=== PATIENT | male | born 1965 | race American Indian/Alaskan Native ===

== ENCOUNTER → 2018-03-22 09:23 | Outpatient (CLI) | payer MEDICARE, MEDICAID, SELFPAY ==
[2018-03-22 10:39] LABS: ALT 32 U/L (12-78); AST 13 U/L (15-37); Alkaline Phosphatase 134 U/L (46-116); Anion Gap 9.3 mmol/L (3-11); BUN 24 mg/dL (7-18); Bilirubin, Total 0.5 mg/dL (0.2-1.0); CO2 25.7 mmol/L (21.0-32.0); CREATININE 1.15 mg/dL (0.70-1.30); Calcium 8.9 mg/dL (8.5-10.1); Chloride 103 mmol/L (98-107); Glucose 130 mg/dL (70-100); Potassium 4.4 mmol/L (3.5-5.1); Sodium 138 mmol/L (136-145); Total Protein 7.4 g/dL (6.4-8.2)
[2018-03-23 14:20] LABS: HIV-1 RNA Quantification <20 copies/mL (UNDECT)
== END ==
PROVIDERS: PCP Specialist/Technologist Athletic Trainer; Visit Provider Nurse Practitioner Family
DX: B20 Human immunodeficiency virus [HIV] disease (principal); Z79.899 Other long term (current) drug therapy
CPT/HCPCS: 36415; 80053; 87536

== ENCOUNTER → 2018-04-03 09:00 | Outpatient (CLI) | payer MEDICARE, MEDICAID, SELFPAY ==
--- NOTE | 2018-05-01 09:00 | W.CCNOTE ---
Date of service: 05/01/18 Time of Service: 09:00 Comprehensive Care Clinic Note Note: [facility] [id number] [place] [address] [facility] Follow Up Visit Name: Bill Solorzano Date of : 1965 Date of Service: 05/01/2018 SUBJECTIVE: ?The medication gives me gas but otherwise I feel good? Switched HAART to Biktarvy after last seen by Dr. Rodarte in January and has not missed any doses. He is taking the other medications as prescribed and not having any ASEs. He saw Dr. Chris last week for routine F/U of the laryngeal dysplasia and all looks stable. 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 This survey showed no evidence of change with no Leukoplakia or lesions. He had blood work done fasting in March as it had been 6 weeks since the switch to the Biktarvy. No blood work was due for today?s visit. 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 This summer has been very busy with 15 festivals on the [facility]. 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 ROS: Denies unusual fatigue, thinks he has gained a little weight, Sleep is fine, No headaches with the medications that Neuro RXs. Denies chest pain, unusual cough or dyspnea. No GERD and bowels are fine just C/O daily flatulence not dependent on food choices. Denies, urinary symptoms. Has ongoing shoulder pain and limited ROM of the left shoulder. Is seeing ortho, Dr. Almeida, in a few weeks and is sure he will need surgery ? ?what one will need to be done first is to be determined.? Has arthritis and rotator cuff issues in both. Denies swelling. His blood sygars are 110 ? 120 in the AM fasting. His last Hgb A1C was 6.2 in January. His Lipids were high then w a LDL of 147 and it is hoped that with the switch to Bictarvy this will come down. He will be due for repeat Lipids about 6 month from the start of the new Antiretroviral RX. Past Medical History: HIV+ since early . Chronic Active HBV with control on new formula Tenofovir Alefenomide (TAF). DM x 2 yrs w good diet control. Glaucoma, HLP, Laryngeal dysplasia. Social History: Very active with [employer] activities. Lives alone and has one dog; will be getting a puppy today. Feels he cannot count on family to help him after shoulder surgery. Health Insurance: Medicare and Medicaid. Other Psychosocial Considerations: None at this time. Bill Jeanine, 1965 page. 2. Family History: early onset cardiovascular disease in Father and Brother. His mOther dies of COPD. Allergies: Sulfa and Seafood causes anaphylaxis, Amoxicillin and Azithromycin causes rash. Medications: Biktarvy (biktegravir/emtricitabine/tenofovir alafenamide) 1 a day, Omeprazole 20 mg a day, Gabapentin 300mg q HS, venlafaxine XR 150mg a day, Xalatan 0.0005% ophthalmic solution 1 drop each eye daily. Immunization History: UTD with Pneumovax, prevnar, HAV, - will need Flu vaccine and Menactra and Shingrix. He remains a x smoker and no ETOH or drugs. OBJECTIVE Temp: 98.2 Pulse: 72 Resp: 14 BP: 104/68. General: AAOx4, AINAD Skin: W/D coolr color and no lesions/rash Eyes: non icteric Oral: NE ? (just saw ENT) Cardiac: RRR, No MCRG Chest/Lungs: Full, equal expansion, BS clear in all lobes Abdomen: Obese, NABS, ND, NT, No OGM Extremities: No edema Musculoskeletal: Left shoulder with limited ROM to 45 degrees. Tender in the anterior rotator cuff. Had FROM of the left with clicking and tender throughout. No other muscle or joint tenderness. Neuro: Gait strong and steady, moves in and out of the chair w ease. No tremor. Psych: speech clear, coherent, eye contact excellent, mood and affect normal, memory and judgment intact. Thought content normal. ASSESSMENT/PLAN: Stable HIV w easy transition to new Antiretroviral RX with the TAF also controlling the viral load of the chronic active HBV infection. Other chronic conditions seem to be stable and there seems to be no interaction with his other medications. He is to continue the Biktarvy as he is taking it and have blood work repeated fasting in about 3 months with Lipids. MD visit scheduled: Jul or Aug. Lab Work: In mid Jul Provider of Care: Rupinder Bell NP
--- NOTE | 2018-05-15 09:07 | W.CCNOTE ---
Date of service: 05/01/18 Time of Service: 09:00 [facility] Note Note: [facility] [address] [place] [address] Follow Up Visit Name: Bill Solorzano Date of : 1965 Date of Service: 05/01/2018 SUBJECTIVE: ?The medication gives me gas but otherwise I feel good? Switched HAART to Biktarvy after last seen by Dr. Rodarte in January and has not missed any doses. He is taking the other medications as prescribed and not having any ASEs. He saw Dr. Chris last week for routine F/U of the laryngeal dysplasia and all looks stable. 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 This survey showed no evidence of change with no Leukoplakia or lesions. He had blood work done fasting in March as it had been 6 weeks since the switch to the Biktarvy. No blood work was due for today?s visit. 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 This summer has been very busy with 15 festivals on the [facility]. 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 ROS: Denies unusual fatigue, thinks he has gained a little weight, Sleep is fine, No headaches with the medications that Neuro RXs. Denies chest pain, unusual cough or dyspnea. No GERD and bowels are fine just C/O daily flatulence not dependent on food choices. Denies, urinary symptoms. Has ongoing shoulder pain and limited ROM of the left shoulder. Is seeing ortho, Dr. Almeida, in a few weeks and is sure he will need surgery ? ?what one will need to be done first is to be determined.? Has arthritis and rotator cuff issues in both. Denies swelling. His blood sygars are 110 ? 120 in the AM fasting. His last Hgb A1C was 6.2 in January. His Lipids were high then w a LDL of 147 and it is hoped that with the switch to Bictarvy this will come down. He will be due for repeat Lipids about 6 month from the start of the new Antiretroviral RX. Past Medical History: HIV+ since early . Chronic Active HBV with control on new formula Tenofovir Alefenomide (TAF). DM x 2 yrs w good diet control. Glaucoma, HLP, Laryngeal dysplasia. Social History: Very active with is [employer] activities. Lives alone and has one dog; will be getting a puppy today. Feels he cannot count on family to help him after shoulder surgery. Health Insurance: Medicare and Medicaid. Other Psychosocial Considerations: None at this time. Bill Brandtiliana, 1965 page. 2. Family History: early onset cardiovascular disease in Father and Brother. His mOther dies of COPD. Allergies: Sulfa and Seafood causes anaphylaxis, Amoxicillin and Azithromycin causes rash. Medications: Biktarvy (biktegravir/emtricitabine/tenofovir alafenamide) 1 a day, Omeprazole 20 mg a day, Gabapentin 300mg q HS, venlafaxine XR 150mg a day, Xalatan 0.0005% ophthalmic solution 1 drop each eye daily. Immunization History: UTD with Pneumovax, Prevnar, HAV, - will need Flu vaccine and Menactra and Shingrix. He remains a x smoker and no ETOH or drugs. OBJECTIVE Temp: 98.2 Pulse: 72 Resp: 14 BP: 104/68. General: AAOx4, AINAD Skin: W/D coolr color and no lesions/rash Eyes: non icteric Oral: NE ? (just saw ENT) Cardiac: RRR, No MCRG Chest/Lungs: Full, equal expansion, BS clear in all lobes Abdomen: Obese, NABS, ND, NT, No OGM Extremities: No edema Musculoskeletal: Left shoulder with limited ROM to 45 degrees. Tender in the anterior rotator cuff. Had FROM of the left with clicking and tender throughout. No other muscle or joint tenderness. Neuro: Gait strong and steady, moves in and out of the chair w ease. No tremor. Psych: speech clear, coherent, eye contact excellent, mood and affect normal, memory and judgment intact. Thought content normal. ASSESSMENT/PLAN: Stable HIV w easy transition to new Antiretroviral RX with the TAF also controlling the viral load of the chronic active HBV infection. Other chronic conditions seem to be stable and there seems to be no interaction with his other medications. He is to continue the Biktarvy as he is taking it and have blood work repeated fasting in about 3 months with Lipids. MD visit scheduled: Jul or Aug. Lab Work: In mid Jul Provider of Care: Rupinder Bell NP Signature: Date: [facility] [address] [place] [address] [facility] Follow Up Visit Name: Bill Solorzano Date of : 1965 Date of Service: 05/01/2018 SUBJECTIVE: ?The medication gives me gas but otherwise I feel good? Switched HAART to Biktarvy after last seen by Dr. Rodarte in January and has not missed any doses. He is taking the other medications as prescribed and not having any ASEs. He saw Dr. Chris last week for routine F/U of the laryngeal dysplasia and all looks stable. 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 This survey showed no evidence of change with no Leukoplakia or lesions. He had blood work done fasting in March as it had been 6 weeks since the switch to the Biktarvy. No blood work was due for today?s visit. 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 This summer has been very busy with 15 festivals on the [facility]. 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 ROS: Denies unusual fatigue, thinks he has gained a little weight, Sleep is fine, No headaches with the medications that Neuro RXs. Denies chest pain, unusual cough or dyspnea. No GERD and bowels are fine just C/O daily flatulence not dependent on food choices. Denies, urinary symptoms. Has ongoing shoulder pain and limited ROM of the left shoulder. Is seeing ortho, Dr. Almeida, in a few weeks and is sure he will need surgery ? ?what one will need to be done first is to be determined.? Has arthritis and rotator cuff issues in both. Denies swelling. His blood sygars are 110 ? 120 in the AM fasting. His last Hgb A1C was 6.2 in January. His Lipids were high then w a LDL of 147 and it is hoped that with the switch to Bictarvy this will come down. He will be due for repeat Lipids about 6 month from the start of the new Antiretroviral RX. Past Medical History: HIV+ since early . Chronic Active HBV with control on new formula Tenofovir Alefenomide (TAF). DM x 2 yrs w good diet control. Glaucoma, HLP, Laryngeal dysplasia. Social History: Very active with [employer] activities. Lives alone and has one dog; will be getting a puppy today. Feels he cannot count on family to help him after shoulder surgery. Health Insurance: Medicare and Medicaid. Other Psychosocial Considerations: None at this time. Bill Solorzano, 1965 page. 2. Family History: early onset cardiovascular disease in Father and Brother. His mOther dies of COPD. Allergies: Sulfa and Seafood causes anaphylaxis, Amoxicillin and Azithromycin causes rash. Medications: Biktarvy (biktegravir/emtricitabine/tenofovir alafenamide) 1 a day, Omeprazole 20 mg a day, Gabapentin 300mg q HS, venlafaxine XR 150mg a day, Xalatan 0.0005% ophthalmic solution 1 drop each eye daily. Immunization History: UTD with Pneumovax, prevnar, HAV, - will need Flu vaccine and Menactra and Shingrix. He remains a x smoker and no ETOH or drugs. OBJECTIVE Temp: 98.2 Pulse: 72 Resp: 14 BP: 104/68. General: AAOx4, AINAD Skin: W/D coolr color and no lesions/rash Eyes: non icteric Oral: NE ? (just saw ENT) Cardiac: RRR, No MCRG Chest/Lungs: Full, equal expansion, BS clear in all lobes Abdomen: Obese, NABS, ND, NT, No OGM Extremities: No edema Musculoskeletal: Left shoulder with limited ROM to 45 degrees. Tender in the anterior rotator cuff. Had FROM of the left with clicking and tender throughout. No other muscle or joint tenderness. Neuro: Gait strong and steady, moves in and out of the chair w ease. No tremor. Psych: speech clear, coherent, eye contact excellent, mood and affect normal, memory and judgment intact. Thought content normal. ASSESSMENT/PLAN: Stable HIV w easy transition to new Antiretroviral RX with the TAF also controlling the viral load of the chronic active HBV infection. Other chronic conditions seem to be stable and there seems to be no interaction with his other medications. He is to continue the Biktarvy as he is taking it and have blood work repeated fasting in about 3 months with Lipids. MD visit scheduled: Jul or Aug. Lab Work: In mid Jul Provider of Care: Rupinder Bell NP Signature: Date: [facility] [address] [facility] [place] [id number] [facility] Follow Up Visit Name: Bill Solorzano Date of : 1965 Date of Service: 05/01/2018 SUBJECTIVE: ?The medication gives me gas but otherwise I feel good? Switched HAART to Biktarvy after last seen by Dr. Rodarte in January and has not missed any doses. He is taking the other medications as prescribed and not having any ASEs. He saw Dr. Chris last week for routine F/U of the laryngeal dysplasia and all looks stable. 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 This survey showed no evidence of change with no Leukoplakia or lesions. He had blood work done fasting in March as it had been 6 weeks since the switch to the Biktarvy. No blood work was due for today?s visit. 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 This summer has been very busy [place] [address] [place] [facility]. 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 ROS: Denies unusual fatigue, thinks he has gained a little weight, Sleep is fine, No headaches with the medications that Neuro RXs. Denies chest pain, unusual cough or dyspnea. No GERD and bowels are fine just C/O daily flatulence not dependent on food choices. Denies, urinary symptoms. Has ongoing shoulder pain and limited ROM of the left shoulder. Is seeing ortho, Dr. Almeida, in a few weeks and is sure he will need surgery ? ?what one will need to be done first is to be determined.? Has arthritis and rotator cuff issues in both. Denies swelling. His blood sygars are 110 ? 120 in the AM fasting. His last Hgb A1C was 6.2 in January. His Lipids were high then w a LDL of 147 and it is hoped that with the switch to Bictarvy this will come down. He will be due for repeat Lipids about 6 month from the start of the new Antiretroviral RX. Past Medical History: HIV+ since early . Chronic Active HBV with control on new formula Tenofovir Alefenomide (TAF). DM x 2 yrs w good diet control. Glaucoma, HLP, Laryngeal dysplasia. Social History: Very active with [employer] activities. Lives alone and has one dog; will be getting a puppy today. Feels he cannot count on family to help him after shoulder surgery. Health Insurance: Medicare and Medicaid. Other Psychosocial Considerations: None at this time. Bill Solorzano, 1965 page. 2. Family History: early onset cardiovascular disease in Father and Brother. His mOther dies of COPD. Allergies: Sulfa and Seafood causes anaphylaxis, Amoxicillin and Azithromycin causes rash. Medications: Biktarvy (biktegravir/emtricitabine/tenofovir alafenamide) 1 a day, Omeprazole 20 mg a day, Gabapentin 300mg q HS, venlafaxine XR 150mg a day, Xalatan 0.0005% ophthalmic solution 1 drop each eye daily. Immunization History: UTD with Pneumovax, prevnar, HAV, - will need Flu vaccine and Menactra and Shingrix. He remains a x smoker and no ETOH or drugs. OBJECTIVE Temp: 98.2 Pulse: 72 Resp: 14 BP: 104/68. General: AAOx4, AINAD Skin: W/D coolr color and no lesions/rash Eyes: non icteric Oral: NE ? (just saw ENT) Cardiac: RRR, No MCRG Chest/Lungs: Full, equal expansion, BS clear in all lobes Abdomen: Obese, NABS, ND, NT, No OGM Extremities: No edema Musculoskeletal: Left shoulder with limited ROM to 45 degrees. Tender in the anterior rotator cuff. Had FROM of the left with clicking and tender throughout. No other muscle or joint tenderness. Neuro: Gait strong and steady, moves in and out of the chair w ease. No tremor. Psych: speech clear, coherent, eye contact excellent, mood and affect normal, memory and judgment intact. Thought content normal. ASSESSMENT/PLAN: Stable HIV w easy transition to new Antiretroviral RX with the TAF also controlling the viral load of the chronic active HBV infection. Other chronic conditions seem to be stable and there seems to be no interaction with his other medications. He is to continue the Biktarvy as he is taking it and have blood work repeated fasting in about 3 months with Lipids. MD visit scheduled: Jul or Aug. Lab Work: In mid Jul Provider of Care: Rupinder Bell NP Signature: Date: [facility] [address] [place] [address] [facility] Follow Up Visit Name: Bill Solorzano Date of : 1965 Date of Service: 05/01/2018 SUBJECTIVE: ?The medication gives me gas but otherwise I feel good? Switched HAART to Biktarvy after last seen by Dr. Rodarte in January and has not missed any doses. He is taking the other medications as prescribed and not having any ASEs. He saw Dr. Chris last week for routine F/U of the laryngeal dysplasia and all looks stable. 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 This survey showed no evidence of change with no Leukoplakia or lesions. He had blood work done fasting in March as it had been 6 weeks since the switch to the Biktarvy. No blood work was due for today?s visit. 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 ROS: Denies unusual fatigue, thinks he has gained a little weight, Sleep is fine, No headaches with the medications that Neuro RXs. Denies chest pain, unusual cough or dyspnea. No GERD and bowels are fine just C/O daily flatulence not dependent on food choices. Denies, urinary symptoms. Has ongoing shoulder pain and limited ROM of the left shoulder. Is seeing ortho, Dr. Almeida, in a few weeks and is sure he will need surgery ? ?what one will need to be done first is to be determined.? Has arthritis and rotator cuff issues in both. Denies swelling. His blood sygars are 110 ? 120 in the AM fasting. His last Hgb A1C was 6.2 in January. His Lipids were high then w a LDL of 147 and it is hoped that with the switch to Bictarvy this will come down. He will be due for repeat Lipids about 6 month from the start of the new Antiretroviral RX. Past Medical History: HIV+ since early . Chronic Active HBV with control on new formula Tenofovir Alefenomide (TAF). DM x 2 yrs w good diet control. Glaucoma, HLP, Laryngeal dysplasia. Social History: Very active with [employer]. Lives alone and has one dog; will be getting a puppy today. Feels he cannot count on family to help him after shoulder surgery. Health Insurance: Medicare and Medicaid. Other Psychosocial Considerations: None at this time. Bill Solorzano, 1965 page. 2. Family History: early onset cardiovascular disease in Father and Brother. His mOther dies of COPD. Allergies: Sulfa and Seafood causes anaphylaxis, Amoxicillin and Azithromycin causes rash. Medications: Biktarvy (biktegravir/emtricitabine/tenofovir alafenamide) 1 a day, Omeprazole 20 mg a day, Gabapentin 300mg q HS, venlafaxine XR 150mg a day, Xalatan 0.0005% ophthalmic solution 1 drop each eye daily. Immunization History: UTD with Pneumovax, prevnar, HAV, - will need Flu vaccine and Menactra and Shingrix. He remains a x smoker and no ETOH or drugs. OBJECTIVE Temp: 98.2 Pulse: 72 Resp: 14 BP: 104/68. General: AAOx4, AINAD Skin: W/D coolr color and no lesions/rash Eyes: non icteric Oral: NE ? (just saw ENT) Cardiac: RRR, No MCRG Chest/Lungs: Full, equal expansion, BS clear in all lobes Abdomen: Obese, NABS, ND, NT, No OGM Extremities: No edema Musculoskeletal: Left shoulder with limited ROM to 45 degrees. Tender in the anterior rotator cuff. Had FROM of the left with clicking and tender throughout. No other muscle or joint tenderness. Neuro: Gait strong and steady, moves in and out of the chair w ease. No tremor. Psych: speech clear, coherent, eye contact excellent, mood and affect normal, memory and judgment intact. Thought content normal. ASSESSMENT/PLAN: Stable HIV w easy transition to new Antiretroviral RX with the TAF also controlling the viral load of the chronic active HBV infection. Other chronic conditions seem to be stable and there seems to be no interaction with his other medications. He is to continue the Biktarvy as he is taking it and have blood work repeated fasting in about 3 months with Lipids. MD visit scheduled: Jul or Aug. Lab Work: In mid Jul Provider of Care: Rupinder Bell NP Signature: Date: [facility] [address] [place] [address] [facility] Follow Up Visit Name: Bill Solorzano Date of : 1965 Date of Service: 05/01/2018 SUBJECTIVE: ?The medication gives me gas but otherwise I feel good? Switched HAART to Biktarvy after last seen by Dr. Rodarte in January and has not missed any doses. He is taking the other medications as prescribed and not having any ASEs. He saw Dr. Chris last week for routine F/U of the laryngeal dysplasia and all looks stable. 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 This survey showed no evidence of change with no Leukoplakia or lesions. He had blood work done fasting in March as it had been 6 weeks since the switch to the Biktarvy. No blood work was due for today?s visit. 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 This summer has been very busy [place] [address] [place] [facility]. 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 ROS: Denies unusual fatigue, thinks he has gained a little weight, Sleep is fine, No headaches with the medications that Neuro RXs. Denies chest pain, unusual cough or dyspnea. No GERD and bowels are fine just C/O daily flatulence not dependent on food choices. Denies, urinary symptoms. Has ongoing shoulder pain and limited ROM of the left shoulder. Is seeing ortho, Dr. Almeida, in a few weeks and is sure he will need surgery ? ?what one will need to be done first is to be determined.? Has arthritis and rotator cuff issues in both. Denies swelling. His blood sygars are 110 ? 120 in the AM fasting. His last Hgb A1C was 6.2 in January. His Lipids were high then w a LDL of 147 and it is hoped that with the switch to Bictarvy this will come down. He will be due for repeat Lipids about 6 month from the start of the new Antiretroviral RX. Past Medical History: HIV+ since early . Chronic Active HBV with control on new formula Tenofovir Alefenomide (TAF). DM x 2 yrs w good diet control. Glaucoma, HLP, Laryngeal dysplasia. Social History: Very active with [employer] activities. Lives alone and has one dog; will be getting a puppy today. Feels he cannot count on family to help him after shoulder surgery. Health Insurance: Medicare and Medicaid. Other Psychosocial Considerations: None at this time. Bill Solorzano, 1965 page. 2. Family History: early onset cardiovascular disease in Father and Brother. His mOther dies of COPD. Allergies: Sulfa and Seafood causes anaphylaxis, Amoxicillin and Azithromycin causes rash. Medications: Biktarvy (biktegravir/emtricitabine/tenofovir alafenamide) 1 a day, Omeprazole 20 mg a day, Gabapentin 300mg q HS, venlafaxine XR 150mg a day, Xalatan 0.0005% ophthalmic solution 1 drop each eye daily. Immunization History: UTD with Pneumovax, prevnar, HAV, - will need Flu vaccine and Menactra and Shingrix. He remains a x smoker and no ETOH or drugs. OBJECTIVE Temp: 98.2 Pulse: 72 Resp: 14 BP: 104/68. General: AAOx4, AINAD Skin: W/D coolr color and no lesions/rash Eyes: non icteric Oral: NE ? (just saw ENT) Cardiac: RRR, No MCRG Chest/Lungs: Full, equal expansion, BS clear in all lobes Abdomen: Obese, NABS, ND, NT, No OGM Extremities: No edema Musculoskeletal: Left shoulder with limited ROM to 45 degrees. Tender in the anterior rotator cuff. Had FROM of the left with clicking and tender throughout. No other muscle or joint tenderness. Neuro: Gait strong and steady, moves in and out of the chair w ease. No tremor. Psych: speech clear, coherent, eye contact excellent, mood and affect normal, memory and judgment intact. Thought content normal. ASSESSMENT/PLAN: Stable HIV w easy transition to new Antiretroviral RX with the TAF also controlling the viral load of the chronic active HBV infection. Other chronic conditions seem to be stable and there seems to be no interaction with his other medications. He is to continue the Biktarvy as he is taking it and have blood work repeated fasting in about 3 months with Lipids. MD visit scheduled: Jul or Aug. Lab Work: In mid Jul Provider of Care: Rupinder Bell NP Signature: Date: [facility] [address] [place] [address] [facility] Follow Up Visit Name: Bill Solorzano Date of : 1965 Date of Service: 05/01/2018 SUBJECTIVE: ?The medication gives me gas but otherwise I feel good? Switched HAART to Biktarvy after last seen by Dr. Rodarte in January and has not missed any doses. He is taking the other medications as prescribed and not having any ASEs. He saw Dr. Chris last week for routine F/U of the laryngeal dysplasia and all looks stable. 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 This survey showed no evidence of change with no Leukoplakia or lesions. He had blood work done fasting in March as it had been 6 weeks since the switch to the Biktarvy. No blood work was due for today?s visit. 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 This summer has been very busy with 15 festivals on the [facility]. 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 ROS: Denies unusual fatigue, thinks he has gained a little weight, Sleep is fine, No headaches with the medications that Neuro RXs. Denies chest pain, unusual cough or dyspnea. No GERD and bowels are fine just C/O daily flatulence not dependent on food choices. Denies, urinary symptoms. Has ongoing shoulder pain and limited ROM of the left shoulder. Is seeing ortho, Dr. Almeida, in a few weeks and is sure he will need surgery ? ?what one will need to be done first is to be determined.? Has arthritis and rotator cuff issues in both. Denies swelling. His blood sygars are 110 ? 120 in the AM fasting. His last Hgb A1C was 6.2 in January. His Lipids were high then w a LDL of 147 and it is hoped that with the switch to Bictarvy this will come down. He will be due for repeat Lipids about 6 month from the start of the new Antiretroviral RX. Past Medical History: HIV+ since early . Chronic Active HBV with control on new formula Tenofovir Alefenomide (TAF). DM x 2 yrs w good diet control. Glaucoma, HLP, Laryngeal dysplasia. Social History: Very active with [employer] activities. Lives alone and has one dog; will be getting a puppy today. Feels he cannot count on family to help him after shoulder surgery. Health Insurance: Medicare and Medicaid. Other Psychosocial Considerations: None at this time. Bill Solorzano, 1965 page. 2. Family History: early onset cardiovascular disease in Father and Brother. His mOther dies of COPD. Allergies: Sulfa and Seafood causes anaphylaxis, Amoxicillin and Azithromycin causes rash. Medications: Biktarvy (biktegravir/emtricitabine/tenofovir alafenamide) 1 a day, Omeprazole 20 mg a day, Gabapentin 300mg q HS, venlafaxine XR 150mg a day, Xalatan 0.0005% ophthalmic solution 1 drop each eye daily. Immunization History: UTD with Pneumovax, prevnar, HAV, - will need Flu vaccine and Menactra and Shingrix. He remains a x smoker and no ETOH or drugs. OBJECTIVE Temp: 98.2 Pulse: 72 Resp: 14 BP: 104/68. General: AAOx4, AINAD Skin: W/D coolr color and no lesions/rash Eyes: non icteric Oral: NE ? (just saw ENT) Cardiac: RRR, No MCRG Chest/Lungs: Full, equal expansion, BS clear in all lobes Abdomen: Obese, NABS, ND, NT, No OGM Extremities: No edema Musculoskeletal: Left shoulder with limited ROM to 45 degrees. Tender in the anterior rotator cuff. Had FROM of the left with clicking and tender throughout. No other muscle or joint tenderness. Neuro: Gait strong and steady, moves in and out of the chair w ease. No tremor. Psych: speech clear, coherent, eye contact excellent, mood and affect normal, memory and judgment intact. Thought content normal. ASSESSMENT/PLAN: Stable HIV w easy transition to new Antiretroviral RX with the TAF also controlling the viral load of the chronic active HBV infection. Other chronic conditions seem to be stable and there seems to be no interaction with his other medications. He is to continue the Biktarvy as he is taking it and have blood work repeated fasting in about 3 months with Lipids. MD visit scheduled: Jul or Aug. Lab Work: In mid Jul Provider of Care: Rupinder Bell NP Signature: Date: [facility] [address] [place] [address] [facility] Follow Up Visit Name: Bill Solorzano Date of : 1965 Date of Service: 05/01/2018 SUBJECTIVE: ?The medication gives me gas but otherwise I feel good? Switched HAART to Biktarvy after last seen by Dr. Rodarte in January and has not missed any doses. He is taking the other medications as prescribed and not having any ASEs. He saw Dr. Chris last week for routine F/U of the laryngeal dysplasia and all looks stable. 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 This survey showed no evidence of change with no Leukoplakia or lesions. He had blood work done fasting in March as it had been 6 weeks since the switch to the Biktarvy. No blood work was due for today?s visit. 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 This summer has been very busy with 15 festivals on the [place] [facility]. 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 ROS: Denies unusual fatigue, thinks he has gained a little weight, Sleep is fine, No headaches with the medications that Neuro RXs. Denies chest pain, unusual cough or dyspnea. No GERD and bowels are fine just C/O daily flatulence not dependent on food choices. Denies, urinary symptoms. Has ongoing shoulder pain and limited ROM of the left shoulder. Is seeing ortho, Dr. Almeida, in a few weeks and is sure he will need surgery ? ?what one will need to be done first is to be determined.? Has arthritis and rotator cuff issues in both. Denies swelling. His blood sygars are 110 ? 120 in the AM fasting. His last Hgb A1C was 6.2 in January. His Lipids were high then w a LDL of 147 and it is hoped that with the switch to Bictarvy this will come down. He will be due for repeat Lipids about 6 month from the start of the new Antiretroviral RX. Past Medical History: HIV+ since early . Chronic Active HBV with control on new formula Tenofovir Alefenomide (TAF). DM x 2 yrs w good diet control. Glaucoma, HLP, Laryngeal dysplasia. Social History: Very active with [employer] activities. Lives alone and has one dog; will be getting a puppy today. Feels he cannot count on family to help him after shoulder surgery. Health Insurance: Medicare and Medicaid. Other Psychosocial Considerations: None at this time. Bill Solorzano, 1965 page. 2. Family History: early onset cardiovascular disease in Father and Brother. His mOther dies of COPD. Allergies: Sulfa and Seafood causes anaphylaxis, Amoxicillin and Azithromycin causes rash. Medications: Biktarvy (biktegravir/emtricitabine/tenofovir alafenamide) 1 a day, Omeprazole 20 mg a day, Gabapentin 300mg q HS, venlafaxine XR 150mg a day, Xalatan 0.0005% ophthalmic solution 1 drop each eye daily. Immunization History: UTD with Pneumovax, prevnar, HAV, - will need Flu vaccine and Menactra and Shingrix. He remains a x smoker and no ETOH or drugs. OBJECTIVE Temp: 98.2 Pulse: 72 Resp: 14 BP: 104/68. General: AAOx4, AINAD Skin: W/D coolr color and no lesions/rash Eyes: non icteric Oral: NE ? (just saw ENT) Cardiac: RRR, No MCRG Chest/Lungs: Full, equal expansion, BS clear in all lobes Abdomen: Obese, NABS, ND, NT, No OGM Extremities: No edema Musculoskeletal: Left shoulder with limited ROM to 45 degrees. Tender in the anterior rotator cuff. Had FROM of the left with clicking and tender throughout. No other muscle or joint tenderness. Neuro: Gait strong and steady, moves in and out of the chair w ease. No tremor. Psych: speech clear, coherent, eye contact excellent, mood and affect normal, memory and judgment intact. Thought content normal. ASSESSMENT/PLAN: Stable HIV w easy transition to new Antiretroviral RX with the TAF also controlling the viral load of the chronic active HBV infection. Other chronic conditions seem to be stable and there seems to be no interaction with his other medications. He is to continue the Biktarvy as he is taking it and have blood work repeated fasting in about 3 months with Lipids. MD visit scheduled: Jul or Aug. Lab Work: In mid Jul Provider of Care: Rupinder Bell NP Signature: Date: [facility] [address] [place] [address] [facility] Follow Up Visit Name: Bill Solorzano Date of : 1965 Date of Service: 05/01/2018 SUBJECTIVE: ?The medication gives me gas but otherwise I feel good? Switched HAART to Biktarvy after last seen by Dr. Rodarte in January and has not missed any doses. He is taking the other medications as prescribed and not having any ASEs. He saw Dr. Chris last week for routine F/U of the laryngeal dysplasia and all looks stable. 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 This survey showed no evidence of change with no Leukoplakia or lesions. He had blood work done fasting in March as it had been 6 weeks since the switch to the Biktarvy. No blood work was due for today?s visit. 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 This summer has been very busy with 15 festivals on the [facility]. 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 ROS: Denies unusual fatigue, thinks he has gained a little weight, Sleep is fine, No headaches with the medications that Neuro RXs. Denies chest pain, unusual cough or dyspnea. No GERD and bowels are fine just C/O daily flatulence not dependent on food choices. Denies, urinary symptoms. Has ongoing shoulder pain and limited ROM of the left shoulder. Is seeing ortho, Dr. Almeida, in a few weeks and is sure he will need surgery ? ?what one will need to be done first is to be determined.? Has arthritis and rotator cuff issues in both. Denies swelling. His blood sygars are 110 ? 120 in the AM fasting. His last Hgb A1C was 6.2 in January. His Lipids were high then w a LDL of 147 and it is hoped that with the switch to Bictarvy this will come down. He will be due for repeat Lipids about 6 month from the start of the new Antiretroviral RX. Past Medical History: HIV+ since early . Chronic Active HBV with control on new formula Tenofovir Alefenomide (TAF). DM x 2 yrs w good diet control. Glaucoma, HLP, Laryngeal dysplasia. Social History: Very active with [employer] activities. Lives alone and has one dog; will be getting a puppy today. Feels he cannot count on family to help him after shoulder surgery. Health Insurance: Medicare and Medicaid. Other Psychosocial Considerations: None at this time. Bill Brandtiliana, 1965 page. 2. Family History: early onset cardiovascular disease in Father and Brother. His mOther dies of COPD. Allergies: Sulfa and Seafood causes anaphylaxis, Amoxicillin and Azithromycin causes rash. Medications: Biktarvy (biktegravir/emtricitabine/tenofovir alafenamide) 1 a day, Omeprazole 20 mg a day, Gabapentin 300mg q HS, venlafaxine XR 150mg a day, Xalatan 0.0005% ophthalmic solution 1 drop each eye daily. Immunization History: UTD with Pneumovax, prevnar, HAV, - will need Flu vaccine and Menactra and Shingrix. He remains a x smoker and no ETOH or drugs. OBJECTIVE Temp: 98.2 Pulse: 72 Resp: 14 BP: 104/68. General: AAOx4, AINAD Skin: W/D coolr color and no lesions/rash Eyes: non icteric Oral: NE ? (just saw ENT) Cardiac: RRR, No MCRG Chest/Lungs: Full, equal expansion, BS clear in all lobes Abdomen: Obese, NABS, ND, NT, No OGM Extremities: No edema Musculoskeletal: Left shoulder with limited ROM to 45 degrees. Tender in the anterior rotator cuff. Had FROM of the left with clicking and tender throughout. No other muscle or joint tenderness. Neuro: Gait strong and steady, moves in and out of the chair w ease. No tremor. Psych: speech clear, coherent, eye contact excellent, mood and affect normal, memory and judgment intact. Thought content normal. ASSESSMENT/PLAN: Stable HIV w easy transition to new Antiretroviral RX with the TAF also controlling the viral load of the chronic active HBV infection. Other chronic conditions seem to be stable and there seems to be no interaction with his other medications. He is to continue the Biktarvy as he is taking it and have blood work repeated fasting in about 3 months with Lipids. MD visit scheduled: Jul or Aug. Lab Work: In mid Jul Provider of Care: Rupinder Bell NP Signature: Date: [facility] [address] [place] [address] [facility] Follow Up Visit Name: Bill Solorzano Date of : 1965 Date of Service: 05/01/2018 SUBJECTIVE: ?The medication gives me gas but otherwise I feel good? Switched HAART to Biktarvy after last seen by Dr. Rodarte in January and has not missed any doses. He is taking the other medications as prescribed and not having any ASEs. He saw Dr. Chris last week for routine F/U of the laryngeal dysplasia and all looks stable. 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 This survey showed no evidence of change with no Leukoplakia or lesions. He had blood work done fasting in March as it had been 6 weeks since the switch to the Biktarvy. No blood work was due for today?s visit. 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 This summer has been very busy with 15 festivals on the [facility]. 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 ROS: Denies unusual fatigue, thinks he has gained a little weight, Sleep is fine, No headaches with the medications that Neuro RXs. Denies chest pain, unusual cough or dyspnea. No GERD and bowels are fine just C/O daily flatulence not dependent on food choices. Denies, urinary symptoms. Has ongoing shoulder pain and limited ROM of the left shoulder. Is seeing ortho, Dr. Almeida, in a few weeks and is sure he will need surgery ? ?what one will need to be done first is to be determined.? Has arthritis and rotator cuff issues in both. Denies swelling. His blood sygars are 110 ? 120 in the AM fasting. His last Hgb A1C was 6.2 in January. His Lipids were high then w a LDL of 147 and it is hoped that with the switch to Bictarvy this will come down. He will be due for repeat Lipids about 6 month from the start of the new Antiretroviral RX. Past Medical History: HIV+ since early . Chronic Active HBV with control on new formula Tenofovir Alefenomide (TAF). DM x 2 yrs w good diet control. Glaucoma, HLP, Laryngeal dysplasia. Social History: Very active with [employer] activities. Lives alone and has one dog; will be getting a puppy today. Feels he cannot count on family to help him after shoulder surgery. Health Insurance: Medicare and Medicaid. Other Psychosocial Considerations: None at this time. Bill Jeanine, 1965 page. 2. Family History: early onset cardiovascular disease in Father and Brother. His mOther dies of COPD. Allergies: Sulfa and Seafood causes anaphylaxis, Amoxicillin and Azithromycin causes rash. Medications: Biktarvy (biktegravir/emtricitabine/tenofovir alafenamide) 1 a day, Omeprazole 20 mg a day, Gabapentin 300mg q HS, venlafaxine XR 150mg a day, Xalatan 0.0005% ophthalmic solution 1 drop each eye daily. Immunization History: UTD with Pneumovax, prevnar, HAV, - will need Flu vaccine and Menactra and Shingrix. He remains a x smoker and no ETOH or drugs. OBJECTIVE Temp: 98.2 Pulse: 72 Resp: 14 BP: 104/68. General: AAOx4, AINAD Skin: W/D coolr color and no lesions/rash Eyes: non icteric Oral: NE ? (just saw ENT) Cardiac: RRR, No MCRG Chest/Lungs: Full, equal expansion, BS clear in all lobes Abdomen: Obese, NABS, ND, NT, No OGM Extremities: No edema Musculoskeletal: Left shoulder with limited ROM to 45 degrees. Tender in the anterior rotator cuff. Had FROM of the left with clicking and tender throughout. No other muscle or joint tenderness. Neuro: Gait strong and steady, moves in and out of the chair w ease. No tremor. Psych: speech clear, coherent, eye contact excellent, mood and affect normal, memory and judgment intact. Thought content normal. ASSESSMENT/PLAN: Stable HIV w easy transition to new Antiretroviral RX with the TAF also controlling the viral load of the chronic active HBV infection. Other chronic conditions seem to be stable and there seems to be no interaction with his other medications. He is to continue the Biktarvy as he is taking it and have blood work repeated fasting in about 3 months with Lipids. MD visit scheduled: Jul or Aug. Lab Work: In mid Jul Provider of Care: Rupinder Bell NP Signature: Date: [facility] [address] [place] [address] [facility] Follow Up Visit Name: Bill Solorzano Date of : 1965 Date of Service: 05/01/2018 SUBJECTIVE: ?The medication gives me gas but otherwise I feel good? Switched HAART to Biktarvy after last seen by Dr. Rodarte in January and has not missed any doses. He is taking the other medications as prescribed and not having any ASEs. He saw Dr. Chris last week for routine F/U of the laryngeal dysplasia and all looks stable. 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 This survey showed no evidence of change with no Leukoplakia or lesions. He had blood work done fasting in March as it had been 6 weeks since the switch to the Biktarvy. No blood work was due for today?s visit. 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 This summer has been very busy with 15 festivals on the [facility]. 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 ROS: Denies unusual fatigue, thinks he has gained a little weight, Sleep is fine, No headaches with the medications that Neuro RXs. Denies chest pain, unusual cough or dyspnea. No GERD and bowels are fine just C/O daily flatulence not dependent on food choices. Denies, urinary symptoms. Has ongoing shoulder pain and limited ROM of the left shoulder. Is seeing ortho, Dr. Prohaska, in a few weeks and is sure he will need surgery ? ?what one will need to be done first is to be determined.? Has arthritis and rotator cuff issues in both. Denies swelling. His blood sygars are 110 ? 120 in the AM fasting. His last Hgb A1C was 6.2 in January. His Lipids were high then w a LDL of 147 and it is hoped that with the switch to Bictarvy this will come down. He will be due for repeat Lipids about 6 month from the start of the new Antiretroviral RX. Past Medical History: HIV+ since early . Chronic Active HBV with control on new formula Tenofovir Alefenomide (TAF). DM x 2 yrs w good diet control. Glaucoma, HLP, Laryngeal dysplasia. Social History: Very active with [employer] activities. Lives alone and has one dog; will be getting a puppy today. Feels he cannot count on family to help him after shoulder surgery. Health Insurance: Medicare and Medicaid. Other Psychosocial Considerations: None at this time. Bill Solorzano, 1965 page. 2. Family History: early onset cardiovascular disease in Father and Brother. His mOther dies of COPD. Allergies: Sulfa and Seafood causes anaphylaxis, Amoxicillin and Azithromycin causes rash. Medications: Biktarvy (biktegravir/emtricitabine/tenofovir alafenamide) 1 a day, Omeprazole 20 mg a day, Gabapentin 300mg q HS, venlafaxine XR 150mg a day, Xalatan 0.0005% ophthalmic solution 1 drop each eye daily. Immunization History: UTD with Pneumovax, prevnar, HAV, - will need Flu vaccine and Menactra and Shingrix. He remains a x smoker and no ETOH or drugs. OBJECTIVE Temp: 98.2 Pulse: 72 Resp: 14 BP: 104/68. General: AAOx4, AINAD Skin: W/D coolr color and no lesions/rash Eyes: non icteric Oral: NE ? (just saw ENT) Cardiac: RRR, No MCRG Chest/Lungs: Full, equal expansion, BS clear in all lobes Abdomen: Obese, NABS, ND, NT, No OGM Extremities: No edema Musculoskeletal: Left shoulder with limited ROM to 45 degrees. Tender in the anterior rotator cuff. Had FROM of the left with clicking and tender throughout. No other muscle or joint tenderness. Neuro: Gait strong and steady, moves in and out of the chair w ease. No tremor. Psych: speech clear, coherent, eye contact excellent, mood and affect normal, memory and judgment intact. Thought content normal. ASSESSMENT/PLAN: Stable HIV w easy transition to new Antiretroviral RX with the TAF also controlling the viral load of the chronic active HBV infection. Other chronic conditions seem to be stable and there seems to be no interaction with his other medications. He is to continue the Biktarvy as he is taking it and have blood work repeated fasting in about 3 months with Lipids. MD visit scheduled: Jul or Aug. Lab Work: In mid Jul Provider of Care: Rupinder Bell NP Signature: Date: [facility] [address] [facility] [place] [address] [facility] Follow Up Visit Name: Bill Solorzano Date of : 1965 Date of Service: 05/01/2018 SUBJECTIVE: ?The medication gives me gas but otherwise I feel good? Switched HAART to Biktarvy after last seen by Dr. Rodarte in January and has not missed any doses. He is taking the other medications as prescribed and not having any ASEs. He saw Dr. Chris last week for routine F/U of the laryngeal dysplasia and all looks stable. 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 This survey showed no evidence of change with no Leukoplakia or lesions. He had blood work done fasting in March as it had been 6 weeks since the switch to the Biktarvy. No blood work was due for today?s visit. 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 This summer has been very busy with [address] [place] [facility]. 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 ROS: Denies unusual fatigue, thinks he has gained a little weight, Sleep is fine, No headaches with the medications that Neuro RXs. Denies chest pain, unusual cough or dyspnea. No GERD and bowels are fine just C/O daily flatulence not dependent on food choices. Denies, urinary symptoms. Has ongoing shoulder pain and limited ROM of the left shoulder. Is seeing ortho, Dr. Almeida, in a few weeks and is sure he will need surgery ? ?what one will need to be done first is to be determined.? Has arthritis and rotator cuff issues in both. Denies swelling. His blood sygars are 110 ? 120 in the AM fasting. His last Hgb A1C was 6.2 in January. His Lipids were high then w a LDL of 147 and it is hoped that with the switch to Bictarvy this will come down. He will be due for repeat Lipids about 6 month from the start of the new Antiretroviral RX. Past Medical History: HIV+ since early . Chronic Active HBV with control on new formula Tenofovir Alefenomide (TAF). DM x 2 yrs w good diet control. Glaucoma, HLP, Laryngeal dysplasia. Social History: Very active with [employer]. Lives alone and has one dog; will be getting a puppy today. Feels he cannot count on family to help him after shoulder surgery. Health Insurance: Medicare and Medicaid. Other Psychosocial Considerations: None at this time. Bill Solorzano, 1965 page. 2. Family History: early onset cardiovascular disease in Father and Brother. His mOther dies of COPD. Allergies: Sulfa and Seafood causes anaphylaxis, Amoxicillin and Azithromycin causes rash. Medications: Biktarvy (biktegravir/emtricitabine/tenofovir alafenamide) 1 a day, Omeprazole 20 mg a day, Gabapentin 300mg q HS, venlafaxine XR 150mg a day, Xalatan 0.0005% ophthalmic solution 1 drop each eye daily. Immunization History: UTD with Pneumovax, prevnar, HAV, - will need Flu vaccine and Menactra and Shingrix. He remains a x smoker and no ETOH or drugs. OBJECTIVE Temp: 98.2 Pulse: 72 Resp: 14 BP: 104/68. General: AAOx4, AINAD Skin: W/D coolr color and no lesions/rash Eyes: non icteric Oral: NE ? (just saw ENT) Cardiac: RRR, No MCRG Chest/Lungs: Full, equal expansion, BS clear in all lobes Abdomen: Obese, NABS, ND, NT, No OGM Extremities: No edema Musculoskeletal: Left shoulder with limited ROM to 45 degrees. Tender in the anterior rotator cuff. Had FROM of the left with clicking and tender throughout. No other muscle or joint tenderness. Neuro: Gait strong and steady, moves in and out of the chair w ease. No tremor. Psych: speech clear, coherent, eye contact excellent, mood and affect normal, memory and judgment intact. Thought content normal. ASSESSMENT/PLAN: Stable HIV w easy transition to new Antiretroviral RX with the TAF also controlling the viral load of the chronic active HBV infection. Other chronic conditions seem to be stable and there seems to be no interaction with his other medications. He is to continue the Biktarvy as he is taking it and have blood work repeated fasting in about 3 months with Lipids. MD visit scheduled: Jul or Aug. Lab Work: In mid Jul Provider of Care: Rupinder Bell NP Signature: Date:
--- NOTE | 2018-05-15 09:22 | CCCE_ITS ---
Date of service: 05/01/18 Time of Service: 09:00 [facility] Note Note: [facility] [id number] [place] [address] Follow Up Visit Name: Bill Solorzano Date of : 1965 Date of Service: 05/01/2018 SUBJECTIVE: ?The medication gives me gas but otherwise I feel good? Switched HAART to Biktarvy after last seen by Dr. Rodarte in January and has not missed any doses. He is taking the other medications as prescribed and not having any ASEs. He saw Dr. Chris last week for routine F/U of the laryngeal dysplasia and all looks stable. 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 This survey showed no evidence of change with no Leukoplakia or lesions. He had blood work done fasting in March as it had been 6 weeks since the switch to the Biktarvy. No blood work was due for today?s visit. 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 This summer has been very busy with 15 festivals on the [facility]. 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 ROS: Denies unusual fatigue, thinks he has gained a little weight, Sleep is fine , No headaches with the medications that Neuro RXs. Denies chest pain, unusual cough or dyspnea. No GERD and bowels are fine just C/O daily flatulence not dependent on food choices. Denies, urinary symptoms. Has ongoing shoulder pain and limited ROM of the left shoulder. Is seeing ortho, Dr. Almeida, in a few weeks and is sure he will need surgery ? ?what one will need to be done first is to be determined.? Has arthritis and rotator cuff issues in both. Denies swelling. His blood sygars are 110 ? 120 in the AM fasting. His last Hgb A1C was 6.2 in January. His Lipids were high then w a LDL of 147 and it is hoped that with the switch to Bictarvy this will come down. He will be due for repeat Lipids about 6 month from the start of the new Antiretroviral RX. Past Medical History: HIV+ since early . Chronic Active HBV with control on new formula Tenofovir Alefenomide (TAF). DM x 2 yrs w good diet control. Glaucoma, HLP, Laryngeal dysplasia. Social History: Very active with is [employer] activities. Lives alone and has one dog; will be getting a puppy today. Feels he cannot count on family to help him after shoulder surgery. Health Insurance: Medicare and Medicaid. Other Psychosocial Considerations: None at this time. Bill Brandtiliana, 1965 page. 2. Family History: early onset cardiovascular disease in Father and Brother. His mOther dies of COPD. Allergies: Sulfa and Seafood causes anaphylaxis, Amoxicillin and Azithromycin causes rash. Medications: Biktarvy (biktegravir/emtricitabine/tenofovir alafenamide) 1 a day , Omeprazole 20 mg a day, Gabapentin 300mg q HS, venlafaxine XR 150mg a day, Xalatan 0.0005% ophthalmic solution 1 drop each eye daily. Immunization History: UTD with Pneumovax, Prevnar, HAV, - will need Flu vaccine and Menactra and Shingrix. He remains a x smoker and no ETOH or drugs. OBJECTIVE Temp: 98.2 Pulse: 72 Resp: 14 BP: 104/68. General: AAOx4, AINAD Skin: W/D coolr color and no lesions/rash Eyes: non icteric Oral: NE ? (just saw ENT) Cardiac: RRR, No MCRG Chest/Lungs: Full, equal expansion, BS clear in all lobes Abdomen: Obese, NABS, ND, NT, No OGM Extremities: No edema Musculoskeletal: Left shoulder with limited ROM to 45 degrees. Tender in the anterior rotator cuff. Had FROM of the left with clicking and tender throughout. No other muscle or joint tenderness. Neuro: Gait strong and steady, moves in and out of the chair w ease. No tremor. Psych: speech clear, coherent, eye contact excellent, mood and affect normal, memory and judgment intact. Thought content normal. ASSESSMENT/PLAN: Stable HIV w easy transition to new Antiretroviral RX with the TAF also controlling the viral load of the chronic active HBV infection. Other chronic conditions seem to be stable and there seems to be no interaction with his other medications. He is to continue the Biktarvy as he is taking it and have blood work repeated fasting in about 3 months with Lipids. MD visit scheduled: Jul or Aug. Lab Work: In mid Jul Provider of Care: Rupinder Bell NP Signature: Date: [facility] [address] [place] [address] [facility] Follow Up Visit Name: Bill Solorzano Date of : 1965 Date of Service: 05/01/2018 SUBJECTIVE: ?The medication gives me gas but otherwise I feel good? Switched HAART to Biktarvy after last seen by Dr. Rodarte in January and has not missed any doses. He is taking the other medications as prescribed and not having any ASEs. He saw Dr. Chris last week for routine F/U of the laryngeal dysplasia and all looks stable. 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 This survey showed no evidence of change with no Leukoplakia or lesions. He had blood work done fasting in March as it had been 6 weeks since the switch to the Biktarvy. No blood work was due for today?s visit. 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 This summer has been very busy with 15 festivals on the [facility]. 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 ROS: Denies unusual fatigue, thinks he has gained a little weight, Sleep is fine , No headaches with the medications that Neuro RXs. Denies chest pain, unusual cough or dyspnea. No GERD and bowels are fine just C/O daily flatulence not dependent on food choices. Denies, urinary symptoms. Has ongoing shoulder pain and limited ROM of the left shoulder. Is seeing ortho, Dr. Almeida, in a few weeks and is sure he will need surgery ? ?what one will need to be done first is to be determined.? Has arthritis and rotator cuff issues in both. Denies swelling. His blood sygars are 110 ? 120 in the AM fasting. His last Hgb A1C was 6.2 in January. His Lipids were high then w a LDL of 147 and it is hoped that with the switch to Bictarvy this will come down. He will be due for repeat Lipids about 6 month from the start of the new Antiretroviral RX. Past Medical History: HIV+ since early . Chronic Active HBV with control on new formula Tenofovir Alefenomide (TAF). DM x 2 yrs w good diet control. Glaucoma, HLP, Laryngeal dysplasia. Social History: Very active with [employer] activities. Lives alone and has one dog; will be getting a puppy today. Feels he cannot count on family to help him after shoulder surgery. Health Insurance: Medicare and Medicaid. Other Psychosocial Considerations: None at this time. Bill Solorzano, 1965 page. 2. Family History: early onset cardiovascular disease in Father and Brother. His mOther dies of COPD. Allergies: Sulfa and Seafood causes anaphylaxis, Amoxicillin and Azithromycin causes rash. Medications: Biktarvy (biktegravir/emtricitabine/tenofovir alafenamide) 1 a day , Omeprazole 20 mg a day, Gabapentin 300mg q HS, venlafaxine XR 150mg a day, Xalatan 0.0005% ophthalmic solution 1 drop each eye daily. Immunization History: UTD with Pneumovax, prevnar, HAV, - will need Flu vaccine and Menactra and Shingrix. He remains a x smoker and no ETOH or drugs. OBJECTIVE Temp: 98.2 Pulse: 72 Resp: 14 BP: 104/68. General: AAOx4, AINAD Skin: W/D coolr color and no lesions/rash Eyes: non icteric Oral: NE ? (just saw ENT) Cardiac: RRR, No MCRG Chest/Lungs: Full, equal expansion, BS clear in all lobes Abdomen: Obese, NABS, ND, NT, No OGM Extremities: No edema Musculoskeletal: Left shoulder with limited ROM to 45 degrees. Tender in the anterior rotator cuff. Had FROM of the left with clicking and tender throughout. No other muscle or joint tenderness. Neuro: Gait strong and steady, moves in and out of the chair w ease. No tremor. Psych: speech clear, coherent, eye contact excellent, mood and affect normal, memory and judgment intact. Thought content normal. ASSESSMENT/PLAN: Stable HIV w easy transition to new Antiretroviral RX with the TAF also controlling the viral load of the chronic active HBV infection. Other chronic conditions seem to be stable and there seems to be no interaction with his other medications. He is to continue the Biktarvy as he is taking it and have blood work repeated fasting in about 3 months with Lipids. MD visit scheduled: Jul or Aug. Lab Work: In mid Jul Provider of Care: Rupinder Bell NP Signature: Date: [facility] [address] [facility] [place] [id number] [facility] Follow Up Visit Name: Bill Solorzano Date of : 1965 Date of Service: 05/01/2018 SUBJECTIVE: ?The medication gives me gas but otherwise I feel good? Switched HAART to Biktarvy after last seen by Dr. Rodarte in January and has not missed any doses. He is taking the other medications as prescribed and not having any ASEs. He saw Dr. Chris last week for routine F/U of the laryngeal dysplasia and all looks stable. 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 This survey showed no evidence of change with no Leukoplakia or lesions. He had blood work done fasting in March as it had been 6 weeks since the switch to the Biktarvy. No blood work was due for today?s visit. 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 This summer has been very busy with 15 festivals on the [facility]. 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 ROS: Denies unusual fatigue, thinks he has gained a little weight, Sleep is fine , No headaches with the medications that Neuro RXs. Denies chest pain, unusual cough or dyspnea. No GERD and bowels are fine just C/O daily flatulence not dependent on food choices. Denies, urinary symptoms. Has ongoing shoulder pain and limited ROM of the left shoulder. Is seeing ortho, Dr. Almeida, in a few weeks and is sure he will need surgery ? ?what one will need to be done first is to be determined.? Has arthritis and rotator cuff issues in both. Denies swelling. His blood sygars are 110 ? 120 in the AM fasting. His last Hgb A1C was 6.2 in January. His Lipids were high then w a LDL of 147 and it is hoped that with the switch to Bictarvy this will come down. He will be due for repeat Lipids about 6 month from the start of the new Antiretroviral RX. Past Medical History: HIV+ since early . Chronic Active HBV with control on new formula Tenofovir Alefenomide (TAF). DM x 2 yrs w good diet control. Glaucoma, HLP, Laryngeal dysplasia. Social History: Very active with [employer] activities. Lives alone and has one dog; will be getting a puppy today. Feels he cannot count on family to help him after shoulder surgery. Health Insurance: Medicare and Medicaid. Other Psychosocial Considerations: None at this time. Bill Solorzano, 1965 page. 2. Family History: early onset cardiovascular disease in Father and Brother. His mOther dies of COPD. Allergies: Sulfa and Seafood causes anaphylaxis, Amoxicillin and Azithromycin causes rash. Medications: Biktarvy (biktegravir/emtricitabine/tenofovir alafenamide) 1 a day , Omeprazole 20 mg a day, Gabapentin 300mg q HS, venlafaxine XR 150mg a day, Xalatan 0.0005% ophthalmic solution 1 drop each eye daily. Immunization History: UTD with Pneumovax, prevnar, HAV, - will need Flu vaccine and Menactra and Shingrix. He remains a x smoker and no ETOH or drugs. OBJECTIVE Temp: 98.2 Pulse: 72 Resp: 14 BP: 104/68. General: AAOx4, AINAD Skin: W/D coolr color and no lesions/rash Eyes: non icteric Oral: NE ? (just saw ENT) Cardiac: RRR, No MCRG Chest/Lungs: Full, equal expansion, BS clear in all lobes Abdomen: Obese, NABS, ND, NT, No OGM Extremities: No edema Musculoskeletal: Left shoulder with limited ROM to 45 degrees. Tender in the anterior rotator cuff. Had FROM of the left with clicking and tender throughout. No other muscle or joint tenderness. Neuro: Gait strong and steady, moves in and out of the chair w ease. No tremor. Psych: speech clear, coherent, eye contact excellent, mood and affect normal, memory and judgment intact. Thought content normal. ASSESSMENT/PLAN: Stable HIV w easy transition to new Antiretroviral RX with the TAF also controlling the viral load of the chronic active HBV infection. Other chronic conditions seem to be stable and there seems to be no interaction with his other medications. He is to continue the Biktarvy as he is taking it and have blood work repeated fasting in about 3 months with Lipids. MD visit scheduled: Jul or Aug. Lab Work: In mid Jul Provider of Care: Rupinder Bell NP Signature: Date: [facility] [address] [place] [address] [facility] Follow Up Visit Name: Bill Solorzano Date of : 1965 Date of Service: 05/01/2018 SUBJECTIVE: ?The medication gives me gas but otherwise I feel good? Switched HAART to Biktarvy after last seen by Dr. Rodarte in January and has not missed any doses. He is taking the other medications as prescribed and not having any ASEs. He saw Dr. Chris last week for routine F/U of the laryngeal dysplasia and all looks stable. 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 This survey showed no evidence of change with no Leukoplakia or lesions. He had blood work done fasting in March as it had been 6 weeks since the switch to the Biktarvy. No blood work was due for today?s visit. 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 ROS: Denies unusual fatigue, thinks he has gained a little weight, Sleep is fine , No headaches with the medications that Neuro RXs. Denies chest pain, unusual cough or dyspnea. No GERD and bowels are fine just C/O daily flatulence not dependent on food choices. Denies, urinary symptoms. Has ongoing shoulder pain and limited ROM of the left shoulder. Is seeing ortho, Dr. Almeida, in a few weeks and is sure he will need surgery ? ?what one will need to be done first is to be determined.? Has arthritis and rotator cuff issues in both. Denies swelling. His blood sygars are 110 ? 120 in the AM fasting. His last Hgb A1C was 6.2 in January. His Lipids were high then w a LDL of 147 and it is hoped that with the switch to Bictarvy this will come down. He will be due for repeat Lipids about 6 month from the start of the new Antiretroviral RX. Past Medical History: HIV+ since early . Chronic Active HBV with control on new formula Tenofovir Alefenomide (TAF). DM x 2 yrs w good diet control. Glaucoma, HLP, Laryngeal dysplasia. Social History: Very active with [employer]. Lives alone and has one dog; will be getting a puppy today. Feels he cannot count on family to help him after shoulder surgery. Health Insurance: Medicare and Medicaid. Other Psychosocial Considerations: None at this time. Bill Solorzano, 1965 page. 2. Family History: early onset cardiovascular disease in Father and Brother. His mOther dies of COPD. Allergies: Sulfa and Seafood causes anaphylaxis, Amoxicillin and Azithromycin causes rash. Medications: Biktarvy (biktegravir/emtricitabine/tenofovir alafenamide) 1 a day , Omeprazole 20 mg a day, Gabapentin 300mg q HS, venlafaxine XR 150mg a day, Xalatan 0.0005% ophthalmic solution 1 drop each eye daily. Immunization History: UTD with Pneumovax, prevnar, HAV, - will need Flu vaccine and Menactra and Shingrix. He remains a x smoker and no ETOH or drugs. OBJECTIVE Temp: 98.2 Pulse: 72 Resp: 14 BP: 104/68. General: AAOx4, AINAD Skin: W/D coolr color and no lesions/rash Eyes: non icteric Oral: NE ? (just saw ENT) Cardiac: RRR, No MCRG Chest/Lungs: Full, equal expansion, BS clear in all lobes Abdomen: Obese, NABS, ND, NT, No OGM Extremities: No edema Musculoskeletal: Left shoulder with limited ROM to 45 degrees. Tender in the anterior rotator cuff. Had FROM of the left with clicking and tender throughout. No other muscle or joint tenderness. Neuro: Gait strong and steady, moves in and out of the chair w ease. No tremor. Psych: speech clear, coherent, eye contact excellent, mood and affect normal, memory and judgment intact. Thought content normal. ASSESSMENT/PLAN: Stable HIV w easy transition to new Antiretroviral RX with the TAF also controlling the viral load of the chronic active HBV infection. Other chronic conditions seem to be stable and there seems to be no interaction with his other medications. He is to continue the Biktarvy as he is taking it and have blood work repeated fasting in about 3 months with Lipids. MD visit scheduled: Jul or Aug. Lab Work: In mid Jul Provider of Care: Rupinder Bell NP Signature: Date: [facility] [address] [place] [address] [facility] Follow Up Visit Name: Bill Solorzano Date of : 1965 Date of Service: 05/01/2018 SUBJECTIVE: ?The medication gives me gas but otherwise I feel good? Switched HAART to Biktarvy after last seen by Dr. Rodarte in January and has not missed any doses. He is taking the other medications as prescribed and not having any ASEs. He saw Dr. Chris last week for routine F/U of the laryngeal dysplasia and all looks stable. 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 This survey showed no evidence of change with no Leukoplakia or lesions. He had blood work done fasting in March as it had been 6 weeks since the switch to the Biktarvy. No blood work was due for today?s visit. 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 This summer has been very busy with 15 festivals on the [facility]. 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 ROS: Denies unusual fatigue, thinks he has gained a little weight, Sleep is fine , No headaches with the medications that Neuro RXs. Denies chest pain, unusual cough or dyspnea. No GERD and bowels are fine just C/O daily flatulence not dependent on food choices. Denies, urinary symptoms. Has ongoing shoulder pain and limited ROM of the left shoulder. Is seeing ortho, Dr. Almeida, in a few weeks and is sure he will need surgery ? ?what one will need to be done first is to be determined.? Has arthritis and rotator cuff issues in both. Denies swelling. His blood sygars are 110 ? 120 in the AM fasting. His last Hgb A1C was 6.2 in January. His Lipids were high then w a LDL of 147 and it is hoped that with the switch to Bictarvy this will come down. He will be due for repeat Lipids about 6 month from the start of the new Antiretroviral RX. Past Medical History: HIV+ since early . Chronic Active HBV with control on new formula Tenofovir Alefenomide (TAF). DM x 2 yrs w good diet control. Glaucoma, HLP, Laryngeal dysplasia. Social History: Very active with [employer] activities. Lives alone and has one dog; will be getting a puppy today. Feels he cannot count on family to help him after shoulder surgery. Health Insurance: Medicare and Medicaid. Other Psychosocial Considerations: None at this time. Bill Solorzano, 1965 page. 2. Family History: early onset cardiovascular disease in Father and Brother. His mOther dies of COPD. Allergies: Sulfa and Seafood causes anaphylaxis, Amoxicillin and Azithromycin causes rash. Medications: Biktarvy (biktegravir/emtricitabine/tenofovir alafenamide) 1 a day , Omeprazole 20 mg a day, Gabapentin 300mg q HS, venlafaxine XR 150mg a day, Xalatan 0.0005% ophthalmic solution 1 drop each eye daily. Immunization History: UTD with Pneumovax, prevnar, HAV, - will need Flu vaccine and Menactra and Shingrix. He remains a x smoker and no ETOH or drugs. OBJECTIVE Temp: 98.2 Pulse: 72 Resp: 14 BP: 104/68. General: AAOx4, AINAD Skin: W/D coolr color and no lesions/rash Eyes: non icteric Oral: NE ? (just saw ENT) Cardiac: RRR, No MCRG Chest/Lungs: Full, equal expansion, BS clear in all lobes Abdomen: Obese, NABS, ND, NT, No OGM Extremities: No edema Musculoskeletal: Left shoulder with limited ROM to 45 degrees. Tender in the anterior rotator cuff. Had FROM of the left with clicking and tender throughout. No other muscle or joint tenderness. Neuro: Gait strong and steady, moves in and out of the chair w ease. No tremor. Psych: speech clear, coherent, eye contact excellent, mood and affect normal, memory and judgment intact. Thought content normal. ASSESSMENT/PLAN: Stable HIV w easy transition to new Antiretroviral RX with the TAF also controlling the viral load of the chronic active HBV infection. Other chronic conditions seem to be stable and there seems to be no interaction with his other medications. He is to continue the Biktarvy as he is taking it and have blood work repeated fasting in about 3 months with Lipids. MD visit scheduled: Jul or Aug. Lab Work: In mid Jul Provider of Care: Rupinder Bell NP Signature: Date: [facility] [address] [place] [address] [facility] Follow Up Visit Name: Bill Solorzano Date of : 1965 Date of Service: 05/01/2018 SUBJECTIVE: ?The medication gives me gas but otherwise I feel good? Switched HAART to Biktarvy after last seen by Dr. Rodarte in January and has not missed any doses. He is taking the other medications as prescribed and not having any ASEs. He saw Dr. Chris last week for routine F/U of the laryngeal dysplasia and all looks stable. 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 This survey showed no evidence of change with no Leukoplakia or lesions. He had blood work done fasting in March as it had been 6 weeks since the switch to the Biktarvy. No blood work was due for today?s visit. 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 This summer has been very busy with 15 festivals on the [facility]. 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 ROS: Denies unusual fatigue, thinks he has gained a little weight, Sleep is fine , No headaches with the medications that Neuro RXs. Denies chest pain, unusual cough or dyspnea. No GERD and bowels are fine just C/O daily flatulence not dependent on food choices. Denies, urinary symptoms. Has ongoing shoulder pain and limited ROM of the left shoulder. Is seeing ortho, Dr. Almeida, in a few weeks and is sure he will need surgery ? ?what one will need to be done first is to be determined.? Has arthritis and rotator cuff issues in both. Denies swelling. His blood sygars are 110 ? 120 in the AM fasting. His last Hgb A1C was 6.2 in January. His Lipids were high then w a LDL of 147 and it is hoped that with the switch to Bictarvy this will come down. He will be due for repeat Lipids about 6 month from the start of the new Antiretroviral RX. Past Medical History: HIV+ since early . Chronic Active HBV with control on new formula Tenofovir Alefenomide (TAF). DM x 2 yrs w good diet control. Glaucoma, HLP, Laryngeal dysplasia. Social History: Very active with [employer] activities. Lives alone and has one dog; will be getting a puppy today. Feels he cannot count on family to help him after shoulder surgery. Health Insurance: Medicare and Medicaid. Other Psychosocial Considerations: None at this time. Bill Solorzano, 1965 page. 2. Family History: early onset cardiovascular disease in Father and Brother. His mOther dies of COPD. Allergies: Sulfa and Seafood causes anaphylaxis, Amoxicillin and Azithromycin causes rash. Medications: Biktarvy (biktegravir/emtricitabine/tenofovir alafenamide) 1 a day , Omeprazole 20 mg a day, Gabapentin 300mg q HS, venlafaxine XR 150mg a day, Xalatan 0.0005% ophthalmic solution 1 drop each eye daily. Immunization History: UTD with Pneumovax, prevnar, HAV, - will need Flu vaccine and Menactra and Shingrix. He remains a x smoker and no ETOH or drugs. OBJECTIVE Temp: 98.2 Pulse: 72 Resp: 14 BP: 104/68. General: AAOx4, AINAD Skin: W/D coolr color and no lesions/rash Eyes: non icteric Oral: NE ? (just saw ENT) Cardiac: RRR, No MCRG Chest/Lungs: Full, equal expansion, BS clear in all lobes Abdomen: Obese, NABS, ND, NT, No OGM Extremities: No edema Musculoskeletal: Left shoulder with limited ROM to 45 degrees. Tender in the anterior rotator cuff. Had FROM of the left with clicking and tender throughout. No other muscle or joint tenderness. Neuro: Gait strong and steady, moves in and out of the chair w ease. No tremor. Psych: speech clear, coherent, eye contact excellent, mood and affect normal, memory and judgment intact. Thought content normal. ASSESSMENT/PLAN: Stable HIV w easy transition to new Antiretroviral RX with the TAF also controlling the viral load of the chronic active HBV infection. Other chronic conditions seem to be stable and there seems to be no interaction with his other medications. He is to continue the Biktarvy as he is taking it and have blood work repeated fasting in about 3 months with Lipids. MD visit scheduled: Jul or Aug. Lab Work: In mid Jul Provider of Care: Rupinder Bell NP Signature: Date: [facility] [address] [place] [address] [facility] Follow Up Visit Name: Bill Solorzano Date of : 1965 Date of Service: 05/01/2018 SUBJECTIVE: ?The medication gives me gas but otherwise I feel good? Switched HAART to Biktarvy after last seen by Dr. Rodarte in January and has not missed any doses. He is taking the other medications as prescribed and not having any ASEs. He saw Dr. Chris last week for routine F/U of the laryngeal dysplasia and all looks stable. 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 This survey showed no evidence of change with no Leukoplakia or lesions. He had blood work done fasting in March as it had been 6 weeks since the switch to the Biktarvy. No blood work was due for today?s visit. 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 This summer has been very busy with 15 festivals [place] the [facility]. 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 ROS: Denies unusual fatigue, thinks he has gained a little weight, Sleep is fine , No headaches with the medications that Neuro RXs. Denies chest pain, unusual cough or dyspnea. No GERD and bowels are fine just C/O daily flatulence not dependent on food choices. Denies, urinary symptoms. Has ongoing shoulder pain and limited ROM of the left shoulder. Is seeing ortho, Dr. Almeida, in a few weeks and is sure he will need surgery ? ?what one will need to be done first is to be determined.? Has arthritis and rotator cuff issues in both. Denies swelling. His blood sygars are 110 ? 120 in the AM fasting. His last Hgb A1C was 6.2 in January. His Lipids were high then w a LDL of 147 and it is hoped that with the switch to Bictarvy this will come down. He will be due for repeat Lipids about 6 month from the start of the new Antiretroviral RX. Past Medical History: HIV+ since early . Chronic Active HBV with control on new formula Tenofovir Alefenomide (TAF). DM x 2 yrs w good diet control. Glaucoma, HLP, Laryngeal dysplasia. Social History: Very active with [employer] activities. Lives alone and has one dog; will be getting a puppy today. Feels he cannot count on family to help him after shoulder surgery. Health Insurance: Medicare and Medicaid. Other Psychosocial Considerations: None at this time. Bill Solorzano, 1965 page. 2. Family History: early onset cardiovascular disease in Father and Brother. His mOther dies of COPD. Allergies: Sulfa and Seafood causes anaphylaxis, Amoxicillin and Azithromycin causes rash. Medications: Biktarvy (biktegravir/emtricitabine/tenofovir alafenamide) 1 a day , Omeprazole 20 mg a day, Gabapentin 300mg q HS, venlafaxine XR 150mg a day, Xalatan 0.0005% ophthalmic solution 1 drop each eye daily. Immunization History: UTD with Pneumovax, prevnar, HAV, - will need Flu vaccine and Menactra and Shingrix. He remains a x smoker and no ETOH or drugs. OBJECTIVE Temp: 98.2 Pulse: 72 Resp: 14 BP: 104/68. General: AAOx4, AINAD Skin: W/D coolr color and no lesions/rash Eyes: non icteric Oral: NE ? (just saw ENT) Cardiac: RRR, No MCRG Chest/Lungs: Full, equal expansion, BS clear in all lobes Abdomen: Obese, NABS, ND, NT, No OGM Extremities: No edema Musculoskeletal: Left shoulder with limited ROM to 45 degrees. Tender in the anterior rotator cuff. Had FROM of the left with clicking and tender throughout. No other muscle or joint tenderness. Neuro: Gait strong and steady, moves in and out of the chair w ease. No tremor. Psych: speech clear, coherent, eye contact excellent, mood and affect normal, memory and judgment intact. Thought content normal. ASSESSMENT/PLAN: Stable HIV w easy transition to new Antiretroviral RX with the TAF also controlling the viral load of the chronic active HBV infection. Other chronic conditions seem to be stable and there seems to be no interaction with his other medications. He is to continue the Biktarvy as he is taking it and have blood work repeated fasting in about 3 months with Lipids. MD visit scheduled: Jul or Aug. Lab Work: In mid Jul Provider of Care: Rupinder Bell NP Signature: Date: [facility] [address] [place] [address] [facility] Follow Up Visit Name: Bill Solorzano Date of : 1965 Date of Service: 05/01/2018 SUBJECTIVE: ?The medication gives me gas but otherwise I feel good? Switched HAART to Biktarvy after last seen by Dr. Rodarte in January and has not missed any doses. He is taking the other medications as prescribed and not having any ASEs. He saw Dr. Chris last week for routine F/U of the laryngeal dysplasia and all looks stable. 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 This survey showed no evidence of change with no Leukoplakia or lesions. He had blood work done fasting in March as it had been 6 weeks since the switch to the Biktarvy. No blood work was due for today?s visit. 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 This summer has been very busy with 15 festivals [place] the [facility]. 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 ROS: Denies unusual fatigue, thinks he has gained a little weight, Sleep is fine , No headaches with the medications that Neuro RXs. Denies chest pain, unusual cough or dyspnea. No GERD and bowels are fine just C/O daily flatulence not dependent on food choices. Denies, urinary symptoms. Has ongoing shoulder pain and limited ROM of the left shoulder. Is seeing ortho, Dr. Almeida, in a few weeks and is sure he will need surgery ? ?what one will need to be done first is to be determined.? Has arthritis and rotator cuff issues in both. Denies swelling. His blood sygars are 110 ? 120 in the AM fasting. His last Hgb A1C was 6.2 in January. His Lipids were high then w a LDL of 147 and it is hoped that with the switch to Bictarvy this will come down. He will be due for repeat Lipids about 6 month from the start of the new Antiretroviral RX. Past Medical History: HIV+ since early . Chronic Active HBV with control on new formula Tenofovir Alefenomide (TAF). DM x 2 yrs w good diet control. Glaucoma, HLP, Laryngeal dysplasia. Social History: Very active with [employer] activities. Lives alone and has one dog; will be getting a puppy today. Feels he cannot count on family to help him after shoulder surgery. Health Insurance: Medicare and Medicaid. Other Psychosocial Considerations: None at this time. Bill Brandtiliana, 1965 page. 2. Family History: early onset cardiovascular disease in Father and Brother. His mOther dies of COPD. Allergies: Sulfa and Seafood causes anaphylaxis, Amoxicillin and Azithromycin causes rash. Medications: Biktarvy (biktegravir/emtricitabine/tenofovir alafenamide) 1 a day , Omeprazole 20 mg a day, Gabapentin 300mg q HS, venlafaxine XR 150mg a day, Xalatan 0.0005% ophthalmic solution 1 drop each eye daily. Immunization History: UTD with Pneumovax, prevnar, HAV, - will need Flu vaccine and Menactra and Shingrix. He remains a x smoker and no ETOH or drugs. OBJECTIVE Temp: 98.2 Pulse: 72 Resp: 14 BP: 104/68. General: AAOx4, AINAD Skin: W/D coolr color and no lesions/rash Eyes: non icteric Oral: NE ? (just saw ENT) Cardiac: RRR, No MCRG Chest/Lungs: Full, equal expansion, BS clear in all lobes Abdomen: Obese, NABS, ND, NT, No OGM Extremities: No edema Musculoskeletal: Left shoulder with limited ROM to 45 degrees. Tender in the anterior rotator cuff. Had FROM of the left with clicking and tender throughout. No other muscle or joint tenderness. Neuro: Gait strong and steady, moves in and out of the chair w ease. No tremor. Psych: speech clear, coherent, eye contact excellent, mood and affect normal, memory and judgment intact. Thought content normal. ASSESSMENT/PLAN: Stable HIV w easy transition to new Antiretroviral RX with the TAF also controlling the viral load of the chronic active HBV infection. Other chronic conditions seem to be stable and there seems to be no interaction with his other medications. He is to continue the Biktarvy as he is taking it and have blood work repeated fasting in about 3 months with Lipids. MD visit scheduled: Jul or Aug. Lab Work: In mid Jul Provider of Care: Rupinder Bell NP Signature: Date: [facility] [address] [place] [address] [facility] Follow Up Visit Name: Bill Solorzano Date of : 1965 Date of Service: 05/01/2018 SUBJECTIVE: ?The medication gives me gas but otherwise I feel good? Switched HAART to Biktarvy after last seen by Dr. Rodarte in January and has not missed any doses. He is taking the other medications as prescribed and not having any ASEs. He saw Dr. Chris last week for routine F/U of the laryngeal dysplasia and all looks stable. 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 This survey showed no evidence of change with no Leukoplakia or lesions. He had blood work done fasting in March as it had been 6 weeks since the switch to the Biktarvy. No blood work was due for today?s visit. 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 This summer has been very busy with 15 festivals on the [facility]. 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 ROS: Denies unusual fatigue, thinks he has gained a little weight, Sleep is fine , No headaches with the medications that Neuro RXs. Denies chest pain, unusual cough or dyspnea. No GERD and bowels are fine just C/O daily flatulence not dependent on food choices. Denies, urinary symptoms. Has ongoing shoulder pain and limited ROM of the left shoulder. Is seeing ortho, Dr. Almeida, in a few weeks and is sure he will need surgery ? ?what one will need to be done first is to be determined.? Has arthritis and rotator cuff issues in both. Denies swelling. His blood sygars are 110 ? 120 in the AM fasting. His last Hgb A1C was 6.2 in January. His Lipids were high then w a LDL of 147 and it is hoped that with the switch to Bictarvy this will come down. He will be due for repeat Lipids about 6 month from the start of the new Antiretroviral RX. Past Medical History: HIV+ since early . Chronic Active HBV with control on new formula Tenofovir Alefenomide (TAF). DM x 2 yrs w good diet control. Glaucoma, HLP, Laryngeal dysplasia. Social History: Very active with [employer] activities. Lives alone and has one dog; will be getting a puppy today. Feels he cannot count on family to help him after shoulder surgery. Health Insurance: Medicare and Medicaid. Other Psychosocial Considerations: None at this time. Bill Jeanine, 1965 page. 2. Family History: early onset cardiovascular disease in Father and Brother. His mOther dies of COPD. Allergies: Sulfa and Seafood causes anaphylaxis, Amoxicillin and Azithromycin causes rash. Medications: Biktarvy (biktegravir/emtricitabine/tenofovir alafenamide) 1 a day , Omeprazole 20 mg a day, Gabapentin 300mg q HS, venlafaxine XR 150mg a day, Xalatan 0.0005% ophthalmic solution 1 drop each eye daily. Immunization History: UTD with Pneumovax, prevnar, HAV, - will need Flu vaccine and Menactra and Shingrix. He remains a x smoker and no ETOH or drugs. OBJECTIVE Temp: 98.2 Pulse: 72 Resp: 14 BP: 104/68. General: AAOx4, AINAD Skin: W/D coolr color and no lesions/rash Eyes: non icteric Oral: NE ? (just saw ENT) Cardiac: RRR, No MCRG Chest/Lungs: Full, equal expansion, BS clear in all lobes Abdomen: Obese, NABS, ND, NT, No OGM Extremities: No edema Musculoskeletal: Left shoulder with limited ROM to 45 degrees. Tender in the anterior rotator cuff. Had FROM of the left with clicking and tender throughout. No other muscle or joint tenderness. Neuro: Gait strong and steady, moves in and out of the chair w ease. No tremor. Psych: speech clear, coherent, eye contact excellent, mood and affect normal, memory and judgment intact. Thought content normal. ASSESSMENT/PLAN: Stable HIV w easy transition to new Antiretroviral RX with the TAF also controlling the viral load of the chronic active HBV infection. Other chronic conditions seem to be stable and there seems to be no interaction with his other medications. He is to continue the Biktarvy as he is taking it and have blood work repeated fasting in about 3 months with Lipids. MD visit scheduled: Jul or Aug. Lab Work: In mid Jul Provider of Care: Rupinder Bell NP Signature: Date: [facility] [address] [place] [address] [facility] Follow Up Visit Name: Bill Solorzano Date of : 1965 Date of Service: 05/01/2018 SUBJECTIVE: ?The medication gives me gas but otherwise I feel good? Switched HAART to Biktarvy after last seen by Dr. Rodarte in January and has not missed any doses. He is taking the other medications as prescribed and not having any ASEs. He saw Dr. Chris last week for routine F/U of the laryngeal dysplasia and all looks stable. 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 This survey showed no evidence of change with no Leukoplakia or lesions. He had blood work done fasting in March as it had been 6 weeks since the switch to the Biktarvy. No blood work was due for today?s visit. 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 This summer has been very busy with 15 festivals [place] the [facility]. 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 ROS: Denies unusual fatigue, thinks he has gained a little weight, Sleep is fine , No headaches with the medications that Neuro RXs. Denies chest pain, unusual cough or dyspnea. No GERD and bowels are fine just C/O daily flatulence not dependent on food choices. Denies, urinary symptoms. Has ongoing shoulder pain and limited ROM of the left shoulder. Is seeing ortho, Dr. Prohaska, in a few weeks and is sure he will need surgery ? ?what one will need to be done first is to be determined.? Has arthritis and rotator cuff issues in both. Denies swelling. His blood sygars are 110 ? 120 in the AM fasting. His last Hgb A1C was 6.2 in January. His Lipids were high then w a LDL of 147 and it is hoped that with the switch to Bictarvy this will come down. He will be due for repeat Lipids about 6 month from the start of the new Antiretroviral RX. Past Medical History: HIV+ since early . Chronic Active HBV with control on new formula Tenofovir Alefenomide (TAF). DM x 2 yrs w good diet control. Glaucoma, HLP, Laryngeal dysplasia. Social History: Very active with [employer] activities. Lives alone and has one dog; will be getting a puppy today. Feels he cannot count on family to help him after shoulder surgery. Health Insurance: Medicare and Medicaid. Other Psychosocial Considerations: None at this time. Bill Solorzano, 1965 page. 2. Family History: early onset cardiovascular disease in Father and Brother. His mOther dies of COPD. Allergies: Sulfa and Seafood causes anaphylaxis, Amoxicillin and Azithromycin causes rash. Medications: Biktarvy (biktegravir/emtricitabine/tenofovir alafenamide) 1 a day , Omeprazole 20 mg a day, Gabapentin 300mg q HS, venlafaxine XR 150mg a day, Xalatan 0.0005% ophthalmic solution 1 drop each eye daily. Immunization History: UTD with Pneumovax, prevnar, HAV, - will need Flu vaccine and Menactra and Shingrix. He remains a x smoker and no ETOH or drugs. OBJECTIVE Temp: 98.2 Pulse: 72 Resp: 14 BP: 104/68. General: AAOx4, AINAD Skin: W/D coolr color and no lesions/rash Eyes: non icteric Oral: NE ? (just saw ENT) Cardiac: RRR, No MCRG Chest/Lungs: Full, equal expansion, BS clear in all lobes Abdomen: Obese, NABS, ND, NT, No OGM Extremities: No edema Musculoskeletal: Left shoulder with limited ROM to 45 degrees. Tender in the anterior rotator cuff. Had FROM of the left with clicking and tender throughout. No other muscle or joint tenderness. Neuro: Gait strong and steady, moves in and out of the chair w ease. No tremor. Psych: speech clear, coherent, eye contact excellent, mood and affect normal, memory and judgment intact. Thought content normal. ASSESSMENT/PLAN: Stable HIV w easy transition to new Antiretroviral RX with the TAF also controlling the viral load of the chronic active HBV infection. Other chronic conditions seem to be stable and there seems to be no interaction with his other medications. He is to continue the Biktarvy as he is taking it and have blood work repeated fasting in about 3 months with Lipids. MD visit scheduled: Jul or Aug. Lab Work: In mid Jul Provider of Care: Rupinder Bell NP Signature: Date: [facility] [address] [facility] [place] [address] [facility] Follow Up Visit Name: Bill Solorzano Date of : 1965 Date of Service: 05/01/2018 SUBJECTIVE: ?The medication gives me gas but otherwise I feel good? Switched HAART to Biktarvy after last seen by Dr. Rodarte in January and has not missed any doses. He is taking the other medications as prescribed and not having any ASEs. He saw Dr. Chris last week for routine F/U of the laryngeal dysplasia and all looks stable. 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 This survey showed no evidence of change with no Leukoplakia or lesions. He had blood work done fasting in March as it had been 6 weeks since the switch to the Biktarvy. No blood work was due for today?s visit. 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 This summer has been very busy with 15 festivals on the [facility]. 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 ROS: Denies unusual fatigue, thinks he has gained a little weight, Sleep is fine , No headaches with the medications that Neuro RXs. Denies chest pain, unusual cough or dyspnea. No GERD and bowels are fine just C/O daily flatulence not dependent on food choices. Denies, urinary symptoms. Has ongoing shoulder pain and limited ROM of the left shoulder. Is seeing ortho, Dr. Almeida, in a few weeks and is sure he will need surgery ? ?what one will need to be done first is to be determined.? Has arthritis and rotator cuff issues in both. Denies swelling. His blood sygars are 110 ? 120 in the AM fasting. His last Hgb A1C was 6.2 in January. His Lipids were high then w a LDL of 147 and it is hoped that with the switch to Bictarvy this will come down. He will be due for repeat Lipids about 6 month from the start of the new Antiretroviral RX. Past Medical History: HIV+ since early . Chronic Active HBV with control on new formula Tenofovir Alefenomide (TAF). DM x 2 yrs w good diet control. Glaucoma, HLP, Laryngeal dysplasia. Social History: Very active with [employer]. Lives alone and has one dog; will be getting a puppy today. Feels he cannot count on family to help him after shoulder surgery. Health Insurance: Medicare and Medicaid. Other Psychosocial Considerations: None at this time. Bill Solorzano, 1965 page. 2. Family History: early onset cardiovascular disease in Father and Brother. His mOther dies of COPD. Allergies: Sulfa and Seafood causes anaphylaxis, Amoxicillin and Azithromycin causes rash. Medications: Biktarvy (biktegravir/emtricitabine/tenofovir alafenamide) 1 a day , Omeprazole 20 mg a day, Gabapentin 300mg q HS, venlafaxine XR 150mg a day, Xalatan 0.0005% ophthalmic solution 1 drop each eye daily. Immunization History: UTD with Pneumovax, prevnar, HAV, - will need Flu vaccine and Menactra and Shingrix. He remains a x smoker and no ETOH or drugs. OBJECTIVE Temp: 98.2 Pulse: 72 Resp: 14 BP: 104/68. General: AAOx4, AINAD Skin: W/D coolr color and no lesions/rash Eyes: non icteric Oral: NE ? (just saw ENT) Cardiac: RRR, No MCRG Chest/Lungs: Full, equal expansion, BS clear in all lobes Abdomen: Obese, NABS, ND, NT, No OGM Extremities: No edema Musculoskeletal: Left shoulder with limited ROM to 45 degrees. Tender in the anterior rotator cuff. Had FROM of the left with clicking and tender throughout. No other muscle or joint tenderness. Neuro: Gait strong and steady, moves in and out of the chair w ease. No tremor. Psych: speech clear, coherent, eye contact excellent, mood and affect normal, memory and judgment intact. Thought content normal. ASSESSMENT/PLAN: Stable HIV w easy transition to new Antiretroviral RX with the TAF also controlling the viral load of the chronic active HBV infection. Other chronic conditions seem to be stable and there seems to be no interaction with his other medications. He is to continue the Biktarvy as he is taking it and have blood work repeated fasting in about 3 months with Lipids. MD visit scheduled: Jul or Aug. Lab Work: In mid Jul Provider of Care: Rupinder Bell NP Signature: Date:
--- NOTE | 2018-05-15 09:27 | W.CCNOTE ---
Date of service: 05/01/18 Time of Service: 09:00 Comprehensive Care Clinic Note Note: [facility] [address] [place] [address] [facility] Follow Up Visit Name: Bill Solorzano Date of : 1965 Date of Service: 05/01/2018 SUBJECTIVE: ?The medication gives me gas but otherwise I feel good? Switched HAART to Biktarvy after last seen by Dr. Rodarte in January and has not missed any doses. He is taking the other medications as prescribed and not having any ASEs. He saw Dr. Chris last week for routine F/U of the laryngeal dysplasia and all looks stable. 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 This survey showed no evidence of change with no Leukoplakia or lesions. He had blood work done fasting in March as it had been 6 weeks since the switch to the Biktarvy. No blood work was due for today?s visit. 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 This summer has been very busy with 15 festivals on the [employer]. 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 ROS: Denies unusual fatigue, thinks he has gained a little weight, Sleep is fine, No headaches with the medications that Neuro RXs. Denies chest pain, unusual cough or dyspnea. No GERD and bowels are fine just C/O daily flatulence not dependent on food choices. Denies, urinary symptoms. Has ongoing shoulder pain and limited ROM of the left shoulder. Is seeing ortho, Dr. Almeida, in a few weeks and is sure he will need surgery ? ?what one will need to be done first is to be determined.? Has arthritis and rotator cuff issues in both. Denies swelling. His blood sygars are 110 ? 120 in the AM fasting. His last Hgb A1C was 6.2 in January. His Lipids were high then w a LDL of 147 and it is hoped that with the switch to Bictarvy this will come down. He will be due for repeat Lipids about 6 month from the start of the new Antiretroviral RX. Past Medical History: HIV+ since early . Chronic Active HBV with control on new formula Tenofovir Alefenomide (TAF). DM x 2 yrs w good diet control. Glaucoma, HLP, Laryngeal dysplasia. Social History: Very active with [employer] activities. Lives alone and has one dog; will be getting a puppy today. Feels he cannot count on family to help him after shoulder surgery. Health Insurance: Medicare and Medicaid. Other Psychosocial Considerations: None at this time. Bill Jeanine, 1965 page. 2. Family History: early onset cardiovascular disease in Father and Brother. His mOther dies of COPD. Allergies: Sulfa and Seafood causes anaphylaxis, Amoxicillin and Azithromycin causes rash. Medications: Biktarvy (biktegravir/emtricitabine/tenofovir alafenamide) 1 a day, Omeprazole 20 mg a day, Gabapentin 300mg q HS, venlafaxine XR 150mg a day, Xalatan 0.0005% ophthalmic solution 1 drop each eye daily. Immunization History: UTD with Pneumovax, prevnar, HAV, - will need Flu vaccine and Menactra and Shingrix. He remains a x smoker and no ETOH or drugs. OBJECTIVE Temp: 98.2 Pulse: 72 Resp: 14 BP: 104/68. General: AAOx4, AINAD Skin: W/D coolr color and no lesions/rash Eyes: non icteric Oral: NE ? (just saw ENT) Cardiac: RRR, No MCRG Chest/Lungs: Full, equal expansion, BS clear in all lobes Abdomen: Obese, NABS, ND, NT, No OGM Extremities: No edema Musculoskeletal: Left shoulder with limited ROM to 45 degrees. Tender in the anterior rotator cuff. Had FROM of the left with clicking and tender throughout. No other muscle or joint tenderness. Neuro: Gait strong and steady, moves in and out of the chair w ease. No tremor. Psych: speech clear, coherent, eye contact excellent, mood and affect normal, memory and judgment intact. Thought content normal. ASSESSMENT/PLAN: Stable HIV w easy transition to new Antiretroviral RX with the TAF also controlling the viral load of the chronic active HBV infection. Other chronic conditions seem to be stable and there seems to be no interaction with his other medications. He is to continue the Biktarvy as he is taking it and have blood work repeated fasting in about 3 months with Lipids. MD visit scheduled: Jul or Aug. Lab Work: In mid Jul Provider of Care: Rupinder Bell NP Signature: Date:
--- NOTE | 2018-05-19 13:56 | W.CCNOTE ---
Date of service: 05/01/18 Time of Service: 09:00 Comprehensive Care Clinic Note Note: [facility] [address] [place] [address] [facility] Follow Up Visit Name: Bill Solorzano Date of : 1965 Date of Service: 05/01/2018 SUBJECTIVE: ?The medication gives me gas but otherwise I feel good? Switched HAART to Biktarvy after last seen by Dr. Rodarte in January and has not missed any doses. He is taking the other medications as prescribed and not having any ASEs. He saw Dr. Chris last week for routine F/U of the laryngeal dysplasia and all looks stable. 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 This survey showed no evidence of change with no Leukoplakia or lesions. He had blood work done fasting in March as it had been 6 weeks since the switch to the Biktarvy. No blood work was due for today?s visit. 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 This summer has been very busy with 15 festivals on the [facility] [employer]. 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 ROS: Denies unusual fatigue, thinks he has gained a little weight, Sleep is fine, No headaches with the medications that Neuro RXs. Denies chest pain, unusual cough or dyspnea. No GERD and bowels are fine just C/O daily flatulence not dependent on food choices. Denies, urinary symptoms. Has ongoing shoulder pain and limited ROM of the left shoulder. Is seeing ortho, Dr. Almeida, in a few weeks and is sure he will need surgery ? ?what one will need to be done first is to be determined.? Has arthritis and rotator cuff issues in both. Denies swelling. His blood sygars are 110 ? 120 in the AM fasting. His last Hgb A1C was 6.2 in January. His Lipids were high then w a LDL of 147 and it is hoped that with the switch to Bictarvy this will come down. He will be due for repeat Lipids about 6 month from the start of the new Antiretroviral RX. Past Medical History: HIV+ since early . Chronic Active HBV with control on new formula Tenofovir Alefenomide (TAF). DM x 2 yrs w good diet control. Glaucoma, HLP, Laryngeal dysplasia. Social History: Very active with [employer] activities. Lives alone and has one dog; will be getting a puppy today. Feels he cannot count on family to help him after shoulder surgery. Health Insurance: Medicare and Medicaid. Other Psychosocial Considerations: None at this time. Bill Jeanine, 1965 page. 2. Family History: early onset cardiovascular disease in Father and Brother. His mOther dies of COPD. Allergies: Sulfa and Seafood causes anaphylaxis, Amoxicillin and Azithromycin causes rash. Medications: Biktarvy (biktegravir/emtricitabine/tenofovir alafenamide) 1 a day, Omeprazole 20 mg a day, Gabapentin 300mg q HS, venlafaxine XR 150mg a day, Xalatan 0.0005% ophthalmic solution 1 drop each eye daily. Immunization History: UTD with Pneumovax, prevnar, HAV, - will need Flu vaccine and Menactra and Shingrix. He remains a x smoker and no ETOH or drugs. OBJECTIVE Temp: 98.2 Pulse: 72 Resp: 14 BP: 104/68. General: AAOx4, AINAD Skin: W/D coolr color and no lesions/rash Eyes: non icteric Oral: NE ? (just saw ENT) Cardiac: RRR, No MCRG Chest/Lungs: Full, equal expansion, BS clear in all lobes Abdomen: Obese, NABS, ND, NT, No OGM Extremities: No edema Musculoskeletal: Left shoulder with limited ROM to 45 degrees. Tender in the anterior rotator cuff. Had FROM of the left with clicking and tender throughout. No other muscle or joint tenderness. Neuro: Gait strong and steady, moves in and out of the chair w ease. No tremor. Psych: speech clear, coherent, eye contact excellent, mood and affect normal, memory and judgment intact. Thought content normal. ASSESSMENT/PLAN: Stable HIV w easy transition to new Antiretroviral RX with the TAF also controlling the viral load of the chronic active HBV infection. Other chronic conditions seem to be stable and there seems to be no interaction with his other medications. He is to continue the Biktarvy as he is taking it and have blood work repeated fasting in about 3 months with Lipids. MD visit scheduled: Jul or Aug. Lab Work: In mid Jul Provider of Care: Rupinder Bell NP
--- NOTE | 2018-05-19 14:01 | CCCE_ITS ---
Date of service: 05/01/18 Time of Service: 09:00 Comprehensive Care Clinic Note Note: [facility] [address] [place] [address] [facility] Follow Up Visit Name: Bill Solorzano Date of : 1965 Date of Service: 05/01/2018 SUBJECTIVE: ?The medication gives me gas but otherwise I feel good? Switched HAART to Biktarvy after last seen by Dr. Rodarte in January and has not missed any doses. He is taking the other medications as prescribed and not having any ASEs. He saw Dr. Chris last week for routine F/U of the laryngeal dysplasia and all looks stable. 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 This survey showed no evidence of change with no Leukoplakia or lesions. He had blood work done fasting in March as it had been 6 weeks since the switch to the Biktarvy. No blood work was due for today?s visit. 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 This summer has been very busy with 15 festivals on the [facility]. 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 ROS: Denies unusual fatigue, thinks he has gained a little weight, Sleep is fine , No headaches with the medications that Neuro RXs. Denies chest pain, unusual cough or dyspnea. No GERD and bowels are fine just C/O daily flatulence not dependent on food choices. Denies, urinary symptoms. Has ongoing shoulder pain and limited ROM of the left shoulder. Is seeing ortho, Dr. Almeida, in a few weeks and is sure he will need surgery ? ?what one will need to be done first is to be determined.? Has arthritis and rotator cuff issues in both. Denies swelling. His blood sygars are 110 ? 120 in the AM fasting. His last Hgb A1C was 6.2 in January. His Lipids were high then w a LDL of 147 and it is hoped that with the switch to Bictarvy this will come down. He will be due for repeat Lipids about 6 month from the start of the new Antiretroviral RX. Past Medical History: HIV+ since early . Chronic Active HBV with control on new formula Tenofovir Alefenomide (TAF). DM x 2 yrs w good diet control. Glaucoma, HLP, Laryngeal dysplasia. Social History: Very active with [employer] activities. Lives alone and has one dog; will be getting a puppy today. Feels he cannot count on family to help him after shoulder surgery. Health Insurance: Medicare and Medicaid. Other Psychosocial Considerations: None at this time. Bill Jeanine, 1965 page. 2. Family History: early onset cardiovascular disease in Father and Brother. His mOther dies of COPD. Allergies: Sulfa and Seafood causes anaphylaxis, Amoxicillin and Azithromycin causes rash. Medications: Biktarvy (biktegravir/emtricitabine/tenofovir alafenamide) 1 a day , Omeprazole 20 mg a day, Gabapentin 300mg q HS, venlafaxine XR 150mg a day, Xalatan 0.0005% ophthalmic solution 1 drop each eye daily. Immunization History: UTD with Pneumovax, prevnar, HAV, - will need Flu vaccine and Menactra and Shingrix. He remains a x smoker and no ETOH or drugs. OBJECTIVE Temp: 98.2 Pulse: 72 Resp: 14 BP: 104/68. General: AAOx4, AINAD Skin: W/D coolr color and no lesions/rash Eyes: non icteric Oral: NE ? (just saw ENT) Cardiac: RRR, No MCRG Chest/Lungs: Full, equal expansion, BS clear in all lobes Abdomen: Obese, NABS, ND, NT, No OGM Extremities: No edema Musculoskeletal: Left shoulder with limited ROM to 45 degrees. Tender in the anterior rotator cuff. Had FROM of the left with clicking and tender throughout. No other muscle or joint tenderness. Neuro: Gait strong and steady, moves in and out of the chair w ease. No tremor. Psych: speech clear, coherent, eye contact excellent, mood and affect normal, memory and judgment intact. Thought content normal. ASSESSMENT/PLAN: Stable HIV w easy transition to new Antiretroviral RX with the TAF also controlling the viral load of the chronic active HBV infection. Other chronic conditions seem to be stable and there seems to be no interaction with his other medications. He is to continue the Biktarvy as he is taking it and have blood work repeated fasting in about 3 months with Lipids. MD visit scheduled: Jul or Aug. Lab Work: In mid Jul Provider of Care: Rupinder Bell NP
--- NOTE | 2018-05-19 14:31 | CCCE_ITS ---
Date of service: 05/01/18 Time of Service: 09:00 Comprehensive Care Clinic Note Note: [facility] [address] [place] [address] [facility] Follow Up Visit Name: Bill Solorzano Date of : 1965 Date of Service: 05/01/2018 SUBJECTIVE: ?The medication gives me gas but otherwise I feel good? Switched HAART to Biktarvy after last seen by Dr. Rodarte in January and has not missed any doses. He is taking the other medications as prescribed and not having any ASEs. He saw Dr. Chris last week for routine F/U of the laryngeal dysplasia and all looks stable. 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 This survey showed no evidence of change with no Leukoplakia or lesions. He had blood work done fasting in March as it had been 6 weeks since the switch to the Biktarvy. No blood work was due for today?s visit. 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 This summer has been very busy with 15 festivals on the [facility]. 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 ROS: Denies unusual fatigue, thinks he has gained a little weight, Sleep is fine , No headaches with the medications that Neuro RXs. Denies chest pain, unusual cough or dyspnea. No GERD and bowels are fine just C/O daily flatulence not dependent on food choices. Denies, urinary symptoms. Has ongoing shoulder pain and limited ROM of the left shoulder. Is seeing ortho, Dr. Almeida, in a few weeks and is sure he will need surgery ? ?what one will need to be done first is to be determined.? Has arthritis and rotator cuff issues in both. Denies swelling. His blood sygars are 110 ? 120 in the AM fasting. His last Hgb A1C was 6.2 in January. His Lipids were high then w a LDL of 147 and it is hoped that with the switch to Bictarvy this will come down. He will be due for repeat Lipids about 6 month from the start of the new Antiretroviral RX. Past Medical History: HIV+ since early . Chronic Active HBV with control on new formula Tenofovir Alefenomide (TAF). DM x 2 yrs w good diet control. Glaucoma, HLP, Laryngeal dysplasia. Social History: Very active with [employer] activities. Lives alone and has one dog; will be getting a puppy today. Feels he cannot count on family to help him after shoulder surgery. Health Insurance: Medicare and Medicaid. Other Psychosocial Considerations: None at this time. Bill Jeanine, 1965 page. 2. Family History: early onset cardiovascular disease in Father and Brother. His mOther dies of COPD. Allergies: Sulfa and Seafood causes anaphylaxis, Amoxicillin and Azithromycin causes rash. Medications: Biktarvy (biktegravir/emtricitabine/tenofovir alafenamide) 1 a day , Omeprazole 20 mg a day, Gabapentin 300mg q HS, venlafaxine XR 150mg a day, Xalatan 0.0005% ophthalmic solution 1 drop each eye daily. Immunization History: UTD with Pneumovax, prevnar, HAV, - will need Flu vaccine and Menactra and Shingrix. He remains a x smoker and no ETOH or drugs. OBJECTIVE Temp: 98.2 Pulse: 72 Resp: 14 BP: 104/68. General: AAOx4, AINAD Skin: W/D coolr color and no lesions/rash Eyes: non icteric Oral: NE ? (just saw ENT) Cardiac: RRR, No MCRG Chest/Lungs: Full, equal expansion, BS clear in all lobes Abdomen: Obese, NABS, ND, NT, No OGM Extremities: No edema Musculoskeletal: Left shoulder with limited ROM to 45 degrees. Tender in the anterior rotator cuff. Had FROM of the left with clicking and tender throughout. No other muscle or joint tenderness. Neuro: Gait strong and steady, moves in and out of the chair w ease. No tremor. Psych: speech clear, coherent, eye contact excellent, mood and affect normal, memory and judgment intact. Thought content normal. ASSESSMENT/PLAN: Stable HIV w easy transition to new Antiretroviral RX with the TAF also controlling the viral load of the chronic active HBV infection. Other chronic conditions seem to be stable and there seems to be no interaction with his other medications. He is to continue the Biktarvy as he is taking it and have blood work repeated fasting in about 3 months with Lipids. MD visit scheduled: Jul or Aug. Lab Work: In mid Jul Provider of Care: Rupinder Bell NP
== END ==
PROVIDERS: PCP Specialist/Technologist Athletic Trainer; Visit Provider Nurse Practitioner Family
DX: B20 Human immunodeficiency virus [HIV] disease (principal); Z79.899 Other long term (current) drug therapy
CPT/HCPCS: 99214

== ENCOUNTER 2018-05-10 18:37 | Emergency (ER) | payer MEDICARE, MEDICAID, SELFPAY ==
[2018-05-10 18:45] VITALS: BP 146/78; PULSE 75; RESP 18; TEMP 36.9; O2SAT 98
[2018-05-10] MEDS: Lidocaine 1% Multi-Dose 50 ML VIAL (19:28)
--- NOTE | 2018-05-10 20:03 | W.ED.GENAD ---
Discharge Plan Disposition Patient Disposition: HOME Condition: Fair Discharge Details Chief Complaint: Laceration Clinical Impression: Laceration of thumb Primary Care Provider: Jean Paul Peter ED Provider: Arti Morales Home Meds and New Rx's Prescriptions: Continue omeprazole 20 MG capsule,delayed release(DR/EC) 20 mg PO DAILY RF: 0 Chaga Oral Powder 15 mg PO DAILY RF: 0 gkhqkeidw-mmeuiaql-xuzfplr ala [Biktarvy] 50-200-25 mg Tablet 1 tab PO DAILY RF: 0 venlafaxine [Effexor XR] 75 mg Capsule,Extended Release 24hr 75 mg PO DAILY RF: 0 gabapentin 300 mg Capsule 300 mg PO DAILY RF: 0 Discharge Instructions Instructions: Laceration (ED) Additional Instructions: Keep wound clean, dry, covered. Please keep current dressing on for the next 24 hours. After that time, he may cover with a simple Band-Aid. Apply brace over this to help with discomfort and minimize stress on the wound. Please return in 10 days for suture removal. If you develop redness, warmth, drainage, fever/chills, increased pain or other new/worsening symptoms please seek care urgently once again. After the next 24 hours, you may wash with running water but do not soak or submerge. Please wear gloves when appropriate. Discharge Data Discharge Date/Time-TO BE ENTERED AT DEPARTURE: 05/10/18 20:20 Medical Decision Making Patient presents today with c/c of laceration to the left thumb. Patient has a superficial flap laceration to the ulnar side of the digit, approximately 5.5 cm in length. Patient is actively bleeding. Patinet UTD on tetanus. Sensation and ROM intact. Discussed risk/benefits of closure, he voices understanding and wishes to proceed. Please see proceudre note. Wound was copiously irrigated and explored to base in bloodless field. Tournequet was applied to allow for better visualization. #10 sutures placed. Flap is very superficial. I advised that I am concerned for its viability. However, given the vascular bed it is lying on, it may remain patent. discussed my concerns with patient and discussed expected course, along with possible loss of viability. Patient tolerated procedure well. Sterile bandage was placed by nursing staff. Discussed wound care and depth with the patient. He will keep the current dressing on for the next 24 hours. After that time, he will be able to remove and replaced with sterile bandage. We discussed the signs symptoms of infection and when to seek care urgently once again. Patient was fitted with a foam metal splint which she will be able to bring home with her to apply once the current bulky dressing has been removed. He will return in 7- 10 days for suture removal. All questions were addressed he is in agreement with this plan. HPI General Mode of arrival: ambulatory. Date/Time Provider Initiated Documentation: 05/10/18 18:55. Limitations to Documentation: no limitations. Information obtained by: patient. HPI Narrative: Patient is a 53-year-old right-hand dominant male presenting today with chief complaint of laceration to the left thumb. He reports that prior to arrival he was cutting cheese with a sharp knife when he slipped and cut his finger. Suffered a laceration to the ulnar side of the left thumb. Denies any altered sensation. Denies other injury at the time of the incident. Reports the pain is minimal but he is concerned with the amount of bleeding. Reports that tetanus is up-to-date Related Data Home Medications Medication Instructions Recorded Confirmed omeprazole 20 mg PO DAILY tab-cap NS 08/20/13 05/10/18 Chaga 15 mg PO DAILY 09/06/14 05/10/18 [id number]-[id number]-[id number] ala 1 tab PO DAILY 05/10/18 05/10/18 [Biktarvy] gabapentin 300 mg PO DAILY 05/10/18 venlafaxine [Effexor XR] 75 mg PO DAILY 05/10/18 Allergies Allergy/AdvReac Type Severity Reaction Status Date / Time amoxicillin [Amoxicillin] Allergy Intermediate hives, rash Unverified 05/10/18 18:48 Sulfa (Sulfonamide Allergy Intermediate rash, hives Unverified 05/10/18 18:48 Antibiotics) meloxicam AdvReac Mild itchy Unverified 05/10/18 18:48 oxycodone AdvReac Mild feels Unverified 05/10/18 18:48 sick fish/seafood AdvReac Severe naussea, Uncoded 05/10/18 18:48 vomiting, diarrhea nuts AdvReac Severe nausea, Uncoded 05/10/18 18:48 vomiting, diarrhea General Stated Complaint: Laceration MILE: 4 Review of Systems Constitutional Denies chills and Denies fever(s) Respiratory Denies cough Musculoskeletal Reports as per HPI, Denies numbness and Denies stiffness Integumentary/Breasts Reports as per HPI Neurologic Reports as per HPI and Denies numbness [facility] Social History Smoking/Tobacco Use Status: Former Tobacco Use Surgical History Excision, Olecranon Bursa (09/09/14) Exam Const General: cooperative, healthy appearing, comfortable, no acute distress, well developed and well groomed Nutritional Appearance: average body habitus and well nourished Orientation: alert and awake Resp Effort & Inspection: normal respiratory effort, able to speak in complete sentences and no respiratory distress Cardio Rate: regular rate Rhythm: regular rhythm Skin Rashes: no rashes Trauma: laceration (Laeration to the ulnar side of the left thumb, 5.5cm in length. Flap laceration, V shaped. No subcutaneous tissue visualized. Wound is actively bleeding ) Neuro General: alert and awake Cognition: normal cognition Speech: speech normal Gait: normal gait Motor: muscle tone normal throughout (full ROM of affected thumb) Sensory Exam: no sensory deficits noted Extrem General: abnormal to inspection (laceration as above), full ROM, normal capillary refill and no joint enlargement Psych Appearance: grossly normal and well kempt Mental Status: mental status grossly normal Speech and Movement: speech and movement normal Course Vital Signs Temperature 36.9 C 05/10/18 18:45 Pulse 75 05/10/18 18:45 Respiratory Rate 18 05/10/18 18:45 Blood Pressure 146/78 H 05/10/18 18:45 Pulse Oximetry 98 05/10/18 18:45 Temperature 36.9 C 05/10/18 18:45 Temperature Source Skin 05/10/18 18:45 Pulse 75 05/10/18 18:45 Respiratory Rate 18 05/10/18 18:45 Respiratory Effort Non-Labored 05/10/18 18:46 Blood Pressure 146/78 H 05/10/18 18:45 Blood Pressure Position Sitting 05/10/18 18:45 Pulse Oximetry 98 05/10/18 18:45 Oxygen Delivery Method Room Air 05/10/18 18:45 Oxygen Flow Rate 0 05/10/18 18:45 Pain Level 2 05/10/18 18:45 Procedures Laceration Laceration 1: Site: hand Side (If applicable): left Size (cm): 5.5 Description: flap (V shaped) Depth: simple, single layer Local Anesthetic: Lidocaine 1% Amount of anesthesia used (mL): 8 Pre-repair: wound explored, irrigated extensively and deep structures intact Skin layer closed with: nylon Size (cm): 5-0 Number of sutures: 10 Technique: simple, interrupted
--- NOTE | 2018-05-10 20:09 | ED.GENADUL_ITS ---
Discharge Plan Disposition Patient Disposition: HOME Condition: Fair Discharge Details Chief Complaint: Laceration Clinical Impression: Laceration of thumb Primary Care Provider: Jean Paul Peter ED Provider: Arti Morales Home Meds and New Rx's Prescriptions: Continue omeprazole 20 MG capsule,delayed release(DR/EC) 20 mg PO DAILY RF: 0 Chaga Oral Powder 15 mg PO DAILY RF: 0 [id number]-jphyxxht-akkgfji ala [Biktarvy] 50-200-25 mg Tablet 1 tab PO DAILY RF: 0 venlafaxine [Effexor XR] 75 mg Capsule,Extended Release 24hr 75 mg PO DAILY RF: 0 gabapentin 300 mg Capsule 300 mg PO DAILY RF: 0 Discharge Instructions Instructions: Laceration (ED) Additional Instructions: Keep wound clean, dry, covered. Please keep current dressing on for the next 24 hours. After that time, he may cover with a simple Band-Aid. Apply brace over this to help with discomfort and minimize stress on the wound. Please return in 10 days for suture removal. If you develop redness, warmth, drainage , fever/chills, increased pain or other new/worsening symptoms please seek care urgently once again. After the next 24 hours, you may wash with running water but do not soak or submerge. Please wear gloves when appropriate. Discharge Data Discharge Date/Time-TO BE ENTERED AT DEPARTURE: 05/10/18 20:20 Medical Decision Making Patient presents today with c/c of laceration to the left thumb. Patient has a superficial flap laceration to the ulnar side of the digit, approximately 5.5 cm in length. Patient is actively bleeding. Patinet UTD on tetanus. Sensation and ROM intact. Discussed risk/benefits of closure, he voices understanding and wishes to proceed. Please see proceudre note. Wound was copiously irrigated and explored to base in bloodless field. Tournequet was applied to allow for better visualization. # 10 sutures placed. Flap is very superficial. I advised that I am concerned for its viability. However, given the vascular bed it is lying on, it may remain patent. discussed my concerns with patient and discussed expected course, along with possible loss of viability. Patient tolerated procedure well. Sterile bandage was placed by nursing staff. Discussed wound care and depth with the patient. He will keep the current dressing on for the next 24 hours. After that time, he will be able to remove and replaced with sterile bandage. We discussed the signs symptoms of infection and when to seek care urgently once again. Patient was fitted with a foam metal splint which she will be able to bring home with her to apply once the current bulky dressing has been removed. He will return in 7- 10 days for suture removal. All questions were addressed he is in agreement with this plan. HPI General Mode of arrival: ambulatory . Date/Time Provider Initiated Documentation: 05/10/18 18:55 . Limitations to Documentation: no limitations . Information obtained by: patient . HPI Narrative: Patient is a 53-year-old right-hand dominant male presenting today with chief complaint of laceration to the left thumb. He reports that prior to arrival he was cutting cheese with a sharp knife when he slipped and cut his finger. Suffered a laceration to the ulnar side of the left thumb. Denies any altered sensation. Denies other injury at the time of the incident. Reports the pain is minimal but he is concerned with the amount of bleeding. Reports that tetanus is up-to-date Related Data Home Medications Medication Instructions Recorded Confirmed omeprazole 20 mg PO DAILY tab-cap NS 08/20/13 05/10/18 Chaga 15 mg PO DAILY 09/06/14 05/10/18 [id number]-jiufatex-[id number] ala 1 tab PO DAILY 05/10/18 05/10/18 [Biktarvy] gabapentin 300 mg PO DAILY 05/10/18 venlafaxine [Effexor XR] 75 mg PO DAILY 05/10/18 Allergies Allergy/AdvReac Type Severity Reaction Status Date / Time amoxicillin [Amoxicillin] Allergy Intermediate hives, rash Unverified 05/10/18 18:48 Sulfa (Sulfonamide Allergy Intermediate rash, hives Unverified 05/10/18 18:48 Antibiotics) meloxicam AdvReac Mild itchy Unverified 05/10/18 18:48 oxycodone AdvReac Mild feels Unverified 05/10/18 18:48 sick fish/seafood AdvReac Severe naussea, Uncoded 05/10/18 18:48 vomiting, diarrhea nuts AdvReac Severe nausea, Uncoded 05/10/18 18:48 vomiting, diarrhea General Stated Complaint: Laceration MILE: 4 Review of Systems Constitutional Denies chills and Denies fever(s) Respiratory Denies cough Musculoskeletal Reports as per HPI, Denies numbness and Denies stiffness Integumentary/Breasts Reports as per HPI Neurologic Reports as per HPI and Denies numbness [facility] Social History Smoking/Tobacco Use Status: Former Tobacco Use Surgical History Excision, Olecranon Bursa (09/09/14) Exam Const General: cooperative, healthy appearing, comfortable, no acute distress, well developed and well groomed Nutritional Appearance: average body habitus and well nourished Orientation: alert and awake Resp Effort & Inspection: normal respiratory effort, able to speak in complete sentences and no respiratory distress Cardio Rate: regular rate Rhythm: regular rhythm Skin Rashes: no rashes Trauma: laceration (Laeration to the ulnar side of the left thumb, 5.5cm in length. Flap laceration, V shaped. No subcutaneous tissue visualized. Wound is actively bleeding ) Neuro General: alert and awake Cognition: normal cognition Speech: speech normal Gait: normal gait Motor: muscle tone normal throughout (full ROM of affected thumb) Sensory Exam: no sensory deficits noted Extrem General: abnormal to inspection (laceration as above), full ROM, normal capillary refill and no joint enlargement Psych Appearance: grossly normal and well kempt Mental Status: mental status grossly normal Speech and Movement: speech and movement normal Course Vital Signs Temperature 36.9 C 05/10/18 18:45 Pulse 75 05/10/18 18:45 Respiratory Rate 18 05/10/18 18:45 Blood Pressure 146/78 H 05/10/18 18:45 Pulse Oximetry 98 05/10/18 18:45 Temperature 36.9 C 05/10/18 18:45 Temperature Source Skin 05/10/18 18:45 Pulse 75 05/10/18 18:45 Respiratory Rate 18 05/10/18 18:45 Respiratory Effort Non-Labored 05/10/18 18:46 Blood Pressure 146/78 H 05/10/18 18:45 Blood Pressure Position Sitting 05/10/18 18:45 Pulse Oximetry 98 05/10/18 18:45 Oxygen Delivery Method Room Air 05/10/18 18:45 Oxygen Flow Rate 0 05/10/18 18:45 Pain Level 2 05/10/18 18:45 Procedures Laceration Laceration 1: Site: hand Side (If applicable): left Size (cm): 5.5 Description: flap (V shaped) Depth: simple, single layer Local Anesthetic: Lidocaine 1% Amount of anesthesia used (mL): 8 Pre-repair: wound explored, irrigated extensively and deep structures intact Skin layer closed with: nylon Size (cm): 5-0 Number of sutures: 10 Technique: simple, interrupted
== END 2018-05-10 20:20 | disposition home or self-care (01) ==
PROVIDERS: Emergency Provider Physician Assistant; PCP Specialist/Technologist Athletic Trainer
DX: S61.012A Laceration without foreign body of left thumb without damage to nail, initial encounter (principal); W26.0XXA Contact with knife, initial encounter
CPT/HCPCS: 12002

== ENCOUNTER → 2018-05-12 10:40 | Outpatient (BNVA) | payer MEDICARE, MEDICAID, SELFPAY | PROVIDERS: PCP Specialist/Technologist Athletic Trainer; Referring Provider Specialist/Technologist Athletic Trainer; Visit Provider Student in an Organized Health Care Education/Training Program | DX: M75.82 Other shoulder lesions, left shoulder (principal); M25.512 Pain in left shoulder | CPT/HCPCS: 99213 ==

== ENCOUNTER 2018-05-19 00:49 | Outpatient (CLI) | payer MEDICARE, MEDICAID, SELFPAY ==
--- NOTE | 2018-05-19 13:48 | DI.MRI_ITS ---
SYMPTOMS/DIAGNOSIS: PAIN, TENDINITIS, M75.22 MRI OF THE LEFT SHOULDER: Routine noncontrast examination was performed. There is a full thickness tear of the supraspinatus tendon anteriorly at its insertion onto the greater tuberosity. Intermediate signal is seen in the supraspinatus tendon consistent with tendinosis. The infraspinatus and teres minor tendons are intact. There is intermediate signal seen in the subscapularis tendon which may represent tendinosis. No evidence of a tear is seen. The rotator cuff muscles all show normal signal and size. No muscular fatty atrophy is present. The biceps tendon has a normal appearance and location. The glenoid labrum appears grossly unremarkable on this noncontrast examination. There is normal marrow signal. No evidence of an occult fracture is present. No avascular necrosis is seen. No abnormal fluid collections or soft tissue masses are appreciated. The articular cartilage at the glenohumeral joint is well maintained. The ligaments appear intact. IMPRESSION: Full thickness tear of the supraspinatus tendon at its insertion onto the greater tuberosity anteriorly.
== END 2018-05-19 01:09 ==
PROVIDERS: PCP Specialist/Technologist Athletic Trainer; Visit Provider Student in an Organized Health Care Education/Training Program
DX: M25.512 Pain in left shoulder (principal); M75.102 Unspecified rotator cuff tear or rupture of left shoulder, not specified as traumatic; M75.22 Bicipital tendinitis, left shoulder
CPT/HCPCS: 73221

== ENCOUNTER 2018-05-19 12:17 | Emergency (ER) | payer MEDICARE, MEDICAID, SELFPAY ==
[2018-05-19 12:27] VITALS: BP 134/75; PULSE 69; RESP 18; TEMP 36.5; O2SAT 96
--- NOTE | 2018-05-19 13:36 | W.ED.GENAD ---
Discharge Plan Disposition Patient Disposition: HOME Discharge Details Chief Complaint: SutureRem Clinical Impression: Encounter for removal of sutures Primary Care Provider: Jean Paul Peter ED Provider: Bill Lee [place] Meds and New Rx's Prescriptions: No Action omeprazole 20 MG capsule,delayed release(DR/EC) 20 mg PO DAILY RF: 0 Chaga Oral Powder 15 mg PO DAILY RF: 0 qiforcdjc-twzyufuu-bhmbvqy ala [Biktarvy] 50-200-25 mg Tablet 1 tab PO DAILY RF: 0 venlafaxine [Effexor XR] 75 mg Capsule,Extended Release 24hr 75 mg PO DAILY RF: 0 gabapentin 300 mg Capsule 300 mg PO DAILY RF: 0 Discharge Instructions Referrals: [facility] Emergency Dept. [Outside] - Return if symptoms worsen Medical Decision Making I removed eight sutures without incident. Advised to keep clean and dry. He was safely discharged in stable condition. Department was busy. I triaged and treated patient without nurse intervention. HPI General Mode of arrival: ambulatory. Date/Time Provider Initiated Documentation: 05/19/18 12:43. Limitations to Documentation: no limitations. Information obtained by: patient. HPI Narrative: 53 y/o male here to have sutures removed. He had nine sutures placed in left thumb nine days ago here in the ED. He denies any complications or signs of infection. He tells me he accidentally removed one suture when trimming the edges of the wound. Related Data Home Medications Medication Instructions Recorded Confirmed omeprazole 20 mg PO DAILY tab-cap NS 08/20/13 05/12/18 Chaga 15 mg PO DAILY 09/06/14 05/12/18 ejfbolrxr-cqykwfbj-otqeyxj ala 1 tab PO DAILY 05/10/18 05/12/18 [Biktarvy] gabapentin 300 mg PO DAILY 05/10/18 05/12/18 venlafaxine [Effexor XR] 75 mg PO DAILY 05/10/18 05/12/18 Allergies Allergy/AdvReac Type Severity Reaction Status Date / Time amoxicillin [Amoxicillin] Allergy Intermediate hives, rash Unverified 05/12/18 10:50 Sulfa (Sulfonamide Allergy Intermediate rash, hives Unverified 05/12/18 10:50 Antibiotics) meloxicam AdvReac Mild itchy Unverified 05/12/18 10:50 oxycodone AdvReac Mild feels Unverified 05/12/18 10:50 sick fish/seafood AdvReac Severe naussea, Uncoded 05/12/18 10:50 vomiting, diarrhea nuts AdvReac Severe nausea, Uncoded 05/12/18 10:50 vomiting, diarrhea General Stated Complaint: SutureRem MILE: 5 Review of Systems Review of Systems No concerns voiced other than from [facility]. [facility] Social History Smoking/Tobacco Use Status: Former Tobacco Use Surgical History Excision, Olecranon Bursa (09/09/14) Exam Skin Other: [address] to the left thumb. Wound is clean dry and intact. Wound edges are well approximated. No redness or drainage. Course Vital Signs Temperature 36.5 C 05/19/18 12:27 Pulse 69 05/19/18 12:27 Respiratory Rate 18 05/19/18 12:27 Blood Pressure 134/75 05/19/18 12:27 Pulse Oximetry 96 05/19/18 12:27 Temperature 36.5 C 05/19/18 12:27 Temperature Source Temporal Artery Scan 05/19/18 12:27 Pulse 69 05/19/18 12:27 Respiratory Rate 18 05/19/18 12:27 Blood Pressure 134/75 05/19/18 12:27 Pulse Oximetry 96 05/19/18 12:27 Oxygen Delivery Method Room Air 05/19/18 12:27 Oxygen Flow Rate 0 05/19/18 12:27
--- NOTE | 2018-05-19 13:39 | ED.GENADUL_ITS ---
Discharge Plan Disposition Patient Disposition: HOME Discharge Details Chief Complaint: SutureRem Clinical Impression: Encounter for removal of sutures Primary Care Provider: Jean Paul Peter ED Provider: Bill Lee [place] Meds and New Rx's Prescriptions: No Action omeprazole 20 MG capsule,delayed release(DR/EC) 20 mg PO DAILY RF: 0 Chaga Oral Powder 15 mg PO DAILY RF: 0 svdqsrxjp-kadrnxxl-srqvgmc ala [Biktarvy] 50-200-25 mg Tablet 1 tab PO DAILY RF: 0 venlafaxine [Effexor XR] 75 mg Capsule,Extended Release 24hr 75 mg PO DAILY RF: 0 gabapentin 300 mg Capsule 300 mg PO DAILY RF: 0 Discharge Instructions Referrals: [facility] Emergency Dept. [Outside] - Return if symptoms worsen Medical Decision Making I removed eight sutures without incident. Advised to keep clean and dry. He was safely discharged in stable condition. Department was busy. I triaged and treated patient without nurse intervention. HPI General Mode of arrival: ambulatory . Date/Time Provider Initiated Documentation: 05/19/18 12:43 . Limitations to Documentation: no limitations . Information obtained by: patient . HPI Narrative: 53 y/o male here to have sutures removed. He had nine sutures placed in left thumb nine days ago here in the ED. He denies any complications or signs of infection. He tells me he accidentally removed one suture when trimming the edges of the wound. Related Data Home Medications Medication Instructions Recorded Confirmed omeprazole 20 mg PO DAILY tab-cap NS 08/20/13 05/12/18 Chaga 15 mg PO DAILY 09/06/14 05/12/18 zvkzczgnv-jkpjapbh-unzppwx ala 1 tab PO DAILY 05/10/18 05/12/18 [Biktarvy] gabapentin 300 mg PO DAILY 05/10/18 05/12/18 venlafaxine [Effexor XR] 75 mg PO DAILY 05/10/18 05/12/18 Allergies Allergy/AdvReac Type Severity Reaction Status Date / Time amoxicillin [Amoxicillin] Allergy Intermediate hives, rash Unverified 05/12/18 10:50 Sulfa (Sulfonamide Allergy Intermediate rash, hives Unverified 05/12/18 10:50 Antibiotics) meloxicam AdvReac Mild itchy Unverified 05/12/18 10:50 oxycodone AdvReac Mild feels Unverified 05/12/18 10:50 sick fish/seafood AdvReac Severe naussea, Uncoded 05/12/18 10:50 vomiting, diarrhea nuts AdvReac Severe nausea, Uncoded 05/12/18 10:50 vomiting, diarrhea General Stated Complaint: SutureRem MILE: 5 Review of Systems Review of Systems No concerns voiced other than from [facility]. [facility] Social History Smoking/Tobacco Use Status: Former Tobacco Use Surgical History Excision, Olecranon Bursa (09/09/14) Exam Skin Other: [address] to the left thumb. Wound is clean dry and intact. Wound edges are well approximated. No redness or drainage. Course Vital Signs Temperature 36.5 C 05/19/18 12:27 Pulse 69 05/19/18 12:27 Respiratory Rate 18 05/19/18 12:27 Blood Pressure 134/75 05/19/18 12:27 Pulse Oximetry 96 05/19/18 12:27 Temperature 36.5 C 05/19/18 12:27 Temperature Source Temporal Artery Scan 05/19/18 12:27 Pulse 69 05/19/18 12:27 Respiratory Rate 18 05/19/18 12:27 Blood Pressure 134/75 05/19/18 12:27 Pulse Oximetry 96 05/19/18 12:27 Oxygen Delivery Method Room Air 05/19/18 12:27 Oxygen Flow Rate 0 05/19/18 12:27
== END 2018-05-19 13:46 | disposition home or self-care (01) ==
PROVIDERS: Emergency Provider Nurse Practitioner Family; PCP Specialist/Technologist Athletic Trainer
DX: Z48.02 Encounter for removal of sutures (principal); S61.012D Laceration without foreign body of left thumb without damage to nail, subsequent encounter; W26.0XXD Contact with knife, subsequent encounter

== ENCOUNTER → 2018-07-12 14:38 | Outpatient (BNVA) | payer MEDICARE, MEDICAID, SELFPAY | PROVIDERS: PCP Specialist/Technologist Athletic Trainer; Referring Provider Specialist/Technologist Athletic Trainer; Visit Provider Student in an Organized Health Care Education/Training Program | DX: M75.111 Incomplete rotator cuff tear or rupture of right shoulder, not specified as traumatic (principal) | CPT/HCPCS: 20610; 99212; 99213; J1040 ==

== ENCOUNTER → 2018-07-26 13:08 | Outpatient (BNVA) | payer MEDICARE, MEDICAID, SELFPAY | PROVIDERS: PCP Specialist/Technologist Athletic Trainer; Referring Provider Specialist/Technologist Athletic Trainer; Visit Provider Student in an Organized Health Care Education/Training Program | DX: R69 Illness, unspecified (principal) ==

== ENCOUNTER 2018-07-26 13:58 | Outpatient (CLI) | payer MEDICARE, MEDICAID, SELFPAY ==
[2018-07-26 15:09] LABS: HCT 46.3 % (40.0-50.0); HGB 16.2 g/dL (13.5-17.5); Mean Corpuscular Volume 94.3 fL (80-95); Mean Platelet Volume 10.4 fL (8.0-11.0); Platelet Count 163 x1000/uL (130-400); RBC 4.91 m/cumm (4.50-6.00); RBC Distribution Width 13.1 % (11.8-14.1); White Blood Cell Count 7.98 k/cumm (4.4-10.8)
[2018-07-26 15:21] LABS: Hemoglobin A1C 6.6 % (4.5-6.2)
--- NOTE | 2018-07-26 17:58 | HPE_ITS ---
Addendum entered and electronically signed by ZHANE Allen 07/27/18 09:21: Please know an error in the assessment and plan of this note, Bill is a LEFT rotator cuff tear. We will be proceeding with a left arthroscopic rotator cuff repair. Original Note: Date of service: 07/26/18 Assessment and Plan (1) Incomplete tear of right rotator cuff: Current visit: Yes Status: Chronic Left arthroscopic rotator cuff repair. Of surgery were discussed with patient as well as risks and pertinent anatomy. He was also instructed that he may be at a slightly higher risk of infection due to his HIV status. All questions were answered. History of Present Illness Chief Complaint: Left shoulder pain Narrative: Bill is a 53-year-old male who is been complaining of left shoulder pain since the spring when he sustained an injury to his left shoulder. He states that he was working on a ladder, and that he fell off the ladder turning so that he landed directly on his left shoulder. He is right-hand dominant, and has been complaining of left shoulder pain since his injury. He is unable to reach away from his body and do any sort of activity without pain. He also has pain when he is sleeping at night. He had tried conservative treatment including physical therapy and injections, but they did not help at all. He then had an MRI which did show a partial tearing of both the subscapu jewell and the supraspinatus. He also has had an injury since the MRI while he was carrying groceries, which may have further the tear in his left shoulder. At this point since he has failed conservative therapy, he has been scheduled for a left rotator cuff repair by Dr. Almeida, and is anxious to proceed. Pertinent Surgical Information Bill states that he is HIV positive, and is on chronic medication. His white blood cell count today was 7.98. He also states that he is chronically hepatitis B positive as well. He states that he is a prediabetic, and remembers his last hemoglobin A1c as being around 6.2, and his hemoglobin A1c collected today was 6.6. Patient denies history of hypertension, CVA, ME, angina, asthma, COPD, renal or liver disorders, bleeding disorders, immune or thyroid disorders. No complications from anesthesia. Review of Systems Constitutional Denies fever(s) ENT Denies dizziness and Denies sore throat Cardiovascular Denies chest pain, Denies palpitations and Denies dyspnea Respiratory Denies dyspnea Gastrointestinal Denies abdominal pain, Denies melena, Denies hematochezia, Denies diarrhea, Denies nausea and Denies vomiting Genitourinary Denies hematuria and Denies dysuria Neurologic Denies dizziness Endocrine Denies palpitations PFSH HIV (human immunodeficiency virus infection) (Chronic) Hepatitis B (Chronic) Hyperlipidemia (Chronic) Pre-diabetes (Chronic) Excision, Olecranon Bursa (09/09/14) Medical History HIV (human immunodeficiency virus infection) (Chronic) Hepatitis B (Chronic) Hyperlipidemia (Chronic) Pre-diabetes (Chronic) Social History Smoking/Tobacco Use Status: Former Tobacco Use how long ago did patient quit smokin-12 years ago details: 1-2 drinks nightly Surgical History Excision, Olecranon Bursa (09/09/14) Social History Smoking/Tobacco Use Status: Former Tobacco Use how long ago did patient quit smokin-12 years ago details: 1-2 drinks nightly Meds Home Medications Medication Instructions Recorded Confirmed Type omeprazole 20 mg PO HS tab-cap NS 08/20/13 07/26/18 History gztttqndi-gkenrufz-ajyezfu ala 1 tab PO HS 05/10/18 07/26/18 History [Biktarvy] gabapentin 300 mg PO HS 05/10/18 07/26/18 History venlafaxine [Effexor XR] 75 mg PO HS 05/10/18 07/26/18 History Allergies Allergy/AdvReac Type Severity Reaction Status Date / Time amoxicillin [Amoxicillin] Allergy Intermediate hives, rash Unverified 07/26/18 14:11 Sulfa (Sulfonamide Allergy Intermediate rash, hives Unverified 07/26/18 14:11 Antibiotics) Penicillins Allergy Mild Skin Rash Verified 07/26/18 14:11 meloxicam AdvReac Mild itchy Unverified 07/26/18 14:11 oxycodone AdvReac Mild feels Unverified 07/26/18 14:11 sick fish/seafood AdvReac Severe naussea, Uncoded 07/26/18 14:11 vomiting, diarrhea nuts AdvReac Severe nausea, Uncoded 07/26/18 14:11 vomiting, diarrhea Exam [facility] Head: normocephalic and atraumatic General nose exam: no nasal discharge Throat: uvula midline and no uvular edema Other: soft palate rises symmetrically, no erythema Eyes Conjunctivae: conjunctivae normal Sclera: sclerae normal Pupils: PERRL Resp Effort & Inspection: normal respiratory effort Auscultation: clear to auscultation bilaterally and no wheezes Cardio Rate: regular rate Rhythm: regular rhythm Heart Sounds: S1 normal, S2 normal and no murmurs Other: BP: 132/60 Results Labs : 07/26/18 14:52 Laboratory Results - last 24 hr 07/26/18 07/26/18 14:52 14:52 WBC 7.98 RBC 4.91 Hgb 16.2 Hct 46.3 MCV 94.3 MCH 33.0 MCHC 35.0 RDW 13.1 Plt Count 163 MPV 10.4 Hemoglobin A1c 6.6 H
== END 2018-07-26 14:18 ==
PROVIDERS: PCP Specialist/Technologist Athletic Trainer; Visit Provider Student in an Organized Health Care Education/Training Program
DX: M25.512 Pain in left shoulder (principal); M75.112 Incomplete rotator cuff tear or rupture of left shoulder, not specified as traumatic; R73.09 Other abnormal glucose; Z01.818 Encounter for other preprocedural examination; B20 Human immunodeficiency virus [HIV] disease
CPT/HCPCS: 85027; NC; 83036

== ENCOUNTER 2018-08-01 06:19 | Day surgery (SDC) | payer MEDICARE, MEDICAID, SELFPAY ==
[2018-08-01] VITALS (11 sets, daily range): BP systolic 70–97; BP diastolic 43–68; PULSE 54–74; RESP 10–18; TEMP 35.9–36.5; O2SAT 95–100
[2018-08-01] MEDS: Lactated Ringers 1,000 ML 80 ML IV ×2 (06:53→11:21)
--- NOTE | 2018-08-01 07:19 | W.PM.DSUDISC ---
Discharge Plan Disposition Patient Disposition: HOME Condition: Good Discharge Details Reason For Visit: (L) RTC TEAR Attending Provider: Jakob Almeida Primary Care Provider: Jean Paul Peter Home Meds and New Rx's Prescriptions: New ibuprofen 600 mg tablet 600 mg PO TID PRNQty: 90 RF: 3 acetaminophen 500 mg capsule 1,000 mg PO Q8H PRN (Reason: pain) Qty: 90 RF: 0 hydromorphone 2 mg Tablet 2 mg PO Q4H PRN PRNQty: 18 RF: 0 Continued omeprazole 20 MG capsule,delayed release(DR/EC) 20 mg PO HS RF: 0 Biktarvy 50-200-25 mg Tablet 1 tab PO HS RF: 0 venlafaxine [Effexor XR] 75 mg Capsule,Extended Release 24hr 75 mg PO HS RF: 0 gabapentin 300 mg Capsule 300 mg PO HS RF: 0 Discharge Instructions Stand Alone Forms: Elle dey/DREW Equipment/Supplies: Sling Activity:: Stay in sling Remove Dressings/Wound Care:: 72 hours Shower/Bathe:: 72 hours Diet:: As Tolerated Discharge Orders Discharge Orders: Discharge Order (Routine); Ordered 08/01/18 Ordered By: Jakob Almeida
[2018-08-01] MEDS: Bupivacaine 0.5% Pres-Free 30 ML VIAL (07:30)
[2018-08-01] MEDS: Bupivacaine LIPOSOME/PF 133 MG/10 ML VIAL IJ (07:30)
[2018-08-01] MEDS: ePHEDrine 50 MG/ML VIAL IVP ×3 (10:39→11:32)
--- NOTE | 2018-08-01 14:33 | W.PM.OP ---
Date of service: 08/01/18 Time of Service: 10:34 Operative Note DATE OF PROCEDURE: 08/01/18 PRE-OP DIAGNOSIS: Left rotator cuff tear POST-OP DIAGNOSIS: same PROCEDURE: - Arthroscopic Rotator Cuff Repair - Extensive debridement of anterior and posterior glenohumeral joint and rotator cuff - Subacromial Debridement with Acromioplasty SURGEON: Jakob Almeida CRITICAL CARE NURSE PRACTITIONER: Omrai Weiss ANESTHESIA: GETA and regional ESTIMATED BLOOD LOSS: 0 PATHOLOGY: none sent COMPLICATIONS: None Patient was transported to: PACU Patient's condition: stable Indications: I have seen Bill in clinic for a painful shoulder. Pathology was confirmed based on MRI and exam findings. Nonoperative measures were exhausted but disability and pain persisted. I discussed shoulder arthroscopy and procedures. I reviewed the risks of the procedures to include, but not limited to, bleeding, infection, pain, stiffness, damage to nerves or vessels, recurrence, hardware failure, blood clot. Despite these risks, the patient elected to proceed. Findings: A diagnostic arthroscopy was performed with the following findings: - Glenohumeral Joint: No significant arthritic changes - Labrum: Fraying and degenerative tearing of the anterior posterior labrum without detachment from the glenoid - Cuff: A complete crescent shaped tear of the superior rotator cuff measuring approximately 15 mm in width - Biceps: Inflammatory changes but no tearing. [place] was intact. - Subacromial: Significant bursitis, full-thickness rotator cuff tear is seen and repaired, small anterolateral spur. Procedure Description: Bill was greeted in the preoperative holding area where the correct side was identified and marked. The consent was reviewed with the patient and signed. The history and physical was updated. All questions were answered. Bill was taken back to the PACU for administration of an intrascalene nerve block he was then taken to the operating room. The patient was placed into the supine position on the operating room table. A general anesthetic was administered. He was then positioned in the beach chair position. All bony prominences were well padded. The head was placed in a foam knitting machine fixer head in a neutral position. Prophylactic antibiotics in the form of cefazolin were administered. The left arm/shoulder was then prepped with Chloraprep and draped in a standard fashion with stockinette and shoulder drape. A timeout to confirm correct identity, side and site, procedure, allergies, anesthesia, and medical concerns was performed. The arm was placed into a pneumatic wong, [id number]. The shoulder arthroscopy was then performed. The glenohumeral joint was injected with 20 cc of normal saline with good flow back. A standard posterior portal was made and the joint was entered atraumatically with a blunt arthroscope. Once inside we had good visualization of the structures of the glenohumeral joint. An anterior portal was established with spinal needle localization. A 6.5 mm cannula was inserted. A probe was then used to perform a diagnostic arthroscopy. There is noted to be no significant cartilage damage of the glenohumeral joint. The labrum was frayed superiorly and posteriorly but without detachment from the glenoid. There were no loose bodies in the inferior pouch. The superior rotator cuff was completely torn within the crescent. The biceps tendon was without tearing but had inflammatory changes. The subscapularis was intact. The labrum was debrided extensively from anterior to posterior. It was probed in multiple locations to ensure that the anchor was well attached and there is no tearing of the biceps tendon anchor nor of the labrum from the glenoid. The biceps was brought into the joint and did show inflammatory changes but no tearing. The labrum was further debrided down with any fraying. The torn edge of the supraspinatus rotator cuff tear was identified and also debrided from within the shoulder. The arthroscope was then inserted into the subacromial space. The 6.5 mm cannula was placed lateral to the CA ligament. A complete bursectomy is performed anteriorly, posteriorly, and laterally with electrocautery and shaver. This had excellent exposure of the rotator cuff. The bursal side rotator cuff was inspected and confirmed the diagnosis of a complete, crescent-shaped supraspinatus tear. There was a small anterolateral spur. Using a spinal needle two lateral portals were established. One became the working portal and became viewing portal. With good visualization from this position the edges of the rotator cuff tear were debrided down to healthy surfaces. The bony footprint of the supra spinatus tendon on the greater tuberosity was also debrided down removing any soft tissue until there was some bleeding bone noted. The articular margin was identified. A tissue graft was used to reduce the rotator cuff. This represent a primary crescent type tear with reduction in a posterior to anterior direction. I then placed 2 Mitek Healix anchors along the articular margin. A total of 3 horizontal mattress sutures were placed within the tendon edge, reducing the tendon down to bone and checking after each placement of suture. The sutures were then tied using standard arthroscopic knot tying techniques with a sliding knot followed by 3 alternating half hitches on alternating posts. Visualization of the rotator cuff showed adequate reduction of the rotator cuff tear. I then placed 2 lateral anchors. These were knotless Mitek Healix anchors. The first was placed anteriorly. One suture limb from each was brought into the lateral row and fixed into the lateral tuberosity. This once again adequately reduced the soft tissue down to the bony surface of the greater tuberosity. A second lateral anchor was placed. Unfortunately, 1 of the suture limbs from the middle suture broke and was unable be incorporated in this lateral row. However the other 2 sutures were incorporated without difficulty making short attention and bring down the soft tissue to bone. This had excellent reapproximation of the soft tissue down to the tuberosity. All suture limbs were cut. There was no need for repair of a dog ear. A 5.0 mm kita was then inserted from the posterior portal. The anterolateral corner of the acromion was then resected in plane with the posterior slope of the acromion. The scope equipment was removed from the shoulder. Excess fluid was evacuated. The portal sites were closed with 3-0 Monocryl. The wounds were dressed with Steri-Strips, 4 x 4's, ABDs, Medipore tape. A sling was applied. The patient tolerated the procedure well and was returned to the PACU area in a stable condition suffering no known complication.
== END 2018-08-01 13:55 | disposition home or self-care (01) ==
PROVIDERS: PCP Specialist/Technologist Athletic Trainer; Visit Provider Student in an Organized Health Care Education/Training Program
PROC: (CPT 29827; principal; 2018-08-01 08:15)
PROC: (CPT 23130; 2018-08-01 08:15)
DX: S46.012A Strain of muscle(s) and tendon(s) of the rotator cuff of left shoulder, initial encounter (principal); S43.492A Other sprain of left shoulder joint, initial encounter; M75.22 Bicipital tendinitis, left shoulder; M75.52 Bursitis of left shoulder; M75.82 Other shoulder lesions, left shoulder; B20 Human immunodeficiency virus [HIV] disease; Z79.899 Other long term (current) drug therapy; B18.1 Chronic viral hepatitis B without delta-agent
CPT/HCPCS: 29827; 29826; 29823; 76942; J0690; J1100; J2250; J2370; J2405; L3670

== ENCOUNTER 2018-08-18 09:46 | Outpatient (CLI) | payer MEDICARE, MEDICAID, SELFPAY ==
--- NOTE | 2018-08-18 09:42 | DI.RAD_ITS ---
SYMPTOMS/DIAGNOSIS: F/U S/P LT RTC REPAIR FOLLOWING FALL INJURY LEFT SHOULDER: Comparison 03/01/18. No acute or healing fracture or dislocation is seen. The bones are normally mineralized. The soft tissues are unremarkable. IMPRESSION: No acute abnormality.
== END 2018-08-18 10:06 ==
PROVIDERS: PCP Specialist/Technologist Athletic Trainer; Visit Provider Physician Assistant
DX: S46.012D Strain of muscle(s) and tendon(s) of the rotator cuff of left shoulder, subsequent encounter; X58.XXXD Exposure to other specified factors, subsequent encounter
CPT/HCPCS: 73030

== ENCOUNTER 2018-08-24 10:33 | Outpatient (CLI) | payer MEDICARE, MEDICAID, SELFPAY ==
[2018-08-24 12:00] LABS: Hemoglobin A1C 6.2 % (4.5-6.2)
[2018-08-24 12:31] LABS: ALT 29 U/L (12-78); AST 16 U/L (15-37); Alkaline Phosphatase 97 U/L (46-116); BUN 16 mg/dL (7-18); Bilirubin, Total 0.3 mg/dL (0.2-1.0); CREATININE 0.93 mg/dL (0.70-1.30); Chloride 103 mmol/L (98-107); Creatine Kinase 85 U/L (39-308); Glucose 91 mg/dL (70-100); PHOSPHORUS 2.6 mg/dL (2.6-4.7); Potassium 4.3 mmol/L (3.5-5.1); Sodium 138 mmol/L (136-145); Total Protein 7.1 g/dL (6.4-8.2)
[2018-08-28 16:31] LABS: HBV DNA Detect/Quant, PCR Undetected IU/mL (Undetected)
[2018-08-29 07:30] LABS: HIV-1 RNA Quantification Undetected copies/mL (UNDECT)
== END 2018-08-24 10:53 ==
PROVIDERS: Internal Medicine Infectious Disease; PCP Specialist/Technologist Athletic Trainer; Visit Provider Nurse Practitioner Family
DX: B20 Human immunodeficiency virus [HIV] disease (principal); B18.1 Chronic viral hepatitis B without delta-agent; E11.9 Type 2 diabetes mellitus without complications; Z79.899 Other long term (current) drug therapy
CPT/HCPCS: 36415; 80053; 82550; 87517; 87536; 83036; 84100

== ENCOUNTER 2018-09-04 12:47 | Outpatient (CLI) | payer MEDICARE, MEDICAID, SELFPAY ==
--- NOTE | 2018-09-04 12:50 | CCCE_ITS ---
Date of service: 09/04/18 Time of Service: 12:49 Comprehensive Care Clinic Note Note: [facility] [address] [place] [address] Comprehensive Care Clinic [facility] Follow Up Visit Name: Bill Solorzano Date of : 03/17/1985 Date of Service: 09/04/2018 SUBJECTIVE: Bill is here for routine F/U for HIV, he says infected when he was 17, having switched HAART this past summer to once a day Biktarvy. He has not missed any doses and denies any ASEs. F/U labs were done 08/24/18 but unfortunately the Lipids were not repeated despite his being fasting. He had F/U with ENT, Dr. Chris, that same day and the laryngoscopy exam revealed no lesions. F/U there will continue q 6 months. On07/28/2018 he had outpatient arthroscopic ortho surgery by Dr. Helton to repair his left rotator cuff and clean up some arthritis. He had an anesthesia induced hypotensive event, which he has had to anesthesia in the past, and the planned repair of the biceps tendon was aborted. He is in a wedge sling for another week and has been going to PT 3x/week. He feels he has done well postoperatively. ROS: Denies: headaches (RXs from neuro continue blocking the chronic headaches) fevers, night sweats or weight loss dental issues (sees the dentist q 6 months) worsening hoarseness, difficulty swallowing chest pressure/pain, palpatations unusual dyspnea, cough N/V/D, (bowels are regular and BMs formed) paresthesias or weakness rash, warts/lesions ? has tenderness around one of the arthroscope stabs, no drainage Allergies/Sensitivities: Sulpha (anaphylaxis), Azithromycin (rash), Amoxicillin (rash), [employer] (anaphylaxis); Statin intolerance ? general muscle aching, Meloxicam (itching) Current Medications: Biktarvy 1 po daily gabapentin 300mg q HS ibuprofen 600mg q HS (for remaining post op pain; had hydromorphone 2 mg but only took the first 3 days ? 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 Substance Abuse History: former Tobacco Smoker, quit years ago no ETOH ? was heavy many years ago no Illicit Drug Use Family History: Strong for CAD ? F 1st [place] at age 32 w CABG, B ? [place] in his 40s Flu Vaccine: 07/24/2018 Health Maintenance/ID Screening: PAP: Anal: none Colonoscopy: needs F/U sometime this year, had 1st in Aug 2013 w tubular adenoma GC/Chlamydia: 01/25/2018 ? negative x2 OBJECTIVE Temp: 97.9 Pulse: 76 Resp: 14 BP: 128/70 General: AINAD, wearing a large wedge sling supporting/immobilizing the right shoulder Skin: a slightly tender, non-erythematous, healed, raised, non-fluctuant PW over the left scapular area; no rash or lesions ow Eyes: non icteric Cardiac: RRR no MCRG Chest/Lungs: clear in all lobes Abdomen: NABS, ND, NT, No OGM Extremities: No edema Musculoskeletal: no swelling, tenderness to palpation of the left shoulder Neuro: no tremor, gait brisk, strong, steady Psych: eye contact good, cooperative attitude w euthymic mood/appropriate affect, intact orientation, attention and judgement. Lab Work for this visit: Glucose 91 fasting, Hgb A1C 6.2 BUN 16, Creat 0.93 PO4 2.6, was 3.2 in January CPK 85 (no not on a statin) HIV RNA and HBV DNA both <20 Lipids were not done and are due ASSESSMENT/PLAN: 1.HIV with stable switch this past summer to Peerideavy. His creatinine has improved but the PO4 remains low at 2.4 and unfortunately the Lipids were not done. He is willing to have Lipids done fasting again soon but after he gets a bit more progress with the left shoulder healing and PT. 2. Chronic Active HBV w a undetectable viral load on the new preparation of tenofovir, the tenofovir alafenamide compounded in the Biktarvy. Continue to monitor. 3. Vocal Cord Dysplasia ? Seen this month and stable with no evidence of new lesions. UTD w F/U w ENT and following a q 6 month surveillance. 4.Left Shoulder Othro Ortho repair ? PT clinic and home exercise program w ez F/U 5.H/O elevated LDL and strong family history of CAD and early [place]. He is willing to try other meds for Lipids if needed. 6.HM ? he will need a F/U colonoscopy this year. Wants to wait for later. MD visit scheduled: In near future Lab Work: fasting Lipids soon. ASO referral: Has contact with [facility] Provider of Care: Rupinder Bell NP Signature: Date:
== END 2018-09-04 13:07 ==
PROVIDERS: PCP Specialist/Technologist Athletic Trainer; Visit Provider Nurse Practitioner Family
DX: B20 Human immunodeficiency virus [HIV] disease (principal); B18.1 Chronic viral hepatitis B without delta-agent; J38.3 Other diseases of vocal cords; Z79.899 Other long term (current) drug therapy
CPT/HCPCS: 99214

== ENCOUNTER → 2018-09-15 10:22 | Outpatient (BNVA) | payer MEDICARE, MEDICAID, SELFPAY | PROVIDERS: PCP Specialist/Technologist Athletic Trainer; Referring Provider Specialist/Technologist Athletic Trainer; Visit Provider Student in an Organized Health Care Education/Training Program | DX: S46.012D Strain of muscle(s) and tendon(s) of the rotator cuff of left shoulder, subsequent encounter (principal); S43.492D Other sprain of left shoulder joint, subsequent encounter; M75.22 Bicipital tendinitis, left shoulder; M75.82 Other shoulder lesions, left shoulder; M75.52 Bursitis of left shoulder ==

== ENCOUNTER → 2018-10-27 09:50 | Outpatient (BNVA) | payer MEDICARE, MEDICAID, SELFPAY | PROVIDERS: PCP Specialist/Technologist Athletic Trainer; Referring Provider Specialist/Technologist Athletic Trainer; Visit Provider Student in an Organized Health Care Education/Training Program | DX: Z47.89 Encounter for other orthopedic aftercare (principal); M75.82 Other shoulder lesions, left shoulder ==

== ENCOUNTER 2018-12-21 16:11 | Emergency (ER) | payer MEDICARE, MEDICAID, SELFPAY ==
[2018-12-21 16:18] VITALS: BP 126/76; PULSE 96; RESP 16; TEMP 36.5; O2SAT 97
--- NOTE | 2018-12-21 16:23 | ED.GENADUL_ITS ---
Discharge Plan Disposition Patient Disposition: HOME Condition: Stable Discharge Details Chief Complaint: Laceration Clinical Impression: Hand laceration Primary Care Provider: Jean Paul Peter ED Provider: Jayashree Smith Home Meds and New Rx's Prescriptions: New doxycycline hyclate 100 mg tablet 100 mg PO BID 7 Days Qty: 14 RF: 0 Continued omeprazole 20 MG capsule,delayed release(DR/EC) 20 mg PO HS RF: 0 ibuprofen 600 mg tablet 600 mg PO TID PRNQty: 90 RF: 3 acetaminophen 500 mg capsule 1,000 mg PO Q8H PRN (Reason: pain) Qty: 90 RF: 0 hydromorphone 2 mg Tablet 2 mg PO Q4H PRN PRNQty: 18 RF: 0 Biktarvy 50-200-25 mg Tablet 1 tab PO HS RF: 0 venlafaxine [Effexor XR] 75 mg Capsule,Extended Release 24hr 75 mg PO HS RF: 0 Discharge Instructions Instructions: Laceration (ED) Additional Instructions: Keep wound clean, dry and covered. Wash the area with soap and water. If you develop any signs of redness or pain, apply topical antibiotic ointment. If you develop any worsening symptoms of redness, swelling or pain with topical antibiotic ointment, you may start the prescription for oral antibiotics. Follow-up with your primary care doctor in 2 days for wound reevaluation. Return immediately to the emergency department any worsening or new concerning symptoms. Discharge Data Discharge Physician: Jayashree Smith Medical Decision Making 53-year-old male with a history of HIV who presents with multiple lacerations to left hand after sustained with a knife while cutting a deer at home prior to arrival. Tetanus up-to-date. Patient has multiple superficial wounds as well as one wound on the dorsal aspect of hand in the webspace between first and second fingers which is through the dermis but wound edges very well approximated. There is no active bleeding. Patient denies any history of foreign body and states that knife is intact. He is declining any x-ray at this time. Neurovascularly intact. Patient instructed in the importance of good wound care. Instructed to apply topical antibiotic ointment. Will send home with her scription for Keflex to start if symptoms do not improve or worsen. He is instructed return here with any concerns. HPI General Mode of arrival: ambulatory . Date/Time Provider Initiated Documentation: 12/21/18 16:16 . Limitations to Documentation: no limitations . Information obtained by: patient . HPI Narrative: Patient is a 53-year-old male who presents with multiple puncture wounds to his left hand after sustained with a knife when he was cutting a deer earlier today. He denies any known foreign body and states the knife was intact after injury. He states his tetanus is up-to-date. Patient states he is mainly concerned about tendon injury. Related Data Home Medications Medication Instructions Recorded Confirmed omeprazole 20 mg PO HS tab-cap NS 08/20/13 12/21/18 Biktarvy 1 tab PO HS 05/10/18 12/21/18 venlafaxine [Effexor XR] 75 mg PO HS 05/10/18 12/21/18 acetaminophen 1,000 mg PO Q8H PRN #90 cap 08/01/18 12/21/18 hydromorphone 2 mg PO Q4H PRN PRN #18 tab 08/01/18 12/21/18 ibuprofen 600 mg PO TID PRN #90 tab 08/01/18 12/21/18 doxycycline hyclate 100 mg PO BID 7 Days #14 tab 12/21/18 Previous Rx's Medication Instructions Recorded acetaminophen 1,000 mg PO Q8H PRN #90 cap 08/01/18 hydromorphone 2 mg PO Q4H PRN PRN #18 tab 08/01/18 ibuprofen 600 mg PO TID PRN #90 tab 08/01/18 doxycycline hyclate 100 mg PO BID 7 Days #14 tab 12/21/18 Allergies Allergy/AdvReac Type Severity Reaction Status Date / Time amoxicillin [Amoxicillin] Allergy Intermediate hives, rash Unverified 12/21/18 16:21 Sulfa (Sulfonamide Allergy Intermediate rash, hives Unverified 12/21/18 16:21 Antibiotics) Penicillins Allergy Mild Skin Rash Verified 12/21/18 16:21 meloxicam AdvReac Mild itchy Unverified 12/21/18 16:21 oxycodone AdvReac Mild feels Unverified 12/21/18 16:21 sick fish/seafood AdvReac Severe naussea, Uncoded 12/21/18 16:21 vomiting, diarrhea nuts AdvReac Severe nausea, Uncoded 12/21/18 16:21 vomiting, diarrhea General Stated Complaint: Laceration MILE: 4 Review of Systems Review of Systems All systems reviewed & are unremarkable except as noted in HPI and below PFSH Medical History HIV (human immunodeficiency virus infection) (Chronic) Hepatitis B (Chronic) Hyperlipidemia (Chronic) Pre-diabetes (Chronic) Surgical History S/P left rotator cuff repair (Acute) Excision, Olecranon Bursa (09/09/14) Social History Smoking/Tobacco Use Status: Former Tobacco Use Quit Date: 08/15/08 Tobacco: How many years used: 25 Details: 1-2 drinks nightly Drug use: Never Do you feel safe in your relationship?: Yes Exam Const General: cooperative, healthy appearing and no acute distress HENMT Head: normal to inspection Mouth: oral mucosae normal Eyes General: appearance normal, both eyes and all related structures Neck Neck: normal visual inspection Resp Effort & Inspection: normal respiratory effort and able to speak in complete sentences Cardio Rate: regular rate Skin General skin exam: no rashes or lesions noted Neuro General: alert, awake and oriented x3 Motor: muscle tone normal throughout and strength 5/5 throughout Sensory Exam: no sensory deficits noted Other: No gross tendon injury. Normal muscle strength and sensation to all fingers of left hand. Extrem Hand/finger images: 1. A 3 mm linear laceration through dermis with wound edges intact need 2. 2 mm superficial laceration 3. 1 mm superficial laceration Psych Appearance: grossly normal Affect: normal affect Course Vital Signs Temperature 97.7 F 12/21/18 16:18 Pulse 96 H 12/21/18 16:18 Respiratory Rate 16 12/21/18 16:18 Blood Pressure 126/76 12/21/18 16:18 Pulse Oximetry 97 12/21/18 16:18 Temperature 97.7 F 12/21/18 16:18 Temperature Source Skin 12/21/18 16:18 Pulse 96 H 12/21/18 16:18 Respiratory Rate 16 12/21/18 16:18 Respiratory Effort Non-Labored 12/21/18 16:20 Blood Pressure 126/76 12/21/18 16:18 Pulse Oximetry 97 12/21/18 16:18 Pain Level 5 12/21/18 16:18
[2018-12-21 17:18] VITALS: BP 126/76; PULSE 96; RESP 16; TEMP 36.5; O2SAT 97
== END 2018-12-21 17:18 | disposition home or self-care (01) ==
PROVIDERS: Emergency Provider Physician Assistant; PCP Specialist/Technologist Athletic Trainer
DX: S61.432A Puncture wound without foreign body of left hand, initial encounter (principal); W26.0XXA Contact with knife, initial encounter; Z21 Asymptomatic human immunodeficiency virus [HIV] infection status
CPT/HCPCS: 99283

== ENCOUNTER 2019-01-09 06:49 | Outpatient (CLI) | payer MEDICARE, MEDICAID, SELFPAY ==
[2019-01-09 07:42] LABS: Abs Immature Grans 0.01 k/cumm (0.0-0.09); Absolute Basophil Count 0.02 k/cumm (0.0-0.2); Absolute Eosinophil Count 0.13 k/cumm (0.0-0.7); Absolute Lymphocyte Count 1.16 k/cumm (1.2-3.4); Absolute Monocyte Count 0.47 k/cumm (0.11-0.7); Absolute Neutrophil Count 2.51 k/cumm (1.2-6.7); Basophils % 0.5; Immature Grans % 0.2; Mean Corpuscular Hemoglobin 32.1 pg (27.0-33.0); Mean Corpuscular Volume 94.4 fL (80-95); Mean Platelet Volume 10.2 fL (8.0-11.0); Monocytes % 10.9; Neutrophils % 58.4; Platelet Count 162 x1000/uL (130-400); RBC 4.98 m/cumm (4.50-6.00); RBC Distribution Width 12.8 % (11.8-14.1)
[2019-01-09 08:15] LABS: ALT 32 U/L (12-78); AST 16 U/L (15-37); Albumin 3.7 g/dL (3.4-5.0); Alkaline Phosphatase 109 U/L (46-116); Anion Gap 12.6 mmol/L (3-11); BUN 20 mg/dL (7-18); Bilirubin, Total 0.3 mg/dL (0.2-1.0); CO2 23.4 mmol/L (21.0-32.0); CREATININE 0.97 mg/dL (0.70-1.30); Calcium 8.5 mg/dL (8.5-10.1); Chloride 103 mmol/L (98-107); Cholesterol 205 mg/dL (50-200); Glucose 181 mg/dL (70-100); HDL Cholesterol 48 mg/dL (40-60); LDL CHOLESTEROL 136 mg/dL (<100); Potassium 4.5 mmol/L (3.5-5.1); Sodium 139 mmol/L (136-145); Total Protein 6.7 g/dL (6.4-8.2); Triglyceride 54 mg/dL (30-150)
[2019-01-10 10:55] LABS: CD3 83 % (62-87); CD4 29 % (35-63); CD8 52 % (10-35)
[2019-01-10 17:46] LABS: HBV DNA Detect/Quant, PCR Undetected IU/mL (Undetected)
[2019-01-11 16:56] LABS: HIV-1 RNA Quantification <20 copies/mL (UNDECT)
== END 2019-01-09 07:09 ==
PROVIDERS: PCP Specialist/Technologist Athletic Trainer; Visit Provider Internal Medicine Infectious Disease
DX: B20 Human immunodeficiency virus [HIV] disease (principal); Z79.899 Other long term (current) drug therapy; Z82.49 Family history of ischemic heart disease and other diseases of the circulatory system
CPT/HCPCS: 36415; 80053; 80061; 83721; 87517; 87536; 84100; 85025; 86359; 86360

== ENCOUNTER 2019-03-12 09:20 | Outpatient (CLI) | payer MEDICARE, MEDICAID, SELFPAY | END 2019-03-12 09:40 | PROVIDERS: PCP Specialist/Technologist Athletic Trainer; Referring Provider Nurse Practitioner Family; Visit Provider Internal Medicine Infectious Disease | DX: B20 Human immunodeficiency virus [HIV] disease (principal); Z79.899 Other long term (current) drug therapy | CPT/HCPCS: 99215 ==

== ENCOUNTER 2019-06-20 08:49 | Outpatient (CLI) | payer MEDICARE, MEDICAID, SELFPAY ==
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
== END 2019-06-20 09:09 ==
PROVIDERS: PCP Specialist/Technologist Athletic Trainer; Visit Provider Student in an Organized Health Care Education/Training Program
DX: M75.111 Incomplete rotator cuff tear or rupture of right shoulder, not specified as traumatic (principal); Z01.818 Encounter for other preprocedural examination; B20 Human immunodeficiency virus [HIV] disease; E11.9 Type 2 diabetes mellitus without complications; Z79.84 Long term (current) use of oral hypoglycemic drugs
CPT/HCPCS: NC

== ENCOUNTER 2019-06-26 08:24 | Day surgery (SDC) | payer MEDICARE, MEDICAID, SELFPAY ==
[2019-06-20 09:00] VITALS: BP 99/66; PULSE 67; RESP 17; TEMP 36.6; O2SAT 96
[2019-06-26] VITALS (15 sets, daily range): BP systolic 64–121; BP diastolic 45–80; PULSE 72–88; RESP 11–18; TEMP 36.2–37.1; O2SAT 75–98
--- NOTE | 2019-06-26 07:55 | PDOC.DSDIS_ITS ---
Discharge Plan Disposition Patient Disposition: HOME Condition: Good Discharge Details Reason For Visit: R RTC Tear Attending Provider: Jakob Almeida Primary Care Provider: Jean Paul Peter Home Meds and New Rx's Prescriptions: Continued simethicone [Gas-X Extra Strength] 125 mg Capsule 125 mg PO TID RF: 0 gabapentin 300 mg Capsule 300 mg PO QHS RF: 0 metformin 500 mg Tablet 500 mg PO BID RF: 0 omeprazole 40 mg Capsule,Delayed Release(Dr/Ec) 40 mg PO HS RF: 0 Biktarvy 50-200-25 mg Tablet 1 tab PO HS RF: 0 venlafaxine [Effexor XR] 75 mg Capsule,Extended Release 24hr 75 mg PO HS RF: 0 Discontinued ibuprofen 600 mg tablet 600 mg PO TID PRNQty: 90 RF: 3 acetaminophen 500 mg capsule 1,000 mg PO Q8H PRN (Reason: pain) Qty: 90 RF: 0 No Action acetaminophen 500 mg tablet 1,000 mg PO Q8H PRN (Reason: pain) Qty: 90 RF: 3 hydromorphone 2 mg tablet 2 mg PO Q4H MDD 12mg PRN (Reason: pain) Qty: 18 RF: 0 ibuprofen 600 mg tablet 600 mg PO TID PRN (Reason: pain) Qty: 90 RF: 3 Discharge Instructions Stand Alone Forms: Johnnie.Nerve Block Instructions, Elle Rosario w/RCR, DSU Post op Instructions, Catherine Fuentes (DSU) Referrals: Jakob Almeida MD [ [facility] STAFF PHYSICIAN] - Equipment/Supplies: Sling Activity:: In sling except for hygiene and pendulum Remove Dressings/Wound Care:: 72 hours Shower/Bathe:: 72 hours Diet:: As Tolerated Discharge Orders Discharge Orders: Discharge Order (Routine); Ordered 06/26/19 Ordered By: Jakob Almeida Discharge Data Discharge Date/Time-TO BE ENTERED AT DEPARTURE: 06/26/19 14:35 Discharge Comment: DC'D HOME WITH FRIEND VIA BALWINDER, JERRI. DS: Diagnosis Discharge Diagnosis (1) Incomplete tear of right rotator cuff: Status: Chronic
[2019-06-26] MEDS: Lactated Ringers 1,000 ML 80 ML IV ×2 (09:31→12:59)
[2019-06-26] MEDS: Bupivacaine 0.5% Pres-Free 30 ML VIAL (09:32)
[2019-06-26] MEDS: Bupivacaine LIPOSOME/PF 133 MG/10 ML VIAL IJ (09:32)
[2019-06-26] MEDS: CLINDAMYCIN 600 MG/50 ML BAG 100 MG IVPB (09:57)
[2019-06-26] MEDS: EPINEPHrine 1 MG/ML AMP pres-free (10:08)
--- NOTE | 2019-06-27 05:58 | W.PM.OP ---
Date of service: 06/26/19 Time of Service: 12:58 Operative Note Operative Note DATE OF PROCEDURE: 06/26/19 PRE-OP DIAGNOSIS: Right rotator cuff tear, right subacromial impingement POST-OP DIAGNOSIS: same PROCEDURE: - Arthroscopic Rotator Cuff Repair - Subacromial Debridement with Acromioplasty SURGEON: Jakob Almeida IP ARCHITECT: Omari Weiss ANESTHESIA: GETA and regional ESTIMATED BLOOD LOSS: 5 PATHOLOGY: none sent COMPLICATIONS: None Patient was transported to: PACU Patient's condition: stable Indications: I have seen Bill in clinic for a painful shoulder. Pathology was confirmed based on MRI and exam findings. Nonoperative measures were exhausted but disability and pain persisted. I discussed shoulder arthroscopy and procedures. I reviewed the risks of the procedures to include, but not limited to, bleeding, infection, pain, stiffness, damage to nerves or vessels, recurrence, hardware failure, blood clot. Despite these risks, the patient elected to proceed. Findings: A diagnostic arthroscopy was performed with the following findings: Articular Side - Glenohumeral Joint: Very focal grade 1 changes seen centrally within the glenoid and over the superior most aspect of the humeral head - Labrum: Degenerative changes without unstable findings - Cuff: Articular sided tearing of the subscapularis with exposed footprint, complete crescent type tear of the supraspinatus tendon - Biceps: Not present within the joint, previously torn Subacromial Side - Bursal: Thickened bursa - Rotator Cuff: Complete rotator cuff tear involving supraspinatus -Mild anterolateral spur Procedure Description: Bill was greeted in the preoperative holding area where the correct side was identified and marked. The consent was reviewed with the patient and signed. The history and physical was updated. All questions were answered. Bill was taken back to the PACU for administration of an intrascalene nerve block. He was then taken to the operating room. The patient was placed into the supine position on the operating room table. A general anesthetic was administered. He was then positioned in the beach chair position. All bony prominences were well padded. The head was placed in a foam head of partner development in a neutral position. Prophylactic antibiotics in the form of clindamycin were administered. The right arm/shoulder was then prepped with Chloraprep and draped in a standard fashion with stockinette and shoulder drape. A timeout to confirm correct identity, side and site, procedure, allergies, anesthesia, and medical concerns was performed. The arm was placed into a pneumatic wong, [id number]. The shoulder arthroscopy was then performed. The glenohumeral joint was injected with 20 cc of normal saline with good flow back. A standard posterior portal was made and the joint was entered atraumatically with a blunt arthroscope. Once inside we had good visualization of the structures of the glenohumeral joint. An anterior portal was established with spinal needle localization. A 6.5 mm cannula was inserted. A probe was then used to perform a diagnostic arthroscopy. There is noted to be a very focal area of grade I chondromalacia within the central glenoid and over the superior humeral head. The labrum was intact anteriorly and posteriorly but was notably frayed without any unstable lesions. There were no loose bodies in the inferior pouch. The superior rotator cuff was completely torn with a crescent type tear involving the majority of supraspinatus and a probable portion of the anterior fibers of infraspinatus. The biceps tendon was not located within the joint, likely previously torn. The subscapularis was tensioned appropriately but was notably lifted off of the footprint, partial articular sided tear. The glenoid labrum was debrided anteriorly and posteriorly and superiorly. The rotator interval was also debrided. This did show subscapularis to be elevated off of the lesser tuberosity. I then placed a single Mytec Healix anchor within the lesser tuberosity after preparing a bone bed. The anchor was placed without difficulty. An anterolateral portal was then established with spinal needle localization and a 7.5 mm cannula was placed. Using the anterior and anterolateral portal I then placed 2 horizontal mattress sutures through the subscapularis tendon. These were tied from the anterior direction reapproximating the tendon back down to the lesser tuberosity footprint. This lateralized the coracohumeral ligament back to his normal location and provide good tension to the subscapularis tendon. While still within the shoulder debridement of the undersurface of the torn supraspinatus was performed. The arthroscope was then inserted into the subacromial space. The 6.5 mm cannula was placed lateral to the CA ligament. A complete bursectomy is performed anteriorly, posteriorly, and laterally with electrocautery and shaver. This had excellent exposure of the rotator cuff. The bursal side rotator cuff was confirmed to be a crescent type tear of all of supra spinatus and a portion of the anterior infra spinatus fibers. There was a small anterolateral spur. Using a spinal needle a posterior lateral portal was established for viewing. The edges of the rotator cuff were debrided. The footprint was easily identifiable and this was also debrided and decorticated with a shaver. I then placed 2 Mitek Healix anchors medially. These were placed right at the articular margin. Using a retrograde suture passing device I placed 3 horizontal mattress sutures. These are tested and showed adequately reduce the rotator cuff down to the footprint. There is good mobility and no strain on the repair. These were then tied with standard arthroscopic knot tying techniques. I then placed 2 Lateral Row anchors. Each lateral anchor incorporated one suture from each knot. This Mitek 4.75 mm knotless anchor was placed posteriorly and then anteriorly. After placing the anterior anchor there was noted to be a dogear in the very anterior most aspect of the repair. Therefore, I used the single suture within the anchor to place another horizontal mattress suture into this dogear component which adequately brought it back down to bone. Suture limbs were cut. A 5.0 mm kita was then inserted from the posterior portal. The anterolateral corner of the acromion was then resected in plane with the posterior slope of the acromion. The scope equipment was removed from the shoulder. Excess fluid was evacuated. The portal sites were closed with 3-0 Monocryl. The wounds were dressed with Steri-Strips, 4 x 4's, ABDs, Medipore tape. A sling was applied. The patient tolerated the procedure well and was returned to the PACU in a stable condition suffering no known complication.
== END 2019-06-26 14:35 | disposition home or self-care (01) ==
LOC: SUR 08:24
PROVIDERS: PCP Specialist/Technologist Athletic Trainer; Visit Provider Student in an Organized Health Care Education/Training Program
PROC: (CPT 29827; principal; 2019-06-26 09:45)
DX: M75.111 Incomplete rotator cuff tear or rupture of right shoulder, not specified as traumatic (principal); M75.41 Impingement syndrome of right shoulder; M94.211 Chondromalacia, right shoulder
CPT/HCPCS: 29827; 29826; 76942; J0171; J1100; J2250; J2370; J2405; L3670

== ENCOUNTER → 2019-07-09 13:58 | Outpatient (BNVA) | payer MEDICARE, MEDICAID, SELFPAY | PROVIDERS: PCP Specialist/Technologist Athletic Trainer; Referring Provider Specialist/Technologist Athletic Trainer; Visit Provider Student in an Organized Health Care Education/Training Program | DX: Z47.89 Encounter for other orthopedic aftercare (principal); M75.111 Incomplete rotator cuff tear or rupture of right shoulder, not specified as traumatic; E11.9 Type 2 diabetes mellitus without complications; Z79.84 Long term (current) use of oral hypoglycemic drugs ==

== ENCOUNTER 2019-07-30 09:30 | Outpatient (CLI) | payer MEDICARE, MEDICAID, SELFPAY | END 2019-07-30 09:50 | PROVIDERS: PCP Specialist/Technologist Athletic Trainer; Referring Provider Nurse Practitioner Family; Visit Provider Internal Medicine Infectious Disease | DX: B20 Human immunodeficiency virus [HIV] disease (principal); Z79.899 Other long term (current) drug therapy; Z23 Encounter for immunization | CPT/HCPCS: 90471; 90472; 90620; 90686; 99215 ==

== ENCOUNTER 2019-08-01 09:54 | Outpatient (CLI) | payer MEDICARE, MEDICAID, SELFPAY ==
[2019-08-01 11:17] LABS: Hemoglobin A1C 6.4 % (4.5-6.2)
[2019-08-01 11:21] LABS: ALT 29 U/L (16-63); AST 12 U/L (15-37); Albumin 3.7 g/dL (3.4-5.0); Alkaline Phosphatase 86 U/L (46-116); BUN 15 mg/dL (7-18); Bilirubin, Total 0.3 mg/dL (0.2-1.0); CREATININE 0.99 mg/dL (0.70-1.30); Calcium 8.6 mg/dL (8.5-10.1); Chloride 103 mmol/L (98-107); Glucose 196 mg/dL (74-106); Potassium 4.3 mmol/L (3.5-5.1); Sodium 140 mmol/L (136-145); Total Protein 6.6 g/dL (6.4-8.2)
[2019-08-02 15:46] LABS: HIV-1 RNA Quantification 0 copies/mL (Undetected)
[2019-08-02 22:54] LABS: HBV DNA Detect/Quant, PCR Undetected IU/mL (Undetected)
== END 2019-08-01 10:14 ==
PROVIDERS: PCP Specialist/Technologist Athletic Trainer; Visit Provider Internal Medicine Infectious Disease
DX: B20 Human immunodeficiency virus [HIV] disease (principal); B18.1 Chronic viral hepatitis B without delta-agent; E11.9 Type 2 diabetes mellitus without complications
CPT/HCPCS: 36415; 80053; 87517; 87536; 83036

== ENCOUNTER → 2019-08-06 13:55 | Outpatient (BNVA) | payer MEDICARE, MEDICAID, SELFPAY | PROVIDERS: PCP Specialist/Technologist Athletic Trainer; Referring Provider Specialist/Technologist Athletic Trainer; Visit Provider Student in an Organized Health Care Education/Training Program | DX: Z47.89 Encounter for other orthopedic aftercare (principal); E11.9 Type 2 diabetes mellitus without complications; M75.111 Incomplete rotator cuff tear or rupture of right shoulder, not specified as traumatic ==

== ENCOUNTER → 2019-09-17 08:31 | Outpatient (BNVA) | payer MEDICARE, MEDICAID, SELFPAY | PROVIDERS: PCP Specialist/Technologist Athletic Trainer; Referring Provider Specialist/Technologist Athletic Trainer; Visit Provider Student in an Organized Health Care Education/Training Program | DX: Z47.89 Encounter for other orthopedic aftercare (principal); M75.111 Incomplete rotator cuff tear or rupture of right shoulder, not specified as traumatic ==

== ENCOUNTER 2019-11-23 13:07 | Outpatient (CLI) | payer MEDICARE, MEDICAID, SELFPAY ==
--- NOTE | 2019-11-23 13:10 | CCCE_ITS ---
Date of service: 11/23/19 Time of Service: 13:10 [facility] Note Note: 11/23/2019 telephone telehealth follow up appointment with Bill. he is feeling well and has had no difficulty in getting his HIV medications from [facility] here in [facility]. He says he will be picking up his refills this afternoon and has had no missed doses since last seen. HPI: He has not been ill since last seen and is self isolating unless he needs to go to food of pharmacy shop. he is having a lot of gas and this started when he was switched to the Biktarvy HIV medication. he mentioned this when he was last seen and did try the recommended over the counter Gas Ex which has helped but his comment today is, I clear out people. With the caronna virus pandemic social distancing that's not bad right now but is a drag when we want to visit with our friends when ever this is over! he is requesting a RX. ROS: No fever, chills, night sweats, sor throat, cough, shortness of breath, N/V/D - just lots of flatulence. No rash, swelling or numbness. He is taking all his medications as RXd and does not need refills at this point. he is not smoking and has not for years. 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 Imms UTD PE NA - His voice is strong and there is no breathlessness. A/P HIV: No break in ART medications and he will call if there is a shortage at the pharmacy during this pandemic. He will follow guidelines to avoid Covid19 and will call if he gets any symptoms. Flatulence due to Biktarvy - Called [facility] and they said Simethicone is an OTC drug but since it is caused by his HIV ART perhaps [facility] will pay for it. We will try. he will get 250 mg tabs to take 1 tid prn and will get 24 tabs to start. He will let me know iif this is helpful. Rupinder Bell, CHERIE
== END 2019-11-23 13:27 ==
PROVIDERS: PCP Specialist/Technologist Athletic Trainer; Visit Provider Nurse Practitioner Family
DX: B20 Human immunodeficiency virus [HIV] disease (principal)

== ENCOUNTER → 2020-03-21 11:09 | Outpatient (BNVA) | payer MEDICARE, MEDICAID, SELFPAY | PROVIDERS: PCP Specialist/Technologist Athletic Trainer; Referring Provider Specialist/Technologist Athletic Trainer; Visit Provider Student in an Organized Health Care Education/Training Program | DX: M75.21 Bicipital tendinitis, right shoulder (principal); M75.111 Incomplete rotator cuff tear or rupture of right shoulder, not specified as traumatic; Z87.828 Personal history of other (healed) physical injury and trauma | CPT/HCPCS: 20550; 99213; J1030 ==

== ENCOUNTER 2020-04-29 03:41 | Outpatient (CLI) | payer MEDICARE, MEDICAID, SELFPAY ==
[2020-04-29 08:00] LABS: Abs Immature Grans 0.02 10^3/uL (0.0-0.06); Absolute Basophil Count 0.03 10^3/uL (0.0-0.2); Absolute Eosinophil Count 0.12 10^3/uL (0.0-0.7); Absolute Lymphocyte Count 1.41 10^3/uL (1.2-3.4); Absolute Monocyte Count 0.46 10^3/uL (0.1-0.8); Absolute Neutrophil Count 2.81 10^3/uL (1.2-6.7); Basophils % 0.6; Eosinophils % 2.5; HCT 44.5 % (40.0-50.0); HGB 15.2 g/dL (13.5-17.5); Immature Grans % 0.4; Lymphocytes % 29.1; MCH 33.2 pg (27.0-33.0); MCHC 34.2 % (32.0-36.0); MCV 97.2 fL (80-95); MPV 10.6 fL (8.0-11.0); Monocytes % 9.5; Neutrophils % 57.9; Nucleated RBC 0 %; Platelet Count 183 10^3/uL (130-400); RBC 4.58 10^6/uL (4.36-5.78); RDW 12.6 % (11.8-14.1); RDW-SD 45.4 fL; WBC 4.85 10^3/uL (4.4-10.8)
[2020-04-29 08:36] LABS: Hemoglobin A1C 6.1 % (<5.7)
[2020-04-29 08:53] LABS: ALT 30 U/L (16-63); AST 13 U/L (15-37); Albumin 3.8 g/dL (3.4-5.0); Alkaline Phosphatase 78 U/L (46-116); Anion Gap 6.7 mmol/L (3-11); BUN 16 mg/dL (7-18); Bilirubin, Total 0.2 mg/dL (0.2-1.0); CO2 23.3 mmol/L (21.0-32.0); CREATININE 0.98 mg/dL (0.70-1.30); Chloride 105 mmol/L (98-107); Glucose 162 mg/dL (74-106); Potassium 4.7 mmol/L (3.5-5.1); Sodium 135 mmol/L (136-145); Total Protein 6.7 g/dL (6.4-8.2)
[2020-04-30 16:36] LABS: CD3 81 % (62-87); CD4 31 % (35-63); CD8 49 % (10-35)
[2020-05-01 15:23] LABS: HIV 1 RNA Qualitative Undetected copies/mL (Undetected)
[2020-05-03 00:42] LABS: HBV DNA Detect/Quant, PCR Undetected IU/mL (Undetected)
== END 2020-04-29 04:01 ==
PROVIDERS: PCP Specialist/Technologist Athletic Trainer; Visit Provider Nurse Practitioner Family
DX: B20 Human immunodeficiency virus [HIV] disease (principal); Z79.899 Other long term (current) drug therapy; B18.1 Chronic viral hepatitis B without delta-agent; E11.9 Type 2 diabetes mellitus without complications
CPT/HCPCS: 36415; 80053; 87517; 87536; 83036; 85025; 86359; 86360

== ENCOUNTER 2020-05-13 13:10 | Day surgery (SDC) | payer MEDICARE, MEDICAID, SELFPAY ==
[2020-05-13 13:16] VITALS: BP 138/88; PULSE 85; RESP 18; TEMP 35.8; O2SAT 95
--- NOTE | 2020-05-13 13:21 | W.ED.GENAD ---
Discharge Plan Disposition Patient Disposition: [facility] INPATIENT Condition: Improving Discharge Details Clinical Impression: Open fracture of finger of left hand Primary Care Provider: Jean Paul Peter ED Provider: Eric Butler Home Meds and New Rx's Prescriptions: No Action acetaminophen 500 mg tablet 1,000 mg PO Q8H PRN (Reason: pain) Qty: 90 RF: 3 ibuprofen 600 mg tablet 600 mg PO TID PRN (Reason: pain) Qty: 90 RF: 3 simethicone [Gas-X Extra Strength] 125 mg Capsule 125 mg PO TID RF: 0 gabapentin 300 mg Capsule 300 mg PO QHS RF: 0 metformin 500 mg Tablet 500 mg PO BID RF: 0 omeprazole 40 mg Capsule,Delayed Release(Dr/Ec) 40 mg PO HS RF: 0 Biktarvy 50-200-25 mg Tablet 1 tab PO HS RF: 0 venlafaxine [Effexor XR] 75 mg Capsule,Extended Release 24hr 75 mg PO HS RF: 0 Medical Decision Making 55-year-old right-handed male who was using a table saw when the wood got caught in his left hand was abruptly forced over the blade on the dorsum. He wrapped the hand in a cloth and drove to the ER. He denies any other injury. He has recently been well. The patient has macerated lacerations overlying the dorsal distal portions of the index, long, ring fingers of the left hand. He is unable to extend the distal phalanx of the ring finger. Sensation is diminished throughout the fingertips and is difficult to test two-point discrimination. Patient's tetanus was last 8 years ago, he was given a booster. He was given IV Keflex and referred for x-ray. There is comminuted fracture of distal phalanx of the middle finger as well as a fracture involving distal aspect of the middle phalanx. There is a fracture of the ring finger at the distal aspect of the middle phalanx as well as a fracture at the base of the distal phalanx. Patient seen in consultation by Dr. Almeida. He will be taken to the OR for washout and repair. HPI General Mode of arrival: ambulatory. Date/Time Provider Initiated Documentation: 05/13/20 13:10. Limitations to Documentation: no limitations. Information obtained by: patient. History of Present Illness 55 year old M presents to the emergency department with the chief complaint of Left hand tablesaw injury, described as moderate, Quality is described as dull and constant, and is localized to the left and upper extremity. Patient reports no radiation. Patient started experiencing this minute(s) and it has been constant. No relieving factors improve symptom(s), No exacerbating factors reported . Patient notes no other symptoms.. Patient did receive the following treatments prior to arrival, none Related Data Home Medications Medication Instructions Recorded Confirmed Biktarvy 1 tab PO HS 05/10/18 05/13/20 venlafaxine [Effexor XR] 75 mg PO HS 05/10/18 05/13/20 gabapentin 300 mg PO QHS 06/20/19 05/13/20 metformin 500 mg PO BID 06/20/19 05/13/20 omeprazole 40 mg PO HS 06/20/19 05/13/20 simethicone [Gas-X Extra Strength] 125 mg PO TID 06/20/19 05/13/20 acetaminophen 500 mg tablet 1,000 mg PO Q8H PRN #90 tab 06/26/19 05/13/20 ibuprofen 600 mg tablet 600 mg PO TID PRN #90 tab 06/26/19 05/13/20 Previous Rx's Medication Instructions Recorded acetaminophen 500 mg tablet 1,000 mg PO Q8H PRN #90 tab 06/26/19 ibuprofen 600 mg tablet 600 mg PO TID PRN #90 tab 06/26/19 Allergies Allergy/AdvReac Type Severity Reaction Status Date / Time amoxicillin [Amoxicillin] Allergy Intermediate hives, rash Unverified 05/13/20 13:27 Sulfa (Sulfonamide Allergy Intermediate rash, hives Unverified 05/13/20 13:27 Antibiotics) Penicillins Allergy Mild Skin Rash Verified 05/13/20 13:27 meloxicam AdvReac Mild itchy Unverified 05/13/20 13:27 oxycodone AdvReac Mild feels Unverified 05/13/20 13:27 sick fish/seafood AdvReac Severe naussea, Uncoded 05/13/20 13:27 vomiting, diarrhea nuts AdvReac Severe nausea, Uncoded 05/13/20 13:27 vomiting, diarrhea General MILE: 4 Review of Systems Narrative: No other injury, tetanus unknown. [facility] Medical History Biceps tendinitis of right shoulder Diabetes mellitus GERD (gastroesophageal reflux disease) Glaucoma Hepatitis B History of anesthesia reaction Pt states blood pressure bottoms out HIV (human immunodeficiency virus infection) Hx of headache Stress headaches Hyperlipidemia Surgical History (Updated 08/12/19 @ 10:41 by Jakob Almeida MD) Excision, Olecranon Bursa (09/09/14) RIGHT History of colonoscopy Hx of biopsy Throat biopsy, throat polyps Incomplete tear of right rotator cuff (10/03/17) S/P repair on 06/26/2019 injected 07/12/18 Status post left rotator cuff repair DOS: 08/01/18 Dr. Almeida Social History Smoking/Tobacco Use Status: Former Tobacco Use Quit Date: 08/15/08 Tobacco: How many years used: 25 Alcohol Intake: current Alcohol Intake frequency: 0-2 drinks per day Alcohol type: beer and wine Details: 1-2 drinks nightly Drug use: Never Substance use type: does not use Current gender identity: male Do you feel safe at home: Yes Do you feel safe in your relationship?: Yes Exam Narrative Exam Narrative: GEN: awake, alert, oriented 3. Pleasant, well groomed, interactive. HEAD: Normocephalic, atraumatic EYES: PERRL, EOMI NECK: Full ROM, no CHRIS, no menigismus CHEST/RESP: No respiratory distress EXT: Right upper extremity unremarkable. 2+ radial pulse bilateral upper extremity. Left upper extremity has macerated lacerations overlying the dorsal and distal portions of the index long and ring fingers. He is unable to extend the distal phalanx of the ring finger. Sensation is diminished but present over the distal portions of index, long, ring fingers left side. Neuro: Grossly normal neurologic exam, conversant, interactive. Psych: Speech fluent, thoughts congruent, affect normal
--- NOTE | 2020-05-13 13:43 | DI.RAD_ITS ---
EXAM: XR HAND LT COMPLETE CLINICAL HISTORY: table saw injury,pain TECHNIQUE: 2D digital imaging was performed. COMPARISON: No exams were available for comparison FINDINGS: Gauze overlies the fingers. There is a soft tissue laceration of the index finger. There is a quest ion of a nondisplaced fracture of the tuft. There is a comminuted fracture of the distal phalanx of the middle finger which shows separation of fracture fragments. There is also fracture involving dis lucio aspect of the middle phalanx at the ulnar aspect. The ring finger is suboptimally profiled. The re is a fracture at the distal aspect of the middle phalanx as well as a small fracture fragment from the dorsal aspect of the at the base of the distal phalanx. The thumb and 5th finger appear normal. IMPRESSION: Fractures of the distal and middle phalanges of the index and ring fingers. Question of a tuft fract ure of the index finger.
[2020-05-13] MEDS: ceFAZolin 1 GM/50 ML BAG IVPB (13:49)
[2020-05-13 14:25] VITALS: BP 160/85; PULSE 74; RESP 18; TEMP 36.7; O2SAT 96
--- NOTE | 2020-05-13 14:38 | OCONE_ITS ---
Date of service: 05/13/20 Time of Service: 13:38 History of Present Illness History of Present Illness Chief Complaint: Left Hand Tablesaw Injury Narrative: Bill is a 55-year-old [id number] male who was working with a table saw earlier today. Unfortunately, his hand slipped and he counted the cell with the dorsum of his left hand. He had notable injury to his index, middle, and ring fingers. Was brought to the emergency department diagnosed with open fractures of the middle finger and ring finger with deformity of the ring finger is notable skin defect. Bleeding is been controlled with dressing. Denies injury to any other aspect of this arm of the extremity. He does report some decrease sensation at the tips of his fingers but not specifically in any one digit, except slightly worse than the middle. Consult Reason Left hand table saw injury Assessment and Plan Assessment and plan (1) Open fracture of phalanx of left middle finger: Status: Acute Qualifiers: Encounter type: initial encounter Phalanx: distal Fracture alignment: displaced Qualified Code(s): S62.633B - Displaced fracture of distal phalanx of left middle finger, initial encounter for open fracture (2) Open fracture of phalanx of left ring finger: Status: Acute Qualifiers: Encounter type: initial encounter Phalanx: unspecified phalanx Fracture alignment: displaced Qualified Code(s): S62.605B - Fracture of unspecified phalanx of left ring finger, initial encounter for open fracture (3) Injury of extensor tendon of left hand: Status: Acute Qualifiers: Encounter type: initial encounter Qualified Code(s): S66.902A - Unspecified injury of unspecified muscle, fascia and tendon at wrist and hand level, left hand, initial encounter (4) Laceration of left index finger: Status: Acute Assessment and plan: Bill is a 55-year-old who suffered a table saw injury to his left hand. He has multiple injuries. There is deformity of the ring finger and little finger with involvement of the bone in the tendon. Irrigation. Patient concerned about the skin quality and whether we will have enough skin to close primarily. If this does need any secondary closure, I would have to send her to plastic surgery. However, I think we can make this better in the operating today. My goal would be to clean the wounds, assessed the bony architecture and try to repair that as best as possible pins and possible screws. We also evaluate the extensor tendon and perform repair as well. He is also likely he will need his finger splint for period time. The lacerations will be repaired as best as possible. It is possible that some of the wound stay open and need for secondary flap or graft coverage. I reviewed the risk of the procedure to include bleeding, infection, pain, stiffness, damage to nerves and vessels, damage to muscle tendons, need for repeat procedures, nonunion, malunion, stiffness, arthritis. Despite these risks, he elects to proceed. Qualifiers: Encounter type: initial encounter Damage to nail status: with damage Foreign body presence: unspecified Qualified Code(s): S61.311A - Laceration without foreign body of left index finger with damage to nail, initial encounter Review of Systems All systems reviewed & are unremarkable except as noted in HPI and below PFSH Medical History Biceps tendinitis of right shoulder Diabetes mellitus GERD (gastroesophageal reflux disease) Glaucoma Hepatitis B History of anesthesia reaction Pt states blood pressure bottoms out HIV (human immunodeficiency virus infection) Hx of headache Stress headaches Hyperlipidemia Surgical History Excision, Olecranon Bursa (09/09/14) RIGHT History of colonoscopy Hx of biopsy Throat biopsy, throat polyps Incomplete tear of right rotator cuff (10/03/17) S/P repair on 06/26/2019 injected 07/12/18 Status post left rotator cuff repair DOS: 08/01/18 Dr. Almeida Social History Smoking/Tobacco Use Status: Former Tobacco Use Quit Date: 08/15/08 Tobacco: How many years used: 25 Alcohol Intake: current Alcohol Intake frequency: 0-2 drinks per day Alcohol type: beer and wine Details: 1-2 drinks nightly Drug use: Never Substance use type: does not use Current gender identity: male Do you feel safe at home: Yes Do you feel safe in your relationship?: Yes Exam Narrative Exam Narrative: Evaluation of the left hand shows notable lacerations of the dorsum of the hand involving the index finger, middle finger, ring finger. There is exposed tendon of the ring finger with exposed bone likely from the middle phalanx. The ring finger has a flexed posture about 45 degrees. The skin lacerations are jagged and clean with some areas of necrosis and d iscoloration seen the edges. The fingertips and cells are well perfused with good color and capillary refill, although delayed. Sensation is difficult to address although it does seem that the ulnar aspect of the ring finger the ulnar aspect of the middle finger are diminished compared to the other digits. Two- point discrimination was not performed difficult given the multiple lacerations. No laceration proximal to the distal aspect of the middle phalanx. The laceration middle finger is vertical in nature going through the nail. Const General: cooperative, healthy appearing, comfortable and no acute distress Nutritional Appearance: average body habitus Orientation: alert, awake and oriented x3 Psych Mood: congruent mood Affect: normal affect Attitude: cooperative Results Last Vital Signs Temp 36.7 C 05/13/20 14:25 Pulse 74 05/13/20 14:25 Resp 18 05/13/20 14:25 BP 160/85 H 05/13/20 14:25 Pulse Ox 96 05/13/20 14:25 Imaging Imaging Studies: X-ray of the left hand shows fractures of the middle finger and the ring finger. Both are involving the distal phalanx with some involvement of the middle phalanx head.
[2020-05-13] MEDS: Sodium Bicarbonate 50 MEQ/50 ML VIAL (16:09)
[2020-05-13] MEDS: Bupivacaine 0.5% Pres-Free 30 ML VIAL (16:21)
--- NOTE | 2020-05-13 16:30 | PDOC.DSDIS_ITS ---
Discharge Plan Disposition Patient Disposition: HOME Condition: Improving Discharge Details Reason For Visit: Left Hand Tablesaw Injury Attending Provider: Jakob Almeida Primary Care Provider: Jean Paul Peter Home Meds and New Rx's Prescriptions: New hydrocodone-acetaminophen 5-325 mg tablet 1 tab PO Q4H PRN (Reason: pain) Qty: 14 RF: 0 Continued simethicone [Gas-X Extra Strength] 125 mg Capsule 125 mg PO TID RF: 0 gabapentin 300 mg Capsule 300 mg PO QHS RF: 0 metformin 500 mg Tablet 500 mg PO BID RF: 0 omeprazole 40 mg Capsule,Delayed Release(Dr/Ec) 40 mg PO HS RF: 0 ibuprofen 600 mg tablet 600 mg PO TID PRN (Reason: pain) Qty: 90 RF: 3 Biktarvy 50-200-25 mg Tablet 1 tab PO HS RF: 0 venlafaxine [Effexor XR] 75 mg Capsule,Extended Release 24hr 75 mg PO HS RF: 0 Changed acetaminophen 500 mg tablet 500 mg PO Q6H PRN PRN (Reason: pain) Qty: 60 RF: 3 Discharge Instructions Additional Instructions: Activity: You should keep the hand elevated as much as possible for the first few days. You may use the thumb as tolerated but avoid trying to do too much too soon. You may perform light activities with the splint in place. Dressing/Cast: Your splint should stay in place at all times. Do NOT get it wet. You may loosen the PANKAJ wrap if you feel it is too tight and then rewrap more loosely. Medications: - You should take Tylenol and Ibuprofen for baseline pain control. - You have Hydrocodone for breakthrough pain. - You may apply ice over the thumb. Follow-up: Tuesday Referrals: Jakob Almeida MD [ [facility] STAFF PHYSICIAN] - Activity:: Elevate Remove Dressings/Wound Care:: 72 hours Shower/Bathe:: Cover Diet:: As Tolerated Discharge Orders Discharge Orders: Discharge Order (Routine); Ordered 05/13/20 Ordered By: Jakob Almeida DS: Diagnosis Discharge Diagnosis (1) Open fracture of phalanx of left middle finger: Status: Acute (2) Open fracture of phalanx of left ring finger: Status: Acute (3) Injury of extensor tendon of left hand: Status: Acute (4) Laceration of left index finger: Status: Acute
--- NOTE | 2020-05-13 21:53 | ROE_ITS ---
Date of service: 05/13/20 Time of Service: 16:25 Operative Note Operative Note DATE OF PROCEDURE: 05/13/20 PRE-OP DIAGNOSIS: Left Index Finger Laceration, Middle Finger Open Fracture of Middle and Distal Phalanx, Ring Finger Open Fracture of Middle and Distal Phalanx with Extensor Tendon Rupture, Left Little Finger Laceration POST-OP DIAGNOSIS: same PROCEDURE: Open irrigation and debridement of complex lacerations and open fractures of LEFT hand with open reduction and pinning of the left middle and ring fingers SURGEON: Jakob Almeida [employer]INTED [employer] PANELS DEVELOPER: Omari Weiss ANESTHESIA: local ESTIMATED BLOOD LOSS: 10 PATHOLOGY: none sent TOURNIQUET TIME: 0 COMPLICATIONS: None Patient was transported to: same day Patient's condition: stable Indications: Lemuel is a 55-year-old [id number] male who was using a table saw today. The piece of wood that he was using slipped and the left hand entered the blade area of the table saw. The dorsum of the left garment sewer hand the table saw with immediate bleeding, pain, and deformity. He wrapped the hand and drove himself to the emergency department. In the ED he was diagnosed with complex lacerations of all 4 fingers and open fractures of the middle and ring finger with extensor tendon injury of the ring finger. Given the complexity of the lacerations and the multiple digits involved, I recommended a more formal debridement and attempted fracture repair in the operating room. I discussed the risk with Lemuel to include bleeding, infection, pain, stiffness, hardware fa ilure, hardware prominence, need for repeat procedures. Despite these risk, he elected to proceed. Findings: There is a complex laceration involving the dorsum of the distal aspect of the index finger with involvement of the nailbed. A nailbed repair was performed. There is a complex laceration of the dorsum of the middle finger which had visible bone. The extensor tendon of this was intact. The coronal split of the distal phalanx was secured with a single crossing K wire and the fracture of the middle phalanx and the comminuted fracture of the distal fence was secured with a longitudinal pin through the distal phalanx into the middle phalanx. The complex laceration of the ring finger had obvious tendon involvement with absent distal middle phalanx and extensor tendon. I was unable to reconstruct the middle phalanx completely but did place one portion of the middle phalangeal head back in appropriate position and secured this with a K wire crossing the joint. There was a complex dorsal laceration of the little finger involving the nail bed but there was no opposable tissue and this was simply dressed. Procedure Description: Bill was greeted in the preoperative holding area. I previously saw him in the emergency department and confirmed his identity and consent him for the surgery. He agreed to proceed he was brought to the operating room. He was placed in supine position with the left hand on a hand table. Prophylactic biotics were given in the emergency department just prior to arrival in the operating room. A timeout was performed for safe surgery. The palmar aspect of the index, middle, ring, and little finger MCP joints was prepped with Betadine. I then performed digital blocks using 1% lidocaine buffered with sodium bicarbonate with epinephrine. These digital blocks were done at each of the MCP joints of the hand was held in the palmar position to allow the digital blocks to totally set. Dressings were finally removed and the hand was prepped with Betadine. The arm is then draped in a standard fashion. The lacerations were inspected. The in dex finger laceration was complex over the dorsum of the index finger approximately 2 and half centimeters in length involving the nailbed. There was disruption of the nailbed mostly distally and then disruption of the eponychial fold. Therefore, I would had remove the nail plate for later repair. The middle finger had a complex laceration involving the dorsum of the finger extending proximally 3 cm. There was obvious deformity of the distal aspect the finger with notable crepitus with any motion and manipulation of the finger. There were large chunks of bone loose in the skin and soft tissues. The coronal split was easily displaced and the finger subluxed in an ulnar direction. There were a few small loose pieces of bone with no soft tissue attachments was removed. The ring finger had an obvious tenderness irruption with absent distal middle phalanx. There was a small piece of phalangeal head of the middle phalanx which had a small amount of capsular or periosteal tissue attached to it which was retained. The extensor tendon was identified in the proximal aspect of the wound but there was no distal tendon visible. There appeared to be a portion of the dorsal ulnar middle phalanx which was absent. There also appear to be some comminution at the base of the distal phalanx. Once again, there were some loose pieces of bone which were removed. Lastly, the little finger had a complex laceration over the dorsum of the little finger measuring approximately 2 cm which did involve the nailbed but there was no opposable tissue as there was simply absence of tissue in this area. Again inventory of all the wounds and lacerations a thorough irrigation debridement was performed. Cystoscopy tubing was utilized to deliver 3 L of normal saline to the wounds. There is no gross debris. Sharp dissection was performed of any areas which appeared necrotic. While the skin edges were not healthy appearing and appeared to be torn rather than cut at times, there is no grossly necrotic tissue. Starting with the index finger I reapproximated the nailbed laceration and held this in position while it was repaired with skin glue. Once the skin glue had dried I then repaired the eponychial fold with a single 4-0 nylon suture. As for the middle finger, evaluation of the fracture pieces was performed and a reduction here was utilized to reduce the coronal split of the distal phalanx. This was secured with a K wire. There was a complex fracture also running transversely which was difficult to reduce because the small size of the bone. Using a K wire, I was able to place a wire through the distal aspect of the finger, across the more proximal section passing by the K wire and then placing this into the middle phalanx. There was some comminution seen on the very margins of the middle phalangeal head. There were multiple fragments of the distal phalanx I just focused on these primary pieces. Once this was secured it appeared be roughly stable. I then closed the soft tissue envelope with 4-0 nylon. The skin was quite friable at these edges and so large bites of skin were used to close this loosely. I try did not tie too tightly to avoid any skin necrosis. Proceeding onto the ring finger, the wound was once again inspected and showed no signs of repairable extensor tendon. There is an absence of middle phalanx with a small portion of the middle phalangeal head flipped sideways and out of the dorsum of the wound but loosely attached to a piece of periosteum or capsule. I placed a K wire from the DIP joint out the end of the finger and pulled it out all the way through and then reduced the distal phalanx onto the middle phalanx in a slightly extended position. However, this was very challenging given that there was no true middle phalangeal head. The piece of phalangeal head which did articulate with the distal phalanx was flipped in the right position and held using manual pressure while I advanced the K wire into the middle phalanx. This held this in appropriate position although there was an obvious defect of the middle phalanx distally. I then closed this remaining tissue with loosely approximated 4 oh nylons. The little finger was once again inspected and showed no opposable tissues. The wound was cleaned. There is no tissue to tie together and therefore this was simply dressed with Xeroform. The remaining wounds were also dressed with Xeroform. An adjunct digital block was performed of all 4 digits using 0.25% bupivacaine. The wounds were dressed with gauze and then wrapped in a mitten type dressing using Kerlix. The end the case all counts are correct. Bill was transferred back to the same-day surgery area in a stable condition.
[2020-05-14 14:43] LABS: COVID-19 RT-PCR Result NEGATIVE (Negative)
== END 2020-05-13 17:02 | disposition home or self-care (01) ==
LOC: ER 14:33 → SUR 14:39
PROVIDERS: Emergency Provider Emergency Medicine; PCP Specialist/Technologist Athletic Trainer; Visit Provider Student in an Organized Health Care Education/Training Program
PROC: (CPT 26735; principal; 2020-05-13 14:30)
PROC: (CPT 26727; 2020-05-13 14:30)
DX: S62.633B Displaced fracture of distal phalanx of left middle finger, initial encounter for open fracture (principal); S62.625B Displaced fracture of middle phalanx of left ring finger, initial encounter for open fracture; S61.317A Laceration without foreign body of left little finger with damage to nail, initial encounter; S61.311A Laceration without foreign body of left index finger with damage to nail, initial encounter; W29.8XXA Contact with other powered hand tools and household machinery, initial encounter; Z11.59 Encounter for screening for other viral diseases
CPT/HCPCS: 26735 ×2; 11012; 11760; 36415; 90471; 96365; 99253; 99284; 99285; U0003; 73130; 76000; J0690

== ENCOUNTER → 2020-06-09 14:43 | Outpatient (BNVA) | payer MEDICARE, MEDICAID, SELFPAY | PROVIDERS: PCP Specialist/Technologist Athletic Trainer; Referring Provider Specialist/Technologist Athletic Trainer; Visit Provider Student in an Organized Health Care Education/Training Program | DX: S62.633D Displaced fracture of distal phalanx of left middle finger, subsequent encounter for fracture with routine healing; S62.605D Fracture of unspecified phalanx of left ring finger, subsequent encounter for fracture with routine healing; S61.311D Laceration without foreign body of left index finger with damage to nail, subsequent encounter; E11.9 Type 2 diabetes mellitus without complications; W29.8XXD Contact with other powered hand tools and household machinery, subsequent encounter; S66.8 Injury of other specified muscles, fascia and tendons at wrist and hand level ==

== ENCOUNTER → 2020-06-30 15:04 | Outpatient (BNVA) | payer MEDICARE, MEDICAID, SELFPAY | PROVIDERS: PCP Specialist/Technologist Athletic Trainer; Referring Provider Specialist/Technologist Athletic Trainer; Visit Provider Student in an Organized Health Care Education/Training Program | DX: S62.633D Displaced fracture of distal phalanx of left middle finger, subsequent encounter for fracture with routine healing (principal); S66.902D Unspecified injury of unspecified muscle, fascia and tendon at wrist and hand level, left hand, subsequent encounter; S62.605D Fracture of unspecified phalanx of left ring finger, subsequent encounter for fracture with routine healing; S61.311D Laceration without foreign body of left index finger with damage to nail, subsequent encounter; W29.8XXD Contact with other powered hand tools and household machinery, subsequent encounter; E11.9 Type 2 diabetes mellitus without complications ==

== ENCOUNTER 2020-07-16 00:39 | Outpatient (CLI) | payer MEDICARE, MEDICAID, SELFPAY ==
--- NOTE | 2020-07-16 13:36 | DI.CTLCSR_ITS ---
EXAM: CT CHEST LUNG CANCER SCREEN CLINICAL HISTORY: SCREENING FOR LUNG CA, FORMER SMOKER, Z87.891 TECHNIQUE: CT examination of the chest was performed utilizing low-dose lung cancer screening protoc ol. COMPARISON: No exams were available for comparison FINDINGS: Images obtained through the upper abdomen show unremarkable appearance of visualized portions of the liver, spleen, adrenals, pancreas, and kidneys. Note is made of mild gas-filled dilatation of the mid to distal esophagus which has a questionably th ickened wall. This finding may be associated with esophageal obstruction and skin not occur lesion i s not excluded, including possible neoplasia. Additional evaluation with esophagoscopy recommended.. There is no mediastinal or hilar adenopathy. Mediastinal vascular structures appear intact by noncon trast criteria. Tracheobronchial tree appears intact. No pleural effusion or pleural-based mass. There are severe pulmonary central lobular and sub pleural emphysematous changes. There is a right u pper lobe pulmonary nodule which is noncalcified measuring about 5 millimeters in diameter. A calcif ied right middle lobe nodule is also noted. No additional significant nodule seen. IMPRESSION: Suspicious finding of dilatation of the mid to distal esophagus, esophageal stricture/neoplasia not e xcluded. Correlation with esophagoscopy recommended. Solitary 5 millimeter noncalcified right upper lobe pulmonary nodule. Lung RADS Cat 2 - Benign Appearance / Behavior: Nodules with a very low likelihood of becoming a clin ically active cancer due to size or lack of growth Lung RADS Cat S - Other: Clinically Significant or Potentially Clinically Significant Findings (non l scott cancer) Continue annual screening with LD CT in 12 months. RADIATION DOSE DELIVERED: LINK-TO-SR Total DLP 76.15mGy.cm Total DLP
== END 2020-07-16 00:59 ==
PROVIDERS: PCP Physician Assistant; Visit Provider Physician Assistant
DX: Z87.891 Personal history of nicotine dependence (principal); R91.1 Solitary pulmonary nodule; K22.8 Other specified diseases of esophagus
CPT/HCPCS: G0297

== ENCOUNTER → 2020-07-25 11:27 | Outpatient (BNVA) | payer MEDICARE, MEDICAID, SELFPAY | PROVIDERS: PCP Physician Assistant; Referring Provider Physician Assistant; Visit Provider Physical Therapy Assistant | DX: R93.3 Abnormal findings on diagnostic imaging of other parts of digestive tract (principal); E11.9 Type 2 diabetes mellitus without complications; Z79.84 Long term (current) use of oral hypoglycemic drugs | CPT/HCPCS: 99213 ==

== ENCOUNTER → 2020-08-07 09:53 | Outpatient (BNVA) | payer MEDICARE, MEDICAID, SELFPAY | PROVIDERS: PCP Physician Assistant; Referring Provider Physician Assistant; Visit Provider Student in an Organized Health Care Education/Training Program | DX: M75.51 Bursitis of right shoulder (principal); E11.9 Type 2 diabetes mellitus without complications; Z79.84 Long term (current) use of oral hypoglycemic drugs | CPT/HCPCS: 20610; 99213; J1040 ==

== ENCOUNTER 2020-08-11 03:33 | Outpatient (CLI) | payer MEDICARE, MEDICAID, SELFPAY ==
[2020-08-12 19:19] LABS: COVID-19 RT-PCR UVMMC Result Negative (Negative)
== END 2020-08-11 03:53 ==
PROVIDERS: PCP Physician Assistant; Visit Provider Surgery
DX: Z11.59 Encounter for screening for other viral diseases (principal); Z01.818 Encounter for other preprocedural examination
CPT/HCPCS: U0003

== ENCOUNTER 2020-08-14 08:12 | Day surgery (SDC) | payer MEDICARE, MEDICAID, SELFPAY ==
[2020-08-14 08:16] VITALS: BP 125/88; PULSE 69; RESP 16; TEMP 36.5; O2SAT 98
[2020-08-14] MEDS: Lactated Ringers 1,000 ML 80 ML IV (08:48)
--- NOTE | 2020-08-14 10:45 | STOM_PTH ---
PATIENT: Bill Solorzano LOC: [facility] U#:[id number] AGE/SX: 55/M ROOM: RE08/14/[address]: Maritza Patel : 1965 BED: DIS: 08/14/2020 SPEC #: [id number] RECD: 08/14/20 12:58 STATUS: DANITA RE #: [id number] JARED: 08/14/20 10:[address]: Maritza Patel DEPT: Surgical Specimen RECD BY: Akanksha Rodrigues ENTERED: 08/14/20 13:01 SP TYPE: STOMACH OTHR DR: Bran Ramirez Tissues: 1 - BIOPSY BOWEL 2 - STOMACH BIOPSY 3 - STOMACH BIOPSY 4 - ESOPHAGUS BIOPSY 5 - ESOPHAGUS BIOPSY 6 - ESOPHAGUS BIOPSY Procedures: GROSS AND MICRO LEVEL 4 Comments: [id number]
--- NOTE | 2020-08-14 10:57 | W.PM.DSUDISC ---
Discharge Plan Disposition Patient Disposition: HOME Condition: Good Discharge Details Reason For Visit: stomach scope Attending Provider: Maritza Patel Primary Care Provider: Bran Ramirez Home Meds and New Rx's Prescriptions: New pantoprazole [Protonix] 40 mg tablet,delayed release (DR/EC) 40 mg PO DAILY Qty: 90 RF: 4 Continued venlafaxine [Effexor XR] 75 mg capsule,extended release 24hr 150 mg PO HS RF: 0 fluticasone propionate [Flonase Allergy Relief] 50 mcg/actuation spray,suspension 2 spray intranasal DAILY RF: 0 Lumigan 0.01 % drops 1 drp ophthalmic (eye) DAILY RF: 0 simethicone [Gas-X Extra Strength] 125 mg Capsule 125 mg PO TID RF: 0 gabapentin 300 mg Capsule 300 mg PO QHS RF: 0 metformin 500 mg Tablet 500 mg PO BID RF: 0 acetaminophen 500 mg tablet 500 mg PO Q6H PRN PRN (Reason: pain) Qty: 60 RF: 3 ibuprofen 600 mg tablet 600 mg PO TID PRN (Reason: pain) Qty: 90 RF: 3 Biktarvy 50-200-25 mg Tablet 1 tab PO HS RF: 0 Discontinued omeprazole 40 mg Capsule,Delayed Release(Dr/Ec) 40 mg PO HS RF: 0 Discharge Instructions Additional Instructions: Findings:mild gastritis normal esophagus Follow up:will send a letter w/ biopsy results in 2-3 wks no ibuprofen for 24hrs Continue with lifestyle modifications: no alcohol, tobacco products, Aspirin or NSAID's (ibuprofen, Motrin, Naprosyn, aleve, etc), soda pop/any carbonated beverages, caffeine (including tea & chocolate), and acidic foods, (tomatoes, citrus, onions, peppermints) spicy foods. Do not lie down for 30 minutes after eating, and do not eat 2 hours prior to bedtime. Avoid wearing tight fitting clothing/ belts -Make sure you take your biktarvy today Please call if you develop: fevers >101.5 Nausea or Vomiting Abdominal pain that is not transient DAY SURGERY UNIT POST COLONOSCOPY INSTRUCTIONS 1. Because there will be medication in your system for the next 24 hours, you may feel a little sleepy. Your coordination will be affected. Therefore: a. Do not drive or operate dangerous equipment for 24 hours. b. Do not drink alcohol beverages for 24 hours (not even beer). c. Plan to go home and rest for the day. 2. Generally there are no restrictions on your activity after a day or so has gone by, but you may feel a bit fatigued for a few days. 3 After you arrive home you may have a light meal and return to a normal diet as you can tolerate it without feeling sick to your stomach. 4. After surgery, you may feel pain or discomfort. This should be only transient, but if it persists please contact your doctor. 5. If there are any questions regarding the findings of your procedure, please feel free to contact your doctor. 6. If you are unable to contact your doctor with a problem, contact the hospital at [phone]. 7. Continue all your regular medications unless directed otherwise. I understand the above instructions and have no questions. Signature of Patient or Responsible Adult Escort Date/Time Name of Responsible Adult Escort Signature of Nurse Date/Time Activity:: no lifting over 20#'s or strenuous activity x 24 hrs Diet:: small light meals x 24 hrs Discharge Orders Discharge Orders: Discharge Order (Routine); Ordered 08/14/20 Ordered By: Maritza Patel
--- NOTE | 2020-08-14 11:01 | W.PM.ENDDOP ---
Date of service: 08/14/20 Time of Service: 11:02 Endoscopy Report DATE OF PROCEDURE: 08/14/20 PRE-OP DIAGNOSIS: abdnl esophagus on CT POST-OP DIAGNOSIS: other (mild gastritis/duodentitis ) SURGEON: Maritza Patel ANESTHESIA: GETA ESTIMATED BLOOD LOSS: 1 PATHOLOGY: other COMPLICATIONS: None DISPOSITION: same day PROCEDURE DESCRIPTION: After informed consent was obtained the patient was take to the procedure room and placed in a supine position. Monitors were applied and a time out was done. The patients name, date of , procedure type, allergies to medications and metal in their body was reviewed. A bite block was placed and the patient was sedated. Once sedated and comfortable the gastroscope was advanced through the oropharynx which was grossly normal into the esophagus. The proximal and mid-esophagus were nl In the distal esophagus there was noted nl. no esophageal ersosions/varices/diverticula/strictures . The scope was advanced into the stomach and through the pylorus into the 3rd portion of the duodenum. The duodenum was noted to be mild erythema. Biopsies were done. There was some mild erthymea in the doudum in a striped fashion. There were x2 areas of moderate erthyma around the antrum at the 10 & 11 oclock position. Pt was taken There is no active bleeding. Punctate in configuration. The scope was retracted back into the stomach and biopsies were done to rule out H. pylori. There were no ulcers. The scope was retroflexed. The cardia and fundus were noted to be normal. There no a hiatal hernia noted. The scope was retracted back into the esophagus and biopsies were done of the GE junction to rule out Davis's. The Z line was regular. The scope was removed and the patient was woken up and taken back to [facility] in stable condition.
[2020-08-14 11:34] VITALS: BP 105/71; PULSE 76; RESP 18; TEMP 36.2; O2SAT 97
== END 2020-08-14 12:21 | disposition home or self-care (01) ==
PROVIDERS: PCP Physician Assistant; Visit Provider Surgery
PROC: 0DJ68ZZ Inspection of Stomach, Via Natural or Artificial Opening Endoscopic (ICD-10-PCS; CPT 43235; principal; 2020-08-14 09:15)
DX: R93.3 Abnormal findings on diagnostic imaging of other parts of digestive tract (principal); K29.50 Unspecified chronic gastritis without bleeding; K29.80 Duodenitis without bleeding; E11.9 Type 2 diabetes mellitus without complications; Z79.4 Long term (current) use of insulin; Z21 Asymptomatic human immunodeficiency virus [HIV] infection status; K21.9 Gastro-esophageal reflux disease without esophagitis
CPT/HCPCS: 43239; 88305; J2001; J2704

== ENCOUNTER 2020-09-05 13:16 | Outpatient (REF) | payer MEDICARE, MEDICAID, SELFPAY ==
[2020-09-09 09:55] LABS: Hepatitis C Ab w Rflx HCV PCR Negative (Negative)
[2020-09-09 11:04] LABS: Syphilis Serology (RPR) Negative (Negative)
[2020-09-10 15:03] LABS: Chlamydia Result Negative (Negative); GC Result Negative (Negative)
== END 2020-09-05 13:36 ==
LOC: LBN 13:16
PROVIDERS: PCP Physician Assistant; Visit Provider Nurse Practitioner Family
DX: Z11.3 Encounter for screening for infections with a predominantly sexual mode of transmission (principal)
CPT/HCPCS: 86803; 87491; 87591; 86592

== ENCOUNTER → 2020-09-25 10:12 | Outpatient (BNVA) | payer MEDICARE, MEDICAID, SELFPAY | PROVIDERS: PCP Physician Assistant; Visit Provider Student in an Organized Health Care Education/Training Program | DX: M75.51 Bursitis of right shoulder (principal); S62.633D Displaced fracture of distal phalanx of left middle finger, subsequent encounter for fracture with routine healing; S62.605D Fracture of unspecified phalanx of left ring finger, subsequent encounter for fracture with routine healing; S61.311D Laceration without foreign body of left index finger with damage to nail, subsequent encounter; X58.XXXD Exposure to other specified factors, subsequent encounter; Z98.890 Other specified postprocedural states | CPT/HCPCS: 99213 ==

== ENCOUNTER 2020-10-07 01:11 | Outpatient (CLI) | payer MEDICARE, MEDICAID, SELFPAY ==
--- NOTE | 2020-10-07 08:00 | DI.MRI_ITS ---
EXAM: MR UPPER JOINT RT WO CLINICAL HISTORY: R shoulder pain, s/p rotator cuff repair,BURSITIS,M75.51. TECHNIQUE: Multiplanar multisequence MRI was performed. COMPARISON: None. FINDINGS: There is evidence of previous rotator cuff repair. There is mild metallic artifact. There is mild m otion artifact. There is no fracture or contusion pattern. The acromioclavicular joint shows mild inferior spurring. There is a small amount of fluid in the subacromial subdeltoid bursa, subcoracoid bursa and glenohume ral joint. The supraspinatus tendonis somewhat obscured by artifact. There is some high signal seen anteriorly in the distal supraspinatus tendon is suspicious for a partial tear. There is a question of mild sup raspinatus muscle atrophy. The infraspinatus tendon is intact. The subscapularis and teres minor tendons are normal. The biceps tendon is normally located. The anchor is well maintained. The muscle tendon junction ap pears intact. No abnormal high signal is seen in the proximal muscle. The labrum is within normal limits. IMPRESSION: Limited exam due to metallic artifact and patient motion. Question of a partial tear of the anterior distal supraspinatus tendon. The biceps tendon and muscle tendon junctions appear intact. DATA REPOSITORY:
== END 2020-10-07 01:12 ==
LOC: DI 01:12
PROVIDERS: PCP Physician Assistant; Visit Provider Physician Assistant
DX: M25.511 Pain in right shoulder (principal); M75.51 Bursitis of right shoulder
CPT/HCPCS: 73221

== ENCOUNTER 2020-11-11 03:41 | Outpatient (CLI) | payer MEDICARE, MEDICAID, SELFPAY ==
[2020-11-11 08:05] LABS: Abs Immature Grans 0.03 10^3/uL (0.0-0.06); Absolute Basophil Count 0.04 10^3/uL (0.0-0.2); Absolute Eosinophil Count 0.16 10^3/uL (0.0-0.7); Absolute Lymphocyte Count 1.93 10^3/uL (1.2-3.4); Absolute Monocyte Count 0.59 10^3/uL (0.1-0.8); Absolute Neutrophil Count 3.09 10^3/uL (1.2-6.7); Basophils % 0.7; Eosinophils % 2.7; HGB 16.3 g/dL (13.5-17.5); Immature Grans % 0.5; MCH 32.1 pg (27.0-33.0); MCV 94.7 fL (80-95); MPV 10.1 fL (8.0-11.0); Monocytes % 10.1; Nucleated RBC 0 %; Platelet Count 192 10^3/uL (130-400); RBC 5.07 10^6/uL (4.36-5.78); RDW 12.2 % (11.8-14.1); RDW-SD 42.5 fL; WBC 5.84 10^3/uL (4.4-10.8)
[2020-11-11 09:04] LABS: ALT 38 U/L (16-63); AST 14 U/L (15-37); Albumin 3.8 g/dL (3.4-5.0); Alkaline Phosphatase 91 U/L (46-116); Anion Gap 8.9 mmol/L (3-11); BUN 16 mg/dL (7-18); Bilirubin, Total 0.2 mg/dL (0.2-1.0); CO2 27.1 mmol/L (21.0-32.0); CREATININE 1.1 mg/dL (0.70-1.30); Calcium 9.3 mg/dL (8.5-10.1); Calculated LDL 134 mg/dL (<100); Chloride 105 mmol/L (98-107); Cholesterol 203 mg/dL (<200); Glucose 203 mg/dL (74-106); HDL Cholesterol 47 mg/dL (40-60); Potassium 4.8 mmol/L (3.5-5.1); Sodium 141 mmol/L (136-145); Total Protein 7.2 g/dL (6.4-8.2); Triglyceride 114 mg/dL (<150)
[2020-11-12 10:57] LABS: CD3 83 % (62-87); CD4 28 % (35-63); CD8 53 % (10-35)
[2020-11-13 13:40] LABS: HIV 1 RNA Qualitative Detected copies/mL (Undetected); HIV 1 RNA Quantitative <20 copies/mL (Undetected)
== END 2020-11-11 03:42 | disposition home or self-care (01) ==
LOC: LBO 03:41
PROVIDERS: PCP Physician Assistant; Visit Provider Internal Medicine Infectious Disease
DX: B20 Human immunodeficiency virus [HIV] disease (principal); Z79.899 Other long term (current) drug therapy; E11.9 Type 2 diabetes mellitus without complications
CPT/HCPCS: 36415; 80053; 80061; 87536; 83036; 85025; 86359; 86360

== ENCOUNTER → 2020-12-15 13:33 | Outpatient (BNVA) | payer MEDICARE, MEDICAID, SELFPAY | PROVIDERS: PCP Physician Assistant; Referring Provider Physician Assistant; Visit Provider Student in an Organized Health Care Education/Training Program | DX: M75.51 Bursitis of right shoulder (principal); M75.111 Incomplete rotator cuff tear or rupture of right shoulder, not specified as traumatic; Z98.890 Other specified postprocedural states | CPT/HCPCS: 99213 ==

== ENCOUNTER 2021-01-05 12:56 | Outpatient (CLI) | payer MEDICARE, MEDICAID, SELFPAY ==
--- NOTE | 2021-01-05 13:24 | CCCE_ITS ---
Date of service: 01/05/21 Time of Service: 13:24 Comprehensive Care Clinic Note Note: [facility] [address] [place], [place]? [id number] [facility] Visit for Medical Follow Up Name:? Bill Solorzano? Medical Record: [id number] Date of :? 1965? Primary Care Provider:? Date of Service: 01/05/2021 SUBJECTIVE CC: ?I?ve felt well. I had my second Covid shot at the end of November. It wasn?t bad. Now I need to get the Shingles shot.? HPI: Bill not only had the Menactra SARS CoV2 vaccine x 2, the last on 11/28/2020, but also his second Menactra Meningitis A vaccine on 12/15/2020. He has not had the recombinant vaccine for Zoster and is here today to start that 2 shot series. 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 He is taking his HIV medication without missing any doses. He had his last blood work and F/U w Dr. Chawla in November and everything is stable with an undetectable viral load and a stable CD4 count. ROS Constitutional: Good energy, appetite, sleep. Weight is stable. No fever, chills, night sweats. 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 Neck: No pain or stiffness CV: Denies chest pain, pressure, palpitations Respiratory: Slight x-smokers cough in the morning, denies dyspnea, hemoptysis GI: No N/V/D/C : Negative Musculoskeletal: Will be having the revision of the right shoulder rotator cuff surgery in the fall by Dr. Helton. Endocrine: blood sugars have been under 150 Lymphatic: Has not noted any enlarged nodes Hematologic: No unusual bleeding, bruising Immunologic: CD4 count has never been below 200, no risk for OI Psychiatric: Denies Anxiety, Depression, SI/HI Allergies/Sensitivities: NKDA Current Medications: HIV medication: Biktarvy, no change in other meds from his PCP. Immunization Needed? Start the Recombinant Zoster vaccine series Health Maintenance: UTD OBJECTIVE Vital Signs: T: 97.4, Others: Not measured today, had them done and fine within the month General: ?ANIAD Skin: ?clear, WD Eyes: Non icteric Psychiatric: AAOx3, Mood euthymic, Affect normal Vaccine administered: Shingrix 0.5cc IM left arm ? [employer] Lot #[id number], exp: 10/16/21. ASSESSMENT/PLAN HIV ? stable, no change in medication. F/U in May. HM: Recombinant Zoster vaccine #2 due in the end of February/early March. I will call him to schedule this visit. He is to call if he experiences any adverse side effects from today?s vaccine injection. MD visit scheduled: BRETT, next will be in May 2021 Lab work ordered: ?UTD, repeat to be determined Provider of Care:? Rupinder Bell, MSN, [employer]ACHINE OPERATOR
== END 2021-01-05 12:57 | disposition home or self-care (01) ==
LOC: CCC 12:58
PROVIDERS: PCP Physician Assistant; Visit Provider Nurse Practitioner Family
DX: B20 Human immunodeficiency virus [HIV] disease (principal); Z79.899 Other long term (current) drug therapy; Z23 Encounter for immunization
CPT/HCPCS: 90471; 90750; 99213

== ENCOUNTER 2021-02-20 17:33 | Emergency (ER) | payer MEDICARE, MEDICAID, SELFPAY ==
[2021-02-20 17:38] VITALS: BP 156/79; PULSE 104; RESP 16; TEMP 36.9; O2SAT 98
--- NOTE | 2021-02-20 18:00 | DI.RAD_ITS ---
Exam(s) XR FINGER LT INDEX EXAM: XR FINGER LT INDEX EXAM DATE/TIME: CLINICAL HISTORY: finger vs blade. TECHNIQUE: 2D digital imaging was performed. COMPARISON: None. FINDINGS: BONES: There is a vertical lucency along the volar aspect of the base of the distal phalanx of the fi nger. This likely reflects a vascular channel. A nondisplaced fracture cannot be entirely excluded. No other fracture or dislocation is identified. A follow-up examination may be obtained in 10-14 d ays to assess for healing. No bony destructive lesion is seen. JOINTS: No dislocation is present. SOFT TISSUE: Normal. IMPRESSION: DATA REPOSITORY: RADIATION DOSE DELIVERED:
[2021-02-20] MEDS: Bupivacaine 0.5% Pres-Free 30 ML VIAL (18:14)
--- NOTE | 2021-02-20 18:28 | W.ED.GENAD ---
Discharge Plan Disposition Patient Disposition: HOME Condition: Stable Discharge Details Clinical Impression: Finger laceration Primary Care Provider: Bran Ramirez ED Provider: Gabe Onofre Home Meds and New Rx's Prescriptions: Continued venlafaxine [Effexor XR] 75 mg capsule,extended release 24hr 150 mg PO HS RF: 0 fluticasone propionate [Flonase Allergy Relief] 50 mcg/actuation spray,suspension 2 spray intranasal DAILY RF: 0 Lumigan 0.01 % drops 1 drp ophthalmic (eye) DAILY RF: 0 simethicone [Gas-X Extra Strength] 125 mg Capsule 125 mg PO TID RF: 0 gabapentin 300 mg Capsule 300 mg PO QHS RF: 0 metformin 500 mg Tablet 500 mg PO BID RF: 0 acetaminophen 500 mg tablet 500 mg PO Q6H PRN PRN (Reason: pain) Qty: 60 RF: 3 ibuprofen 600 mg tablet 600 mg PO TID PRN (Reason: pain) Qty: 90 RF: 3 Biktarvy 50-200-25 mg Tablet 1 tab PO HS RF: 0 pantoprazole [Protonix] 40 mg tablet,delayed release (DR/EC) 40 mg PO DAILY Qty: 90 RF: 4 Discharge Instructions Instructions: Finger Laceration (ED) Additional Instructions: Keep the wound clean and dry, change antibiotic dressing daily. Duax-jex-fspujqu Tylenol as directed. Please watch for new or worsening symptoms and return to the ER for any concerns. Sutures removed in 10 days. Discharge Data Discharge Date/Time-TO BE ENTERED AT DEPARTURE: 02/20/21 19:20 Medical Decision Making 55-year-old male, [id number], presents with a left finger laceration. Mild pain, neuro, vascular, tendon intact. Tetanus status up-to-date. Will require approximation. Will obtain x-ray to rule out any bony involvement. X-ray read as possible vascular channel versus subtle fracture. Discussed x-ray findings with patient, discussed if truly a fracture then would need to be treated as a open fracture versus a simple laceration. Patient reports that the pain is mild, mechanism was a rotary tool, which would likely not cause a fracture. Patient would prefer not to initiate antibiotic therapy. Patient was given strict return precautions for signs of infection. Laceration repaired without difficulty. Patient tolerated well. Antibiotic ointment and applied. Medical Records Medical records reviewed: Yes I reviewed the patient's medical records. Imaging Data Radiologic Study: Attestation: I personally reviewed and interpreted this imaging study as follows: Imaging: X-Ray Radiologist's impression: IMPRESSION: Small lucency within the dorsal distal aspect of the proximal phalanx may represent a vascular channel versus a small fracture. There is soft tissue swelling surrounding the proximal aspect of the index finger. HPI General Mode of arrival: ambulatory. Date/Time Provider Initiated Documentation: 02/20/21 18:06. Limitations to Documentation: no limitations. Information obtained by: patient. HPI Narrative: This is a 55-year-old gentleman, [id number]-ojftijft, past medical history that includes anxiety, depression, diabetes, GERD, hepatitis B, HIV, presenting to the ER complaining of a left index finger laceration he sustained just prior to arrival while using a rotary tool. Denies any other injury. Denies numbness, tingling, weakness. Pain is mild to moderate. Tetanus status is up-to-date. Did not take any medication prior to arrival. Related Data Home Medications Medication Instructions Recorded Confirmed Biktarvy 1 tab PO HS 05/10/18 02/20/21 gabapentin 300 mg PO QHS 06/20/19 02/20/21 metformin 500 mg PO BID 06/20/19 02/20/21 simethicone [Gas-X Extra Strength] 125 mg PO TID 06/20/19 02/20/21 acetaminophen 500 mg PO Q6H PRN PRN #60 tab 05/13/20 02/20/21 ibuprofen 600 mg PO TID PRN #90 tab 05/13/20 02/20/21 bimatoprost 0.01 % eye drops 1 drp OPHTHALMIC (EYE) DAILY 07/22/20 02/20/21 fluticasone propionate 50 2 spray INTRANASAL DAILY 07/22/20 02/20/21 mcg/actuation nasal spray,suspension venlafaxine 75 mg capsule,extended 150 mg PO HS cap 07/22/20 02/20/21 release 24 hr pantoprazole [Protonix] 40 mg PO DAILY #90 tab 08/14/20 02/20/21 Previous Rx's Medication Instructions Recorded acetaminophen 500 mg PO Q6H PRN PRN #60 tab 05/13/20 ibuprofen 600 mg PO TID PRN #90 tab 05/13/20 pantoprazole [Protonix] 40 mg PO DAILY #90 tab 08/14/20 Allergies Allergy/AdvReac Type Severity Reaction Status Date / Time amoxicillin [Amoxicillin] Allergy Intermediate hives, rash Unverified 02/20/21 17:40 Sulfa (Sulfonamide Allergy Intermediate rash, hives Unverified 02/20/21 17:40 Antibiotics) Penicillins Allergy Mild Skin Rash Verified 02/20/21 17:40 meloxicam AdvReac Mild itchy Unverified 02/20/21 17:40 oxycodone AdvReac Mild feels Unverified 02/20/21 17:40 sick fish/seafood AdvReac Severe naussea, Uncoded 02/20/21 17:40 vomiting, diarrhea nuts AdvReac Severe nausea, Uncoded 02/20/21 17:40 vomiting, diarrhea General Stated Complaint: Laceration MILE: 4 Review of Systems Constitutional Constitutional: Denies fever(s) and Denies weakness Musculoskeletal Musculoskeletal: Denies arthralgias, Denies numbness and Denies tingling Integumentary/Breasts Skin/Breast: Denies erythema Neurologic Neurologic: Denies numbness, Denies tingling and Denies weakness [facility] Medical History Anxiety Biceps tendinitis of right shoulder Depression Diabetes mellitus Emphysema lung Esophageal disorder Former smoker GERD (gastroesophageal reflux disease) Glaucoma Hepatitis B History of anesthesia reaction Pt states blood pressure bottoms out History of blood transfusion History of shingles HIV (human immunodeficiency virus infection) Hx of headache Stress headaches Hyperlipidemia Lesion of vocal cord Lung nodule Rhinorrhea Tubular adenoma Surgical History Excision, Olecranon Bursa (09/09/14) RIGHT History of colonoscopy History of esophagogastroduodenoscopy (EGD) (~08/14/20) Hx of biopsy Throat biopsy, throat polyps Incomplete tear of right rotator cuff (10/03/17) S/P repair on 06/26/2019 injected 07/12/18 Injury of extensor tendon of left hand (05/13/20) Open fracture of phalanx of left middle finger (05/13/20) S/P open reduction and PERC pinnin05/13/2020 Open fracture of phalanx of left ring finger (05/13/20) S/P open reduction and PERC pinnin05/13/2020 Status post left rotator cuff repair DOS: 08/01/18 Dr. Almeida Social History Smoking/Tobacco Use Status: Former Tobacco Use Quit Date: 08/15/08 Tobacco: How many years used: 25 Smoking risk assessment performed?: Yes Alcohol Intake: current Alcohol Intake frequency: 0-2 drinks per day Alcohol type: beer and wine Details: 1-2 drinks nightly Drug use: Never Substance use type: does not use Current gender identity: male Do you feel safe at home: Yes Do you feel safe in your relationship?: Yes Exam Const General: cooperative, healthy appearing, comfortable and no acute distress Orientation: alert and awake HENMT Head: normal to inspection, normocephalic and atraumatic Eyes Conjunctivae: conjunctivae normal Neck Neck: normal visual inspection, trachea midline and supple Resp Effort & Inspection: normal respiratory effort and able to speak in complete sentences Cardio Rate: regular rate Rhythm: regular rhythm Skin General skin exam: no rashes or lesions noted Neuro General: patient alert, patient awake, moves all extremities and no focal motor deficits Sensory Exam: no sensory deficits noted Extrem General: full ROM and capillary refill normal Hand/finger images: 1. There is a 3.0 cm laceration. Bleeding is controlled. 5 out of 5 strength. Neuro, vascular, tendon intact. No obvious foreign body. Diffuse mild discomfort. No erythema, warmth. Normal capillary refill and radial pulse. Psych Appearance: grossly normal Mental Status: mental status grossly normal Course Vital Signs Vital signs: Vital Signs Temperature 36.9 C 02/20/21 17:38 Pulse 104 H 02/20/21 17:38 Respiratory Rate 16 02/20/21 17:38 Blood Pressure 156/79 H 02/20/21 17:38 Pulse Oximetry 98 02/20/21 17:38 Temperature 36.9 C 02/20/21 17:38 Temperature Source Skin 02/20/21 17:38 Pulse 104 H 02/20/21 17:38 Respiratory Rate 16 02/20/21 17:38 Respiratory Effort Non-Labored 02/20/21 17:38 Blood Pressure 156/79 H 02/20/21 17:38 Blood Pressure Position Sitting 02/20/21 17:38 Pulse Oximetry 98 02/20/21 17:38 Oxygen Delivery Method Room Air 02/20/21 17:38 Oxygen Flow Rate 0 02/20/21 17:38 Pain Level 2 02/20/21 17:38 Procedures Laceration Laceration 1: Site: hand Side (If applicable): left Size (cm): 3 Description: linear Depth: simple, single layer Local Anesthetic: Lidocaine 1%, Bupivicaine 0.5% and other anesthetic (1/2-1/2 mixture) Amount of anesthesia used (mL): 5 Pre-repair: wound explored, irrigated extensively and deep structures intact Skin layer closed with: nylon Size (cm): 4-0 Number of sutures: 5 Technique: simple, interrupted
--- NOTE | 2021-02-20 18:45 | DI.VRAD_ITS ---
PROCEDURE INFORMATION: Exam: XR Left Finger(s) Exam date and time: 02/20/2021 6:12 PM Age: 55 years old Clinical indication: Pain; Finger(s); Patient HX: Left index finger cut TECHNIQUE: Imaging protocol: XR Left fingers. Views: Minimum 2 views. COMPARISON: CR XR HAND LT COMPLETE 05/13/2020 1:37 PM FINDINGS: Bones/joints: There is a very small linear cortical lucency within the dorsal aspect of the epiphysis of the distal proximal phalanx of the left index finger. This could be represent a vascular channel but a small fracture cannot be excluded. Soft tissues: There is soft tissue swelling of the proximal index finger. IMPRESSION: Small lucency within the dorsal distal aspect of the proximal phalanx may represent a vascular channel versus a small fracture. There is soft tissue swelling surrounding the proximal aspect of the index finger. Dictated and Authenticated by: Jagdish Valenzuela MD. Ordering:ROBERT Bernal MD
== END 2021-02-20 19:20 | disposition home or self-care (01) ==
PROVIDERS: Emergency Provider Physician Assistant; PCP Physician Assistant
DX: S61.211A Laceration without foreign body of left index finger without damage to nail, initial encounter (principal); W29.8XXA Contact with other powered hand tools and household machinery, initial encounter
CPT/HCPCS: 12002; 99283; 73140; 99282

== ENCOUNTER 2021-03-10 14:11 | Outpatient (REF) | payer MEDICARE, MEDICAID, SELFPAY ==
[2021-03-10 22:03] LABS: Hemoglobin A1C 6.6 % (<5.7)
[2021-03-11 17:03] LABS: PSA, Screening 2.2 ng/mL (0.0-3.5)
== END 2021-03-10 14:12 | disposition home or self-care (01) ==
LOC: NCHCN 14:11
PROVIDERS: PCP Physician Assistant; Visit Provider Physician Assistant
DX: Z12.5 Encounter for screening for malignant neoplasm of prostate (principal); E11.9 Type 2 diabetes mellitus without complications
CPT/HCPCS: 84153; 83036

== ENCOUNTER 2021-05-21 19:17 | Emergency (ER) | payer MEDICARE, MEDICAID, SELFPAY ==
[2021-05-21 19:43] VITALS: BP 145/73; PULSE 78; RESP 15; TEMP 36.9
[2021-05-21 19:47] VITALS: BP 142/76; PULSE 72; RESP 12; TEMP 36.3; O2SAT 98
[2021-05-21 19:51] VITALS: BP 148/76; PULSE 62; RESP 18; TEMP 36.3; O2SAT 98
--- NOTE | 2021-05-21 19:58 | W.ED.GENAD ---
Discharge Plan Disposition Patient Disposition: HOME Condition: Improving Discharge Details Clinical Impression: Exposure to industrial toxin Primary Care Provider: Bran Ramirez ED Provider: Eric Butler Home Meds and New Rx's Prescriptions: Continued venlafaxine [Effexor XR] 75 mg capsule,extended release 24hr 150 mg PO HS RF: 0 fluticasone propionate [Flonase Allergy Relief] 50 mcg/actuation spray,suspension 2 spray intranasal DAILY RF: 0 Lumigan 0.01 % drops 1 drp ophthalmic (eye) DAILY RF: 0 simethicone [Gas-X Extra Strength] 125 mg Capsule 125 mg PO TID RF: 0 gabapentin 300 mg Capsule 300 mg PO QHS RF: 0 metformin 500 mg Tablet 500 mg PO BID RF: 0 acetaminophen 500 mg tablet 500 mg PO Q6H PRN PRN (Reason: pain) Qty: 60 RF: 3 ibuprofen 600 mg tablet 600 mg PO TID PRN (Reason: pain) Qty: 90 RF: 3 Biktarvy 50-200-25 mg Tablet 1 tab PO HS RF: 0 pantoprazole [Protonix] 40 mg tablet,delayed release (DR/EC) 40 mg PO DAILY Qty: 90 RF: 4 Discharge Instructions Additional Instructions: Return if you develop vomiting, burning of the face or eyes, or any other acute concerns. Resume normal routine and activities. Medical Decision Making 56-year-old male presents from home after splashing ethylene glycol in his face while changing a hose on his radiator. Did not swallow any product and was not in contact with his eyes and he feels well. Patient's vital signs are unremarkable as is his exam. I did discuss the case with the poison control center who state there is no further intervention required. Patient stable for discharge to home. HPI General Mode of arrival: ambulatory. Date/Time Provider Initiated Documentation: 05/21/21 19:17. Limitations to Documentation: no limitations. Information obtained by: patient. History of Present Illness 56 year old M presents to the emergency department with the chief complaint of Splashed with ethylene glycol, no complaints, and is localized to the face and mouth. Patient reports no radiation. Patient started experiencing this minute(s) and it has been constant. No relieving factors improve symptom(s), No exacerbating factors reported . Patient did receive the following treatments prior to arrival, none Related Data Home Medications Medication Instructions Recorded Confirmed Biktarvy 1 tab PO HS 05/10/18 05/21/21 gabapentin 300 mg PO QHS 06/20/19 05/21/21 metformin 500 mg PO BID 06/20/19 05/21/21 simethicone [Gas-X Extra Strength] 125 mg PO TID 06/20/19 05/21/21 acetaminophen 500 mg PO Q6H PRN PRN #60 tab 05/13/20 05/21/21 ibuprofen 600 mg PO TID PRN #90 tab 05/13/20 05/21/21 bimatoprost 0.01 % eye drops 1 drp OPHTHALMIC (EYE) DAILY 07/22/20 05/21/21 fluticasone propionate 50 2 spray INTRANASAL DAILY 07/22/20 05/21/21 mcg/actuation nasal spray,suspension venlafaxine 75 mg capsule,extended 150 mg PO HS cap 07/22/20 05/21/21 release 24 hr pantoprazole [Protonix] 40 mg PO DAILY #90 tab 08/14/20 05/21/21 Previous Rx's Medication Instructions Recorded acetaminophen 500 mg PO Q6H PRN PRN #60 tab 05/13/20 ibuprofen 600 mg PO TID PRN #90 tab 05/13/20 pantoprazole [Protonix] 40 mg PO DAILY #90 tab 08/14/20 Allergies Allergy/AdvReac Type Severity Reaction Status Date / Time amoxicillin [Amoxicillin] Allergy Intermediate hives, rash Verified 05/21/21 19:46 Sulfa (Sulfonamide Allergy Intermediate rash, hives Verified 05/21/21 19:46 Antibiotics) Penicillins Allergy Mild Skin Rash Verified 05/21/21 19:46 meloxicam AdvReac Mild itchy Verified 05/21/21 19:46 oxycodone AdvReac Mild feels Verified 05/21/21 19:46 sick fish/seafood AdvReac Severe naussea, Uncoded 05/21/21 19:46 vomiting, diarrhea nuts AdvReac Severe nausea, Uncoded 05/21/21 19:46 vomiting, diarrhea General Stated Complaint: Patient Exposure Risk MILE: 4 Review of Systems Narrative: No burning of the face or eyes, did not swallow any ethylene glycol, otherwise has been well. 6 systems reviewed and otherwise negative [facility] Medical History Anxiety Biceps tendinitis of right shoulder Depression Diabetes mellitus Emphysema lung Esophageal disorder Former smoker GERD (gastroesophageal reflux disease) Glaucoma Hepatitis B History of anesthesia reaction Pt states blood pressure bottoms out History of blood transfusion History of shingles HIV (human immunodeficiency virus infection) Hx of headache Stress headaches Hyperlipidemia Lesion of vocal cord Lung nodule Rhinorrhea Tubular adenoma Surgical History Excision, Olecranon Bursa (09/09/14) RIGHT History of colonoscopy History of esophagogastroduodenoscopy (EGD) (~08/14/20) Hx of biopsy Throat biopsy, throat polyps Incomplete tear of right rotator cuff (10/03/17) S/P repair on 06/26/2019 injected 07/12/18 Injury of extensor tendon of left hand (05/13/20) Open fracture of phalanx of left middle finger (05/13/20) S/P open reduction and PERC pinnin05/13/2020 Open fracture of phalanx of left ring finger (05/13/20) S/P open reduction and PERC pinnin05/13/2020 Status post left rotator cuff repair DOS: 08/01/18 Dr. Almeida Social History Smoking/Tobacco Use Status: Former Tobacco Use Quit Date: 08/15/08 Tobacco: How many years used: 25 Smoking risk assessment performed?: Yes Alcohol Intake: current Alcohol Intake frequency: 0-2 drinks per day Alcohol type: beer and wine Details: 1-2 drinks nightly Drug use: Never Substance use type: does not use Current gender identity: male Do you feel safe at home: Yes Do you feel safe in your relationship?: Yes Exam Narrative Exam Narrative: GEN: awake, alert, oriented 3. Pleasant, well groomed, interactive. HEAD: Normocephalic, atraumatic ENT: Mucous membranes moist, oropharynx unremarkable, External ear exam unremarkable EYES: PERRL, EOMI NECK: Full ROM, no CHRIS, no menigismus CHEST/RESP: Nontender, clear to auscultation bilateral, no wheeze/rhonchi/rales CARDIOVASCULAR: RRR, no murmur, rub aquiles. 2+ Rad pulse bilateral ABDOMEN: Soft, nontender, no mass. +Bowel sounds EXT: Full ROM, no edema, no rash Neuro: Grossly normal neurologic exam, conversant, interactive. Psych: Speech fluent, thoughts congruent, affect normal Course Vital Signs Vital signs: Vital Signs Temperature 36.9 C 05/21/21 19:43 Pulse 78 05/21/21 19:43 Respiratory Rate 15 05/21/21 19:43 Blood Pressure 145/73 H 05/21/21 19:43 Temperature 36.3 C L 05/21/21 19:51 Temperature Source Temporal Artery Scan 05/21/21 19:51 Pulse 62 05/21/21 19:51 Respiratory Rate 18 05/21/21 19:51 Blood Pressure 148/76 H 05/21/21 19:51 Blood Pressure Position Sitting 05/21/21 19:47 Pulse Oximetry 98 05/21/21 19:51 Oxygen Delivery Method Room Air 05/21/21 19:51 Oxygen Flow Rate 0 05/21/21 19:51 Pain Level 0 05/21/21 19:51
[2021-05-21 20:32] VITALS: TEMP 36.3
--- NOTE | 2021-05-21 20:35 | NUR.NOTE ---
Tasqe having an error Tech is working on it. Pt discharged with no interventions. Written discharge instructions given. Pt verbalized understanding. Left with all of his belongings.
== END 2021-05-21 20:25 | disposition home or self-care (01) ==
LOC: ER 20:13
PROVIDERS: Emergency Provider Emergency Medicine; PCP Physician Assistant
DX: T65.891A Toxic effect of other specified substances, accidental (unintentional), initial encounter (principal)
CPT/HCPCS: 99281

== ENCOUNTER 2021-08-18 03:17 | Outpatient (CLI) | payer MEDICARE, MEDICAID, SELFPAY ==
[2021-08-18 13:25] LABS: Abs Immature Grans 0.08 10^3/uL (0.0-0.06); Absolute Basophil Count 0.03 10^3/uL (0.0-0.2); Absolute Eosinophil Count 0.13 10^3/uL (0.0-0.7); Absolute Lymphocyte Count 1.73 10^3/uL (1.2-3.4); Absolute Monocyte Count 0.56 10^3/uL (0.1-0.8); Absolute Neutrophil Count 3.35 10^3/uL (1.2-6.7); Basophils % 0.5; Eosinophils % 2.2; HCT 47.4 % (40.0-50.0); Immature Grans % 1.4; Lymphocytes % 29.4; MCH 32.2 pg (27.0-33.0); MCHC 33.8 % (32.0-36.0); MCV 95.4 fL (80-95); Monocytes % 9.5; Nucleated RBC 0 %; Platelet Count 151 10^3/uL (130-400); RBC 4.97 10^6/uL (4.36-5.78); RDW 12.3 % (11.8-14.1); RDW-SD 43.8 fL; WBC 5.88 10^3/uL (4.4-10.8)
[2021-08-18 14:09] LABS: Hemoglobin A1C 6.8 % (<5.7)
[2021-08-18 15:04] LABS: ALT 30 U/L (16-63); AST 13 U/L (15-37); Albumin 3.8 g/dL (3.4-5.0); Alkaline Phosphatase 88 U/L (46-116); Anion Gap 10.8 mmol/L (3-11); BUN 12 mg/dL (7-18); Bilirubin, Total 0.3 mg/dL (0.2-1.0); CO2 28.2 mmol/L (21.0-32.0); CREATININE 0.9 mg/dL (0.70-1.30); Calcium 8.6 mg/dL (8.5-10.1); Calculated LDL 135 mg/dL (<100); Chloride 102 mmol/L (98-107); Cholesterol 209 mg/dL (<200); Glucose 170 mg/dL (74-106); HDL Cholesterol 56 mg/dL (40-60); Potassium 4.1 mmol/L (3.5-5.1); Sodium 141 mmol/L (136-145); Triglyceride 91 mg/dL (<150)
[2021-08-20 13:15] LABS: HIV 1 RNA Qualitative Detected copies/mL (Undetected); HIV 1 RNA Quantitative <20 copies/mL (Undetected)
== END 2021-08-18 03:18 | disposition home or self-care (01) ==
LOC: LBO 03:17
PROVIDERS: PCP Physician Assistant; Visit Provider Nurse Practitioner Family
DX: Z79.899 Other long term (current) drug therapy (principal); B20 Human immunodeficiency virus [HIV] disease
CPT/HCPCS: 36415; 80053; 80061; 87536; 83036; 85025

== ENCOUNTER 2021-09-25 09:10 | Outpatient (CLI) | payer MEDICARE, MEDICAID, SELFPAY ==
--- NOTE | 2021-09-25 09:00 | DI.RAD_ITS ---
Exam(s) XR HAND LT COMPLETE EXAM: XR HAND LT COMPLETE CLINICAL HISTORY: pain. TECHNIQUE: 2D digital imaging was performed of the left hand. Three views were obtained. AP, later al and oblique views were obtained. COMPARISON: CR XR HAND LT COMPLETE from 05/13/2020 FINDINGS: BONES: No acute fracture is present. No bony destructive lesion is seen. Posttraumatic changes are se en at the middle and ring fingers. JOINTS: No dislocation present. SOFT TISSUE: Normal. IMPRESSION: Posttraumatic changes are seen at the middle and ring fingers. No acute abnormality. DATA REPOSITORY: RADIATION DOSE DELIVERED:
--- NOTE | 2021-09-25 09:00 | DI.RAD_ITS ---
Exam(s) XR SHOULDER RT COMPLETE 2+V EXAM: XR SHOULDER RT COMPLETE 2+V CLINICAL HISTORY: pain. TECHNIQUE: 2D digital imaging was performed of the right shoulder. Two images were obtained. AP an d axillary views were obtained. COMPARISON: CR RIGHT SHOULDER COMPLETE from 05/18/2012 FINDINGS: BONES: No acute fracture is present. No bony destructive lesion is seen. JOINTS: No dislocation present. Mild degenerative changes are seen at the acromioclavicular and gleno humeral joint. There is mild spurring at the lateral aspect of the acromion. SOFT TISSUE: Normal. IMPRESSION: Degenerative changes in the right shoulder. DATA REPOSITORY: RADIATION DOSE DELIVERED:
== END 2021-09-25 09:11 | disposition home or self-care (01) ==
LOC: DIORS 09:11
PROVIDERS: PCP Physician Assistant; Referring Provider Physician Assistant; Visit Provider Student in an Organized Health Care Education/Training Program
DX: S69.82XA Other specified injuries of left wrist, hand and finger(s), initial encounter (principal); M19.011 Primary osteoarthritis, right shoulder; M25.711 Osteophyte, right shoulder; X58.XXXA Exposure to other specified factors, initial encounter; M75.121 Complete rotator cuff tear or rupture of right shoulder, not specified as traumatic
CPT/HCPCS: 99214; 73030; 73130

== ENCOUNTER 2021-09-30 01:40 | Outpatient (CLI) | payer MEDICARE, MEDICAID, SELFPAY ==
--- NOTE | 2021-09-30 06:45 | DI.MRI_ITS ---
Exam(s) MR UPPER JOINT RT WO EXAM: MR UPPER JOINT RT WO CLINICAL HISTORY: Evaluate re-tear rt rotator cuff ,m75.121. TECHNIQUE: Multiplanar multisequence MRI was performed. COMPARISON: MR MR UPPER JOINT RT WO from 10/07/2020 CR XR SHOULDER RT COMPLETE 2+V from 09/25/2021 FINDINGS: BONES: There is no fracture or contusion pattern. There is hyperintense signal seen in the humeral he ad likely reflecting prior surgery. There is artifact in the humeral head from prior rotator cuff re pair. JOINTS: Mild degenerative changes are seen at the acromioclavicular joint. The glenohumeral joint is normal. TENDONS: Supraspinatus: There is persistent hyperintense signal seen within the supraspinatus tendon this may represent degeneration or partial tear. The size of the tendon is unchanged compared to the prior ex amination. There is no evidence of a full-thickness tear. Infraspinatus: Unremarkable. Subscapularis: There is mild thickening and hyperintense signal seen in the subscapularis tendon whic h may represent degeneration or partial tear. Teres Minor: Unremarkable. Biceps and Sadorus: Unremarkable. MUSCLES: No significant rotator cuff muscle atrophy is seen. GLENOID LABRUM: Unremarkable on this noncontrast examination. SOFT TISSUES: Unremarkable. LIGAMENTS: Unremarkable. OTHER: There is a persistent small amount of fluid in the subacromial subdeltoid bursa. IMPRESSION: 1. Stable appearance of the supraspinatus tendon. Hyperintense signal within the tendon may represen t degeneration or tear. 2. No evidence of a full-thickness rotator cuff tear. 3. Degeneration and/or partial tear of the subscapularis tendon. 4. Postsurgical changes in the shoulder following rotator cuff repair. 5. Persistent small amount of fluid in the subacromial subdeltoid bursa. DATA REPOSITORY:
== END 2021-09-30 02:00 ==
PROVIDERS: PCP Physician Assistant; Visit Provider Student in an Organized Health Care Education/Training Program
DX: M75.121 Complete rotator cuff tear or rupture of right shoulder, not specified as traumatic (principal); M19.011 Primary osteoarthritis, right shoulder; M25.511 Pain in right shoulder; M25.411 Effusion, right shoulder; Z98.890 Other specified postprocedural states
CPT/HCPCS: 73221

== ENCOUNTER → 2021-10-06 12:56 | Outpatient (BNVA) | payer MEDICARE, MEDICAID, SELFPAY | PROVIDERS: PCP Physician Assistant; Referring Provider Otolaryngology; Visit Provider Surgery | DX: K21.9 Gastro-esophageal reflux disease without esophagitis (principal) | CPT/HCPCS: 99212; 99213 ==

== ENCOUNTER → 2021-10-20 09:41 | Outpatient (BNVA) | payer MEDICARE, MEDICAID, SELFPAY | PROVIDERS: PCP Physician Assistant; Referring Provider Physician Assistant; Visit Provider Student in an Organized Health Care Education/Training Program | DX: M25.511 Pain in right shoulder (principal); Z47.89 Encounter for other orthopedic aftercare | CPT/HCPCS: 20610; 99214; J1030 ==

== ENCOUNTER 2021-11-09 03:04 | Outpatient (CLI) | payer MEDICARE, MEDICAID, SELFPAY ==
[2021-11-09 10:32] LABS: Source Nasal/Nares
[2021-11-09 13:07] LABS: COVID-19 PCR Negative (Negative)
== END 2021-11-09 03:05 | disposition home or self-care (01) ==
PROVIDERS: PCP Physician Assistant; Visit Provider Surgery
DX: Z20.822 Contact with and (suspected) exposure to COVID-19 (principal); Z01.818 Encounter for other preprocedural examination
CPT/HCPCS: 87635; U0005

== ENCOUNTER 2021-11-11 08:52 | Day surgery (SDC) | payer MEDICARE, MEDICAID, SELFPAY ==
--- NOTE | 2021-11-11 06:35 | W.PREOPHP ---
Assessment and Plan Assessment and plan (1) GERD (gastroesophageal reflux disease): Status: Chronic Assessment and plan: Mr. Solorzano is a 48-year-old gentleman with known reflux who was being followed by Dr. Chris for vocal cord lesion.? He has had worsening reflux symptoms over the last 6 months to a year.? He did have an upper endoscopy on July 2020 which showed some gastritis.? The patient's symptoms are worse at night.? We did discuss lifestyle changes of weight loss, not drinking or eating within 2 to 3 hours of going to bed, and elevating the head of the bed.? I also discussed a low acid diet with him.? As his symptoms have worsened it is reasonable to repeat his upper endoscopy.? If his upper endoscopy does not show much inflammation in his esophagus then I will set him up for a pH study and manometry down to [facility].? We discussed the procedure in detail as well as the risks and the benefits. Risks, benefits and complications have been reviewed. Complications include but are not limited to bleeding, pain, perforation, sore throat, aspiration, and adverse reaction to the medications.? Questions were entertained and answered to their satisfaction and they wished to proceed. No guarantees were given or implied. Proceed with EGD under sedation History of Present Illness Narrative: Mr. Solorzano is a pleasant 56-year-old gentleman who comes in to discuss a repeat upper endoscopy. He was referred by Dr. Chris who follows him for a true vocal cord lesion. The patient is complaining of worsening reflux symptoms. His last upper endoscopy was in July [address] Patel. At that time he had had an abnormal CT scan which showed a thickening of the distal esophagus. She found only some mild inflammation. The patient has been on 40 mg of Protonix daily. He tells me that Dr. Chris increased it to 40 mg twice a day for a couple of weeks. This has helped but he continues to have breakthrough symptoms especially at nighttime. Past medical history is significant for diabetes, emphysema, hepatitis B, HIV (last viral level was undetectable), hyperlipidemia, and lesion of his vocal cord. He denies any chest pain or shortness of breath on exertion. Current symptoms: Reports heartburn, dyspepsia, regurgitation and nighttime cough; Denies dysphagia Timing of symptoms: Reports intermittent, lying down or sleeping and nighttime Frequency: daily Progression: worsened Pertinent history: Reports none Previous treatment: Reports PPI Previous procedures: Reports none Previous testing: Reports endoscopy (08/04- Gastritis) Associated symptoms: Denies cough Review of Systems All systems reviewed & are unremarkable except as noted in HPI and below PFSH All Active Problems Chronic laryngitis (Chronic 12/04/15) Difficulty speaking (Chronic 11/15/13) hoarseness -ZANA 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 denies this History of shingles Hoarseness (12/04/15) Hx of headache Stress headaches Hyperlipidemia Laceration of left index finger (05/13/20) s/p debridement and nailbed repair: 05/13/2020 Laryngopharyngeal reflux Lesion of vocal cord Lung nodule Mucoid cyst of joint Rhinorrhea Tubular adenoma Vocal cord dysplasia Surgical History Excision, Olecranon Bursa (09/09/14) RIGHT History of colonoscopy 2019- [facility] [place]- History of esophagogastroduodenoscopy (EGD) (~08/14/20) Hx of biopsy Throat biopsy, throat polyps Incomplete tear of right rotator cuff (10/03/17) S/P repair on 06/26/2019 injected 07/12/18 Injury of extensor tendon of left hand (05/13/20) Open fracture of phalanx of left middle finger (05/13/20) S/P open reduction and PERC pinnin05/13/2020 Open fracture of phalanx of left ring finger (05/13/20) S/P open reduction and PERC pinnin05/13/2020 Status post left rotator cuff repair DOS: 08/01/18 Dr. Prohaska Family History Father Throat cancer Social History Smoking/Tobacco Use Status: Former Tobacco Use Quit Date: 08/15/08 Tobacco: How many years used: 25 Smoking risk assessment performed?: Yes Alcohol Intake: current Alcohol Intake frequency: 0-2 drinks per day Alcohol type: beer and wine Details: 1-2 drinks nightly Drug use: Never Substance use type: other Details: smokes cbd-smoked yesterday 11.10.21 Pets and animals: Yes (2 ) Pets and animals: dog(s) Current gender identity: male Do you feel safe at home: Yes Do you feel safe in your relationship?: Yes Meds Allergies and Home Medications Allergies Allergy/AdvReac Type Severity Reaction Status Date / Time amoxicillin [Amoxicillin] Allergy Intermediate hives, rash Verified 11/11/21 09:41 Sulfa (Sulfonamide Allergy Intermediate rash, hives Verified 11/11/21 09:41 Antibiotics) Penicillins Allergy Mild Skin Rash Verified 11/11/21 09:41 meloxicam AdvReac Mild itchy Verified 11/11/21 09:41 oxycodone AdvReac Mild feels Verified 11/11/21 09:41 sick fish/seafood AdvReac Severe nausea, Uncoded 11/11/21 09:41 vomiting, diarrhea nuts AdvReac Severe nausea, Uncoded 11/11/21 09:41 vomiting, diarrhea Home Medications Medication Instructions Recorded Confirmed Type bictegravir 50 mg-emtricitabine 1 tab PO HS 05/10/18 11/11/21 History 200 mg-tenofovir alafenam 25 mg tablet (Biktarvy) gabapentin 300 mg capsule 300 mg PO QHS 06/20/19 11/11/21 History metformin 500 mg tablet 500 mg PO BID 06/20/19 11/11/21 History simethicone 125 mg capsule (Gas-X 125 mg PO TID 06/20/19 11/11/21 History Extra Strength) acetaminophen 500 mg tablet 500 mg PO Q6H PRN PRN #60 tab 05/13/20 11/11/21 Rx ibuprofen 600 mg tablet 600 mg PO TID PRN #90 tab 05/13/20 11/11/21 Rx bimatoprost 0.01 % eye drops 1 drp OPHTHALMIC (EYE) DAILY 07/22/20 11/11/21 History (Lumigan) fluticasone propionate 50 2 spray INTRANASAL DAILY 07/22/20 11/11/21 History mcg/actuation nasal spray,suspension (Flonase Allergy Relief) venlafaxine 75 mg capsule,extended 150 mg PO HS cap 07/22/20 11/11/21 History release 24 hr (Effexor XR) pantoprazole 40 mg tablet,delayed 40 mg PO DAILY #90 tab 09/16/21 11/11/21 Rx release (Protonix) Exam Const General: cooperative, comfortable and no acute distress Orientation: alert and oriented x3 HENMT Head: normocephalic and atraumatic Resp Effort & Inspection: normal respiratory effort Auscultation: clear to auscultation bilaterally Cardio Rate: regular rate Rhythm: regular rhythm
--- NOTE | 2021-11-11 06:38 | W.PM.DSUDISC ---
Discharge Plan Disposition Patient Disposition: HOME Condition: Good Discharge Details Reason For Visit: EGD Attending Provider: Geena Patel Primary Care Provider: Bran Ramirez Home Meds and New Rx's Prescriptions: New sucralfate [Carafate] 1 gram tablet 1 g PO TID Qty: 56 0RF Rx Instructions: take one tab 30 minutes before meals Continued venlafaxine [Effexor XR] 75 mg capsule,extended release 24hr 150 mg PO HS 0RF fluticasone propionate [Flonase Allergy Relief] 50 mcg/actuation spray,suspension 2 spray intranasal DAILY 0RF Rx Instructions: administer into each nostril Lumigan 0.01 % drops 1 drp ophthalmic (eye) DAILY 0RF pantoprazole [Protonix] 40 mg tablet,delayed release (DR/EC) 40 mg PO DAILY Qty: 90 1RF simethicone [Gas-X Extra Strength] 125 mg Capsule 125 mg PO TID 0RF gabapentin 300 mg Capsule 300 mg PO QHS 0RF metformin 500 mg Tablet 500 mg PO BID 0RF acetaminophen 500 mg tablet 500 mg PO Q6H PRN PRN (Reason: pain) Qty: 60 3RF ibuprofen 600 mg tablet 600 mg PO TID PRN (Reason: pain) Qty: 90 3RF Biktarvy 50-200-25 mg Tablet 1 tab PO HS 0RF Discharge Instructions Instructions: Gastritis (DC), Diet for Stomach Ulcers and Gastritis (ED) Additional Instructions: Findings: mild inflammation in the stomach and esophagus Follow up: I will call with results of the biopsies Please call if you develop: fevers >101.5 Nausea or Vomiting Abdominal pain that is not transient Rectal bleeding that is more then a tbsp A hard abdomen and inability to pass gas DAY SURGERY UNIT POST ENDOSCOPY INSTRUCTIONS Instructions for everyone who is given Anesthesia: For your safety, please do the following for the next 24 Hours: a. Do not drive or operate dangerous equipment b. Do not drink alcohol beverages or use any recreational drugs for the first 24 hours or while taking pain medications. The medications in your body may have a reaction that can be dangerous. c. Do not make any important decisions or sign any important papers 1. Generally there are no restrictions on your activity after a day or so has gone by, but you may feel a bit fatigued for a few days. 2. After you arrive home you may have a light meal and return to a normal diet as you can tolerate it without feeling sick to your stomach. 3. After surgery, you may feel pain or discomfort. This should be only transient, but if it persists please contact your doctor. 4. If there are any questions regarding the findings of your procedure, please feel free to contact your doctor. 6. If you are unable to contact your doctor with a problem, contact the hospital at [phone]. 7. Continue all your regular medications unless directed otherwise. I understand the above instructions and have no questions. Signature of Patient or Responsible Adult Escort Date/Time Name of Responsible Adult Escort Signature of Nurse Date/Time Activity:: low acid Diet:: As Tolerated Discharge Orders Discharge Orders: Discharge Order (Routine); Ordered 11/11/21 Ordered By: Geena Patel DS: Diagnosis Discharge Diagnosis (1) GERD (gastroesophageal reflux disease): Status: Chronic
--- NOTE | 2021-11-11 06:39 | ENDO_ITS ---
Date of service: 11/11/21 Time of Service: 11:10 Endoscopy Report DATE OF PROCEDURE: 11/11/21 PRE-OP DIAGNOSIS: GERD POST-OP DIAGNOSIS: same PROCEDURE: EGD with biopsies SURGEON: Geena Patel ANESTHESIA TYPE: General:No Airway ESTIMATED BLOOD LOSS: 2 PATHOLOGY: other (antrum bx and GE junction bx) COMPLICATIONS: None DISPOSITION: same day INDICATIONS: Mr. Solorzano is a 48-year-old gentleman with known reflux who was being followed by Dr. Chris for vocal cord lesion.? He has had worsening reflux symptoms over the last 6 months to a year.? He did have an upper endoscopy on July 2020 which showed some gastritis.? The patient's symptoms are worse at night.? We did discuss lifestyle changes of weight loss, not drinking or eating within 2 to 3 hours of going to bed, and elevating the head of the bed.? I also discussed a low acid diet with him.? As his symptoms have worsened it is reasonable to repeat his upper endoscopy.? If his upper endoscopy does not show much inflammation in his esophagus then I will set him up for a pH study and manometry down to [facility].? We discussed the procedure in detail as well as the risks and the benefits. Risks, benefits and complications have been reviewed. Complications include but are not limited to bleeding, pain, perforation, sore throat, aspiration, and adverse reaction to the medications.? Questions were entertained and answered to their satisfaction and they wished to proceed. No guarantees were given or implied. Proceed with EGD under sedation FINDINGS: Mild gastritis and esophagitis PROCEDURE DESCRIPTION: After informed consent was obtained the patient was take to the procedure room and placed in a supine position. Monitors were applied and a time out was done. The patients name, date of , procedure type, allergies to medications and metal in their body was reviewed. A bite block was placed and the patient was sedated. Once sedated and comfortable the gastroscope was advanced through the oropharynx which was grossly normal into the esophagus. The proximal and mid- esophagus were normal. In the distal esophagus there was mild inflammation noted. The scope was advanced into the stomach and through the pylorus into the 3rd portion of the duodenum. The duodenum was noted to be normal. Biopsies were done. The scope was retracted back into the stomach and biopsies were done to rule out H. pylori. There was one shallow ulcer. The scope was retroflexed. The cardia and fundus were noted to be normal. There was no hiatal hernia noted. The scope was retracted back into the esophagus and biopsies were done of the GE junction to rule out Davis's. The Z line was regular. The GE junction was at 42 cm. The scope was removed and the patient was woken up and taken back to [facility] in stable condition.
[2021-11-11 09:32] VITALS: BP 112/81; PULSE 77; RESP 16; TEMP 36.6; O2SAT 100
--- NOTE | 2021-11-11 09:46 | W.ANESPRE ---
General Info Date of Service Date Performed: 11/11/21 Height: 5 ft 2 in Weight: 77 kg Body Mass Index (BMI): 31.0 Surgical Procedure: Operation Date: 11/11/21 11:20 Proposed Procedure Side Surgeon p Gastroscopy Geena Patel MD Meds Allergies and Home Medications Allergies Allergy/AdvReac Type Severity Reaction Status Date / Time amoxicillin [Amoxicillin] Allergy Intermediate hives, rash Verified 11/11/21 09:41 Sulfa (Sulfonamide Allergy Intermediate rash, hives Verified 11/11/21 09:41 Antibiotics) Penicillins Allergy Mild Skin Rash Verified 11/11/21 09:41 meloxicam AdvReac Mild itchy Verified 11/11/21 09:41 oxycodone AdvReac Mild feels Verified 11/11/21 09:41 sick fish/seafood AdvReac Severe nausea, Uncoded 11/11/21 09:41 vomiting, diarrhea nuts AdvReac Severe nausea, Uncoded 11/11/21 09:41 vomiting, diarrhea Home Medication Medication Instructions Recorded bictegravir 50 mg-emtricitabine 1 tab PO HS 05/10/18 200 mg-tenofovir alafenam 25 mg tablet (Biktarvy) gabapentin 300 mg capsule 300 mg PO QHS 06/20/19 metformin 500 mg tablet 500 mg PO BID 06/20/19 simethicone 125 mg capsule (Gas-X 125 mg PO TID 06/20/19 Extra Strength) acetaminophen 500 mg tablet 500 mg PO Q6H PRN PRN #60 tab 05/13/20 ibuprofen 600 mg tablet 600 mg PO TID PRN #90 tab 05/13/20 bimatoprost 0.01 % eye drops 1 drp OPHTHALMIC (EYE) DAILY 07/22/20 (Lumigan) fluticasone propionate 50 2 spray INTRANASAL DAILY 07/22/20 mcg/actuation nasal spray,suspension (Flonase Allergy Relief) venlafaxine 75 mg capsule,extended 150 mg PO HS cap 07/22/20 release 24 hr (Effexor XR) pantoprazole 40 mg tablet,delayed 40 mg PO DAILY #90 tab 09/16/21 release (Protonix) Current Visit Medications: Current Medications Generic Name Dose Route Start Last Admin Trade Name Freq PRN Reason Stop Dose Admin Hyoscyamine Sulfate 0.125 mg 11/11/21 06:40 Hyoscyamine 0.125 Mg Sl/Oral/Chew SL DIRECTED PRN Ringer's Solution 1,000 mls @ 80 mls/hr 11/11/21 06:00 IV 12/10/21 23:59 INFUSION [facility] IV Miscellaneous Supplies 1 each 11/11/21 06:00 Iv Access IV 12/10/21 23:59 DIRECTED CYRUS Ondansetron HCl 4 mg 11/11/21 06:40 Ondansetron 4 Mg/2 Ml Vial IVP Q4H PRN PRN Nausea / Vomiting Sodium Chloride 0 ml 11/11/21 06:00 Normal Saline Flush 10 Ml Syr IV 12/10/21 23:59 PRN PRN Sodium Chloride 0 ml 11/11/21 06:00 Normal Saline 10 Ml Vial IJ 12/10/21 23:59 DIRECTED PRN Sterile Water 0 ml 11/11/21 06:00 Water,Injection,Sterile 10 Ml Vial IJ 12/10/21 23:59 DIRECTED PRN PFSH Active Problems Active Problems: Problem Status Onset Code Chronic laryngitis 12/04/15 J37.0 Difficulty speaking 11/15/13 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 denies this History of shingles Hoarseness (12/04/15) Hx of headache Stress headaches Hyperlipidemia Laceration of left index finger (05/13/20) s/p debridement and nailbed repair: 05/13/2020 Laryngopharyngeal reflux Lesion of vocal cord Lung nodule Mucoid cyst of joint Rhinorrhea Tubular adenoma Vocal cord dysplasia Medical History Comments:: pt. states hx of blood pressure bottoming out Surgical History Surgical History Excision, Olecranon Bursa (09/09/14) RIGHT History of colonoscopy 2019- [facility] [place] History of esophagogastroduodenoscopy (EGD) (~08/14/20) Hx of biopsy Throat biopsy, throat polyps Incomplete tear of right rotator cuff (10/03/17) S/P repair on 06/26/2019 injected 07/12/18 Injury of extensor tendon of left hand (05/13/20) Open fracture of phalanx of left middle finger (05/13/20) S/P open reduction and PERC pinnin05/13/2020 Open fracture of phalanx of left ring finger (05/13/20) S/P open reduction and PERC pinnin05/13/2020 Status post left rotator cuff repair DOS: 08/01/18 Dr. Almeida Tobacco Smoking/Tobacco Use Status: Former Tobacco Use Alcohol Alcohol Intake: current Alcohol intake frequency: 0-2 drinks per day Alcohol type: beer and wine Details: 1-2 drinks nightly Substance Use Substance use: Never Substance use type: other Details: smokes cbd-smoked yesterday 11.10.21 Vital Signs and Lab Results Vital Signs Most Recent Vital Signs in EMR: Most Recent Vital Signs Temp Pulse Resp BP Pulse Ox 36.6 C 77 16 112/81 100 11/11/21 09:32 11/11/21 09:32 11/11/21 09:32 11/11/21 09:32 11/11/21 09:32 Lab Results Blood Type / Crossmatch: No Data to Display Complete Blood Count: No Data to Display Complete Metabolic Panel: No Data to Display Liver Function Panel: No Data to Display Coagulation Panel: No Data to Display Cardiac Panel: No Data to Display Arterial Blood Gas: No Data to Display Venous Blood Gas: No Data to Display Pancreas Panel: No Data to Display Thyroid Panel: No Data to Display Infectious Disease: Coronavirus (COVID-19)(PCR) Negative (Negative) 11/09/21 08:38 11/09/21 Coronavirus 2019 Source Nasal/Nares 11/09/21 08:38 11/09/21 Blood Cultures: No Data to Display Toxicology Panel: No Data to Display Anesthesia Assessment and Plan Anesthesia History Personal History: Other (Hypotension ) Family History: No Family History of Anesthesia Complications Exercise Tolerance Exercise Tolerance: Metabolic Equivalents>4 Pertinent Negatives Pertinent Negatives: No Symptoms of GERD (Dx Relux less controlled now than in the past), No Major Cardiovascular Symptoms or Complaints, No Major Pulmonary Symptoms or Complaints and No History of CVA/TIA Cardiac & Pulmonary Exam Cardiac Exam: Normal S1/S2 Heart Sounds Pulmonary Exam: Clear Bilateral Breath Sounds Implantable Cardiac Device Does patient have a Pacemaker or an ICD?: No Airway Exam Known Difficult Airway: No Mallampati Class: 1 Mouth Opening: Normal (> 3cm) Thyromental Distance: Greater than 3 cm Neck Range of Motion: Full ROM Neck Circumference: Normal Teeth Condition: Normal Dentition and Generalized Poor Dentition ASA Classification ASA Score: ASA 2 Emergency Case?: No NPO Status NPO Status: NPO Clears >2 hours, Solids >8 hours Anesthesia Plan Resuscitation Status: Full Code Anesthesia Technique: General Anesthesia Airway Planned: Natural Airway Monitors Used: Standard Monitors
[2021-11-11 09:49] VITALS: BMI 31.0
[2021-11-11] MEDS: Lactated Ringers 1,000 ML 80 ML IV (09:56)
--- NOTE | 2021-11-11 11:01 | STOM_PTH ---
PATIENT: Bill Solorzano LOC: [facility] U#:[id number] AGE/SX: 56/M ROOM: RE11/11/[address]: Geena Patel MD : 1965 BED: DIS: 11/11/2021 SPEC #: [id number] RECD: 11/11/21 12:53 STATUS: DANITA REQ #: [id number] JARED: 11/11/21 11:[address]: Geena Patel DEPT: Surgical Specimen RECD BY: Akanksha Rodrigues ENTERED: 11/11/21 12:55 SP TYPE: STOMACH OTHR DR: Bran Ramirez Tissues: 1 - BIOPSY BOWEL 2 - STOMACH BIOPSY 3 - ESOPHAGUS BIOPSY Procedures: GROSS AND MICRO LEVEL 4 Comments: [id number]
[2021-11-11 11:21] VITALS: BP 108/84; PULSE 94; RESP 16; TEMP 36.5; O2SAT 95
--- NOTE | 2021-11-11 11:28 | W.ANESPOSTOP ---
Postoperative Evaluation Date, Time and Location Date Performed: 11/11/21 Time Performed: 11:28 Patient Location: Day Surgery Unit Vital Signs Most Recent Imported Vital Signs: Most Recent Vital Signs Temp Pulse Resp BP Pulse Ox 36.5 C 94 H 16 108/84 95 11/11/21 11:21 11/11/21 11:21 11/11/21 11:21 11/11/21 11:21 11/11/21 11:21 Pain Score Most Recent Pain Score: Most Recent Pain Score Pain Level 0 11/11/21 11:21 Assessment Mental Status: Arousable with meaningful communication Airway and Respiratory Function: Patent airway with normal (patient baseline) respiratory exam Cardiovascular Function: Hemodynamically Stable Hydration Status: Adequately Hydrated Nausea & Vomiting: No Nausea or Vomiting Pain: Pt. Denies Any Pain Peripheral Nerve Block: Patient did not receive a nerve block
[2021-11-11 12:00] VITALS: BP 105/81; PULSE 77; RESP 16; TEMP 36.7; O2SAT 99
== END 2021-11-11 12:52 | disposition home or self-care (01) ==
LOC: SUR 08:52
PROVIDERS: PCP Physician Assistant; Visit Provider Surgery
PROC: 0DJ68ZZ Inspection of Stomach, Via Natural or Artificial Opening Endoscopic (ICD-10-PCS; CPT 43235; principal; 2021-11-11 11:15)
DX: K21.9 Gastro-esophageal reflux disease without esophagitis (principal); K25.9 Gastric ulcer, unspecified as acute or chronic, without hemorrhage or perforation; E11.9 Type 2 diabetes mellitus without complications; J43.9 Emphysema, unspecified; E78.5 Hyperlipidemia, unspecified; K22.89 Other specified disease of esophagus; K31.89 Other diseases of stomach and duodenum
CPT/HCPCS: 43239; 88305

== ENCOUNTER → 2021-12-29 10:02 | Outpatient (BNVA) | payer MEDICARE, MEDICAID, SELFPAY | PROVIDERS: PCP Physician Assistant; Referring Provider Physician Assistant; Visit Provider Student in an Organized Health Care Education/Training Program | DX: M19.011 Primary osteoarthritis, right shoulder (principal) | CPT/HCPCS: 99213 ==

== ENCOUNTER 2022-01-11 13:48 | Emergency (ER) | payer MEDICARE, MEDICAID, SELFPAY ==
[2022-01-11 13:52] VITALS: BP 155/99; PULSE 81; RESP 18; TEMP 36.3; O2SAT 99
--- NOTE | 2022-01-11 14:24 | W.ED.GENAD ---
Discharge Plan Disposition Patient Disposition: HOME Condition: Stable Discharge Details Clinical Impression: Laceration Primary Care Provider: Bran Ramirez ED Provider: Haydee Dailey Home Meds and New Rx's Prescriptions: Continued venlafaxine [Effexor XR] 75 mg capsule,extended release 24hr 150 mg PO HS fluticasone propionate [Flonase Allergy Relief] 50 mcg/actuation spray,suspension 2 spray intranasal DAILY Rx Instructions: administer into each nostril Lumigan 0.01 % drops 1 drp ophthalmic (eye) DAILY pantoprazole [Protonix] 40 mg tablet,delayed release (DR/EC) 40 mg PO DAILY Qty: 90 1RF sucralfate [Carafate] 1 gram tablet 1 g PO TID 30 Days Qty: 90 1RF Rx Instructions: take one tab 30 minutes before meals simethicone [Gas-X Extra Strength] 125 mg Capsule 125 mg PO TID gabapentin 300 mg Capsule 300 mg PO QHS metformin 500 mg tablet 1,000 mg PO BID acetaminophen 500 mg tablet 500 mg PO Q6H PRN PRN (Reason: pain) Qty: 60 3RF ibuprofen 600 mg tablet 600 mg PO TID PRN (Reason: pain) Qty: 90 3RF Biktarvy 50-200-25 mg Tablet 1 tab PO HS Discharge Instructions Instructions: Laceration (ED) Additional Instructions: Please return immediately to the emergency department if you develop any new or worsening symptoms, if your condition does not improve as expected, or if you become otherwise concerned. It is extremely important that you call soon as possible to make an appointment to be seen in follow-up for this visit by your primary care doctor. You will need to have your sutures removed in 10 days as we discussed. Referrals: Bran Ramirez [Primary Care Provider] - Discharge Data Discharge Date/Time-TO BE ENTERED AT DEPARTURE: 01/11/22 15:59 Medical Decision Making Bill Solorzano is a 56-year-old man with history of GERD, HIV presenting to emergency department laceration. Patient reports that he was outside gardening and was using a large knife to cut open bags. Patient reports that he had left the knife on the grass. He states that he stepped backward, stepped on the knife handle with his right foot, and impaled his left lower leg just above the medial malleolus with a knife. Patient reports that he has cut himself many times in the past and would have stayed home except that he had a significant amount of bleeding from the wound. He denies any other injury. He reports pain at the laceration site and no other pain. Patient reports that he has been walking since injury without issue. He states that he applied pressure, gauze, and Diego wrap with cessation of bleeding. He denies numbness, weakness. Patient reports that he was previously in his usual state of health, denies fevers, vomiting, diarrhea, shortness of breath, cough, rash. On exam patient is very well and nontoxic-appearing. There is a 1 cm laceration over the left distal tibia just proximal to the medial malleolus, bleeding controlled. Does not involve ankle joint. Full range of motion of the ankle. Given patient report of size of knife and force of impact, plan for x-ray to rule out chip fracture/bony pathology. X-ray negative. Laceration repaired, wound dressed. I had a discussion with Patient regarding return to emergency department precautions, home care, and importance of outpatient follow-up. Pt verbalizes understanding of the plan and is amenable. Patient discharged to home with clear plan for outpatient follow-up. All questions were answered. Disposition decision was made weighing the risks and benefits of hospitalization versus outpatient treatment, the risk for further decompensation, and the patient's wishes. Medical Records Medical records reviewed: Yes I reviewed the patient's medical records. Imaging Data Radiologic Study: Attestation: I personally reviewed and interpreted this imaging study as follows: Radiologist's impression: EXAM:? XR ANKLE LT COMPLETE CLINICAL HISTORY:? trauma, left ankle laceration TECHNIQUE:? 2D digital imaging was performed of the left ankle.? Three images were obtained.? AP, lateral and oblique views were obtained. COMPARISON:? No exams were available for comparison FINDINGS: BONES: No acute fracture is present. No bony destructive lesion is seen. There is a small plantar calcaneal spur. JOINTS:The ankle mortise is normally aligned. SOFT TISSUE: Normal. IMPRESSION: No acute fracture or dislocation. ? HPI General Mode of arrival: ambulatory. Date/Time Provider Initiated Documentation: 01/11/22 14:23. Limitations to Documentation: no limitations. Information obtained by: patient, RN notes reviewed and old records reviewed. HPI Narrative: Bill Solorzano is a 56-year-old man with history of GERD, HIV presenting to emergency department laceration. Patient reports that he was outside gardening and was using a large knife to cut open bags. Patient reports that he had left the knife on the grass. He states that he stepped backward, stepped on the knife handle with his right foot, and impaled his left lower leg just above the medial malleolus with a knife. Patient reports that he has cut himself many times in the past and would have stayed home except that he had a significant amount of bleeding from the wound. He denies any other injury. He reports pain at the laceration site and no other pain. Patient reports that he has been walking since injury without issue. He states that he applied pressure, gauze, and Diego wrap with cessation of bleeding. He denies numbness, weakness. Patient reports that he was previously in his usual state of health, denies fevers, vomiting, diarrhea, shortness of breath, cough, rash. Related Data Home Medications Medication Instructions Recorded Confirmed bictegravir 50 mg-emtricitabine 1 tab PO HS 05/10/18 01/11/22 200 mg-tenofovir alafenam 25 mg tablet (Biktarvy) gabapentin 300 mg capsule 300 mg PO QHS 06/20/19 01/11/22 simethicone 125 mg capsule (Gas-X 125 mg PO TID 06/20/19 01/11/22 Extra Strength) acetaminophen 500 mg tablet 500 mg PO Q6H PRN PRN pain #60 tabs 05/13/20 01/11/22 ibuprofen 600 mg tablet 600 mg PO TID PRN pain #90 tabs 05/13/20 01/11/22 bimatoprost 0.01 % eye drops 1 drp ophthalmic (eye) DAILY 07/22/20 01/11/22 (Lumigan) fluticasone propionate 50 2 spray intranasal DAILY 07/22/20 01/11/22 mcg/actuation nasal spray,suspension (Flonase Allergy Relief) venlafaxine 75 mg capsule,extended 150 mg PO HS 07/22/20 01/11/22 release 24 hr (Effexor XR) pantoprazole 40 mg tablet,delayed 40 mg PO DAILY #90 tabs 09/16/21 01/11/22 release (Protonix) metformin 500 mg tablet 1,000 mg PO BID 12/29/21 01/11/22 sucralfate 1 gram tablet (Carafate) 1 g PO TID 30 days #90 tabs 01/06/22 01/11/22 Previous Rx's Medication Instructions Recorded acetaminophen 500 mg tablet 500 mg PO Q6H PRN PRN pain #60 tabs 05/13/20 ibuprofen 600 mg tablet 600 mg PO TID PRN pain #90 tabs 05/13/20 pantoprazole 40 mg tablet,delayed 40 mg PO DAILY #90 tabs 09/16/21 release (Protonix) sucralfate 1 gram tablet (Carafate) 1 g PO TID 30 days #90 tabs 01/06/22 Allergies Allergy/AdvReac Type Severity Reaction Status Date / Time amoxicillin [Amoxicillin] Allergy Intermediate hives, rash Verified 01/11/22 13:56 Sulfa (Sulfonamide Allergy Intermediate rash, hives Verified 01/11/22 13:56 Antibiotics) Penicillins Allergy Mild Skin Rash Verified 01/11/22 13:56 meloxicam AdvReac Mild itchy Verified 01/11/22 13:56 oxycodone AdvReac Mild feels Verified 01/11/22 13:56 sick fish/seafood AdvReac Severe nausea, Uncoded 01/11/22 13:56 vomiting, diarrhea nuts AdvReac Severe nausea, Uncoded 01/11/22 13:56 vomiting, diarrhea General Stated Complaint: GenMedical MILE: 4 Review of Systems Narrative: Constitutional: denies fevers Eyes: denies eye pain ENT: denies ear pain, dental pain, sore throat Cardiovascular: denies chest pain Respiratory: denies SOB, cough GI: denies abdominal pain, vomiting, diarrhea : denies flank pain MSK: denies back pain, neck pain, arthralgias, myalgias Skin: denies rash, reports skin wound left medial ankle Neuro: denies headaches, numbness, weakness PFSH All Active Problems (Updated 01/11/22 @ 15:49 by Haydee Dailey MD) Laceration (Acute) Chronic laryngitis (Chronic 12/04/15) Difficulty speaking (Chronic 11/15/13) hoarseness -ZANA 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) HIV (human immunodeficiency virus infection) (Chronic) GERD (gastroesophageal reflux disease) (Chronic) Glaucoma (Chronic) Right rotator cuff tear (Acute) Primary osteoarthritis, right shoulder (Acute) Medical History (Updated 01/11/22 @ 15:49 by Haydee aDiley MD) Abnormal CT scan, esophagus Anxiety Biceps tendinitis of right shoulder Bursitis of right shoulder Complete tear of right rotator cuff Depression Diabetes mellitus Emphysema lung Esophageal disorder Exposure to industrial toxin Finger laceration Former smoker Gastritis Hepatitis B History of anesthesia reaction Pt states blood pressure bottoms out History of blood transfusion pt. denies this History of shingles Hoarseness (12/04/15) Hx of headache Stress headaches Hyperlipidemia Laceration of left index finger (05/13/20) s/p debridement and nailbed repair: 05/13/2020 Laryngopharyngeal reflux Lesion of vocal cord Lung nodule Mucoid cyst of joint Rhinorrhea Tubular adenoma Vocal cord dysplasia Surgical History (Updated 11/20/21 @ 12:42 by Mary Grace Nunes RN) Excision, Olecranon Bursa (09/09/14) RIGHT [facility] History of esophagogastroduodenoscopy (EGD) (~08/14/20) History of esophagogastroduodenoscopy (EGD) (~11/2021) Hx of biopsy Throat biopsy, throat polyps Incomplete tear of right rotator cuff (10/03/17) S/P repair on 06/26/2019 injected 07/12/18 Injury of extensor tendon of left hand (05/13/20) Open fracture of phalanx of left middle finger (05/13/20) S/P open reduction and PERC pinnin05/13/2020 Open fracture of phalanx of left ring finger (05/13/20) S/P open reduction and PERC pinnin05/13/2020 Status post left rotator cuff repair DOS: 08/01/18 Dr. Almeida Family History Father Throat cancer Social History Smoking/Tobacco Use Status: Former Tobacco Use Quit Date: 08/15/08 Tobacco: How many years used: 25 Smoking risk assessment performed?: Yes Alcohol Intake: current Alcohol Intake frequency: 0-2 drinks per day Alcohol type: beer and wine Details: 1-2 drinks nightly Drug use: Occasionally Substance use type: other Details: smokes cbd-smoked yesterday 11.10.21 Pets and animals: Yes (2 ) Pets and animals: dog(s) Current gender identity: male Do you feel safe at home: Yes Do you feel safe in your relationship?: Yes Exam Narrative Exam Narrative: Constitutional: well and [id number], pleasant, conversing normally HENT: head atraumatic/normocephalic/normal inspection, mucous membranes moist Eyes: conjunctiva normal, sclera normal, pupils 3mm b/l Neck: no stridor, normal ROM, trachea midline Resp: normal work of breathing, speaking in full sentences Cardio: normal rate, normal rhythm Skin: warm, dry, normal color, no rash Neuro: alert, not altered, grossly non-focal, normal tone Ext: no edema, 1 cm laceration over the left distal tibia just proximal to the medial malleolus, bleeding controlled, distal tibia tender to palpation around laceration, no tenderness to palpation of the medial malleolus, full range of motion left ankle, full range of motion left toes, DP pulse intact, sensation intact left foot Psych: normal mood, normal affect, normal behavior Course Vital Signs Vital signs: Vital Signs Temperature 36.3 C L 01/11/22 13:52 Pulse 81 01/11/22 13:52 Respiratory Rate 18 01/11/22 13:52 Blood Pressure 155/99 H 01/11/22 13:52 Pulse Oximetry 99 01/11/22 13:52 Temperature 36.3 C L 01/11/22 13:52 Temperature Source Temporal Artery Scan 01/11/22 13:52 Pulse 81 01/11/22 13:52 Respiratory Rate 18 01/11/22 13:52 Respiratory Effort Non-Labored 01/11/22 13:57 Blood Pressure 155/99 H 01/11/22 13:52 Blood Pressure Position Sitting 01/11/22 13:52 Pulse Oximetry 99 01/11/22 13:52 Oxygen Delivery Method Room Air 01/11/22 13:52 Oxygen Flow Rate 0 01/11/22 13:52 Procedures Laceration Laceration 1: Site: lower extremity Side (If applicable): left Description: linear Depth: simple, single layer Local Anesthetic: Lidocaine 1% Pre-repair: wound explored, irrigated extensively and deep structures intact Skin layer closed with: nylon Size (cm): 4-0 Number of sutures: 2 Technique: simple, interrupted PAWSS Have you Been Recently Intoxicated or Drunk Within the Last 30 days?: No Have you Ever Experienced Previous Episodes of Alcohol Withdrawal?: No Have you ever Experienced Withdrawal Seizures?: No Have you ever Experienced Delirium Tremens(DT)s?: No Have you ever undergone Alcohol Rehabilitation Treatment (i.e, inpt ot outpatient treatment programs)?: No Have you ever Experienced Blackouts?: No Have you ever Combined Alcohol with other Downers within the last 90 days?: No Have you ever Combined Alcohol with any other Substance of Abuse during the last 90 days?: No Positive Blood Alcohol level on Presentation? [PCS.BAL]: No Evidence of Increased Autonomic Activity (i.e. HR>120, tremor, sweating, agitation, nausea)?: No Result: 0
--- NOTE | 2022-01-11 14:47 | DI.RAD_ITS ---
Exam(s) XR ANKLE LT COMPLETE EXAM: XR ANKLE LT COMPLETE CLINICAL HISTORY: trauma, left ankle laceration TECHNIQUE: 2D digital imaging was performed of the left ankle. Three images were obtained. AP, lat eral and oblique views were obtained. COMPARISON: No exams were available for comparison FINDINGS: BONES: No acute fracture is present. No bony destructive lesion is seen. There is a small plantar aditya caneal spur. JOINTS:The ankle mortise is normally aligned. SOFT TISSUE: Normal. IMPRESSION: No acute fracture or dislocation. DATA REPOSITORY: RADIATION DOSE DELIVERED:
[2022-01-11 14:48] VITALS: RESP 18
--- NOTE | 2022-01-11 15:07 | DI.VRAD_ITS ---
PROCEDURE INFORMATION: Exam: XR Left Ankle Exam date and time: 01/11/2022 2:40 PM Age: 56 years old Clinical indication: Injury or trauma; Other: Knife; Puncture; Foreign body involvement not specified; Patient HX: Trauma, left ankle laceration TECHNIQUE: Imaging protocol: XR Left ankle. Views: 3 or more views. COMPARISON: No relevant prior studies available. FINDINGS: Bones/joints: Osseous anatomic alignment is well preserved. No acutely displaced fracture or dislocation. Joint spaces are well preserved. Small plantar calcaneal spur. Soft tissues: There is no significant soft tissue swelling. There is no evidence of a radio-opaque foreign body. IMPRESSION: No acute skeletal pathology. Dictated and Authenticated by: Glenn Hernandez MD. Ordering:DIMITRI Hubbard MD
[2022-01-11 15:58] VITALS: BP 147/83; PULSE 67; RESP 18; O2SAT 95
== END 2022-01-11 15:59 | disposition home or self-care (01) ==
PROVIDERS: Emergency Provider Student in an Organized Health Care Education/Training Program; PCP Physician Assistant
DX: S91.012A Laceration without foreign body, left ankle, initial encounter (principal); W26.0XXA Contact with knife, initial encounter
CPT/HCPCS: 12001; 99283; 73610; 99282

== ENCOUNTER → 2022-01-12 01:13 | Outpatient (CLI) | payer MEDICARE, MEDICAID, SELFPAY ==
--- NOTE | 2022-01-12 | DI.CTLCSR_ITS ---
Exam(s) CT CHEST LUNG CANCER SCREEN EXAM: CT CHEST LUNG CANCER SCREEN CLINICAL HISTORY: SCREENING FOR LUNG CA, FORMER SMOKER, Z87.891. TECHNIQUE: Imaging Protocol: Low Dose Technique CONTRAST MATERIAL: None COMPARISON: CT CT CHEST LUNG CANCER SCREEN from 07/16/2020 FINDINGS: CHEST: LUNGS: Previously described 5 millimeter nodule in the anterior segment of the right upper lobe is ag ain noted, unchanged in size and configuration. Also again noted is a 4 millimeter calcified benign granuloma in the right middle lobe medial segment. Some para cardiac atelectasis on the right side m edial segment right middle lobe is unchanged as is some adjacent atelectasis in the right middle lobe . Emphysematous changes are again noted bilaterally, unchanged.. No new confluent infiltrates evide nt in either lung field. Atelectasis in the lingular segment of the left lung is unchanged. No pleu ral effusion on either side. MEDIASTINUM: There is no obvious hilar adenopathy nor adenopathy in the anterior mediastinal fat. A right sided subcarinal lymph node to the right of the esophagus is again noted, this measuring 1.4 x 0.8 cm. There is circumferential thickening of the wall of the lower esophagus, not associated with an hiatal hernia. CARDIAC: Heart size is normal. There is no pericardial effusion.Caliber of the thoracic aorta is wit hin normal limits. OTHER: No significant adrenal masses. OSSEOUS: No significant osseous lesions.No fractures evident. IMPRESSION: 1. Continued stable appearance of the benign-appearing nodules in the right lung and other pulmonary findings as described above. No new nodules nor infiltrates and no new pleural effusions 2. Circumferential thickening of the lower esophagus is noted and endoscopy is recommended to rule ou t Davis's esophagus or developing neoplasm. There is a slightly prominent lymph node in the subcar inal region to the right of the esophagus again noted. 3. Lung RADS Cat 2 - Benign Appearance / Behavior: Nodules with a very low likelihood of becoming a c linically active cancer due to size or lack of growth Sub category S: See esophageal findings as above. Endoscopy recommended Lung-RADS 1.0 CATEGORIES: Category 0 - Prior chest CT exam(s) being located for comparison. Category 1 - Annual screening in 12 months. No nodules or definitely benign nodules. Category 2 - Annual screening in 12 months. Benign appearance. Nodules with low likelihood of becomin g active cancer. Category 3 - 6-month follow-up. Probably benign. Short-term follow-up suggested. Nodules with low lik elihood of becoming active cancer. Category 4A - 3-month follow-up and CT/PET if >8 mm in size. Suspicious finding. Findings which requi re additional testing. Category 4B - Findings which require additional testing and tissue sampling. Category 4X - Category 3 or 4 nodules with additional features or imaging findings that increases the suspicion of malignancy. Modifier S- Potentially clinically significant findings (non lung cancer) RADIATION DOSE DELIVERED: 84.36mGy.cm Total DLP 1.84mGyCTDIvol DATA REPOSITORY: All CT scans at this facility are submitted to the National Radiology Data Registry (NRDR) Dose Index Registry (DIR) with the [employer] (ACR). RADIATION OPTIMIZATION: All CT scans at this facility use at least one of these dose optimization te chniques: automated exposure control; mA and/or kV adjustment per patient size (includes targeted exa ms where dose is matched to clinical indication); or iterative reconstruction.
== END ==
PROVIDERS: PCP Physician Assistant; Visit Provider Physician Assistant
DX: Z12.2 Encounter for screening for malignant neoplasm of respiratory organs (principal); Z87.891 Personal history of nicotine dependence; R91.1 Solitary pulmonary nodule; J98.4 Other disorders of lung; J43.8 Other emphysema; J98.11 Atelectasis; K22.89 Other specified disease of esophagus; R59.0 Localized enlarged lymph nodes
CPT/HCPCS: 71271

== ENCOUNTER 2022-01-14 02:55 | Outpatient (CLI) | payer MEDICARE, MEDICAID, SELFPAY ==
[2022-01-14 09:18] LABS: Abs Immature Grans 0.03 10^3/uL (0.0-0.06); Absolute Basophil Count 0.03 10^3/uL (0.0-0.2); Absolute Eosinophil Count 0.09 10^3/uL (0.0-0.7); Absolute Monocyte Count 0.52 10^3/uL (0.1-0.8); Absolute Neutrophil Count 2.93 10^3/uL (1.2-6.7); Basophils % 0.6; Eosinophils % 1.8; HCT 46.4 % (40.0-50.0); HGB 15.4 g/dL (13.5-17.5); Immature Grans % 0.6; Lymphocytes % 29.4; MCHC 33.2 % (32.0-36.0); MCV 97 fL (80-95); MPV 9.9 fL (8.0-11.0); Monocytes % 10.2; Neutrophils % 57.4; Platelet Count 162 10^3/uL (130-400); RBC 4.81 10^6/uL (4.36-5.78); RDW 12.6 % (11.8-14.1); RDW-SD 45.1 fL
[2022-01-14 10:49] LABS: ALT 35 U/L (16-63); AST 19 U/L (15-37); Albumin 3.7 g/dL (3.4-5.0); Alkaline Phosphatase 94 U/L (46-116); Anion Gap 11.6 mmol/L (3-11); BUN 13 mg/dL (7-18); Bilirubin, Total 0.2 mg/dL (0.2-1.0); CO2 24.4 mmol/L (21.0-32.0); CREATININE 1.1 mg/dL (0.70-1.30); Calcium 8.5 mg/dL (8.5-10.1); Calculated LDL 131 mg/dL (<100); Chloride 103 mmol/L (98-107); Cholesterol 206 mg/dL (<200); Glucose 204 mg/dL (74-106); HDL Cholesterol 55 mg/dL (40-60); Potassium 4.7 mmol/L (3.5-5.1); Sodium 139 mmol/L (136-145); Total Protein 6.6 g/dL (6.4-8.2); Triglyceride 103 mg/dL (<150)
[2022-01-15 16:11] LABS: 4/8 Ratio 0.54 (>=0.90); Absolute CD3 1371 Cells/uL (840-2,669); Absolute CD8 872 Cells/uL (154-1,097); CD3 82 % (56-84); CD4 28 % (31-64); CD8 52 % (9-39)
[2022-01-18 14:43] LABS: HIV 1 RNA Qualitative Detected copies/mL (Undetected); HIV 1 RNA Quantitative <20 copies/mL (Undetected)
== END 2022-01-14 02:56 | disposition home or self-care (01) ==
LOC: LBO 02:55
PROVIDERS: PCP Physician Assistant; Visit Provider Nurse Practitioner Family
DX: B20 Human immunodeficiency virus [HIV] disease (principal); Z79.899 Other long term (current) drug therapy; E11.9 Type 2 diabetes mellitus without complications
CPT/HCPCS: 36415; 80053; 80061; 87536; 83036; 85025; 86359; 86360

== ENCOUNTER → 2022-07-13 09:17 | Outpatient (BNVA) | payer MEDICARE, MEDICAID, SELFPAY | PROVIDERS: PCP Physician Assistant; Referring Provider Physician Assistant; Visit Provider Student in an Organized Health Care Education/Training Program | DX: M75.101 Unspecified rotator cuff tear or rupture of right shoulder, not specified as traumatic (principal); M19.011 Primary osteoarthritis, right shoulder | CPT/HCPCS: 20610; 99213; J1030 ==

== ENCOUNTER 2022-07-27 02:31 | Outpatient (CLI) | payer MEDICARE, MEDICAID, SELFPAY ==
[2022-07-27 12:31] LABS: Abs Immature Grans 0.06 10^3/uL (0.0-0.06); Absolute Basophil Count 0.04 10^3/uL (0.0-0.2); Absolute Eosinophil Count 0.13 10^3/uL (0.0-0.7); Absolute Lymphocyte Count 1.91 10^3/uL (1.2-3.4); Absolute Neutrophil Count 4.68 10^3/uL (1.2-6.7); Basophils % 0.5; Eosinophils % 1.8; HCT 49.1 % (40.0-50.0); Immature Grans % 0.8; Lymphocytes % 25.7; MCH 30.8 pg (27.0-33.0); MCHC 32.6 % (32.0-36.0); MCV 95 fL (80-95); MPV 10.3 fL (8.0-11.0); Monocytes % 8.1; Neutrophils % 63.1; Platelet Count 172 10^3/uL (130-400); RBC 5.19 10^6/uL (4.36-5.78); RDW 12.9 % (11.8-14.1); WBC 7.42 10^3/uL (4.4-10.8)
[2022-07-27 12:52] LABS: ALT 25 U/L (16-63); AST 16 U/L (15-37); Albumin 3.8 g/dL (3.4-5.0); Alkaline Phosphatase 102 U/L (46-116); BUN 20 mg/dL (7-18); Bilirubin, Total 0.4 mg/dL (0.2-1.0); CREATININE 1.1 mg/dL (0.70-1.30); Calcium 8.9 mg/dL (8.5-10.1); Calculated LDL 80 mg/dL (<100); Chloride 102 mmol/L (98-107); Cholesterol 148 mg/dL (<200); Estimated GFR 77.33 (mL/min/1.73m2); Glucose 152 mg/dL (74-106); HDL Cholesterol 51 mg/dL (40-60); Potassium 4.7 mmol/L (3.5-5.1); Sodium 136 mmol/L (136-145); Total Protein 7.5 g/dL (6.4-8.2); Triglyceride 89 mg/dL (<150)
[2022-07-27 14:49] LABS: Hemoglobin A1C 7.2 % (<5.7)
[2022-07-28 12:21] LABS: Absolute CD3 1579 Cells/uL (840-2669); Absolute CD8 965 Cells/uL (154-1097); CD3 82 % (56-84); CD4 30 % (31-64); CD8 50 % (9-39)
[2022-07-29 13:42] LABS: HBV DNA Detect/Quant, PCR Undetected IU/mL (Undetected)
[2022-07-29 16:23] LABS: HIV 1 RNA Qualitative Detected copies/mL (Undetected); HIV 1 RNA Quantitative 61 copies/mL (Undetected)
== END 2022-07-27 02:32 | disposition home or self-care (01) ==
LOC: LOS 02:31
PROVIDERS: PCP Physician Assistant; Visit Provider Nurse Practitioner Family
DX: Z79.899 Other long term (current) drug therapy (principal); B20 Human immunodeficiency virus [HIV] disease
CPT/HCPCS: 36415; 80053; 80061; 87517; 87536; 83036; 85025; 86359; 86360

== ENCOUNTER 2022-09-16 01:22 | Outpatient (CLI) | payer MEDICARE, MEDICAID, SELFPAY ==
--- NOTE | 2022-09-16 08:15 | DI.RAD_ITS ---
Exam(s) RF JOINT INJECTION FLUORO GUID EXAM: RF JOINT INJECTION FLUORO GUID CLINICAL HISTORY: right shoulder pain,RT SHOULDER INJECTION UNDER FLUORO,M19.011,OA,M75.101,. TECHNIQUE: 2D and realtime digital imaging was performed. COMPARISON: No exams were available for comparison FINDINGS: Fluoroscopy was provided for Dr. Montiel for guidance with performing a right shoulder injection. Please see procedure note for details. Fluoro time: 5seconds RADIATION DOSE DELIVERED: Pratibha,r=0.081 mGy
[2022-09-16] MEDS: Bupivacaine 0.5% Pres-Free 10 ML VIAL IJ (14:48)
[2022-09-16] MEDS: methylPREDNISolone ACETATE 80 MG/ML VIAL IM (14:49)
--- NOTE | 2022-09-16 15:27 | W.PROCNOTE ---
Date of service: 09/16/22 Time of Service: 14:40 Procedure Note Date of procedure: 09/16/22 Procedure: Right Shoulder Injection Surgeon/Proceduralist/Physician: Jakob Almeida Procedure Diagnosis: Right shoulder pain Procedure Indications: Bill has had persistent pain of the RIGHT shoulder. Noninvasive measures have been tried. To serve as both diagnostic and therapeutic, an injection under fluoroscopy was recommended. I had discussed the risks of the procedure and the patient elected to proceed. Procedure Description: Bill was greeted in the flouroscopy room. The correct side was identified and the consent was reviewed with the patient and signed. The patient was then placed in the supine position on the fluoroscopy table. The RIGHT shoulder was then prepped with Chloraprep. The anterior injection starting point was identiifed by bony landmarks and fluoroscopy. The skin and soft tissue in the tract of the injection was anesthetized with 1% Lidocaine. A spinal needle was then inserted deep into the shoulder joint at the level of the recess between the glenoid and superior humeral head. A small amount of Omnipaque solution was injected to confirm intraarticular placement. Once confirmed, the shoulder was injected with 5cc of 0.5% Bupivicaine and 80mg of Depo-Medrol. A bandaid was placed on the injection site. The patient tolerated the procedure well.
== END 2022-09-16 01:42 ==
PROVIDERS: PCP Physician Assistant; Visit Provider Student in an Organized Health Care Education/Training Program
DX: M19.011 Primary osteoarthritis, right shoulder (principal); M75.101 Unspecified rotator cuff tear or rupture of right shoulder, not specified as traumatic; M25.551 Pain in right hip
CPT/HCPCS: 20610; 77002; J1040

== ENCOUNTER → 2022-11-16 09:49 | Outpatient (BNVA) | payer MEDICARE, MEDICAID, SELFPAY | PROVIDERS: PCP Physician Assistant; Referring Provider Physician Assistant; Visit Provider Student in an Organized Health Care Education/Training Program | DX: M19.011 Primary osteoarthritis, right shoulder (principal); M75.101 Unspecified rotator cuff tear or rupture of right shoulder, not specified as traumatic | CPT/HCPCS: 99213 ==

== ENCOUNTER 2022-11-29 08:50 | Day surgery (SDC) | payer MEDICARE, MEDICAID, SELFPAY ==
[2022-11-29] VITALS (9 sets, daily range): BP systolic 81–116; BP diastolic 56–69; PULSE 69–79; RESP 14–24; TEMP 36.1–36.7; O2SAT 93–99; BMI 30.8
--- NOTE | 2022-11-29 09:18 | W.PM.DSUDISC ---
Date of service: 11/29/22 Time of Service: 09:18 Discharge Plan Disposition Condition: Good Discharge Details Reason For Visit: Microlaryngoscopy with biopsy, vocal cords Attending Provider: Michael Chris Primary Care Provider: Bran Ramirez Home Meds and New Rx's Prescriptions: No Action tadalafil 5 mg tablet 5 mg PO DAILY venlafaxine [Effexor XR] 75 mg capsule,extended release 24hr 150 mg PO HS fluticasone propionate [Flonase Allergy Relief] 50 mcg/actuation spray,suspension 2 spray intranasal DAILY Rx Instructions: administer into each nostril Lumigan 0.01 % drops 1 drp ophthalmic (eye) DAILY sucralfate [Carafate] 1 gram tablet 1 g PO TID 30 Days Qty: 90 3RF Rx Instructions: take one tab 30 minutes before meals pantoprazole [Protonix] 40 mg tablet,delayed release (DR/EC) 40 mg PO DAILY Qty: 90 4RF simethicone [Gas-X Extra Strength] 125 mg Capsule 125 mg PO TID gabapentin 300 mg Capsule 300 mg PO QHS metformin 500 mg tablet 1,000 mg PO BID acetaminophen 500 mg tablet 500 mg PO Q6H PRN PRN (Reason: pain) Qty: 60 3RF ibuprofen 600 mg tablet 600 mg PO TID PRN (Reason: pain) Qty: 90 3RF Biktarvy 50-200-25 mg Tablet 1 tab PO HS Discharge Instructions Additional Instructions: Avoid shouting, whispering, clearing throat, excessive voice use, or singing for 2-weeks. Ibuprofen or Tylenol for any discomfort. Continue all other medications. You should not drive or operate dangerous equipment for 72 hours. Call my office if you do not hear from me with regard to the results within 1 week. Call my office with any concerns or problems. Maintain good hydration Referrals: Michael Chris MD [ [facility] STAFF PHYSICIAN] - (1 month, please call for appointment prior to patient's departure) Diet:: As Tolerated
--- NOTE | 2022-11-29 09:30 | ANES.PREOP_ITS ---
General Info Date of Service Date Performed: 11/29/22 Height: 5 ft 2 in Weight: 76.4 kg Body Mass Index (BMI): 30.8 Surgical Procedure: Operation Date: 11/29/22 09:10 Proposed Procedure Side Surgeon p Micro Laryngoscopy w/ Vocal Cord Biopsy Bilateral Michael Chris MD Meds Allergies and Home Medications Allergies Allergy/AdvReac Type Severity Reaction Status Date / Time amoxicillin [Amoxicillin] Allergy Intermediate hives, rash Verified 11/29/22 09:18 Sulfa (Sulfonamide Allergy Intermediate rash, hives Verified 11/29/22 09:18 Antibiotics) Penicillins Allergy Mild Skin Rash Verified 11/29/22 09:18 meloxicam AdvReac Mild itchy Verified 11/29/22 09:18 oxycodone AdvReac Mild feels Verified 11/29/22 09:18 sick Bee Stings Allergy Severe Anaphylaxis Uncoded 11/29/22 09:18 fish/seafood AdvReac Severe nausea, Uncoded 11/29/22 09:18 vomiting, diarrhea nuts AdvReac Severe nausea, Uncoded 11/29/22 09:18 vomiting, diarrhea Home Medication Medication Instructions Recorded bictegravir 50 mg-emtricitabine 1 tab PO HS 05/10/18 200 mg-tenofovir alafenam 25 mg tablet (Biktarvy) gabapentin 300 mg capsule 300 mg PO QHS 06/20/19 simethicone 125 mg capsule (Gas-X 125 mg PO TID 06/20/19 Extra Strength) acetaminophen 500 mg tablet 500 mg PO Q6H PRN PRN pain #60 tabs 05/13/20 ibuprofen 600 mg tablet 600 mg PO TID PRN pain #90 tabs 05/13/20 bimatoprost 0.01 % eye drops 1 drp ophthalmic (eye) DAILY 07/22/20 (Lumigan) fluticasone propionate 50 2 spray intranasal DAILY 07/22/20 mcg/actuation nasal spray,suspension (Flonase Allergy Relief) venlafaxine 75 mg capsule,extended 150 mg PO HS 07/22/20 release 24 hr (Effexor XR) metformin 500 mg tablet 1,000 mg PO BID 12/29/21 pantoprazole 40 mg tablet,delayed 40 mg PO DAILY #90 tabs 06/29/22 release (Protonix) sucralfate 1 gram tablet (Carafate) 1 g PO TID 30 days #90 tabs 06/29/22 tadalafil 5 mg tablet 5 mg PO DAILY 07/13/22 Current Visit Medications: Current Medications Generic Name Dose Route Start Last Admin Trade Name Anton PRN Reason Stop Dose Admin Acetaminophen 320 - 650 mg 11/29/22 09:17 Acetaminophen Solution 650 Mg/20.3 Ml Cup PO Q4H PRN PRN Ringer's Solution 1,000 mls @ 80 mls/hr 11/29/22 06:00 IV 12/26/22 23:59 INFUSION [facility] IV Miscellaneous Supplies 1 each 11/29/22 06:00 Iv Access IV 12/26/22 23:59 DIRECTED CYRUS Ibuprofen 600 mg 11/29/22 09:17 Ibuprofen 600 Mg Tab PO Q6H PRN PRN Sodium Chloride 0 ml 11/29/22 06:00 Normal Saline Flush 10 Ml Syr IV 12/26/22 23:59 PRN PRN Sodium Chloride 0 ml 11/29/22 06:00 Normal Saline 10 Ml Vial IJ 12/26/22 23:59 DIRECTED PRN Sterile Water 0 ml 11/29/22 06:00 Water,Injection,Sterile 10 Ml Vial IJ 12/26/22 23:59 DIRECTED PRN PFSH Active Problems Active Problems: Problem Status Onset Code Thrush B37.0 Hoarseness R49.0 Chronic laryngitis 12/04/15 J37.0 Difficulty speaking 11/15/13 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 HIV (human immunodeficiency virus infection) B20 GERD (gastroesophageal reflux disease) K21.9 Glaucoma H40.9 Right rotator cuff tear M75.101 Primary osteoarthritis, right shoulder M19.011 Medical History Medical History Abnormal CT scan, esophagus Anxiety Biceps tendinitis of right shoulder Bursitis of right shoulder Complete tear of right rotator cuff Depression Diabetes mellitus Emphysema lung Esophageal disorder Exposure to industrial toxin Finger laceration Former smoker Gastritis Hepatitis B History of anesthesia reaction Pt states blood pressure bottoms out History of blood transfusion pt. denies this History of shingles Hoarseness (12/04/15) Hx of headache Stress headaches Hyperlipidemia Laceration of left index finger (05/13/20) s/p debridement and nailbed repair: 05/13/2020 Laryngopharyngeal reflux Lesion of vocal cord Lung nodule Mucoid cyst of joint Rhinorrhea Tubular adenoma Vocal cord dysplasia Medical History Comments:: pt. states hx of blood pressure bottoming out Surgical History Surgical History Excision, Olecranon Bursa (09/09/14) RIGHT History of colonoscopy [facility] History of esophagogastroduodenoscopy (EGD) (~08/14/20) History of esophagogastroduodenoscopy (EGD) (~11/2021) Hx of biopsy Throat biopsy, throat polyps Incomplete tear of right rotator cuff (10/03/17) S/P repair on 06/26/2019 injected 07/12/18 Injury of extensor tendon of left hand (05/13/20) Open fracture of phalanx of left middle finger (05/13/20) S/P open reduction and PERC pinnin05/13/2020 Open fracture of phalanx of left ring finger (05/13/20) S/P open reduction and PERC pinnin05/13/2020 Status post left rotator cuff repair DOS: 08/01/18 Dr. Almeida Tobacco Smoking/Tobacco Use Status: Former Tobacco Use Alcohol Alcohol Intake: current Alcohol intake frequency: 0-2 drinks per day Alcohol type: beer and wine Details: 1-2 drinks nightly Substance Use Substance use: Occasionally Substance use type: other Details: smokes cbd-smoked yesterday 11.10.21 11/29/22 - uses CBD oil on R shoulder Vital Signs and Lab Results Vital Signs Most Recent Vital Signs in EMR: Most Recent Vital Signs Temp Pulse Resp BP Pulse Ox 36.5 C 79 16 116/69 97 11/29/22 09:08 11/29/22 09:08 11/29/22 09:08 11/29/22 09:08 11/29/22 09:08 Point of Care Results Point of Care Results: Finger Stick Blood Glucose 129 11/29/22 09:25 Lab Results Blood Type / Crossmatch: No Data to Display Complete Blood Count: No Data to Display Complete Metabolic Panel: No Data to Display Liver Function Panel: No Data to Display Coagulation Panel: No Data to Display Cardiac Panel: No Data to Display Arterial Blood Gas: No Data to Display Venous Blood Gas: No Data to Display Pancreas Panel: No Data to Display Thyroid Panel: No Data to Display Infectious Disease: No Data to Display Blood Cultures: No Data to Display Toxicology Panel: No Data to Display Anesthesia Assessment and Plan Anesthesia History Personal History: Other (low BP issues in past) Family History: No Family History of Anesthesia Complications Exercise Tolerance Exercise Tolerance: Metabolic Equivalents>4 Pertinent Negatives Pertinent Negatives: No Symptoms of GERD, No Major Cardiovascular Symptoms or Complaints and No Major Pulmonary Symptoms or Complaints Cardiac & Pulmonary Exam Cardiac Exam: Normal S1/S2 Heart Sounds Pulmonary Exam: Clear Bilateral Breath Sounds Implantable Cardiac Device Does patient have a Pacemaker or an ICD?: No Airway Exam Known Difficult Airway: No Mallampati Class: 1 Mouth Opening: Normal (> 3cm) Thyromental Distance: Greater than 3 cm Neck Range of Motion: Full ROM Neck Circumference: Normal Teeth Condition: Generalized Poor Dentition (none loose per patient) and Advised tooth loss possible given current condition (indicate tooth) ASA Classification ASA Score: ASA 2 Emergency Case?: No NPO Status NPO Status: NPO Clears >2 hours, Solids >8 hours Anesthesia Plan Resuscitation Status: Full Code Anesthesia Technique: General Anesthesia Airway Planned: Endotracheal Tube Monitors Used: Standard Monitors
[2022-11-29] MEDS: Lactated Ringers 1,000 ML 80 ML IV (09:39)
--- NOTE | 2022-11-29 10:08 | VOCCOR_PTH ---
PATIENT: Bill Solorzano LOC: [facility] U#:[id number] AGE/SX: 57/M ROOM: RE11/29/[address]: Michael Chris MD : 1965 BED: DIS: 11/29/2022 SPEC #: [id number] RECD: 11/29/22 12:30 STATUS: DANITA REQ #: [id number] JARED: 11/29/22 10:[address]: Michael Chris DEPT: Surgical Specimen RECD BY: Akanksha Rodrigues ENTERED: 11/29/22 12:30 SP TYPE: VOCCOR OTHR DR: Bran Ramirez Tissues: 1 - VOCAL CORD 2 - VOCAL CORD Procedures: GROSS AND MICRO LEVEL 4 Comments: [id number]
--- NOTE | 2022-11-29 11:07 | W.ANESPOSTOP ---
Postoperative Evaluation Date, Time and Location Date Performed: 11/29/22 Time Performed: 11:05 Patient Location: PACU Vital Signs Most Recent Imported Vital Signs: Most Recent Vital Signs Temp Pulse Resp BP Pulse Ox 36.7 C 73 15 100/61 99 11/29/22 11:00 11/29/22 11:00 11/29/22 11:00 11/29/22 11:00 11/29/22 11:00 Pain Score Most Recent Pain Score: Most Recent Pain Score Pain Level 1 11/29/22 11:00 Assessment Mental Status: Awake (Alert & Oriented to Patient Baseline) Airway and Respiratory Function: Patent airway with normal (patient baseline) respiratory exam Cardiovascular Function: Hemodynamically Stable Hydration Status: Adequately Hydrated Nausea & Vomiting: No Nausea or Vomiting Pain: Pain is tolerable per patient Peripheral Nerve Block: Patient did not receive a nerve block
--- NOTE | 2022-11-29 12:58 | ROE_ITS ---
Date of service: 11/29/22 Time of Service: 12:58 Operative Note Operative Note DATE OF PROCEDURE: 11/29/22 PRE-OP DIAGNOSIS: Hoarseness, H O vocal cord dysplasia HIV POST-OP DIAGNOSIS: same PROCEDURE: Microlaryngoscopy with bilateral true vocal cord biopsy SURGEON: Michael Chris ANESTHESIA TYPE: General LMA/ETT Refer to Anesthesia Record ESTIMATED BLOOD LOSS: 1 PATHOLOGY: other (Biopsies, left and right true vocal cord-sent separately) COMPLICATIONS: None Patient was transported to: PACU Patient's condition: stable Indications: The patient has a history of bilateral true vocal cord severe dysplasia, HI, HIV, and chronic hoarseness with recent worsening of chronic hoarseness. Repeated exams and showed increased irritation of the vocal cords as compared to his baseline. Options were explained to the patient regarding further management. He did not wish a second opinion, referral back to [facility], or further watchful waiting. He wished biopsy. Risks including bleeding, infection, worsening hoarseness, need for other intervention, and tooth or lip damage were discussed at length. Consent was filled out and signed. H&P was r eviewed. There have been no changes. He understood that this was diagnostic, and not necessarily therapeutic Findings: Friable leukoplakia left posterior cord, friable leukoplakia right mid cord ((pinpoint) Procedure Description: After obtaining an adequate level of general endotracheal anesthesia the patient was positioned in supine position and prepped and draped in appropriate fashion. A dental guard was placed along the upper dentition, and then a Holinger laryngoscope carefully introduced into the oral cavity and carefully advanced through the oropharynx, into the hypopharynx and then into the larynx. No masses or lesions were noted along the way until the level of the vocal cords when the above findings came into view. The Vikram laryngoscope was placed into suspension at the level of the vocal cords, and then the operating microscope with a 400 mm lens moved into position. Under microscopic visualization, biopsies were removed from the left vocal cord posteriorly in the area of friability and the right mid cord. These were sent as separate specimens. Bleeding was minimal and self-limited. There is no significant edema. There were no other masses or lesions noted. The Holinger laryngoscope was then carefully withdrawn after taking it out of suspension and the dental guard removed. This revealed no damage to the dentition. The patient was then awakened and extubated by anesthesia and taken the recovery room in stable condition. I was present throughout the entire case.
== END 2022-11-29 11:53 | disposition home or self-care (01) ==
PROVIDERS: PCP Physician Assistant; Visit Provider Otolaryngology
PROC: 0CJS8ZZ Inspection of Larynx, Via Natural or Artificial Opening Endoscopic (ICD-10-PCS; CPT 31575; principal; 2022-11-29 09:00)
DX: R49.0 Dysphonia (principal); J38.3 Other diseases of vocal cords; E11.9 Type 2 diabetes mellitus without complications; Z87.891 Personal history of nicotine dependence; B20 Human immunodeficiency virus [HIV] disease
CPT/HCPCS: 31536; 88305; J1100; J2405; J2704

== ENCOUNTER 2023-01-17 01:18 | Outpatient (CLI) | payer MEDICARE, MEDICAID, SELFPAY ==
--- NOTE | 2023-01-17 07:00 | DI.CT_ITS ---
Exam(s) CT UPPER EXTREMITY RT WO EXAM: CT UPPER EXTREMITY RT WO CLINICAL HISTORY: SURGICAL PLANNING-[facility] PROTOCOL,primary oa,m19.011. TECHNIQUE: Imaging Protocol: Axial computed tomography images with coronal and sagittal reformatted images were created and reviewed. COMPARISON: CR XR SHOULDER RT COMPLETE 2+V from 09/25/2021 RF RF JOINT INJECTION FLUORO GUID from 09/16/2022 FINDINGS: CT scan of the right shoulder was performed for pre-surgical planning. Bones: No acute fracture or dislocation. Findings of prior surgery are seen in the humeral head. T here are degenerative changes seen at the glenohumeral joint consisting of joint space narrowing and bony hypertrophy. There are mild degenerative changes also seen at the acromioclavicular joint. No lytic or sclerotic lesions are identified. Soft Tissues: Moderately severe centrilobular emphysematous changes are present in the lungs. IMPRESSION: Osteoarthritis of the glenohumeral joint. RADIATION DOSE DELIVERED: 710.72mGy.cm Total DLP 710.72mGy.cm Total DLP DATA REPOSITORY: All CT scans at this facility are submitted to the National Radiology Data Registry (NRDR) Dose Index Registry (DIR) with the [employer] (ACR). RADIATION OPTIMIZATION: All CT scans at this facility use at least one of these dose optimization te chniques: automated exposure control; mA and/or kV adjustment per patient size (includes targeted exa ms where dose is matched to clinical indication); or iterative reconstruction.
== END 2023-01-17 01:38 ==
LOC: DI 01:18
PROVIDERS: PCP Physician Assistant; Visit Provider Student in an Organized Health Care Education/Training Program
DX: M19.011 Primary osteoarthritis, right shoulder (principal); Z01.818 Encounter for other preprocedural examination
CPT/HCPCS: 73200

== ENCOUNTER → 2023-02-01 07:56 | Outpatient (BNVA) | payer MEDICARE, MEDICAID, SELFPAY | PROVIDERS: PCP Physician Assistant; Referring Provider Physician Assistant; Visit Provider Student in an Organized Health Care Education/Training Program | DX: M19.011 Primary osteoarthritis, right shoulder (principal); M75.101 Unspecified rotator cuff tear or rupture of right shoulder, not specified as traumatic | CPT/HCPCS: 99213 ==

== ENCOUNTER 2023-03-23 02:39 | Outpatient (CLI) | payer MEDICARE, MEDICAID, SELFPAY ==
[2023-03-23 08:17] LABS: Hemoglobin A1C 6.7 % (<5.7)
[2023-03-23 08:34] LABS: ALT 25 U/L (16-63); AST 11 U/L (15-37); Albumin 3.6 g/dL (3.4-5.0); Alkaline Phosphatase 111 U/L (46-116); Anion Gap 5.5 mmol/L (3-11); BUN 14 mg/dL (7-18); Bilirubin, Total 0.4 mg/dL (0.2-1.0); CO2 27.5 mmol/L (21.0-32.0); Calcium 9.5 mg/dL (8.5-10.1); Chloride 106 mmol/L (98-107); Estimated GFR 86.16 (mL/min/1.73m2); Glucose 153 mg/dL (74-106); Potassium 4.6 mmol/L (3.5-5.1); Sodium 139 mmol/L (136-145); Total Protein 7.2 g/dL (6.4-8.2)
[2023-03-24 10:38] LABS: HIV 1 RNA Qualitative Detected copies/mL (Undetected); HIV 1 RNA Quantitative 50 copies/mL (Undetected)
== END 2023-03-23 02:40 | disposition home or self-care (01) ==
LOC: LBO 02:40
PROVIDERS: PCP Physician Assistant; Visit Provider Nurse Practitioner Family
DX: B20 Human immunodeficiency virus [HIV] disease (principal); Z79.899 Other long term (current) drug therapy
CPT/HCPCS: 36415; 80053; 87536; 83036

== ENCOUNTER 2023-04-08 18:22 | Outpatient (REF) | payer MEDICARE, MEDICAID, SELFPAY ==
[2023-04-08 17:14] LABS: COMMENT (LAB VIEW ONLY) 62.17 mg/dL
== END 2023-04-08 18:23 | disposition home or self-care (01) ==
LOC: NCHCN 18:22
PROVIDERS: PCP Physician Assistant; Visit Provider Physician Assistant
DX: E11.9 Type 2 diabetes mellitus without complications (principal)
CPT/HCPCS: 82043; 82570

== ENCOUNTER → 2023-05-11 08:16 | Outpatient (BNVA) | payer MEDICARE, MEDICAID, SELFPAY | PROVIDERS: PCP Physician Assistant; Referring Provider Physician Assistant; Visit Provider Student in an Organized Health Care Education/Training Program | DX: M75.101 Unspecified rotator cuff tear or rupture of right shoulder, not specified as traumatic (principal); M19.011 Primary osteoarthritis, right shoulder | CPT/HCPCS: 99214 ==

== ENCOUNTER 2023-06-02 05:58 | Day surgery (SDC) | payer MEDICARE, MEDICAID, SELFPAY ==
[2023-06-02] VITALS (18 sets, daily range): BP systolic 70–134; BP diastolic 50–81; PULSE 80–98; RESP 10–20; TEMP 36.3–37.1; O2SAT 94–99; BMI 29.0
[2023-06-02] MEDS: Lactated Ringers 1,000 ML 30 ML IV ×2 (06:50→11:48)
--- NOTE | 2023-06-02 07:13 | W.PM.DSUDISC ---
Date of service: 06/02/23 Time of Service: 14:00 Discharge Plan Disposition Patient Disposition: Home Condition: Stable Discharge Details Attending Provider: Thien Montiel Primary Care Provider: Bran Ramirez Home Meds and New Rx's Prescriptions: New naproxen 250 mg tablet 250 - 500 mg PO BID PRNQty: 30 0RF Rx Instructions: take with a meal aspirin 81 mg tablet,delayed release (DR/EC) 81 mg PO DAILY 7 Days Qty: 7 0RF tramadol 50 mg tablet 50 mg PO Q6H PRN PRN (Reason: severe pain) Qty: 12 0RF Continued tadalafil 5 mg tablet 5 mg PO DAILY Jardiance 10 mg tablet 10 mg PO DAILY venlafaxine [Effexor XR] 75 mg capsule,extended release 24hr 150 mg PO HS fluticasone propionate [Flonase Allergy Relief] 50 mcg/actuation spray,suspension 2 spray intranasal DAILY Rx Instructions: administer into each nostril Lumigan 0.01 % drops 1 drp ophthalmic (eye) DAILY pantoprazole 40 mg tablet,delayed release (DR/EC) See Rx Instructions .ROUTE .COMPLEX Qty: 90 4RF Dose Instruction: TAKE ONE TABLET BY MOUTH EVERY DAY Rx Instructions: TAKE ONE TABLET BY MOUTH EVERY DAY simethicone [Gas-X Extra Strength] 125 mg Capsule 125 mg PO TID gabapentin 300 mg Capsule 300 mg PO QHS metformin 500 mg tablet 1,000 mg PO BID acetaminophen 500 mg tablet 500 mg PO Q6H PRN PRN (Reason: pain) Qty: 60 3RF Biktarvy 50-200-25 mg Tablet 1 tab PO HS Discontinued ibuprofen 600 mg tablet 600 mg PO TID PRN (Reason: pain) Qty: 90 3RF Discharge Instructions Additional Instructions: Surgery: Right reverse total shoulder arthroplasty (constrained liner) with removal of hardware and biceps tenodesis Activity: Do not lift anything heavier than a coffee. You should keep your arm at your side in a relatively neutral position except for gentle range of motion exercises, physical therapy, and essential activities. You should use the sling whenever you are out of the house. You may have to adjust the abduction pillow or remove it for comfort. At home it is best to remove the sling and rest the arm on a pillow at your side or support the operative side with your other hand. A physical therapy prescription will be sent electronically to start in about 3 weeks. MODIFIED reverse TSA Protocol: Immediate AROM okay Prescriptions: Aspirin 81 mg take 1 daily to prevent a blood clot for 2 weeks Naproxen 250 mg take 1-2 every 12 hours with a meal as needed for moderate pain Tramadol 50 mg take 1 every 8 hours as needed for severe pain You may use [id number] Tylenol (acetaminophen) as needed for mild pain. These pain medications may be taken all at once or in different combinations as needed. Also, recommend Colace (docusate) as a stool softener as surgery and pain medicine cause constipation. You may try [id number] diphenhydramine (Benadryl) 25-50 mg nightly as a sleep aid Dressings: Leave dressing in place until follow-up. Keep clean and dry at all times. No showers please. Follow-up: 10-[address] Montiel You may take off the leg compression stockings this evening at home. You may also leave them on a few days longer if you have a history of leg swelling or edema. Please call the office during business hours with any questions or concerns. Let us know right away if you develop any redness, drainage, fevers, chest pain, or trouble breathing. Do not drink alcohol or drive for at least 24 hours after anesthesia. Stand Alone Forms: Anesthesia Discharge Inst., Johnnie.Nerve Block Instructions, Catherine Fuentes (DSU) Discharge Orders Discharge Orders: Discharge Order (Routine); Ordered 06/02/23 Ordered By: Thien Montiel DS: Diagnosis Discharge Diagnosis (1) Right rotator cuff tear: Status: Acute (2) Primary osteoarthritis, right shoulder: Status: Acute
--- NOTE | 2023-06-02 07:16 | ROE_ITS ---
Date of service: 06/02/23 Time of Service: 07:30 Operative Note Operative Note DATE OF PROCEDURE: 06/02/23 PRE-OP DIAGNOSIS: Right: 1. Recurrent rotator cuff tearing 2. Glenohumeral arthritis 3. Proximal biceps rupture 4. Retained hardware proximal humerus POST-OP DIAGNOSIS: same PROCEDURE: Right: 1. Reverse total shoulder arthroplasty, CPT # 82083 2. Open biceps tenodesis, CPT # 97332 3. Removal of deep hardware, CPT# 66074 The paperhanger assistant was medically required as this procedure involves retraction, protection of neurovascular structures, and manipulation of multiple instruments and implants at the same time, which cannot be done without a skilled paperhanger assistant. SURGEON: Thien Montiel ISSUING OPERATOR: Gabe Onofre ANESTHESIA TYPE: Local By Surgeon, General LMA/ETT and Primary Nerve Block Refer to Anesthesia Record ESTIMATED BLOOD LOSS: 75 PATHOLOGY: none sent COMPLICATIONS: None Patient was transported to: PACU Patient's condition: stable Implants: [employer] modular glenoid system baseplate 24 mm [employer] modular glenoid system central post 25 mm [employer] modular glenoid system peripheral locking screws 28 mm inferior, 26 mm superior, 20 mm posterior, 16 mm anterior [employer] modular glenoid system glenosphere 39+4 mm lateralized [employer] humeral stem 135 degrees size 7 [employer] suture cup size 39 posterior offset [employer] humeral insert size 39 +3 constrained mm Indications: Please see complete medical record for details. Findings: Moderate grade partial tearing subscapularis and supraspinatus prior repairs. Moderate glenohumeral arthritis. Proximal biceps previous rupture mobile after opening up the rotator interval. Limited space mobility pectoralis major and narrow shoulder. Augment superiorly placed. Slightly more anterior and superior due to exposure. No revision subscapularis repair due to tissue quality and excursion/tightness. Constrained liner due to lack of subscapularis and supraspinatus. Excellent stability. Cephalic vein mobilized laterally and torn with deltoid retractor, coagulated appropriately. Procedure Description: In the operating room, general anesthesia was induced. The patient was positioned beachchair on the operating room table. All bony prominences were well-padded. Preoperative antibiotics were administered. The shoulder was prepped and draped in the usual sterile fashion for shoulder arthroplasty. The correct patient, procedure, and side of the procedure were all verified prior to incision. The deltopectoral approach was preinjected with local anesthetic containing epinephrine and taken to the anterior shoulder. Care was taken to bluntly dissect the interval between the deltoid and pectoralis major muscles and to identify the cephalic vein within its fat stripe. The the vein was mobilized laterally. Subdeltoid space and conjoined tendon were freed of adhesions. The long head of the biceps tendon was identified just lateral to the lesser tuberosity relatively scarred at the superior aspect of the bicipital groove. The uppermost margin of the pectoralis major tendon was released from the proximal humerus. The rotator interval was opened up as there was significant scarring between the subscapularis and supraspinatus subcoracoid and subdeltoid spaces. The long head of the biceps tendon was then mobile and free in the bicipital groove. Decision was made to proceed with tenodesis in order to prevent problem or worsening biceps deformity. The long head of the biceps tendon was tenodesed in situ using SutureTape in a [id number] fashion securing it superior margin the pectoralis major tendon. The biceps tendon was amputated and followed proximally to identify the rotator interval. The subscapularis was identified, prior sutures removed, it was largely healed, but thickened and scarred with abnormal tendon. More of a tenotomy was done with the lateral remnant removed, medial tagged, and amputated appropriately while continuing the release along the inferior margin of the anterior proximal humerus down to the neck. The supraspinatus was identified and debrided of partial-thickness tearing about the site of previous repair. Pairs of permanent suture material removed from what was probably the medial row the lateral row anchors. Appropriate coagulation was achieved especially interiorly. The anatomic neck was cut using an oscillating saw with the humeral head bone brought back table in case there was a need for future bone grafting. Suture anchors were then removed with a rongeur as from within the proximal humerus. The proximal humeral protection plate was used to provisionally confirm suture cup and glenosphere size. Reamers were started appropriately posterior to the bicipital groove taking care to maintain in line approach with the humeral canal. Sequential reaming was done from size 5 up to size 7. Next, the broaches were sequentially used to open the proximal humerus starting with a size 5 and going up to size 7 and sunk to the appropriate depth while maintaining approximately 25 degrees retroversion. There was good metaphyseal fit and rotational control of the proximal humerus with this size. The posterior offset guide was used to ream for the suture cup. Attention was then turned to the glenoid and retractors were placed and a circumferential release performed using the long head of the biceps remnant to remove soft tissue about the glenoid rim. Care was taken inferiorly to work on bone only between 5 and 7:00 o'clock and bluntly elevate tissues inferiorly. The VIP guide was placed on the glenoid and used to confirm placement and trajectory of the central guidepin. Slight additional pectoralis major release and proximal humerus anterior bone removal had to be done to allow for exposure of the glenoid. The pectoralis major muscle and the diminutive stature made it challenging to accommodate the size of the glenoid preparation instruments. The guidepin was inserted through the augmented guide using a slightly more anterior and superior location due to size and exposure constraints. The guidepin was inserted and advanced to the far cortex, measurement done, and then advanced through the far cortex ensuring adequate central fixation length. The glenosphere sizer was used to confirm positioning and glenosphere size. The eccentric reamer was used with the augment directed superiorly to correct superior inclination. The central drill was then done. The baseplate was impacted and fully compressed onto the prepared glenoid surface. The locking guide was then used to drill and place appropriately lengthed inferior, superior, anterior, and posterior screws. The iurp-[id number] reamer was used to confirm adequate peripheral reaming. The glenosphere was applied with the quantitative equity head and then impacted to engage the Millan taper. It was then locked with appropriate countersinking of the setscrew. The glenosphere was inspected and found to have good fit, appropriate positioning, and no soft tissue or bony impingement. Attention was then turned back to the proximal humerus, which was delivered from the wound and maintained in external rotation. The humeral trial cup was connected. Trialing was commenced with +3 mm liner. The shoulder was reduced and taken through range of motion. There was excellent stability and appropriate tension on the deltoid and conjoined tension. The trial components were removed from the proximal humerus. The wound was copiously irrigated with normal saline. The the proximal humeral stem and suture cup were assembled and brought over the proximal humerus. A small amount of vancomycin powder was distributed in the proximal humerus. The humeral component and suture cup were impacted into place. The final spacer was then connected, and range of motion, stability, and tension confirmed. Constrained liner chosen due to lack of subscapularis repair and somewhat deficient supraspinatus The shoulder was copiously irrigated with Betadine and normal saline. Vancomycin powder was distributed deeply about the shoulder and through subcutaneous tissues. The deltopectoral interval was well approximated and closed centrally burying the cephalic vein and defect in proximity using 2-0 Monocryl. Care was taken to ensure no active bleeding. Subcutaneous tissue was irrigated then closed using 2-0 Monocryl in a buried interrupted fashion. Skin was closed using 3-0 Monocryl in a buried subcuticular fashion. Skin glue was applied to the incision. A silver impregnated bandage was placed over the incision. The extremity was placed into a shoulder immobilizer. The patient awoke from anesthesia without complication and was taken to the recovery room in stable condition.
--- NOTE | 2023-06-02 07:19 | ANES.PREOP_ITS ---
General Info Date of Service Date Performed: 06/02/23 Height: 5 ft 2 in Weight: 72.1 kg Body Mass Index (BMI): 29.0 Surgical Procedure: Operation Date: 06/02/23 07:40 Proposed Procedure Side Surgeon p Shoulder Reverse Total Arthroplasty, Hardware Removal Right Thien Montiel MD Meds Allergies and Home Medications Allergies Allergy/AdvReac Type Severity Reaction Status Date / Time amoxicillin [Amoxicillin] Allergy Intermediate hives, rash Verified 06/01/23 1 2:21 Sulfa (Sulfonamide Allergy Intermediate rash, hives Verified 06/01/23 12:21 Antibiotics) Penicillins Allergy Mild Skin Rash Verified 06/01/23 12:21 meloxicam AdvReac Mild itchy Verified 06/01/23 12:21 oxycodone AdvReac Mild feels Verified 06/01/23 12:21 sick Bee Stings Allergy Severe Anaphylaxis Uncoded 06/01/23 12:21 fish/seafood AdvReac Severe nausea, Uncoded 06/01/23 12:21 vomiting, diarrhea nuts AdvReac Severe nausea, Uncoded 06/01/23 12:21 vomiting, diarrhea Home Medication Medication Instructions Recorded bictegravir 50 mg-emtricitabine 1 tab PO HS 05/10/18 200 mg-tenofovir alafenam 25 mg tablet (Biktarvy) gabapentin 300 mg capsule 300 mg PO QHS 06/20/19 simethicone 125 mg capsule (Gas-X 125 mg PO TID 06/20/19 Extra Strength) acetaminophen 500 mg tablet 500 mg PO Q6H PRN PRN pain #60 tabs 05/13/20 bimatoprost 0.01 % eye drops 1 drp ophthalmic (eye) DAILY 07/22/20 (Lumigan) fluticasone propionate 50 2 spray intranasal DAILY 07/22/20 mcg/actuation nasal spray,suspension (Flonase Allergy Relief) venlafaxine 75 mg capsule,extended 150 mg PO HS 07/22/20 release 24 hr (Effexor XR) metformin 500 mg tablet 1,000 mg PO BID 12/29/21 tadalafil 5 mg tablet 5 mg PO DAILY 07/13/22 pantoprazole 40 mg tablet,delayed See Rx Instructions .Route 04/21/23 release .COMPLEX #90 tabs empagliflozin 10 mg tablet 10 mg PO DAILY 05/11/23 (Jardiance) aspirin 81 mg tablet,delayed 81 mg PO DAILY prevent blood clot 06/02/23 release 7 days #7 tabs naproxen 250 mg tablet 250 - 500 mg (1 - 2 x 250 mg) PO 06/02/23 BID PRN #30 tabs tramadol 50 mg tablet 50 mg PO Q6H PRN PRN severe pain 06/02/23 #12 tabs Current Visit Medications: Current Medications Generic Name Dose Route Start Last Admin Trade Name Freq PRN Reason Stop Dose Admin Tranexamic Acid 1,000 mg/ 60 mls @ 360 mls/hr 06/02/23 06:00 Sodium Chloride IVPB 06/02/23 16:00 PREOP CYRUS Cefazolin Sodium/Dextrose 2 gm in 50 mls @ 100 mls/hr 06/02/23 06:00 Ancef Duplex IVPB 06/02/23 16:00 PREOP CYRUS Ringer's Solution 1,000 mls @ 30 mls/hr 06/02/23 06:00 06/02/23 06:50 IV 07/01/23 23:59 30 mls/hr INFUSION CYRUS Administration Cefazolin Sodium/Dextrose 1 gm in 50 mls @ 100 mls/hr 06/02/23 11:30 Ancef Duplex IVPB 06/02/23 11:59 ONCE ONE IV Miscellaneous Supplies 1 each 06/02/23 06:00 Iv Access IV 07/01/23 23:59 DIRECTED CYRUS Lactobacillus Acidophilus/Casei 1 cap 06/02/23 12:30 L. 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 Thrush B37.0 Hoarseness R49.0 Chronic laryngitis 12/04/15 J37.0 Difficulty speaking 11/15/13 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 HIV (human immunodeficiency virus infection) B20 GERD (gastroesophageal reflux disease) K21.9 Glaucoma H40.9 Right rotator cuff tear M75.101 Primary osteoarthritis, right shoulder M19.011 Medical History Medical History Abnormal CT scan, esophagus Anxiety Biceps tendinitis of right shoulder Bursitis of right shoulder Complete tear of right rotator cuff Depression Diabetes mellitus Emphysema lung Esophageal disorder Exposure to industrial toxin Finger laceration Former smoker Gastritis Hepatitis B History of anesthesia reaction Pt states blood pressure bottoms out History of blood transfusion pt. denies this History of shingles Hoarseness (12/04/15) Hx of headache Stress headaches Hyperlipidemia Laceration of left index finger (05/13/20) s/p debridement and nailbed repair: 05/13/2020 Laryngopharyngeal reflux Lesion of vocal cord Lung nodule Mucoid cyst of joint Rhinorrhea Tubular adenoma Vocal cord dysplasia Medical History Comments:: BP Bottoms out Surgical History Surgical History Excision, Olecranon Bursa (09/09/14) RIGHT [facility] History of esophagogastroduodenoscopy (EGD) (~08/14/20) History of esophagogastroduodenoscopy (EGD) (~11/2021) History of laryngoscopy Microlaryngoscopy with bilateral true vocal cord biopsy, 11/29/2022 Hx of biopsy Throat biopsy, throat polyps Incomplete tear of right rotator cuff (10/03/17) S/P repair on 06/26/2019 injected 07/12/18 Injury of extensor tendon of left hand (05/13/20) Open fracture of phalanx of left middle finger (05/13/20) S/P open reduction and PERC pinnin05/13/2020 Open fracture of phalanx of left ring finger (05/13/20) S/P open reduction and PERC pinnin05/13/2020 Status post left rotator cuff repair DOS: 08/01/18 Dr. Almeida Tobacco Smoking/Tobacco Use Status: Former Tobacco Use Alcohol Alcohol Intake: current Alcohol intake frequency: 0-2 drinks per day Alcohol type: beer and wine Details: 1-2 drinks nightly Substance Use Substance use: Occasionally Substance use type: does not use and other Details: pt denies recreational drug use today 06/02/23 Vital Signs and Lab Results Vital Signs Most Recent Vital Signs in EMR: Most Recent Vital Signs Temp Pulse Resp BP Pulse Ox 36.7 C 87 20 110/77 98 06/02/23 06:05 06/02/23 06:05 06/02/23 06:05 06/02/23 06:05 06/02/23 06:05 Point of Care Results Point of Care Results: Finger Stick Blood Glucose 123 06/02/23 06:33 Lab Results Blood Type / Crossmatch: No Data to Display Complete Blood Count: No Data to Display Complete Metabolic Panel: No Data to Display Liver Function Panel: No Data to Display Coagulation Panel: No Data to Display Cardiac Panel: No Data to Display Arterial Blood Gas: No Data to Display Venous Blood Gas: No Data to Display Pancreas Panel: No Data to Display Thyroid Panel: No Data to Display Infectious Disease: No Data to Display Blood Cultures: No Data to Display Toxicology Panel: No Data to Display Anesthesia Assessment and Plan Anesthesia History Personal History: Other Family History: No Family History of Anesthesia Complications Exercise Tolerance Exercise Tolerance: Metabolic Equivalents>4 Pertinent Negatives Pertinent Negatives: No Symptoms of GERD Cardiac & Pulmonary Exam Cardiac Exam: Normal S1/S2 Heart Sounds Pulmonary Exam: Clear Bilateral Breath Sounds Implantable Cardiac Device Does patient have a Pacemaker or an ICD?: No Airway Exam Known Difficult Airway: No Mallampati Class: 2 Mouth Opening: Normal (> 3cm) Thyromental Distance: Greater than 3 cm Neck Range of Motion: Full ROM Neck Circumference: Normal Teeth Condition: Generalized Poor Dentition (none loose per patient) and Advised tooth loss possible given current condition (indicate tooth) ASA Classification ASA Score: ASA 3 Emergency Case?: No NPO Status NPO Status: NPO Clears >2 hours, Solids >8 hours Anesthesia Plan Resuscitation Status: Full Code Anesthesia Technique: General Anesthesia Airway Planned: Endotracheal Tube Monitors Used: Standard Monitors Preoperative Comments:: Positive for larynx CA.
[2023-06-02] MEDS: ceFAZolin 2 GM/50 ML BAG IVPB (07:56)
[2023-06-02] MEDS: Bupivacaine 0.25% Pres-Free 30 ML VIAL (08:32)
[2023-06-02] MEDS: EPINEPHrine 10 MG/10 ML ML (08:32)
--- NOTE | 2023-06-02 08:49 | W.ANESNERVE ---
Nerve Block Single Injection Procedure Date and Time Date Performed: 06/02/23 Procedure Start: 07:35 Location Where Procedure Performed Procedure Location: Day Surgery Unit Reason Performed: Postoperative Analgesia Requesting Provider: Thien Montiel Timeout Performed Timeout Performed: Yes Monitoring Used ECG, Blood Pressure, SpO2, ETCO2 and See EMR for corresponding vital signs Sterility Sterility: Hand Hygiene, Surgical Cap, Surgical Mask, Sterile Gloves, Eye Protection and Chlorhexidine Sedation Given During Procedure Sedation Given (Indicate Dose Given): Versed IV (Documented in Anesthesia record) Dose:: 3mg IVP Patient Mental Status Patient Mental Status: Sedate with meaningful communication Nerve Block 1st Nerve Block: Laterality: Right Block Type: Interscalene Ultrasound Image Saved?: Yes Needle / Catheter Used: 80mm SonoPlex II Local Anesthetic Bolus (Indicate Dose Given): Lidocaine used for local infiltration of skin, Injected in 3-5ml increments after negative blood aspiration, Bupivacaine 0.5% Dose:: 0.5%/15cc (75mg) and Exparel Dose:: 10cc/1.3% (133mg) Additives (Indicate Dose Given): Epinephrine to make 1:200,000 (5mcg/ml) Dose:: 5mcg/cc (1:200,000) (75mcg) Ultrasound: Sterile probe cover and gel used Nerve Stimulator: Not Used Paresthesia: None Procedure Tolerated: No Complications and Patient tolerated well Procedure Outcome: Successful Performed By: Bill Sharma
--- NOTE | 2023-06-02 09:10 | W.ANESAIR ---
Airway Management Note Procedure Date and Time DO NOT use this note for patients in the OR, Use Intraop Record Instead Date Performed: 06/02/23 Procedure Time: 07:45 Procedure Location Procedure Location: Operating Room Requesting Provider: Thien Montiel Number of Previous Intubation attempts by other providers: 3 Procedure Type Procedure Type: Other Pre-Induction Setup Sterility: Hand Hygiene, Surgical Cap and Surgical Mask Preinduction Setup: Standard monitors applied Induction Induction Time: 07:45 Induction setup: Pt. evaluated prior to induction Induction Medications (Indicate Dose Given): Other Medication/Route/Dose:: General Mask Ventilation: Easy Airway Device Airway Type: Intubation Laryngoscopy: Atraumatic Laryngoscopy Airway Grade: 1 (Video) Airway Blades: Glidescope 4 Endotracheal Tube: Oral and 7.5mm ETT Depth Where Secured (cm): 22 Placement Confirmation: Cuff inflated with minimally occlusive pressure, Secured with tape, Bilateral breath sounds, ETCO2 waveform present and Depth to teeth (22cm) Number of Attempts (See previous attempts in note section): 1 Post Induction Management Post Induction Medications (Indicate Dose Given): Other Medication/Route/Dose:: See anesthesia record Gastric Tube Gastric Tube: Not Placed Procedure Complications Procedure Complications: None Procedure Outcome Procedure Outcome: Successful Procedure Comment: 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 Abnormal left local cord, no mass effect, normal L/R vocal placement after induction and relaxation. Pt voice is raspy during pre-op asessment. Intubated with GVL with Grade 1 video view. BVM without difficulty. Proceduralist Performed By: Bill Sharma
--- NOTE | 2023-06-02 11:00 | DI.RAD_ITS ---
Exam(s) XR SHOULDER RT COMPLETE 2+V EXAM: XR SHOULDER RT COMPLETE 2+V CLINICAL HISTORY: Shoulder arthritis. TECHNIQUE: 2D digital imaging was performed of the right shoulder. Three images were obtained. [place] and Y views were obtained. COMPARISON: CR XR SHOULDER RT COMPLETE 2+V from 09/25/[address] UPPER EXTREMITY RT WO from 01/17/2023 FINDINGS: BONES: No acute fracture is present. No bony destructive lesion is seen. JOINTS: No dislocation present. The patient is now status post right total reverse shoulder replaceme nt. Orthopedic hardware appears in good position. SOFT TISSUE: Postsurgical changes are seen in the soft tissues. The visualized lung is unremarkable. IMPRESSION: Status post right total reverse shoulder replacement. DATA REPOSITORY: RADIATION DOSE DELIVERED:
[2023-06-02] MEDS: ePHEDrine 25 MG/5 ML Syringe IVP ×4 (11:44→12:10)
--- NOTE | 2023-06-02 14:37 | W.ANESPOSTOP ---
Postoperative Evaluation Date, Time and Location Date Performed: 06/02/23 Time Performed: 14:37 Patient Location: Day Surgery Unit Vital Signs Most Recent Imported Vital Signs: Most Recent Vital Signs Temp Pulse Resp BP Pulse Ox 36.8 C 86 16 97/67 L 97 06/02/23 14:01 06/02/23 14:01 06/02/23 14:01 06/02/23 14:01 06/02/23 14:01 Pain Score Most Recent Pain Score: Most Recent Pain Score Pain Level 0 06/02/23 14:01 Assessment Mental Status: Awake (Alert & Oriented to Patient Baseline) Airway and Respiratory Function: Patent airway with normal (patient baseline) respiratory exam Cardiovascular Function: Hemodynamically Stable Hydration Status: Adequately Hydrated Nausea & Vomiting: No Nausea or Vomiting Pain: Pt. Denies Any Pain Peripheral Nerve Block: Regional nerve block not resolved at time of post operative discharge Postoperative Comments:: Interscalene plexus block, Right
== END 2023-06-02 05:59 | disposition home or self-care (01) ==
PROVIDERS: PCP Physician Assistant; Visit Provider Student in an Organized Health Care Education/Training Program
PROC: (CPT 23472; principal; 2023-06-02 07:30)
DX: M75.101 Unspecified rotator cuff tear or rupture of right shoulder, not specified as traumatic (principal); M19.011 Primary osteoarthritis, right shoulder; E11.9 Type 2 diabetes mellitus without complications; K21.9 Gastro-esophageal reflux disease without esophagitis; Z87.891 Personal history of nicotine dependence
CPT/HCPCS: 23472; 20680; 31500; 64415; 76942; 73030; J0131; J0690; J1100; J1885; J2001; J2250; J2405; J2704

== ENCOUNTER 2023-06-15 08:30 | Outpatient (CLI) | payer MEDICARE, MEDICAID, SELFPAY ==
--- NOTE | 2023-06-15 08:00 | DI.RAD_ITS ---
Exam(s) XR SHOULDER RT COMPLETE 2+V EXAM: XR SHOULDER RT COMPLETE 2+V INDICATION: POST OP RIGHT RTSA. COMPARISON: CR XR SHOULDER RT COMPLETE 2+V from 06/02/2023 TECHNIQUE: 2D digital imaging was performed. Two views. FINDINGS: There has been no change in the alignment of the reverse shoulder prosthesis. No abnormal bony lucen cies are seen. There is some residual air in the soft tissue. DATA REPOSITORY: RADIATION DOSE DELIVERED:
== END 2023-06-15 08:31 | disposition home or self-care (01) ==
LOC: DIORS 08:30
PROVIDERS: PCP Physician Assistant; Referring Provider Physician Assistant; Visit Provider Student in an Organized Health Care Education/Training Program
DX: Z96.611 Presence of right artificial shoulder joint (principal); Z47.1 Aftercare following joint replacement surgery
CPT/HCPCS: 73030

== ENCOUNTER 2023-07-06 14:37 | Outpatient (CLI) | payer MEDICARE, MEDICAID, SELFPAY ==
[2023-07-07 11:29] LABS: HIV 1 RNA Qualitative Detected copies/mL (Undetected); HIV 1 RNA Quantitative 81 copies/mL (Undetected)
== END 2023-07-06 14:38 | disposition home or self-care (01) ==
LOC: LBO 14:37
PROVIDERS: PCP Physician Assistant; Visit Provider Nurse Practitioner Family
DX: B20 Human immunodeficiency virus [HIV] disease (principal); Z79.899 Other long term (current) drug therapy
CPT/HCPCS: 36415; 87536

== ENCOUNTER 2023-08-16 15:13 | Outpatient (CLI) | payer MEDICARE, MEDICAID, SELFPAY ==
--- NOTE | 2023-08-16 08:15 | DI.RAD_ITS ---
Exam(s) XR SHOULDER RT COMPLETE 2+V EXAM: XR SHOULDER RT COMPLETE 2+V CLINICAL HISTORY: F/U RIGHT RTSA. TECHNIQUE: 2D digital imaging was performed. Two images were obtained. [place] and Y views were obt ained. COMPARISON: CR XR SHOULDER RT COMPLETE 2+V from 06/15/2023 FINDINGS: BONES: There are stable post operative changes of a right total reverse shoulder replacement present. No fracture or dislocation. JOINTS: The orthopedic hardware is in good position. No evidence of hardware loosening. There are m ild degenerative changes seen at the acromioclavicular joint. SOFT TISSUE: The visualized lung [place] are clear. IMPRESSION: Stable postoperative changes. DATA REPOSITORY: RADIATION DOSE DELIVERED:
== END 2023-08-16 15:14 | disposition home or self-care (01) ==
LOC: DIORS 15:14
PROVIDERS: PCP Physician Assistant; Referring Provider Physician Assistant; Visit Provider Student in an Organized Health Care Education/Training Program
DX: Z47.1 Aftercare following joint replacement surgery (principal); Z96.611 Presence of right artificial shoulder joint
CPT/HCPCS: 73030

== ENCOUNTER 2023-09-19 12:15 | Outpatient (CLI) | payer OTHER, MEDICAID, SELFPAY ==
[2023-09-19 12:26] LABS: Abs Immature Grans 0.05 10^3/uL (0.0-0.06); Absolute Basophil Count 0.03 10^3/uL (0.0-0.2); Absolute Eosinophil Count 0.08 10^3/uL (0.0-0.7); Absolute Lymphocyte Count 2.07 10^3/uL (1.2-3.4); Absolute Monocyte Count 0.54 10^3/uL (0.1-0.8); Absolute Neutrophil Count 3.23 10^3/uL (1.2-6.7); Basophils % 0.5; Eosinophils % 1.3; HCT 46.3 % (40.0-50.0); HGB 15.5 g/dL (13.5-17.5); Immature Grans % 0.8; Lymphocytes % 34.5; MCH 30.6 pg (27.0-33.0); MCHC 33.5 % (32.0-36.0); MCV 92 fL (80-95); MPV 9.3 fL (8.0-11.0); Neutrophils % 53.9; Platelet Count 161 10^3/uL (130-400); RBC 5.06 10^6/uL (4.36-5.78); RDW 13.6 % (11.8-14.1)
[2023-09-19 12:40] LABS: ALT 29 U/L (16-63); AST 13 U/L (15-37); Albumin 3.9 g/dL (3.4-5.0); Alkaline Phosphatase 92 U/L (46-116); Anion Gap 9.5 mmol/L (3-11); BUN 12 mg/dL (7-18); Bilirubin, Total 0.4 mg/dL (0.2-1.0); CO2 24.5 mmol/L (21.0-32.0); Calcium 9.1 mg/dL (8.5-10.1); Chloride 102 mmol/L (98-107); Estimated GFR 86.16 (mL/min/1.73m2); Glucose 183 mg/dL (74-106); Potassium 4.1 mmol/L (3.5-5.1); Sodium 136 mmol/L (136-145); Total Protein 7.4 g/dL (6.4-8.2)
[2023-09-20 17:23] LABS: 4/8 Ratio 0.68 (>=0.90); Absolute CD3 1929 Cells/uL (840-2669); Absolute CD8 1139 Cells/uL (154-1097); CD3 81 % (56-84); CD4 33 % (31-64); CD8 48 % (9-39)
[2023-09-22 11:50] LABS: HIV 1 RNA Qualitative Detected copies/mL (Undetected); HIV 1 RNA Quantitative <20 copies/mL (Undetected)
== END 2023-09-19 12:16 | disposition home or self-care (01) ==
LOC: LBO 12:16
PROVIDERS: PCP Physician Assistant; Visit Provider Nurse Practitioner Family
DX: B20 Human immunodeficiency virus [HIV] disease (principal)
CPT/HCPCS: 36415; 80053; 87536; 85025; 86359; 86360

== ENCOUNTER 2023-11-10 14:49 | Outpatient (CLI) | payer MEDICARE, MEDICAID, SELFPAY ==
--- NOTE | 2023-11-10 09:30 | DI.RAD_ITS ---
Exam(s) XR KNEE LT 3V AP,LAT,SIVA EXAM: XR KNEE LT 3V AP,LAT,SIVA CLINICAL HISTORY: LEFT KNEE PAIN. TECHNIQUE: 2D digital imaging was performed. Three views. COMPARISON: No exams were available for comparison FINDINGS: BONES: No acute fracture is present. No bony destructive lesion is seen. Small enthesophyte at the q uadriceps insertion. Small enthesophyte at the tibial tubercle. JOINTS: The joint spaces are maintained. The knee is normally aligned. No joint effusion is seen. SOFT TISSUE: Normal. IMPRESSION: Minimal degenerative changes. DATA REPOSITORY: RADIATION DOSE DELIVERED:
== END 2023-11-10 14:50 | disposition home or self-care (01) ==
LOC: DIORS 14:49
PROVIDERS: PCP Physician Assistant; Referring Provider Physician Assistant; Visit Provider Student in an Organized Health Care Education/Training Program
DX: M17.12 Unilateral primary osteoarthritis, left knee
CPT/HCPCS: 20610; 73562; J1030

== ENCOUNTER 2024-03-06 15:42 | Outpatient (REF) | payer MEDICARE, MEDICAID, SELFPAY ==
[2024-03-06 15:38] LABS: HCT 46.1 % (40.0-50.0); HGB 15.7 g/dL (13.5-17.5); MCH 31.5 pg (27.0-33.0); MCHC 34.1 % (32.0-36.0); MCV 92 fL (80-95); MPV 10.3 fL (8.0-11.0); Platelet Count 188 10^3/uL (130-400); RBC 4.99 10^6/uL (4.36-5.78); RDW 12.9 % (11.8-14.1); RDW-SD 43.8 fL
[2024-03-06 16:02] LABS: Hemoglobin A1C 8.3 % (<5.7)
[2024-03-06 16:09] LABS: ALT 41 U/L (16-63); AST 18 U/L (15-37); Albumin 3.8 g/dL (3.4-5.0); Alkaline Phosphatase 110 U/L (46-116); Anion Gap 12.2 mmol/L (3-11); BUN 11 mg/dL (7-18); Bilirubin, Total 0.44 mg/dL (0.2-1.0); CO2 23.8 mmol/L (21.0-32.0); CREATININE 0.9 mg/dL (0.70-1.30); Calcium 8.9 mg/dL (8.5-10.1); Calculated LDL 64 mg/dL (<100); Chloride 103 mmol/L (98-107); Cholesterol 134 mg/dL (<200); Estimated GFR 97.78 (mL/min/1.73m2); Glucose 166 mg/dL (74-106); HDL Cholesterol 54 mg/dL (40-60); Potassium 3.9 mmol/L (3.5-5.1); Sodium 139 mmol/L (136-145); Total Protein 6.8 g/dL (6.4-8.2); Triglyceride 81 mg/dL (<150)
== END 2024-03-06 15:43 | disposition home or self-care (01) ==
LOC: NCHCN 15:42
PROVIDERS: PCP Physician Assistant; Visit Provider Physician Assistant
DX: E11.9 Type 2 diabetes mellitus without complications (principal); E78.2 Mixed hyperlipidemia; K21.9 Gastro-esophageal reflux disease without esophagitis
CPT/HCPCS: 80053; 80061; 85027; 83036

== ENCOUNTER 2024-05-28 10:59 | Outpatient (CLI) | payer MEDICARE, MEDICAID, SELFPAY ==
[2024-05-28 11:17] LABS: Abs Immature Grans 0.07 10^3/uL (0.0-0.06); Absolute Basophil Count 0.03 10^3/uL (0.0-0.2); Absolute Eosinophil Count 0.13 10^3/uL (0.0-0.7); Absolute Lymphocyte Count 1.84 10^3/uL (1.2-3.4); Absolute Monocyte Count 0.62 10^3/uL (0.1-0.8); Absolute Neutrophil Count 4.17 10^3/uL (1.2-6.7); Basophils % 0.4 %; Eosinophils % 1.9 %; HCT 47.1 % (40.0-50.0); HGB 16.4 g/dL (13.5-17.5); Lymphocytes % 26.8 %; MCHC 34.8 % (32.0-36.0); MCV 92 fL (80-95); MPV 9.7 fL (8.0-11.0); Neutrophils % 60.9 %; Platelet Count 201 10^3/uL (130-400); RBC 5.12 10^6/uL (4.36-5.78); RDW 13.2 % (11.8-14.1); RDW-SD 44.8 fL; WBC 6.86 10^3/uL (4.4-10.8)
[2024-05-28 11:35] LABS: ALT 25 U/L (16-63); AST 15 U/L (15-37); Albumin 3.9 g/dL (3.4-5.0); Alkaline Phosphatase 109 U/L (46-116); Anion Gap 11.5 mmol/L (3-11); BUN 18 mg/dL (7-18); Bilirubin, Total 0.52 mg/dL (0.2-1.0); CO2 23.5 mmol/L (21.0-32.0); CREATININE 1.1 mg/dL (0.70-1.30); Calcium 9.4 mg/dL (8.5-10.1); Chloride 105 mmol/L (98-107); Estimated GFR 76.37 (mL/min/1.73m2); Glucose 161 mg/dL (74-106); Potassium 4.6 mmol/L (3.5-5.1); Sodium 140 mmol/L (136-145); Total Protein 7.7 g/dL (6.4-8.2)
[2024-05-29 14:11] LABS: 4/8 Ratio 0.59 (>=0.90); Absolute CD3 1882 Cells/uL (840-2669); Absolute CD8 1158 Cells/uL (154-1097); CD3 82 % (56-84); CD4 30 % (31-64); CD8 51 % (9-39)
[2024-05-30 21:54] LABS: HBV DNA Detect/Quant, PCR Undetected IU/mL (Undetected)
[2024-05-31 12:51] LABS: HIV 1 RNA Qualitative Undetected Copys/mL (Undetected)
== END 2024-05-28 11:00 | disposition home or self-care (01) ==
LOC: LBO 11:00
PROVIDERS: PCP Physician Assistant; Visit Provider Nurse Practitioner Family
DX: B20 Human immunodeficiency virus [HIV] disease (principal)
CPT/HCPCS: 36415; 80053; 87517; 87536; 85025; 86359; 86360

== ENCOUNTER 2024-06-05 15:29 | Outpatient (CLI) | payer MEDICARE, MEDICAID, SELFPAY ==
--- NOTE | 2024-06-05 08:00 | DI.RAD_ITS ---
Exam(s) XR SHOULDER RT COMPLETE 2+V EXAM: XR SHOULDER RT COMPLETE 2+V CLINICAL HISTORY: F/U RIGHT RTSA. TECHNIQUE: 2D digital imaging was performed. Three images were obtained. Axillary, Grashey and Y vi ews were obtained. COMPARISON: CR XR SHOULDER RT COMPLETE 2+V from 08/16/2023 FINDINGS: BONES: There are stable post operative changes of a right total reverse shoulder arthroplasty present . No fracture or dislocation. JOINTS: The orthopedic hardware is in good position. No evidence of hardware loosening. SOFT TISSUE: Normal. IMPRESSION: Stable right total reverse shoulder arthroplasty. DATA REPOSITORY: RADIATION DOSE DELIVERED:
== END 2024-06-05 15:30 | disposition home or self-care (01) ==
LOC: DIORS 15:29
PROVIDERS: PCP Physician Assistant; Visit Provider Student in an Organized Health Care Education/Training Program
DX: Z47.1 Aftercare following joint replacement surgery (principal); Z96.611 Presence of right artificial shoulder joint
CPT/HCPCS: 99213; 73030

== ENCOUNTER → 2024-11-08 09:12 | Outpatient (BNVA) | payer MEDICARE, MEDICAID, SELFPAY | PROVIDERS: PCP Physician Assistant; Referring Provider Physician Assistant; Visit Provider Physical Therapy Assistant | DX: Z12.11 Encounter for screening for malignant neoplasm of colon (principal) ==

== ENCOUNTER 2024-11-23 08:26 | Day surgery (SDC) | payer MEDICARE, MEDICAID, SELFPAY ==
--- NOTE | 2024-11-22 18:07 | W.PM.DSUDISC ---
Date of service: 11/23/24 Discharge Plan Disposition Patient Disposition: Home Condition: Good Discharge Details Reason For Visit: Screening colonoscopy Attending Provider: Simon Cooper Primary Care Provider: Bran Ramirez Home Meds and New Rx's Prescriptions: Continued Ozempic 0.25 mg or 0.5 mg (2 mg/3 mL) pen injector 0.25 mg subcut QWEEK Rx Instructions: for 4 weeks tadalafil 5 mg tablet 5 mg PO DAILY venlafaxine [Effexor XR] 75 mg capsule,extended release 24hr 150 mg PO HS pantoprazole 40 mg tablet,delayed release (DR/EC) See Rx Instructions .ROUTE .COMPLEX Qty: 90 4RF Dose Instruction: TAKE ONE TABLET BY MOUTH EVERY DAY Rx Instructions: TAKE ONE TABLET BY MOUTH EVERY DAY atorvastatin 20 mg tablet 20 mg PO DAILY Lumigan 0.01 % drops 1 drp ophthalmic (eye) QPM epinephrine 0.3 mg/0.3 mL auto-injector 0.3 ml IM ONCE Patient Comments: for severe allergic reaction, then call 911 Rx Instructions: as a single dose; may repeat once simethicone [Gas-X Extra Strength] 125 mg Capsule 125 mg PO TID gabapentin 300 mg Capsule 300 mg PO QHS metformin 500 mg tablet 1,000 mg PO BID acetaminophen 500 mg tablet 500 mg PO Q6H PRN PRN (Reason: pain) Qty: 60 3RF Biktarvy 50-200-25 mg Tablet 1 tab PO HS Discontinued bisacodyl [Dulcolax (bisacodyl)] 5 mg tablet,delayed release (DR/EC) 5 mg PO ONCE Qty: 4 0RF Rx Instructions: Take per colonoscopy instructions provided by ordering providers office polyethylene glycol 3350 17 gram/dose powder 17 g PO ONCE Qty: 238 0RF Rx Instructions: Take per colonoscopy instructions provided by ordering providers office Discharge Instructions Additional Instructions: Bill, it was pleasure meeting you today, and I hope you feel well after the procedure. Things went very smoothly. Your prep was outstanding and we could see everything fine. I did not see any signs of tumors, polyps, or anything else to worry about. With a negative screening colonoscopy today, no other significant risk factors, 10 years is an appropriate interval for your next screening. If you need anything, or have any questions at all, please do not hesitate to call. 1. If tolerated, consume a soft, low fiber diet for 1-2 days. 2[address] Do not drive, drink alcohol, operate machinery, make critical decisions, or do activities that require coordination or balance for 24 hours. 3. Because air was put into your colon during the procedure, expelling air from your rectum (passing gas or farting) is normal. 4. You may not have a bowel movement for 1-3 days because of the colonoscopy prep. This is normal. 5. Go directly to the emergency room if you notice any of the following: Develop chills (warm to touch), or if you have a thermometer and your temperature is above 101 Difficulty breathing or difficultly swallowing Persistent vomiting Severe abdominal pain, other than gas cramps Severe chest pain Black, tarry stools Any bleeding ? exceeding one tablespoon 6. Call your physician if the site where your intravenous was started becomes red, swollen, painful, and warm to touch. 7. Your physician has reviewed your pre-procedure medications. Please continue to take those medications as previously ordered. You will be given specific information/education regarding any changes to your medications before leaving. Stand Alone Forms: Anesthesia Discharge InstCatherine Palmer (DSU) Activity:: Activity as Tolerated Diet:: As Tolerated Discharge Orders Discharge Orders: Discharge Order (Routine); Ordered 11/22/24 Ordered By: Simon Cooper DS: Diagnosis Discharge Diagnosis (1) Encounter for screening colonoscopy: Status: Acute Asessment and Plan: Negative screening colonoscopy; without any other significant risk factors, recommended 10-year interval for the next colonoscopy
--- NOTE | 2024-11-22 18:09 | COLE_ITS ---
Date of service: 11/23/24 Time of Service: 11:09 Colonoscopy Report Date of procedure: 11/23/24 Pre-op diagnosis general: Screening colonoscopy Post-op diagnosis procedure note: other (Negative screening colonoscopy) Procedure: Colonoscopy Surgeon: Simon Cooper Anesthesia Type: General:No Airway Estimated blood loss (mL): 0 Pathology: none sent Complications: None Disposition: same day Indications: Bill is a 59-year-old male who needs his next screening colonoscopy Prep: Miralax/Dulcolax Procedure Start Time: 10:44 Procedure End Time: 11:03 Retraction Time: 13 Findings: Negative screening colonoscopy Procedure Description: After the induction of monitored anesthetic care, and with the patient in left lateral decubitus position, I began by performing an external anorectal exam.? Perineum and skin were normal, as was the anal verge.? There was no evidence of external hemorrhoids.? Next, I performed a digital rectal exam.? I did not appreciate any abnormal findings.? Next, I advanced a colonoscope into the rectal vault.? I performed retroflexion.? This was normal.? Using insufflation, I then advanced the colonoscope beyond the rectal folds and into the sigmoid colon before advancing towards the cecum.? The quality of the prep was outstanding.? The scope was noted to be in the cecum by identification of the ileocecal valve and appendiceal orifice.? I then began withdrawing the colonoscope using repeated irrigation as necessary for full evaluation of the colonic mucosa. ?Once the scope was withdrawn to the level of the rectum, great care was taken to examine portions of the rectal folds.? There were no signs of tumors, polyps, or any other obvious pathology. Finally, the scope was withdrawn and the patient was brought to the same-day surgery recovery unit as the anesthetic wore off. ?The findings and instructions were shared with the patient prior to discharge. [place] Bowel Prep [place] Bowel Prep Right Colon: 3 Left Colon: 3 Transverse Colon: 3 Total Score: 9
[2024-11-23 08:35] VITALS: BP 105/80; PULSE 57; RESP 16; TEMP 36.4; O2SAT 98
[2024-11-23] MEDS: Lactated Ringers 1,000 ML 80 ML IV (09:04)
--- NOTE | 2024-11-23 10:23 | W.ANESPRE ---
General Info Date of Service Date Performed: 11/23/24 Height: 5 ft 2 in Weight: 76.9 kg Body Mass Index (BMI): 31.0 Surgical Procedure: Operation Date: 11/23/24 09:50 Proposed Procedure Side Surgeon dereck Cooper MD Meds Allergies and Home Medications Allergies Allergy/AdvReac Type Severity Reaction Status Date / Time amoxicillin (Amoxicillin) Allergy Intermediate hives, rash Verified 11/23/24 08:46 Sulfa (Sulfonamide Allergy Intermediate rash, hives Verified 11/23/24 08:46 Antibiotics) Penicillins Allergy Mild Skin Rash Verified 11/23/24 08:46 meloxicam AdvReac Mild itchy Verified 11/23/24 08:46 oxycodone AdvReac Mild feels Verified 11/23/24 08:46 sick Bee Stings Allergy Severe Anaphylaxis Uncoded 11/23/24 08:46 fish/seafood AdvReac Severe nausea, Uncoded 11/23/24 08:46 vomiting, diarrhea nuts AdvReac Severe nausea, Uncoded 11/22/24 12:43 vomiting, diarrhea Home Medication ?Medication ?Instructions ?Recorded bictegravir 50 mg-emtricitabine 1 tab PO HS 05/10/18 200 mg-tenofovir alafenam 25 mg tablet (Biktarvy) gabapentin 300 mg capsule 300 mg PO QHS 06/20/19 simethicone 125 mg capsule (Gas-X 125 mg PO TID 06/20/19 Extra Strength) acetaminophen 500 mg tablet 500 mg PO Q6H PRN PRN pain #60 tabs 05/13/20 venlafaxine 75 mg capsule,extended 150 mg PO HS 07/22/20 release 24 hr (Effexor XR) metformin 500 mg tablet 1,000 mg PO BID 12/29/21 tadalafil 5 mg tablet 5 mg PO DAILY 07/13/22 semaglutide 0.25 mg or 0.5 mg (2 0.25 mg subcut QWEEK 06/05/24 mg/3 mL) subcutaneous pen injector (Ozempic) pantoprazole 40 mg tablet,delayed See Rx Instructions .Route 07/03/24 release .COMPLEX #90 tabs atorvastatin 20 mg tablet 20 mg PO DAILY 09/25/24 bimatoprost 0.01 % eye drops 1 drp ophthalmic (eye) QPM 09/25/24 (Lumigan) epinephrine 0.3 mg/0.3 mL 0.3 ml IM ONCE 09/25/24 injection, auto-injector Current Visit Medications: Current Medications Generic Name Dose Route Start Last Admin Trade Name Freq PRN Reason Stop Dose Admin Ringer's Solution 1,000 mls @ 80 mls/hr 11/23/24 06:00 11/23/24 09:04 IV 11/23/24 23:59 80 mls/hr INFUSION CYRUS Administration IV Miscellaneous Supplies 1 each 11/23/24 06:00 Iv Access IV 11/23/24 23:59 DIRECTED CYRUS Ondansetron HCl 4 mg 11/22/24 18:09 Ondansetron 4 Mg/2 Ml Vial IVP 12/22/24 18:08 Q4H PRN PRN Nausea / Vomiting Sodium Chloride 0 ml 11/23/24 06:00 Normal Saline Flush 10 Ml Syr IV 11/23/24 23:59 PRN PRN Sodium Chloride 0 ml 11/23/24 06:00 Normal Saline 10 Ml Vial IJ 11/23/24 23:59 DIRECTED PRN Sterile Water 0 ml 11/23/24 06:00 Water,Injection,Sterile 10 Ml Vial IJ 11/23/24 23:59 DIRECTED PRN PFSH Active Problems Active Problems: Problem Status Onset Code Encounter for screening colonoscopy Acute Z12.11 Carcinoma in situ of larynx Acute D02.0 Osteoarthritis of left knee Acute M17.12 Wears hearing aid in both ears Acute Z97.4 Status post reverse total arthroplasty of right shoulder Acute ~06/02/23 Z96.611 Tinnitus, bilateral Acute H93.13 Sensorineural hearing loss, bilateral Acute H90.3 Laryngeal cancer Acute C32.9 Thrush Acute B37.0 Hoarseness Acute R49.0 Chronic laryngitis Chronic 16 J37.0 Difficulty speaking Chronic 11/15/14 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 HIV (human immunodeficiency virus infection) Chronic B20 GERD (gastroesophageal reflux disease) Chronic K21.9 Glaucoma Chronic H40.9 Right rotator cuff tear Acute M75.101 Primary osteoarthritis, right shoulder Acute M19.011 Medical History Medical History Abnormal CT scan, esophagus Anxiety Biceps tendinitis of right shoulder Bursitis of right shoulder Complete tear of right rotator cuff Depression Diabetes mellitus Emphysema lung Esophageal disorder Exposure to industrial toxin Finger laceration Former smoker Gastritis Hepatitis B History of anesthesia reaction Pt states blood pressure bottoms out History of blood transfusion pt. denies this History of shingles Hoarseness (12/04/15) Hx of headache Stress headaches Hyperlipidemia Laceration of left index finger (05/13/20) s/p debridement and nailbed repair: 05/13/2020 Laryngopharyngeal reflux Lesion of vocal cord Lung nodule Mucoid cyst of joint Rhinorrhea Tubular adenoma Vocal cord dysplasia Medical History Comments:: BP Bottoms out Surgical History Surgical History Excision, Olecranon Bursa (09/09/14) RIGHT History of colonoscopy 2019- [facility] History of esophagogastroduodenoscopy (EGD) (~08/14/20) History of esophagogastroduodenoscopy (EGD) (~11/2021) History of laryngoscopy Microlaryngoscopy with bilateral true vocal cord biopsy, 11/29/2022 Hx of biopsy Throat biopsy, throat polyps Incomplete tear of right rotator cuff (10/03/17) S/P repair on 06/26/2019 injected 07/12/18 Injury of extensor tendon of left hand (05/13/20) Open fracture of phalanx of left middle finger (05/13/20) S/P open reduction and PERC pinnin05/13/2020 Open fracture of phalanx of left ring finger (05/13/20) S/P open reduction and PERC pinnin05/13/2020 Status post left rotator cuff repair DOS: 08/01/18 Dr. Almeida Tobacco Smoking/Tobacco Use Status: Former Tobacco Use Alcohol Alcohol Intake: current Alcohol intake frequency: 0-2 drinks per day Alcohol type: beer and wine Details: 1-2 drinks nightly Substance Use Substance use: Never Substance use type: does not use Vital Signs and Lab Results Vital Signs Most Recent Vital Signs in EMR: Most Recent Vital Signs Temp Pulse Resp BP Pulse Ox 36.4 C L 57 L 16 105/80 98 11/23/24 08:35 11/23/24 08:35 11/23/24 08:35 11/23/24 08:35 11/23/24 08:35 Point of Care Results Point of Care Results: Finger Stick Blood Glucose 211 11/23/24 08:57 Lab Results Blood Type / Crossmatch: No Data to Display Complete Blood Count: No Data to Display Complete Metabolic Panel: No Data to Display Liver Function Panel: No Data to Display Coagulation Panel: No Data to Display Cardiac Panel: No Data to Display Arterial Blood Gas: No Data to Display Venous Blood Gas: No Data to Display Pancreas Panel: No Data to Display Thyroid Panel: No Data to Display Infectious Disease: No Data to Display Blood Cultures: No Data to Display Toxicology Panel: No Data to Display Anesthesia Assessment and Plan Anesthesia History Personal History: Other Family History: No Family History of Anesthesia Complications Exercise Tolerance Exercise Tolerance: Metabolic Equivalents>4 Pertinent Negatives Pertinent Negatives: No Major Cardiovascular Symptoms or Complaints and No Major Pulmonary Symptoms or Complaints Cardiac & Pulmonary Exam Cardiac Exam: Normal S1/S2 Heart Sounds Pulmonary Exam: Clear Bilateral Breath Sounds Implantable Cardiac Device Does patient have a Pacemaker or an ICD?: No Airway Exam Known Difficult Airway: No Mallampati Class: 2 Mouth Opening: Normal (> 3cm) Thyromental Distance: Greater than 3 cm Neck Range of Motion: Full ROM Neck Circumference: Normal Teeth Condition: Generalized Poor Dentition (none loose per patient) and Advised tooth loss possible given current condition (indicate tooth) ASA Classification ASA Score: ASA 3 Emergency Case?: No NPO Status NPO Status: NPO Clears >2 hours, Solids >8 hours Anesthesia Plan Resuscitation Status: Full Code Anesthesia Technique: General Anesthesia Airway Planned: Natural Airway Monitors Used: Standard Monitors
[2024-11-23 10:33] VITALS: BMI 31.0
[2024-11-23 11:07] VITALS: BP 116/85; PULSE 73; RESP 18; TEMP 36.3; O2SAT 96
--- NOTE | 2024-11-23 11:17 | W.ANESPOSTOP ---
Postoperative Evaluation Date, Time and Location Date Performed: 11/23/24 Time Performed: 11:18 Patient Location: Day Surgery Unit Vital Signs Most Recent Imported Vital Signs: Most Recent Vital Signs Temp Pulse Resp BP Pulse Ox 36.4 C L 57 L 16 105/80 98 11/23/24 08:35 11/23/24 08:35 11/23/24 08:35 11/23/24 08:35 11/23/24 08:35 Assessment Mental Status: Awake (Alert & Oriented to Patient Baseline) Airway and Respiratory Function: Patent airway with normal (patient baseline) respiratory exam Cardiovascular Function: Hemodynamically Stable Hydration Status: Adequately Hydrated Nausea & Vomiting: No Nausea or Vomiting Pain: Pt. Denies Any Pain Peripheral Nerve Block: Patient did not receive a nerve block
[2024-11-23 11:37] VITALS: BP 114/82; PULSE 56; RESP 16; TEMP 36.4; O2SAT 98
== END 2024-11-23 11:38 | disposition home or self-care (01) ==
LOC: SUR 08:27
PROVIDERS: PCP Physician Assistant; Visit Provider Surgery
PROC: 0DJD8ZZ Inspection of Lower Intestinal Tract, Via Natural or Artificial Opening Endoscopic (ICD-10-PCS; CPT 45378; principal; 2024-11-23 09:45)
DX: Z12.11 Encounter for screening for malignant neoplasm of colon (principal)
CPT/HCPCS: G0121; J2704

== ENCOUNTER 2024-12-05 08:13 | Outpatient (CLI) | payer MEDICARE, MEDICAID, SELFPAY ==
[2024-12-05 08:57] LABS: Abs Immature Grans 0.05 10^3/uL (0.0-0.06); Absolute Basophil Count 0.04 10^3/uL (0.0-0.2); Absolute Eosinophil Count 0.15 10^3/uL (0.0-0.7); Absolute Lymphocyte Count 1.53 10^3/uL (1.2-3.4); Absolute Neutrophil Count 3.32 10^3/uL (1.2-6.7); Basophils % 0.7 %; Eosinophils % 2.7 %; HCT 45.4 % (40.0-50.0); HGB 15.5 g/dL (13.5-17.5); Immature Grans % 0.9 %; Lymphocytes % 27.4 %; MCH 31.4 pg (27.0-33.0); MCHC 34.1 % (32.0-36.0); MCV 92 fL (80-95); MPV 9.3 fL (8.0-11.0); Monocytes % 8.9 %; Neutrophils % 59.4 %; Platelet Count 165 10^3/uL (130-400); RBC 4.93 10^6/uL (4.36-5.78); RDW-SD 43.7 fL; WBC 5.59 10^3/uL (4.4-10.8)
[2024-12-05 10:02] LABS: Hemoglobin A1C 7.5 % (<5.7)
[2024-12-05 10:41] LABS: ALT 34 U/L (16-63); AST 21 U/L (15-37); Albumin 3.6 g/dL (3.4-5.0); Alkaline Phosphatase 104 U/L (46-116); Anion Gap 7.2 mmol/L (3-11); BUN 9 mg/dL (7-18); Bilirubin, Total 0.4 mg/dL (0.2-1.0); CO2 26.8 mmol/L (21.0-32.0); CREATININE 1.1 mg/dL (0.70-1.30); Calcium 9.2 mg/dL (8.5-10.1); Calculated LDL 64 mg/dL (<100); Chloride 106 mmol/L (98-107); Cholesterol 148 mg/dL (<200); Estimated GFR 76.37 (mL/min/1.73m2); Glucose 176 mg/dL (74-106); HDL Cholesterol 56 mg/dL (>or=40); Potassium 4.3 mmol/L (3.5-5.1); Sodium 140 mmol/L (136-145); Total Protein 6.8 g/dL (6.4-8.2); Triglyceride 143 mg/dL (<150)
[2024-12-06 12:42] LABS: HIV 1 RNA Qualitative Detected Copys/mL (Undetected); HIV 1 RNA Quantitative 97 Copys/mL (Undetected)
[2024-12-07 10:11] LABS: Absolute CD3 1591 Cells/uL (840-2669); Absolute CD8 977 Cells/uL (154-1097); CD3 82 % (56-84); CD4 31 % (31-64); CD8 51 % (9-39)
[2024-12-07 17:16] LABS: HBV DNA Detect/Quant, PCR Undetected IU/mL (Undetected)
== END 2024-12-05 08:14 | disposition home or self-care (01) ==
LOC: LBO 08:13
PROVIDERS: Nurse Practitioner Family; PCP Physician Assistant; Visit Provider Internal Medicine Infectious Disease
DX: Z79.899 Other long term (current) drug therapy (principal); B20 Human immunodeficiency virus [HIV] disease
CPT/HCPCS: 36415; 80053; 80061; 87517; 87536; 83036; 85025; 86359; 86360

== ENCOUNTER 2025-01-16 14:57 | Emergency (ER) | payer MEDICARE, MEDICAID, SELFPAY ==
[2025-01-16] VITALS (10 sets, daily range): BP systolic 100–153; BP diastolic 70–98; PULSE 80–101; RESP 11–25; TEMP 36.4; O2SAT 94–98
--- NOTE | 2025-01-16 15:00 | DI.RAD_ITS ---
Exam(s) XR CHEST 1V IN DI DEPT EXAM: XR CHEST 1V IN DI DEPT CLINICAL HISTORY: History of fall. TECHNIQUE: 2D digital imaging was performed. COMPARISON: No exams were available for comparison FINDINGS: Single AP portable view. Heart size is upper normal. The mediastinum is not widened. Lungs are clear. No infiltrates nor obvious pleural effusions. No fractures evident. Right shoulder reverse prosthesis noted. IMPRESSION: No acute pulmonary findings on this single AP portable view of the chest. DATA REPOSITORY: RADIATION DOSE DELIVERED:
--- NOTE | 2025-01-16 15:07 | DI.CT_ITS ---
Exam(s) CT HEAD CERVICAL SPINE WO EXAM: CT HEAD CERVICAL SPINE WO CLINICAL HISTORY: fall head strike. TECHNIQUE: Imaging Protocol: Axial computed tomography images with coronal and sagittal reformatted images were created and reviewed COMPARISON: No exams were available for comparison FINDINGS: BRAIN: There are no skull fractures nor fluid in the visualized paranasal sinuses. There is no evidence of intracranial hemorrhage, mass effect, or shift of midline structures. There are no extra-axial fluid collections. The ventricles are not enlarged or shifted and there is no blo od within the ventricular system nor within the basal cisterns. CERVICAL SPINE: There is no evidence of fracture nor listhesis. No significant prevertebral soft tissue swelling. There is mild multilevel disc space narrowing, most prominent at C6-7 level where there also small bi lateral Luschka joint osteophytes. No significant facet arthropathy evident. There is no significant facet joint malalignment. No significant osseous lesions evident. IMPRESSION: No acute intracranial findings on this noninfused CT scan of the brain. No evidence of cervical spine fracture, malalignment, nor acute compromise of the cervical spinal can al. Mild multilevel disc space narrowing most prominent at C6-7 level noted. Called by myself to ER physician 01/16/2025 3:42 p.m. RADIATION DOSE DELIVERED: 1,388.29mGy.cm Total DLP DATA REPOSITORY: All CT scans at this facility are submitted to the National Radiology Data Registry (NRDR) Dose Index Registry (DIR) with the [employer] ([employer]). RADIATION OPTIMIZATION: All CT scans at this facility use at least one of these dose optimization te chniques: automated exposure control; mA and/or kV adjustment per patient size (includes targeted exa ms where dose is matched to clinical indication); or iterative reconstruction.
--- NOTE | 2025-01-16 15:08 | ED.GENADUL_ITS ---
Discharge Plan Disposition Patient Disposition: Home Discharge Details Clinical Impression: Laceration of scalp, Immunization, tetanus-diphtheria, Fall on and from ladder causing accidental injury Primary Care Provider: Bran Ramirez ED Provider: Mert Tang Home Meds and New Rx's Prescriptions: Continued Ozempic 0.25 mg or 0.5 mg (2 mg/3 mL) pen injector 0.25 mg subcut QWEEK Rx Instructions: for 4 weeks tadalafil 5 mg tablet 5 mg PO DAILY venlafaxine [Effexor XR] 75 mg capsule,extended release 24hr 150 mg PO HS pantoprazole 40 mg tablet,delayed release (DR/EC) See Rx Instructions .ROUTE .COMPLEX Qty: 90 4RF Dose Instruction: TAKE ONE TABLET BY MOUTH EVERY DAY Rx Instructions: TAKE ONE TABLET BY MOUTH EVERY DAY atorvastatin 20 mg tablet 20 mg PO DAILY Lumigan 0.01 % drops 1 drp ophthalmic (eye) QPM epinephrine 0.3 mg/0.3 mL auto-injector 0.3 ml IM ONCE Patient Comments: for severe allergic reaction, then call 911 Rx Instructions: as a single dose; may repeat once simethicone [Gas-X Extra Strength] 125 mg Capsule 125 mg PO TID gabapentin 300 mg Capsule 300 mg PO QHS metformin 500 mg tablet 1,000 mg PO BID acetaminophen 500 mg tablet 500 mg PO Q6H PRN PRN (Reason: pain) Qty: 60 3RF Biktarvy 50-200-25 mg Tablet 1 tab PO HS Discharge Instructions Instructions: Wound Infection Additional Instructions: You are seen in the emergency department following a fall. Your CAT scan showed no sign of any bleeding in your head. Your tetanus was updated. As we discussed if you become lightheaded pass out or develop any shortness of breath please return to the emergency department. Otherwise please follow-up with your primary care provider as needed. Your salomon need to come out in the next 7 to 10 days. You may return to the emergency department follow-up with [facility] or your primary care. As we discussed if you develop streaking signs of infection fevers or any foul-smelling drainage please return to the emergency department. For your pain please take medications as follows: 1. Take acetaminophen (Tylenol), 1,000 mg (two 500 mg tabs) every 6 hours [2. Take ibuprofen (Advil), 400 mg every 6 hours.] HPI General Date/Time Provider Initiated Documentation: 01/16/25 14:59 . HPI Narrative: MDM Primary survey intact. Reassuring shock index. On secondary survey patient has an approximately 3 cm hemostatic scalp laceration that violates the subcutaneous tissue for which patient will receive primary closure. Given distracting injury will obtain cervical spinal CT scan based on Nexus criteria. Patient has equal breath sounds and no hypoxia however will obtain chest x-ray based on mechanism of injury. Pelvis stable patient and patient has been amatory since his injury so my suspicion for pelvic fracture is low. No chest trauma to suggest pneumothorax so I do feel the patient requires a chest CT in the absence of chest pain or altered mental status. Soft nontender abdomen so I am not suspicious for intra-abdominal trauma. Patient does have some abrasions to his back but no midline thoracic nor lumbar spinal spinal tenderness. Patient had a tetanus updated just under 5 years ago however will update tetanus status in the emergency department given duration of time since last tetanus. No preceding chest pain to suggest ACS I do not feel patient required ECG. Similarly no preceding syncopal episode. 3:44 PM I spoke with Dr. Arias from radiology who reviewed the patient's CT scan of his head and cervical spine and noted no acute abnormalities. Will close patient's laceration with salomon. Please see procedure note for details. Patient ambulated in the ED. His vitals remained reassuring. I treated him with acetaminophen and ibuprofen prior to discharge. HPI The patient presents for evaluation of a fall. Approximately 25 to 30 minutes prior to the visit, he experienced a fall from a ladder, which was about 8 feet high, resulting in a head injury. He did not lose consciousness during the incident and has been ambulatory since then. He denies any preceding chest pain nausea vomiting shortness of breath. No dizziness. He also sustained injuries to his elbow, finger, and wrist, with a noticeable bump on his back. He reports no neck pain, nausea, vomiting, or respiratory distress. He is not currently on any anticoagulant therapy. The fall was caused by the ladder slipping. Exam General: Well-appearing in no acute distress speaking in complete sentences. Head: Normocephalic. On the left side of the patient's parietal scalp there is a hemostatic approximately 3 cm laceration. Eye:[Pupils equal, round reactive to light.] Extraocular eye movements intact. No conjunctival injection. No scleral icterus. Ear, nose, mouth, throat: Grossly normal inspection. Normal voice, handling secretions normally. No hemotympanum bilaterally. No septal hematoma. Neck: Trachea midline. No midline cervical spinal tenderness. Cardiovascular: Well-perfused distal extremities. Regular rate and rhythm. Respiratory: Nonlabored respiration. Clear lungs bilaterally. Equal breath sounds. Gastrointestinal: Nondistended abdomen. Soft nontender. Back: No midline thoracic nor lumbar spinal tenderness. No step-offs. No deformities. On the left side of the patient's back there are several superfici al abrasions. Musculoskeletal: No edema. Moving all 4 extremities spontaneously. Nontender bilateral upper and lower extremities. Skin: Normal for age and race, grossly normal temperature and turgor. No acute rash. Neurologic: Alert and appropriate, no apparent acute deficits. GCS 15. Related Data Home Medications ?Medication ?Instructions ?Recorded ?Confirmed bictegravir 50 mg-emtricitabine 1 tab PO HS 05/10/18 11/23/24 200 mg-tenofovir alafenam 25 mg tablet (Biktarvy) gabapentin 300 mg capsule 300 mg PO QHS 06/20/19 11/23/24 simethicone 125 mg capsule (Gas-X 125 mg PO TID 06/20/19 11/23/24 Extra Strength) acetaminophen 500 mg tablet 500 mg PO Q6H PRN PRN pain #60 tabs 05/13/20 11/23/24 venlafaxine 75 mg capsule,extended 150 mg PO HS 07/22/20 11/23/24 release 24 hr (Effexor XR) metformin 500 mg tablet 1,000 mg PO BID 12/29/21 11/23/24 tadalafil 5 mg tablet 5 mg PO DAILY 07/13/22 11/23/24 semaglutide 0.25 mg or 0.5 mg (2 0.25 mg subcut QWEEK 06/05/24 11/22/24 mg/3 mL) subcutaneous pen injector (Ozempic) pantoprazole 40 mg tablet,delayed See Rx Instructions .Route 07/03/24 11/23/24 release .COMPLEX #90 tabs atorvastatin 20 mg tablet 20 mg PO DAILY 09/25/24 11/23/24 bimatoprost 0.01 % eye drops 1 drp ophthalmic (eye) QPM 09/25/24 11/23/24 (Lumigan) epinephrine 0.3 mg/0.3 mL 0.3 ml IM ONCE 09/25/24 11/23/24 injection, auto-injector Previous Rx's ?Medication ?Instructions ?Recorded acetaminophen 500 mg tablet 500 mg PO Q6H PRN PRN pain #60 tabs 05/13/20 pantoprazole 40 mg tablet,delayed See Rx Instructions .Route 07/03/24 release .COMPLEX #90 tabs Allergies Allergy/AdvReac Type Severity Reaction Status Date / Time amoxicillin (Amoxicillin) Allergy Intermediate hives, rash Verified 11/23/24 08:46 Sulfa (Sulfonamide Allergy Intermediate rash, hives Verified 11/23/24 08:46 Antibiotics) Penicillins Allergy Mild Skin Rash Verified 11/23/24 08:46 meloxicam AdvReac Mild itchy Verified 11/23/24 08:46 oxycodone AdvReac Mild feels Verified 11/23/24 08:46 sick Bee Stings Allergy Severe Anaphylaxis Uncoded 11/23/24 08:46 fish/seafood AdvReac Severe nausea, Uncoded 11/23/24 08:46 vomiting, diarrhea nuts AdvReac Severe nausea, Uncoded 11/22/24 12:43 vomiting, diarrhea General Stated Complaint: Fall/Non TraumaCriteria MILE: 3 Course Vital Signs Vital signs: Vital Signs Temperature 36.4 C 01/16/25 14:59 Pulse 96 H 01/16/25 14:59 Respiratory Rate 25 H 01/16/25 14:59 Blood Pressure 153/98 H 01/16/25 14:59 Pulse Oximetry 98 01/16/25 14:59 Temperature 36.4 C 01/16/25 14:59 Temperature Source Oral 01/16/25 14:59 Pulse 96 H 01/16/25 14:59 Respiratory Rate 25 H 01/16/25 14:59 Blood Pressure 153/98 H 01/16/25 14:59 Blood Pressure Position Sitting 01/16/25 14:59 Pulse Oximetry 98 01/16/25 14:59 Oxygen Delivery Method Room Air 01/16/25 14:59 Oxygen Flow Rate 0 01/16/25 14:59 Procedure Laceration Laceration 1: Date of Procedure: 01/16/25 Time of procedure: 15:54 Patient Consented: Verbally Site: scalp Side (If applicable): left Description: linear Depth: simple, single layer Pre-repair:: wound explored and irrigated extensively Skin layer closed with: salomon (3 salomon) Medical Decision Making Quality:SDOH Health Related Social Needs: No Data to Display PFSH All Active Problems (Updated 01/16/25 @ 15:56 by Mert Tang MD) Fall on and from ladder causing accidental injury (Acute) Immunization, tetanus-diphtheria (Acute) Laceration of scalp (Acute) Carcinoma in situ of larynx (Acute) Osteoarthritis of left knee (Acute) DEPO MEDROL 11/10/23 Wears hearing aid in both ears (Acute) Status post reverse total arthroplasty of right shoulder (Acute ~06/02/23) Tinnitus, bilateral (Acute) Sensorineural hearing loss, bilateral (Acute) Laryngeal cancer (Acute) Thrush (Acute) Hoarseness (Acute) Chronic laryngitis (Chronic 12/04/15) Difficulty speaking (Chronic 11/15/13) hoarseness -ZANA 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 denies this History of shingles Depression Anxiety Rhinorrhea Tubular adenoma Former smoker Lesion of vocal cord Emphysema lung Lung nodule Esophageal disorder Laceration of left index finger (05/13/20) s/p debridement and nailbed repair: 05/13/2020 Biceps tendinitis of right shoulder Diabetes mellitus History of anesthesia reaction Pt states blood pressure bottoms out Hx of headache Stress headaches Hepatitis B Hyperlipidemia Hoarseness (12/04/15) Surgical History (Updated 11/26/24 @ 07:52 by Earline Kelly) History of laryngoscopy Microlaryngoscopy with bilateral true vocal cord biopsy, 11/29/2022 History of esophagogastroduodenoscopy (EGD) (~11/2021) History of esophagogastroduodenoscopy (EGD) (~08/14/20) Injury of extensor tendon of left hand (05/13/20) Open fracture of phalanx of left ring finger (05/13/20) S/P open reduction and PERC pinnin05/13/2020 Open fracture of phalanx of left middle finger (05/13/20) S/P open reduction and PERC pinnin05/13/2020 Hx of biopsy Throat biopsy, throat polyps History of colonoscopy (~11/2024) 2019[place] [facility] [place] Status post left rotator cuff repair DOS: 08/01/18 Dr. Almeida Incomplete tear of right rotator cuff (10/03/17) S/P repair on 06/26/2019 injected 07/12/18 Excision, Olecranon Bursa (09/09/14) RIGHT Family History Father Throat cancer Social History Smoking/Tobacco Use Status: Former Tobacco Use Quit Date: 08/15/08 Tobacco: How many years used: 25 Smoking risk assessment performed?: Yes Alcohol Intake: current Alcohol Intake frequency: 0-2 drinks per day Alcohol type: beer and wine Details: 1-2 drinks nightly Drug use: Never Substance use type: does not use Housing: house Pets and animals: Yes (2 ) Pets and animals: dog(s) Current gender identity: male Do you feel safe at home: Yes Do you feel safe in your relationship?: Yes
[2025-01-16 15:16] LABS: Abs Immature Grans 0.04 10^3/uL (0.0-0.06); Absolute Basophil Count 0.05 10^3/uL (0.0-0.2); Absolute Eosinophil Count 0.14 10^3/uL (0.0-0.7); Absolute Lymphocyte Count 2.57 10^3/uL (1.2-3.4); Absolute Monocyte Count 0.79 10^3/uL (0.1-0.8); Absolute Neutrophil Count 4.22 10^3/uL (1.2-6.7); Basophils % 0.6 %; Eosinophils % 1.8 %; HCT 47.6 % (40.0-50.0); HGB 16.6 g/dL (13.5-17.5); Immature Grans % 0.5 %; Lymphocytes % 32.9 %; MCHC 34.9 % (32.0-36.0); MCV 92 fL (80-95); MPV 9.4 fL (8.0-11.0); Monocytes % 10.1 %; Neutrophils % 54.1 %; Platelet Count 223 10^3/uL (130-400); RBC 5.18 10^6/uL (4.36-5.78); RDW-SD 43.8 fL; WBC 7.81 10^3/uL (4.4-10.8)
[2025-01-16 15:26] LABS: Anion Gap 8.6 mmol/L (3-11); BUN 15 mg/dL (7-18); CO2 25.4 mmol/L (21.0-32.0); CREATININE 1.5 mg/dL (0.70-1.30); Calcium 9.8 mg/dL (8.5-10.1); Chloride 102 mmol/L (98-107); Estimated GFR 52.64 (mL/min/1.73m2); Glucose 189 mg/dL (74-106); Potassium 4.1 mmol/L (3.5-5.1); Sodium 136 mmol/L (136-145)
[2025-01-16 15:27] LABS: ETHANOL BLOOD < 3.0 mg/dL (<10)
[2025-01-16] MEDS: Normal Saline 500 ML 1000 ML IV (15:28)
[2025-01-16] MEDS: ACETAMINOPHEN 1,000 MG/100 ML BAG 400 MG IVPB (15:28)
[2025-01-16] MEDS: Diph,Pertuss(Acell),Tet Vac/Pf 0.5 ML SYR IM (15:38)
[2025-01-16] MEDS: Ibuprofen 600 MG TAB PO (16:05)
== END 2025-01-16 16:19 | disposition home or self-care (01) ==
LOC: ER 18:01
PROVIDERS: Emergency Provider Emergency Medicine; PCP Physician Assistant
DX: S01.01XA Laceration without foreign body of scalp, initial encounter (principal); Z23 Encounter for immunization; W11.XXXA Fall on and from ladder, initial encounter
CPT/HCPCS: 99283; 99284; 12002; 90471; 36415; 80048; 86850; 86900; 86901; 90715; 96365; 70450; 71045; 72125; 80320; 85025; J0131

== ENCOUNTER 2025-05-06 09:30 | Outpatient (CLI) | payer MEDICARE, MEDICAID, SELFPAY ==
[2025-05-06 08:25] LABS: Abs Immature Grans 0.02 10^3/uL (0.0-0.06); HCT 45.5 % (40.0-50.0); HGB 15.3 g/dL (13.5-17.5); Immature Grans % 0.4 %; MCH 31.9 pg (27.0-33.0); MCHC 33.6 % (32.0-36.0); MCV 95 fL (80-95); MPV 9.6 fL (8.0-11.0); Platelet Count 169 10^3/uL (130-400); RBC 4.80 10^6/uL (4.36-5.78); RDW 13.0 % (11.8-14.1); RDW-SD 45.6 fL; WBC 5.50 10^3/uL (4.4-10.8)
[2025-05-06 10:03] LABS: ALT 26 U/L (16-63); AST 14 U/L (15-37); Albumin 3.7 g/dL (3.4-5.0); Alkaline Phosphatase 101 U/L (46-116); Anion Gap 8.2 mmol/L (3-11); BUN 12 mg/dL (7-18); Bilirubin, Total 0.3 mg/dL (0.2-1.0); CO2 24.8 mmol/L (21.0-32.0); Calcium 9.2 mg/dL (8.5-10.1); Chloride 106 mmol/L (98-107); Estimated GFR 85.10 (mL/min/1.73m2); Glucose 198 mg/dL (74-106); Potassium 4.3 mmol/L (3.5-5.1); Sodium 139 mmol/L (136-145); Total Protein 7.1 g/dL (6.4-8.2)
[2025-05-07 14:31] LABS: CD3 84 % (56-84); CD4 32 % (31-64); CD8 50 % (9-39)
== END 2025-05-06 09:31 | disposition home or self-care (01) ==
LOC: LBO 09:31
PROVIDERS: PCP Physician Assistant; Visit Provider Nurse Practitioner Family
DX: B20 Human immunodeficiency virus [HIV] disease (principal); Z79.899 Other long term (current) drug therapy
CPT/HCPCS: 36415; 80053; 87517; 87536; 85025; 86359; 86360

== ENCOUNTER 2025-05-29 10:51 | Outpatient (CLI) | payer MEDICARE, MEDICAID, SELFPAY ==
--- NOTE | 2025-05-29 08:00 | DI.RAD_ITS ---
Exam(s) XR SHOULDER RT COMPLETE 2+V EXAM: XR SHOULDER RT COMPLETE 2+V CLINICAL HISTORY: F/U RIGHT RTSA. TECHNIQUE: 2D digital imaging was performed. Three views. COMPARISON: CR XR SHOULDER RT COMPLETE 2+V from 06/05/2024 FINDINGS: There is stable line mint of the reverse shoulder prosthesis. There are no abnormal surrounding bony lucencies. IMPRESSION: Stable appearance of shoulder prosthesis. DATA REPOSITORY: RADIATION DOSE DELIVERED:
== END 2025-05-29 10:52 | disposition home or self-care (01) ==
LOC: DIORS 13:52
PROVIDERS: PCP Physician Assistant; Referring Provider Physician Assistant; Visit Provider Student in an Organized Health Care Education/Training Program
DX: Z47.89 Encounter for other orthopedic aftercare (principal); Z96.611 Presence of right artificial shoulder joint; M25.511 Pain in right shoulder
CPT/HCPCS: 99214; 20550; J1010; 73030